=== PATIENT | male | born 1940 | race Caucasian/White ===

== ENCOUNTER 2021-07-13 12:36 | Inpatient (IN) ==
[2021-07-13 13:13] LABS: Influenza A virus by PCR Negative (Negative); Influenza B virus by PCR Negative (Negative)
--- NOTE | 2021-07-13 13:16 | XRay Report ---
XR chest 1V portable HISTORY: 81 years-old Male SOB acute shortness of breath with reported pneumonia COMPARISON: None TECHNIQUE: Portable AP view of the chest FINDINGS: Cardiac silhouette is enlarged. Layering pleural effusions with left greater than right bibasilar con solidation. Consolidative opacities are also noted within the left midlung. Interstitial coarsening w ith pulmonary vascular congestion. No pneumothorax. Degenerative changes of the shoulders and spine. IMPRESSION: 1. Cardiomegaly with pulmonary vascular congestion. 2. Layering pleural effusions with left greater than right bibasilar consolidation. ACT 112: Negative or not required by law. The above report was generated using voice recognition software. It may contain grammatical, syntax o r spelling errors. Electronically signed by: Alden Brock M.D. 07/13/2021 1:14 PM
--- NOTE | 2021-07-13 13:21 | Emergency Department Note ---
History of Present Illness General Chief Complaint: Respiratory Problems Stated Complaint: NEG FOR COVID - POSITIVE FOR PNEUMONIA Time Seen by Provider: 07/13/21 12:54 History of Present Illness Provider Complaint: shortness of breath Onset (ago): week(s) (3) Consistency/Duration: + progressively worsening Relieved By: + nothing Exacerbated By: + lying flat, + exertion and + coughing Associated symptoms: + cough, + sputum production and + chest congestion; no lower extremity pain, no paresthesias, no hemoptysis, no nausea/vomiting, no syncope, no abdominal pain, no sense of impending doom or no lightheadedness Treatment prior to arrival: oxygen HPI Narrative: Patient not vaccinated as COVID-19. Patient states he was tested for COVID-19 last week and [facility] and was negative. Related Data Home oxygen amount: none Home Medications Medication Instructions Recorded Confirmed Type carboxymethylcellulose sodium 1 % 1 drp OPB BID 07/13/21 07/13/21 History eye drops (Artificial Tears (carboxymethylcellulose)) dorzolamide 22.3 mg-timolol 6.8 1 drp OPB BID 07/13/21 07/13/21 History mg/mL eye drops insulin aspart U-100 100 unit/mL See Rx Instructions .ROUTE .COMPLEX 07/13/21 07/13/21 History subcutaneous solution (Novolog U-100 Insulin aspart) insulin detemir U-100 100 unit/mL 35 unit SUBCUT HS 07/13/21 07/13/21 History subcutaneous solution (Levemir U-100 Insulin) metformin 1,000 mg tablet 1,000 mg PO BID 07/13/21 07/13/21 History Allergies Allergy/AdvReac Type Severity Reaction Status Date / Time Riruczj-VFK-WnQ Reductase Allergy Unknown LEG Verified 07/13/21 14:42 Inhibitor WEAKNESS [Wbnqisf-Aho-Pmz Reductase Inhibitor] Past Med/Surg History Medical History (Updated 07/13/21 @ 14:35 by Alexis Cortes) Diabetes Hyperlipidemia No pertinent family history Surgical History (Updated 07/13/21 @ 13:18 by Alexis Cortes) No pertinent past surgical history Social History Smoking Status: Never smoker Preferred Language: Slovenian Feels Safe at Home: Yes Review of Systems A total of 10 systems reviewed and were otherwise negative Physical Exam Vital Signs: Vital Signs - 24 hr 07/13/21 12:39 07/13/21 12:47 Temperature 36.7 C Temperature Source Temporal Artery Sc an Pulse Rate 79 Pulse Rhythm Regular Pulse Strength Normal Respiratory Rate 20 Respiratory Effort / Characteristics Non-Labored Respiratory Depth Normal Respiratory Patter n Regular Blood Pressure 134/96 Blood Pressure Teresa n 108 Blood Pressure Pos ition Sitting Pulse Oximetry 89 L 89 L Oxygen Delivery Me thod Room Air Nasal Cannula Oxygen Flow Rate 0 Sepsis Recent Feve r Within 48 Hours No Sepsis New/Unexpla ined Change in Men chantale Status N/A Sepsis Action Take n by Nursing No Action Required Oxygen Flow Rate - Titration 2 Pulse Oximetry Pos t Tiitration 97 Physical Exam: Physical Exam GENERAL: He is oriented to person, place, and time. He appears well-developed and well-nourished. He does not appear distressed. HENT: Exam performed. - Head: Normocephalic and atraumatic. - Right Ear: External ear normal. No mastoid tenderness. - Left Ear: External ear normal. No mastoid tenderness. - Mouth/Throat: The oropharynx is clear and moist. No trismus in the jaw. No dental abscesses or uvula swelling. No oropharyngeal exudate or tonsillar abscesses. EYES: Conjunctivae and EOM are normal. Pupils are equal, round, and reactive to light. Right eye exhibits no discharge. Left eye exhibits no discharge. No scleral icterus. NECK: Normal range of motion. Neck supple. No JVD present. No spinous process tenderness present. No carotid bruit present. No rigidity. No tracheal deviation and normal range of motion present. No Brudzinski's sign and no Kernig's sign noted. CV: Normal rate, regular rhythm, normal heart sounds and intact distal pulses. Palpable radial pulses bue. PULM/CHEST: Rales and rhonchi bilaterally. ABD: The abdomen is soft. Bowel sounds are normal. He has no distension. No mass is present. There is no tenderness. There is no rebound, no guarding, no Parra's sign and no tenderness at McBurney's point. Rovsig negative. MUSC/SKEL: 2+ pitting edema of the bilateral lower extremities. NEURO: He is alert and oriented to person, place, and time. He has normal strength. No cranial nerve deficit or sensory deficit. Coordination and gait normal. GCS eye subscore is 4. GCS verbal subscore is 5. GCS motor subscore is 6. Cerebellar tests wnl. SKIN: Skin is warm and dry. He is not diaphoretic. PSYCH: He has a normal mood and affect. Behavior is normal. Judgment and thought content normal. Course Course 1254: The patient was evaluated in room A1. A complete history and physical exam was performed Cardiac monitoring: An order was placed for continuous cardiac monitoring. The monitor shows a rate of 80 with sinus rhythm Patient was found to be hypoxic on room air. Supplemental oxygen via nasal cannula was applied which improved the patient's oxygen saturation. 1433: Vital signs stable on supplemental oxygen via nasal cannula. Imaging shows cardiomegaly with bilateral pleural effusions and cephalization. Labs show an elevated proBNP and troponin. Patient not reporting any chest pain, thought that the patient's elevated troponin is due to CHF exacerbation. Patient has a normal white blood cell count. Less concern for pneumonia. Covid swab negative. Patient be admitted to the [facility]. Medical Decision Making Laboratory Data Result diagrams: 07/13/21 13:30 07/13/21 13:30 Lab Results 07/13/21 07/13/21 07/13/21 Range/Units 12:44 12:44 13:30 WBC 9.08 (4.8-10.8) K/uL RBC 4.93 (4.7-6.1) M/uL Hgb 15.3 (14.0-18.0) g/dL Hct 46.0 (42-52) % MCV 93.3 (80-100) fL MCH 31.0 (25-34) pg MCHC 33.3 (32-36) g/dL RDW Std Deviation 46.7 H (36.4-46.3) fL RDW Coeff of Emmanuel 13.8 (11.5-14.5) % Plt Count 195 (130-400) K/uL MPV 11.2 H (7.4-10.4) fL Immature Gran % (Auto) 0.2 % Neut % (Auto) 71.0 % Lymph % (Auto) 19.1 % Stokes % (Auto) 7.6 % Eos % (Auto) 1.7 % Baso % (Auto) 0.4 % Neut # (Auto) 6.45 (1.4-6.5) K/uL Lymph # (Auto) 1.73 (1.2-3.4) K/uL Stokes # (Auto) 0.69 H (0.11-0.59) K/uL Eos # (Auto) 0.15 (0-0.5) K/uL Baso # (Auto) 0.04 (0-0.2) K/uL Immature Gran # (Auto) 0.02 (0.00-0.02) K/uL PT (9.0-12.0) Seconds INR (0.9-1.1) APTT (21.0-31.0) Seconds PTT Ratio VBG pH (7.36-7.41) VBG pCO2 (38-50) mmHg VBG pO2 mmHg VBG HCO3 mmol/L VBG O2 Saturation % VBG Base Excess mEq/L Barometric Pressure mm/Hg Sodium (136-145) mmol/L Potassium (3.5-5.1) mmol/L Chloride (98-107) mmol/L Carbon Dioxide (21-32) mmol/L Anion Gap (3-11) BUN (7-18) mg/dl Creatinine (0.6-1.4) mg/dl Est Cr Clr Drug Dosing Est GFR ( Amer) ml/min Est GFR (Non-Af Amer) ml/min BUN/Creatinine Ratio (10-20) Glucose (70-99) mg/dl Lactate (0.4-2.0) mmol/L Calcium (8.5-10.1) mg/dl Magnesium (1.8-2.4) mg/dl Total Bilirubin (0.2-1) mg/dl AST (15-37) U/L ALT (12-78) U/L Alkaline Phosphatase (45-117) U/L Troponin I (0-0.045) ng/ml NT-Pro-B Natriuret Pep (0-1800) pg/ml Total Protein (6.4-8.2) gm/dl Albumin (3.4-5.0) gm/dl Globulin (2.5-4.0) gm/dl Albumin/Globulin Ratio (0.9-2) Lipase (73-393) U/L SARS-CoV-2 (PCR) NEGATIVE (Negative) Influ A Molecular Assay Negative (Negative) Influ B Molecular Assay Negative (Negative) 07/13/21 07/13/21 07/13/21 Range/Units 13:30 13:30 13:33 WBC (4.8-10.8) K/uL RBC (4.7-6.1) M/uL Hgb (14.0-18.0) g/dL Hct (42-52) % MCV (80-100) fL MCH (25-34) pg MCHC (32-36) g/dL RDW Std Deviation (36.4-46.3) fL RDW Coeff of Emmanuel (11.5-14.5) % Plt Count (130-400) K/uL MPV (7.4-10.4) fL Immature Gran % (Auto) % Neut % (Auto) % Lymph % (Auto) % Stokes % (Auto) % Eos % (Auto) % Baso % (Auto) % Neut # (Auto) (1.4-6.5) K/uL Lymph # (Auto) (1.2-3.4) K/uL Stokes # (Auto) (0.11-0.59) K/uL Eos # (Auto) (0-0.5) K/uL Baso # (Auto) (0-0.2) K/uL Immature Gran # (Auto) (0.00-0.02) K/uL PT 10.3 (9.0-12.0) Seconds INR 1.0 (0.9-1.1) APTT 25.3 (21.0-31.0) Seconds PTT Ratio 1.0 VBG pH (7.36-7.41) VBG pCO2 (38-50) mmHg VBG pO2 mmHg VBG HCO3 mmol/L VBG O2 Saturation % VBG Base Excess mEq/L Barometric Pressure mm/Hg Sodium 143 (136-145) mmol/L Potassium 4.0 (3.5-5.1) mmol/L Chloride 108 H (98-107) mmol/L Carbon Dioxide 27 (21-32) mmol/L Anion Gap 8.0 (3-11) BUN 17 (7-18) mg/dl Creatinine 1.29 (0.6-1.4) mg/dl Est Cr Clr Drug Dosing Not Reportable Est GFR ( Amer) 59.0 ml/min Est GFR (Non-Af Amer) 50.9 ml/min BUN/Creatinine Ratio 12.8 (10-20) Glucose 172 H (70-99) mg/dl Lactate 1.7 (0.4-2.0) mmol/L Calcium 9.7 (8.5-10.1) mg/dl Magnesium 2.2 (1.8-2.4) mg/dl Total Bilirubin 0.8 (0.2-1) mg/dl AST 14 L (15-37) U/L ALT 17 (12-78) U/L Alkaline Phosphatase 90 (45-117) U/L Troponin I 0.047 H* (0-0.045) ng/ml NT-Pro-B Natriuret Pep 6077 H (0-1800) pg/ml Total Protein 7.9 (6.4-8.2) gm/dl Albumin 3.1 L (3.4-5.0) gm/dl Globulin 4.8 H (2.5-4.0) gm/dl Albumin/Globulin Ratio 0.6 L (0.9-2) Lipase 72 L (73-393) U/L SARS-CoV-2 (PCR) (Negative) Influ A Molecular Assay (Negative) Influ B Molecular Assay (Negative) 07/13/21 Range/Units 13:44 WBC (4.8-10.8) K/uL RBC (4.7-6.1) M/uL Hgb (14.0-18.0) g/dL Hct (42-52) % MCV (80-100) fL MCH (25-34) pg MCHC (32-36) g/dL RDW Std Deviation (36.4-46.3) fL RDW Coeff of Emmanuel (11.5-14.5) % Plt Count (130-400) K/uL MPV (7.4-10.4) fL Immature Gran % (Auto) % Neut % (Auto) % Lymph % (Auto) % Stokes % (Auto) % Eos % (Auto) % Baso % (Auto) % Neut # (Auto) (1.4-6.5) K/uL Lymph # (Auto) (1.2-3.4) K/uL Stokes # (Auto) (0.11-0.59) K/uL Eos # (Auto) (0-0.5) K/uL Baso # (Auto) (0-0.2) K/uL Immature Gran # (Auto) (0.00-0.02) K/uL PT (9.0-12.0) Seconds INR (0.9-1.1) APTT (21.0-31.0) Seconds PTT Ratio VBG pH 7.37 (7.36-7.41) VBG pCO2 53 H (38-50) mmHg VBG pO2 19 mmHg VBG HCO3 30 mmol/L VBG O2 Saturation < 60.0 % VBG Base Excess 3.6 mEq/L Barometric Pressure 739.1 mm/Hg Sodium (136-145) mmol/L Potassium (3.5-5.1) mmol/L Chloride (98-107) mmol/L Carbon Dioxide (21-32) mmol/L Anion Gap (3-11) BUN (7-18) mg/dl Creatinine (0.6-1.4) mg/dl Est Cr Clr Drug Dosing Est GFR ( Amer) ml/min Est GFR (Non-Af Amer) ml/min BUN/Creatinine Ratio (10-20) Glucose (70-99) mg/dl Lactate (0.4-2.0) mmol/L Calcium (8.5-10.1) mg/dl Magnesium (1.8-2.4) mg/dl Total Bilirubin (0.2-1) mg/dl AST (15-37) U/L ALT (12-78) U/L Alkaline Phosphatase (45-117) U/L Troponin I (0-0.045) ng/ml NT-Pro-B Natriuret Pep (0-1800) pg/ml Total Protein (6.4-8.2) gm/dl Albumin (3.4-5.0) gm/dl Globulin (2.5-4.0) gm/dl Albumin/Globulin Ratio (0.9-2) Lipase (73-393) U/L SARS-CoV-2 (PCR) (Negative) Influ A Molecular Assay (Negative) Influ B Molecular Assay (Negative) Imaging Data Radiologist's Impression: Chest X-Ray 07/13/21 12:42 XR chest 1V portable HISTORY: 81 years-old Male SOB acute shortness of breath with reported pneumonia COMPARISON: None TECHNIQUE: Portable AP view of the chest FINDINGS: Cardiac silhouette is enlarged. Layering pleural effusions with left greater than right bibasilar consolidation. Consolidative opacities are also noted within the left midlung. Interstitial coarsening with pulmonary vascular congestion. No pneumothorax. Degenerative changes of the shoulders and spine. IMPRESSION: 1. Cardiomegaly with pulmonary vascular congestion. 2. Layering pleural effusions with left greater than right bibasilar consolidation. ACT 112: Negative or not required by law. The above report was generated using voice recognition software. It may contain grammatical, syntax or spelling errors. Electronically signed by: Alden Brock M.D. 07/13/2021 1:14 PM ECG Data Interpretation: Sinus rhythm with rate of 76. OR 204 QRS [address] elevation or ST depression. First-degree AV block present. T wave inversion in leads V5 V6. [facility] Narrative 1254: The patient was evaluated in room A1. A complete history and physical exam was performed Cardiac monitoring: An order was placed for continuous cardiac monitoring. The monitor shows a rate of 80 with sinus rhythm Patient was found to be hypoxic on room air. Supplemental oxygen via nasal cannula was applied which improved the patient's oxygen saturation. 1433: Vital signs stable on supplemental oxygen via nasal cannula. Imaging shows cardiomegaly with bilateral pleural effusions and cephalization. Labs show an elevated proBNP and troponin. Patient not reporting any chest pain, thought that the patient's elevated troponin is due to CHF exacerbation. Patient has a normal white blood cell count. Less concern for pneumonia. Covid swab negative. Patient be admitted to the [facility] Dr. Saucedo. Impression & Plan Hypoxia, Acute exacerbation of CHF (congestive heart failure) Critical Care Time Critical Care Time: Yes Total Critical Care Time: 43 I have personally spent greater than 43 minutes of critical care time in the direct management of this patient. This includes bedside care, interpretation of diagnostic studies, and testing, discussion with consultants, patient, and family members, and other required patient management activities. This 43 mi nutes is in excess of all separately billable procedures. Discharge Plan Visit Data Chief Complaint: Respiratory Problems Stated Complaint: NEG FOR COVID - POSITIVE FOR PNEUMONIA ED Provider: Alexis Cortes Discharge Problem: Hypoxia, Acute exacerbation of CHF (congestive heart failure) Patient Disposition: Admitted As Inpatient Forms Stand Alone Forms: My [facility] Prescriptions Prescriptions: No Action insulin aspart U-100 [Novolog U-100 Insulin aspart] 100 unit/mL solution See Rx Instructions .ROUTE .COMPLEX RF: 0 metformin 1,000 mg tablet 1,000 mg PO BID RF: 0 dorzolamide-timolol 22.3-6.8 mg/mL drops 1 drp OPB BID RF: 0 Levemir U-100 Insulin 100 unit/mL solution 35 unit SUBCUT HS RF: 0 Artificial Tears (cmc) 1 % Drops 1 drp OPB BID RF: 0 Referrals Referrals: PCP,NO [Physician] - Discharge Problem: Acute exacerbation of CHF (congestive heart failure) Qualifiers: Heart failure type: unspecified Qualified Code(s): I50.9 - Heart failure, unspecified
[2021-07-13 13:42] LABS: Basophils # (auto) 0.04 K/uL (0-0.2); Basophils % (auto) 0.4 %; Eosinophils # (auto) 0.15 K/uL (0-0.5); Eosinophils % (auto) 1.7 %; Hemoglobin 15.3 g/dL (14.0-18.0); Immature Granulocytes # (auto) 0.02 K/uL (0.00-0.02); Immature Granulocytes % (auto) 0.2 %; Lymphocytes # (auto) 1.73 K/uL (1.2-3.4); Lymphocytes % (auto) 19.1 %; Mean Corpuscular Hgb Conc 33.3 g/dL (32-36); Mean Corpuscular Volume 93.3 fL (80-100); Mean Platelet Volume 11.2 fL (7.4-10.4); Monocytes # (auto) 0.69 K/uL (0.11-0.59); Monocytes % (auto) 7.6 %; Neutrophils # (auto) 6.45 K/uL (1.4-6.5); Platelet Count 195 K/uL (130-400); RDW Coefficient of Variation 13.8 % (11.5-14.5); RDW Standard Deviation 46.7 fL (36.4-46.3); Red Blood Count 4.93 M/uL (4.7-6.1); White Blood Count 9.08 K/uL (4.8-10.8)
[2021-07-13 13:54] LABS: Partial Thromboplastin Time 25.3 Seconds (21.0-31.0); Prothrombin Time 10.3 Seconds (9.0-12.0)
[2021-07-13 13:55] LABS: Base Excess VBG 3.6 mEq/L; HCO3 VBG 30 mmol/L; Oxygen Saturation VBG < 60.0 %; PCO2 VBG 53 mmHg (38-50); PO2 VBG 19 mmHg; pH VBG 7.37 (7.36-7.41)
[2021-07-13 14:07] LABS: Alanine Aminotransferase 17 U/L (12-78); Albumin Level 3.1 gm/dl (3.4-5.0); Aspartate Aminotransferase 14 U/L (15-37); BUN Creatinine Ratio 12.8 (10-20); Blood Urea Nitrogen 17 mg/dl (7-18); Calcium 9.7 mg/dl (8.5-10.1); Carbon Dioxide 27 mmol/L (21-32); Chloride 108 mmol/L (98-107); Est GFR (Non-African American) 50.9 ml/min; Glucose 172 mg/dl (70-99); Lipase 72 U/L (73-393); Magnesium 2.2 mg/dl (1.8-2.4); Sodium 143 mmol/L (136-145)
[2021-07-13 14:19] LABS: Albumin Globulin Ratio 0.6 (0.9-2); Alkaline Phosphatase 90 U/L (45-117); Bilirubin,Total 0.8 mg/dl (0.2-1); Globulin 4.8 gm/dl (2.5-4.0); NT Pro B Type Natriuretic Pept 6077 pg/ml (0-1800); Total Protein 7.9 gm/dl (6.4-8.2); Troponin I 0.047 ng/ml (0-0.045)
[2021-07-13] MEDS ORDERED: FUROSEMIDE 40 MG/4 ML VIAL IV ONE (14:21)
--- NOTE | 2021-07-13 14:56 | History & Physical Report ---
Date of Service July 13, 2021 Assessment & Plan (1) Hypoxia: (2) Fluid overload: (3) Pneumonia: Plan: Patient is 81-year-old male with PMH insulin-dependent DM II presented to ER with c/o SOB with exertion x 3 weeks. Mild nonproductive cough. Increased BLE edema. No fever/chills. Denies known cardiac history. In ER patient afebrile, hypoxic at 89% on room air up to 95% on 2L oxygen via NC, other vitals stable. No leukocytosis, lactate WNL, troponin: 0.047, BNP: 6077, negative COVID-19 PCR. CXR: Pulmonary vascular congestion, pleural effusions, bibasilar consolidation In ER was given Lasix 40 mg IV Fluid overload. Unknown CHF history Community-acquired pneumonia -Obtain procalcitonin -Blood cultures pending -Rocephin, azithromycin -Monitor I's and O's, daily weight, low-sodium diet -Lasix 20 mg IV daily -Echo -Supplemental oxygen -CBC, BMP in a.m. (4) Elevated troponin: Plan: Possible demand ischemia Troponin: 0.047. EKG sinus rhythm, Q waves septal leads, T wave inversion inferior and lateral leads. No prior EKG to compare Denies chest pain R/O ACS -Repeat EKG in am -Trend troponin -Echo -lipid panel in am -Consider cardiology consult if increasing troponin, EKG changes or chest pain (5) Insulin dependent diabetes mellitus: Plan: DM II -Unknown baseline A1c -Patient prescribed 80 units Levemir at bedtime however has been taking around 20 to 30 units in the morning. Is prescribed NovoLog with meals however he reports has not been using -Diabetic diet -Monitor BSG's -Basal bolus insulin per protocol. May need to adjust insulin -A1c in a.m. DVT Prophylaxis -Heparin SQ Full Code as per discussion with pt Follows with Dr Samir Hernandez in [place] for routine care Pt was seen and care coordinated with Dr Avila. See addendum History of Present Illness Chief Complaint: SOB Primary Care Provider: Samir Hernandez Patient is 81-year-old male with PMH insulin-dependent DM II presented to ER with c/o SOB. Patient reports 3 weeks ago started with some mild SOB. SOB increased and called PCP and was given prescription for zithromax on 07/03/21. He reports he finished this without any improvement. Past several days with incre ased SOB with exertion. States has slight nonproductive cough. Denies fever/chills or ill contacts. States noticed increased BLE edema past several days and has decreased appetite. Feels abdomen looks larger. Has had decreased appetite past week or so. No other prior treatment. Has not received COVID-19 vaccine. He is prescribed Levemir 80 units at bedtime, however patient reports has been using 20-30 units of Levemir in the morning. He is prescribed NovoLog 8 units at breakfast, 12 units at lunch and supper however patient reports has not been using that. Denies fever/chills, diaphoresis, N/V/D/C, LANDA, dizziness, syncope, vision changes, neck pain, CP, orthopnea, palpitations, sore throat, choking, otalgia, rhinorrhea, abdominal pain, extremity weakness, extremity edema, rashes, urinary symptoms. In ER patient afebrile, hypoxic at 89% on room air up to 95% on 2L via NC, other vitals stable. No leukocytosis, lactate WNL, troponin: 0.047, BNP: 6077, negative COVID-19 PCR. CXR: Pulmonary vascular congestion, pleural effusions, bibasilar consolidation In ER was given Lasix 40 mg IV Allergies Allergy/AdvReac Type Severity Reaction Status Date / Time Xbrpwog-NWB-VfF Reductase Allergy Unknown LEG Verified 07/13/21 14:42 Inhibitor WEAKNESS [Tncnqhr-Mnh-Pfw Reductase Inhibitor] Home Medications Medication Instructions Recorded Confirmed Type carboxymethylcellulose sodium 1 % 1 drp OPB BID 07/13/21 07/13/21 History eye drops (Artificial Tears (carboxymethylcellulose)) dorzolamide 22.3 mg-timolol 6.8 1 drp OPB BID 07/13/21 07/13/21 History mg/mL eye drops insulin aspart U-100 100 unit/mL See Rx Instructions .ROUTE .COMPLEX 07/13/21 07/13/21 History subcutaneous solution (Novolog U-100 Insulin aspart) insulin detemir U-100 100 unit/mL 80 unit SUBCUT HS 07/13/21 07/13/21 History subcutaneous solution (Levemir U-100 Insulin) metformin 1,000 mg tablet 1,000 mg PO BID 07/13/21 07/13/21 History Past Med/Surg History Medical History (Updated 07/13/21 @ 16:00 by Danielle Norton PA-C) Hyperlipidemia Insulin dependent diabetes mellitus Surgical History (Updated 07/13/21 @ 15:51 by Danilele Norton PA-C) History of carpal tunnel surgery History of cataract surgery Family History (Updated 07/13/21 @ 15:51 by Danielle Norton PA-C) Other Diabetes Social History (Updated 07/13/21 @ 15:51 by Danielle Norton PA-C) Smoking Status: Never smoker Hx Alcohol Use: No Hx Substance Use: No Preferred Language: German Feels Safe at Home: Yes Review of Systems Review of Systems: All systems reviewed & are unremarkable except as noted in HPI & below Physical Exam Physical Exam: General: no distress, obese Head: normocephalic, atraumatic Eyes: conjunctiva non-injected, anicteric ENT: hard of hearing, normal inspection external ears, nose, mucous membranes moist Neck: supple, trachea midline Lungs: +rales bases, right greater than left, no respiratory distress on 2L nasal cannula with sat of 96%, able to speak in full sentences CV: RRR, no murmur, 2+ pretibial edema Abd: distended, normal BS, soft, non-tender Ext: no cyanosis, no erythema Neuro: A&O x 3, no focal deficits noted, normal affect Skin: warm, dry Results & Data Results & Data ([facility]) Vital Signs (Past 12 Hours) Vital Signs Temp Pulse Resp BP Pulse Ox 07/13/21 12:47 89 L 07/13/21 12:39 36.7 C 79 20 134/96 89 L Laboratory Results Short CBC 07/13/21 Range/Units 13:30 WBC 9.08 (4.8-10.8) K/uL Hgb 15.3 (14.0-18.0) g/dL Hct 46.0 (42-52) % Plt Count 195 (130-400) K/uL BMP 07/13/21 13:30 Sodium 143 Potassium 4.0 Chloride 108 H Carbon Dioxide 27 BUN 17 Creatinine 1.29 Glucose 172 H Calcium 9.7 Cardiac Enzymes 07/13/21 Range/Units 13:30 Troponin I 0.047 H* (0-0.045) ng/ml Liver Function 07/13/21 Range/Units 13:30 Total Bilirubin 0.8 (0.2-1) mg/dl AST 14 L (15-37) U/L ALT 17 (12-78) U/L Alkaline Phosphatase 90 (45-117) U/L Albumin 3.1 L (3.4-5.0) gm/dl Diagnostic Findings Chest X-Ray 07/13/21 12:42 XR chest 1V portable HISTORY: 81 years-old Male SOB acute shortness of breath with reported pneumonia COMPARISON: None TECHNIQUE: Portable AP view of the chest FINDINGS: Cardiac silhouette is enlarged. Layering pleural effusions with left greater than right bibasilar consolidation. Consolidative opacities are also noted within the left midlung. Interstitial coarsening with pulmonary vascular congestion. No pneumothorax. Degenerative changes of the shoulders and spine. IMPRESSION: 1. Cardiomegaly with pulmonary vascular congestion. 2. Layering pleural effusions with left greater than right bibasilar consolidation. ACT 112: Negative or not required by law. The above report was generated using voice recognition software. It may contain grammatical, syntax or spelling errors. Electronically signed by: Alden Brock M.D. 07/13/2021 1:14 PM ECG Rate (beats per minute): 76 Rhythm: sinus rhythm Findings: + Q waves (Septal) and + T-wave inversion (Inferior, lateral ) Supervising Physician Co-Signing Physician Notes Pt is a 81 y/o M with hx of IDDM admitted for hypoxia and SOB. -At bedside pt denied any hx of MN, HF, CAD or DVT/PE. Denied any hx of smoking, Asthma/COPD. Exam: -NAD, NC in place -Lungs: good air entry b/l with b/l lower lobe rales -Cards: Normal S1/S2, possible systolic murmur -Abd: Mildly distended, NT, soft -MSK: b/l moderate pitting edema of LE -Psych: AAOx3. A/P: Hypoxia: -CAP + ADHF - CAP: Ceftriaxone and Azithro due to b/l lung finding ---- procal, COVID neg -ADHF: Echo, will start the pt on Lasix 20mg IV daily - strict I/O and daily weights - cardiology consult Troponemia: -denied any symptoms -trend trop -echo - if trop trends up then start the pt on heparin gtt Agree with A/P by Danielle Norton PA-C
[2021-07-13] MEDS ORDERED: AZITHROMYCIN 500 MG in DEXTROSE 5% 250 ML IV STA (15:32)
[2021-07-13] MEDS ORDERED: cefTRIAXone SODIUM 1,000 MG/50 ML BAG IV STA (15:32)
[2021-07-13] MEDS ORDERED: GLUCOSE 10 TABS/TUBE PO PRN (18:29)
[2021-07-13] MEDS ORDERED: DEXTROSE 50% 50 ML SYRINGE IV PRN (18:29)
[2021-07-13] MEDS ORDERED: ACETAMINOPHEN 325 MG TAB PO PRN (18:29)
[2021-07-13] MEDS ORDERED: CARBOHYDRATES FOR HYPOGLYCEMIA PO PRN (18:29)
[2021-07-13] MEDS ORDERED: GLUCAGON FOR INJ 1 MG VIAL SQ PRN (18:29)
[2021-07-13] MEDS ORDERED: GLUCOSE 40% GEL 15 GM TUBE PO PRN (18:29)
--- NOTE | 2021-07-13 18:48 | Electrocardiogram Report ---
Test Reason : Blood Pressure : / mmHG Vent. Rate : 076 BPM Atrial Rate : 076 BPM P-R Int : 204 ms QRS Dur : 084 ms QT Int : 398 ms P-R-T Axes : 041 -03 184 degrees QTc Int : 447 ms Normal sinus rhythm Left atrial enlargement Septal infarct , age undetermined Left ventricular hypertrophy with repolarization abnormality Abnormal ECG When compared with ECG of 12-JAN-1998 13:52, Septal infarct is now Present Left ventricular hypertrophy with repolarization abnormality now present Confirmed by Juan Daniel Mchugh ([id number]) on 07/13/2021 6:48:20 PM Referred By: Confirmed By:Juan Daniel Mchugh
[2021-07-13] MEDS ORDERED: PATIENT'S HEIGHT AND/OR WEIGHT NEEDED SCH (19:00)
[2021-07-13] MEDS ORDERED: cefTRIAXone SODIUM 1,000 MG in DEXTROSE 5% 50 ML IV ONE (19:45)
[2021-07-13] MEDS: INSULIN ASPART 100 UNITS/ML 3 ML PEN SC SCH ×2 (20:53→21:46)
[2021-07-13] MEDS: DORZOLAMIDE/TIMOLOL 22.3/6.8MG/ML 10 ML BTL OPB SCH (21:45)
[2021-07-13] MEDS: HEPARIN SOD 5,000 UNIT/0.5 ML VIAL SQ SCH (21:47)
[2021-07-13] MEDS: INSULIN GLARGINE SOLOSTAR 100 UNITS/ML 3 ML PEN SC SCH (21:47)
[2021-07-13] MEDS: ARTIFICIAL TEARS OP SCH (21:47)
[2021-07-14 07:42] LABS: Hematocrit (blood only) 42.3 % (42-52); Hemoglobin 14.1 g/dL (14.0-18.0); Mean Corpuscular Hemoglobin 31.1 pg (25-34); Mean Corpuscular Hgb Conc 33.3 g/dL (32-36); Mean Corpuscular Volume 93.4 fL (80-100); Platelet Count 182 K/uL (130-400); RDW Coefficient of Variation 13.9 % (11.5-14.5); RDW Standard Deviation 47.4 fL (36.4-46.3); Red Blood Count 4.53 M/uL (4.7-6.1); White Blood Count 7.85 K/uL (4.8-10.8)
[2021-07-14 08:17] LABS: BUN Creatinine Ratio 15.2 (10-20); Creatinine Clr Calc Pharmacy 64.8 ml/min; Est GFR (African American) 76.6 ml/min; Est GFR (Non-African American) 66.1 ml/min; Potassium 3.6 mmol/L (3.5-5.1)
[2021-07-14] MEDS: INSULIN ASPART 100 UNITS/ML 3 ML PEN SC SCH ×4 (08:45→20:33)
[2021-07-14] MEDS: AZITHROMYCIN 500 MG in DEXTROSE 5% 250 ML IV SCH (08:45)
[2021-07-14] MEDS: INSULIN GLARGINE SOLOSTAR 100 UNITS/ML 3 ML PEN SC SCH ×2 (08:47→20:33)
[2021-07-14] MEDS: DORZOLAMIDE/TIMOLOL 22.3/6.8MG/ML 10 ML BTL OPB SCH ×2 (08:47→20:28)
[2021-07-14] MEDS: ARTIFICIAL TEARS OP SCH ×2 (08:47→20:28)
[2021-07-14] MEDS: HEPARIN SOD 5,000 UNIT/0.5 ML VIAL SQ SCH ×2 (08:48→20:36)
[2021-07-14 11:09] LABS: Estimated Average Glucose 160 mg/dl; Hemoglobin A1C 7.2 % (4.5-5.6)
--- NOTE | 2021-07-14 19:30 | Hospitalist Progress Note ---
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 No fever/chills. Denies known cardiac history. Is being managed for the following: #. Acute hypoxic respiratory failure #. Fluid overload: #. Pneumonia: L>R bibasilar consolidation in admitting CXR #. Acute systolic heart failure #. Pleural effusion - layering Pl. Eff in Admitting CXR, c/t monitor, lasix. In ER patient afebrile, hypoxic at 89% on room air up to 95% on 2L oxygen via NC, other vitals stable. No leukocytosis, lactate WNL, troponin: 0.047, BNP: 6077, negative COVID-19 PCR. CXR: Pulmonary vascular congestion, pleural effusions, bibasilar consolidation In ER was given Lasix 40 mg IV 07/14 echo: Severely reduced LV systolic function with severe global hypokinesis, EF 20 to 25%, grade 2 diastolic dysfunction, severe aortic stenosis. Cardiology consulted, await recommendation For community-acquired pneumonia, continue with antibiotic [Rocephin and Zithromax 07/13], WBC trending down, patient afebrile. Patient will need follow-up chest x-ray in 4 to 6 weeks to document resolution of pneumonia. Await blood cultures. For acute systolic heart failure: Monitor I's and O's, await cardiology recommendation, Lasix. Continue with supplemental oxygen, titrate as appropriate, monitor daily electrolytes and labs. #. Elevated troponin: Possible demand ischemia Troponin: 0.047. Admitting EKG sinus rhythm, Q waves septal leads, T wave inversion inferior and lateral leads. No prior EKG to compare Denies chest pain R/O ACS -troponin down trended to normal Lipid panel WNL #. Insulin dependent diabetes mellitus II: -Unknown baseline A1c -Patient prescribed 80 units Levemir at bedtime however has been taking around 20 to 30 units in the morning. Is prescribed NovoLog with meals however he reports has not been using -Diabetic diet -Monitor BSG's -Basal bolus insulin per protocol. May need to adjust insulin -A1c to follow DVT Prophylaxis -Heparin SQ Full Code as per discussion with pt Follows with Dr Samir Hernandez in [place] for routine care. Disposition: Likely discharge in 1 to 2 days, PT/OT, CM to assist with DC planning. Admission and Anticipated Discharge Date Admission Date: July 13, 2021 Subjective Patient was lying in bed, on 1 L nasal cannula oxygen, NAD, no acute events overnight. Patient reports eating okay. Patient reports feeling short of b reath relieved with oxygen. Patient denies fever/headache/chest pain/palpitation/other review of symptoms. Physical Exam Physical Exam: GENERAL: Alert and oriented x3. NAD, on 1L. HEENT: No pallor, no icterus. Pupils equal, round and reactive to light. Oral mucosa moist. NECK: No JVD, no neck masses. HEART: S1 and S2 heard. Regular rate and rhythm. No murmur, no gallop. RESPIRATORY SYSTEM: Normal AP diameter. No accessory muscle use. No wheezing, b/l crackles with decreased bibasal sounds. ABDOMEN: Soft, bowel sounds present, nontender, no distention. CENTRAL NERVOUS SYSTEM: No facial droop. Speech is clear. Obeys simple commands. Moves extremities. EXTREMITIES: 1+ edema, no erythema seen. Results & Data Results & Data ([facility]) Vital Signs (Past 12 Hours) Vital Signs Temp Pulse Pulse Pulse Pulse Pulse Pulse 07/14/21 18:32 36.5 C 97 H 07/14/21 15:48 36.4 C L 107 H 07/14/21 15:00 84 07/14/21 14:00 92 H 93 H 90 102 H 07/14/21 11:14 36.5 C 73 07/14/21 07:22 36.6 C 75 Pulse Resp Resp Resp Resp Resp Resp 07/14/21 18:32 16 07/14/21 15:48 16 07/14/21 15:00 07/14/21 14:00 83 22 22 22 20 18 07/14/21 11:14 16 07/14/21 07:22 16 BP Pulse Ox Pulse Ox Pulse Ox Pulse Ox Pulse Ox Pulse Ox 07/14/21 18:32 148/88 H 94 07/14/21 15:48 161/87 H 94 07/14/21 15:00 07/14/21 14:00 88 L 94 84 L 89 L 90 07/14/21 11:14 126/80 92 07/14/21 07:22 145/86 H 94
[2021-07-14] MEDS: cefTRIAXone SODIUM 2,000 MG in DEXTROSE 5% 50 ML IV SCH (20:28)
[2021-07-15] MEDS: DORZOLAMIDE/TIMOLOL 22.3/6.8MG/ML 10 ML BTL OPB SCH ×2 (08:13→20:42)
[2021-07-15] MEDS: INSULIN GLARGINE SOLOSTAR 100 UNITS/ML 3 ML PEN SC SCH ×2 (08:14→20:46)
[2021-07-15] MEDS: ARTIFICIAL TEARS OP SCH ×2 (08:15→20:42)
[2021-07-15] MEDS: INSULIN ASPART 100 UNITS/ML 3 ML PEN SC SCH ×4 (08:17→20:46)
[2021-07-15] MEDS: AZITHROMYCIN 500 MG in DEXTROSE 5% 250 ML IV SCH (08:25)
[2021-07-15] MEDS ORDERED: FUROSEMIDE 40 MG/4 ML VIAL IV SCH (09:00)
[2021-07-15 09:33] LABS: BUN Creatinine Ratio 15.6 (10-20); Calcium 8.8 mg/dl (8.5-10.1); Creatinine Clr Calc Pharmacy 72.5 ml/min; Est GFR (African American) 87.7 ml/min; Est GFR (Non-African American) 75.7 ml/min; Magnesium 2.1 mg/dl (1.8-2.4); Potassium 3.8 mmol/L (3.5-5.1)
[2021-07-15 09:34] LABS: Phosphorus 3.1 mg/dl (2.5-4.9)
[2021-07-15] MEDS: HEPARIN SOD 5,000 UNIT/0.5 ML VIAL SQ SCH ×2 (12:26→20:44)
--- NOTE | 2021-07-15 12:43 | Cardiology Consultation ---
Date of Consultation July 15, 2021 Assessment & Plan (1) Acute respiratory failure with hypoxia: (2) Acute systolic heart failure: (3) Elevated troponin: (4) Pneumonia: (5) Aortic stenosis: Low gradient severe aortic stenosis Mr. Arriaga presents in acute decompensated systolic heart failure. My assumption at this point this is due to severe aortic stenosis that is gone undiagnosed. The stenosis is critical by examination given the fact that S2 is no longer audible Severely reduced LV systolic function with an EF of 20 to 25%. At this point, I believe the most prudent course of action will be to start guideline directed medical therapy. To that end I will start him on metoprolol succinate and spironolactone. He is already been started on low-dose lisinopril and I will increase his Lasix to 40 mg IV twice daily. Strict I's and O's along with daily weights on the same scale. Will require CHF teaching prior to discharge. We will continue to follow the patient closely during his hospital stay and further recommendations to follow. History of Present Illness Reason for Consultation: CHF Requesting Physician: Nicholas Attending Physician: Giovanny Peterson MD History of Present Illness Mr. Arriaga is a very pleasant 81-year-old gentleman who is never been seen within the [employer] system previously. He presented to [facility] emergency department on 07/14/2021 with complaints of shortness of breath. He states his he first noticed difficulty breathing approximately 1 month ago.He states that his breathing has progressed to the point where he is now getting short of breath at rest. He was seen by his P CP on 07/03/2021 and given a prescription for a Z-Uriel. He states he not see any benefit with this medication. He also notes increasing lower extremity edema and a decreasing appetite. But denies chest pain or palpitations. He denies any cardiac history. He states he is never been told he had a murmur before and sees his PCP regularly. Allergies Allergy/AdvReac Type Severity Reaction Status Date / Time Wvqstre-XPU-RbG Reductase Allergy Unknown LEG Verified 07/13/21 14:42 Inhibitor WEAKNESS [Myujxns-Aiv-Jsq Reductase Inhibitor] Home Medications Medication Instructions Recorded Confirmed Type carboxymethylcellulose sodium 1 % 1 drp OPB BID 07/13/21 07/13/21 History eye drops (Artificial Tears (carboxymethylcellulose)) dorzolamide 22.3 mg-timolol 6.8 1 drp OPB BID 07/13/21 07/13/21 History mg/mL eye drops insulin aspart U-100 100 unit/mL See Rx Instructions .ROUTE .COMPLEX 07/13/21 07/13/21 History subcutaneous solution (Novolog U-100 Insulin aspart) insulin detemir U-100 100 unit/mL 80 unit SUBCUT HS 07/13/21 07/13/21 History subcutaneous solution (Levemir U-100 Insulin) metformin 1,000 mg tablet 1,000 mg PO BID 07/13/21 07/13/21 History Patient History Medical History Hyperlipidemia Insulin dependent diabetes mellitus Surgical History History of carpal tunnel surgery History of cataract surgery Family History Other Diabetes Social History Smoking Status: Never smoker Hx Alcohol Use: No Hx Substance Use: No Preferred Language: Yi Communication Ability: Effective 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 No acute distress. HEENT: Normocephalic, atraumatic. Pupils equal, round and reactive to light and accommodation. Extraocular muscles are intact. Anicteric sclera. Moist mucous membranes. Neck: No JVD. No bruit. Cardiovascular: Regular. Positive S-4. Normal S-1 and S-2 is not present No S-3. 3/6 mid to late systolic ejection murmur, greatest at the right sternal border, second intercostal space with radiation to the bilateral carotids. No rubs. Pulmonary: Clear to auscultation bilaterally. No rales, rhonchi, or wheezing. Abdomen: Bowel sounds x 4, soft. No rebound, guarding or tenderness. No organomegaly. Extremities: No clubbing, cyanosis or edema. +2 pedal pulses bilaterally. Skin: Warm and dry. Results & Data ([facility]) Vital Signs (Past 12 Hours) Vital Signs Temp Pulse Pulse Resp BP Pulse Ox Pulse Ox 07/15/21 09:46 89 L 07/15/21 07:36 74 07/15/21 07:07 36.4 C L 70 18 163/88 H 94 07/15/21 02:38 36.5 C 77 18 158/92 H 94
[2021-07-15] MEDS: METOPROLOL SUCC 25MG EXT REL TAB PO SCH ×2 (15:17→20:50)
[2021-07-15] MEDS: SPIRONOLACTONE 12.5 MG TAB PO SCH (15:18)
[2021-07-15] MEDS: lisinopril 5 MG TAB PO SCH (15:18)
--- NOTE | 2021-07-15 16:22 | Hospitalist Progress Note ---
Date of Service July 15, 2021 Assessment & Plan (1) Acute systolic heart failure: (2) Acute respiratory failure with hypoxia: Plan: 81-year-old male with PMH of insulin-dependent DM II presented to ER 07/13 with c/o SOB with exertion x 3 weeks [employer] a/w mild nonproductive cough and increased BLE edema. No fever/chills. Denies known cardiac history. Is being managed for the following: #. Acute hypoxic respiratory failure #. Fluid overload: #. Pneumonia: L>R bibasilar consolidation in admitting CXR #. Acute systolic heart failure #. Pleural effusion - layering Pl. Eff in Admitting CXR, c/t monitor, lasix. In ER patient afebrile, hypoxic at 89% on room air up to 95% on 2L oxygen via NC, other vitals stable. No leukocytosis, lactate WNL, troponin: 0.047, BNP: 6077, negative COVID-19 PCR. CXR: Pulmonary vascular congestion, pleural effusions, bibasilar consolidation In ER was given Lasix 40 mg IV 07/14 echo: Severely reduced LV systolic function with severe global hypokinesis, EF 20 to 25%, grade 2 diastolic dysfunction, severe aortic stenosis. Cardiology consulted, await recommendation For community-acquired pneumonia, continue with antibiotic [Rocephin and Zithromax 07/13], WBC trending down, patient afebrile. Patient will need follow-up chest x-ray in 4 to 6 weeks to document resolution of pneumonia. Await blood cultures. For acute systolic heart failure: Monitor I's and O's, await cardiology recommendation, Lasix. Cardiology on board: Metoprolol succinate, spironolactone, increase Lasix dose 40 mg twice daily IV, agree with lisinopril low-dose. Patient will need to follow-up with cardiology upon discharge, CHF teaching tyler or to discharge. Continue with supplemental oxygen, titrate as appropriate, monitor daily electrolytes and labs. #. Elevated troponin: Possible demand ischemia Troponin: 0.047. Admitting EKG sinus rhythm, Q waves septal leads, T wave inversion inferior and lateral leads. No prior EKG to compare Denies chest pain R/O ACS -troponin down trended to normal Lipid panel WNL #. Insulin dependent diabetes mellitus II: -Unknown baseline A1c -Patient prescribed 80 units Levemir at bedtime however has been taking around 20 to 30 units in the morning. Is prescribed NovoLog with meals however he reports has not been using -Diabetic diet -Monitor BSG's -Basal bolus insulin per protocol. May need to adjust insulin -A1c to follow DVT Prophylaxis -Heparin SQ Full Code as per discussion with pt Follows with Dr Samir Hernandez in [place] for routine care. Disposition: Likely discharge in 1 to 2 days, PT/OT, CM to assist with DC planning. Admission and Anticipated Discharge Date Admission Date: July 13, 2021 Subjective Patient was lying in bed, on 3 L nasal cannula oxygen, NAD, no acute events overnight. Patient reports eating okay and was eating at the bedside exam. Patient denies fever/headache/chest pain/palpitation/other review of symptoms. Physical Exam 2 Physical Exam: GENERAL: Alert and oriented x3. NAD, on 3L. HEENT: No pallor, no icterus. Pupils equal, round and reactive to light. Oral mucosa moist. NECK: No JVD, no neck masses. HEART: S1 and S2 heard. Regular rate and rhythm. Murmur +, no gallop. RESPIRATORY SYSTEM: Normal AP diameter. No accessory muscle use. No wheezing, b/l crackles with decreased bibasal sounds. ABDOMEN: Soft, bowel sounds present, nontender, no distention. CENTRAL NERVOUS SYSTEM: No facial droop. Speech is clear. Obeys simple commands. Moves extremities. EXTREMITIES: 2+ edema, no erythema seen. Results & Data Results & Data ([facility]) Vital Signs (Past 12 Hours) Vital Signs Temp Pulse Pulse Resp BP Pulse Ox Pulse Ox 07/15/21 15:46 36.8 C 75 16 125/76 95 07/15/21 09:46 89 L 07/15/21 07:36 74 07/15/21 07:07 36.4 C L 70 18 163/88 H 94
[2021-07-15] MEDS: FUROSEMIDE 40 MG/4 ML VIAL IV SCH (17:28)
[2021-07-15] MEDS: cefTRIAXone SODIUM 2,000 MG in DEXTROSE 5% 50 ML IV SCH (20:43)
[2021-07-16] MEDS: lisinopril 5 MG TAB PO SCH (07:30)
[2021-07-16] MEDS: SPIRONOLACTONE 12.5 MG TAB PO SCH (07:30)
[2021-07-16] MEDS: METOPROLOL SUCC 25MG EXT REL TAB PO SCH ×2 (07:31→22:35)
[2021-07-16] MEDS: DORZOLAMIDE/TIMOLOL 22.3/6.8MG/ML 10 ML BTL OPB SCH ×2 (07:32→21:45)
[2021-07-16] MEDS: FUROSEMIDE 40 MG/4 ML VIAL IV SCH ×2 (07:32→15:35)
[2021-07-16] MEDS: ARTIFICIAL TEARS OP SCH ×2 (07:33→21:44)
[2021-07-16] MEDS: HEPARIN SOD 5,000 UNIT/0.5 ML VIAL SQ SCH ×2 (07:34→21:46)
[2021-07-16] MEDS: AZITHROMYCIN 500 MG in DEXTROSE 5% 250 ML IV SCH (07:39)
[2021-07-16] MEDS: INSULIN GLARGINE SOLOSTAR 100 UNITS/ML 3 ML PEN SC SCH ×2 (08:57→21:49)
[2021-07-16] MEDS: INSULIN ASPART 100 UNITS/ML 3 ML PEN SC SCH ×4 (09:00→21:49)
[2021-07-16 10:01] LABS: BUN Creatinine Ratio 14.6 (10-20); Calcium 8.6 mg/dl (8.5-10.1); Creatinine Clr Calc Pharmacy 57.6 ml/min; Est GFR (African American) 66.4 ml/min; Est GFR (Non-African American) 57.3 ml/min; Magnesium 2.1 mg/dl (1.8-2.4); Potassium 3.5 mmol/L (3.5-5.1)
--- NOTE | 2021-07-16 12:09 | Cardiology Progress Note ---
Date of Service July 16, 2021 Assessment & Plan (1) Acute respiratory failure with hypoxia: (2) Acute systolic heart failure: (3) Elevated troponin: (4) Pneumonia: (5) Aortic stenosis: Plan: Low gradient severe aortic stenosis Plan: Mr. Arriaga presents in acute decompensated systolic heart failure. My assumption at this point this is due to severe aortic stenosis that has gone undiagnosed. The stenosis is critical by examination given the fact that S2 is no longer audible Severely reduced LV systolic function with an EF of 20 to 25%. At this point, I believe the most prudent course of action will be to start guideline directed medical therapy. To that end I will start him on metoprolol succinate and spironolactone. He is already been started on low-dose lisinopril and I will increase his Lasix to 40 mg IV twice daily. Strict I's and O's along with daily weights on the same scale. Will require CHF teaching prior to discharge. We will continue to follow the patient closely during his hospital stay and further recommendations to follow. We will continue to diurese overnight and reassess volume status in the a.m. His gnafjwvr-cf-xyr, Pretty, has been updated on his status and diagnosis. Admission and Anticipated Discharge Date Admission Date: July 13, 2021 Subjective Patient seen and examined, chart reviewed. States he is feeling well and shortness of breath is significantly improving. Denies chest pain, palpitations, lightheadedness, dizziness or syncope. Telemetry reviewed: Normal sinus rhythm without arrhythmia Review of Systems Review of Systems: All systems reviewed & are unremarkable except as noted in HPI & below Physical Exam Physical Exam: General: Awake, alert and oriented x 3. No acute distress. HEENT: Normocephalic, atraumatic. Pupils equal, round and reactive to light and accommodation. Extraocular muscles are intact. Anicteric sclera. Moist mu cous membranes. Neck: No JVD. No bruit. Cardiovascular: Regular. Positive S-4. Normal S-1 and S-2 is not present No S-3. 3/6 mid to late systolic ejection murmur, greatest at the right sternal border, second intercostal space with radiation to the bilateral carotids. No rubs. Pulmonary: Clear to auscultation bilaterally. No rales, rhonchi, or wheezing. Abdomen: Bowel sounds x 4, soft. No rebound, guarding or tenderness. No organomegaly. Extremities: No clubbing, cyanosis or edema. +2 pedal pulses bilaterally. Skin: Warm and dry. Results & Data ([facility]) Vital Signs (Past 12 Hours) Vital Signs Temp Pulse Pulse Resp BP Pulse Ox 07/16/21 11:24 36.4 C L 72 16 98/65 L 96 07/16/21 07:21 36.3 C L 80 16 124/81 98 07/16/21 07:09 80 07/16/21 04:41 36.4 C L 80 20 118/79 97
[2021-07-16] MEDS ORDERED: POTASSIUM CHLORIDE CRTAB 20 MEQ TABCR PO STA (18:15)
--- NOTE | 2021-07-16 18:21 | Hospitalist Progress Note ---
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 No fever/chills. Denies known cardiac history. Is being managed for the following: #. Acute hypoxic respiratory failure #. Fluid overload: #. Pneumonia: L>R bibasilar consolidation in admitting CXR #. Acute systolic heart failure #. Pleural effusion - layering Pl. Eff in Admitting CXR, c/t monitor, lasix. In ER patient afebrile, hypoxic at 89% on room air up to 95% on 2L oxygen via NC, other vitals stable. No leukocytosis, lactate WNL, troponin: 0.047, BNP: 6077, negative COVID-19 PCR. CXR: Pulmonary vascular congestion, pleural effusions, bibasilar consolidation In ER was given Lasix 40 mg IV 07/14 echo: Severely reduced LV systolic function with severe global hypokinesis, EF 20 to 25%, grade 2 diastolic dysfunction, severe aortic stenosis. Cardiology on board For community-acquired pneumonia, continue with antibiotic [Rocephin and Zithromax 07/13], WBC trending down, patient afebrile. Patient will need foll ow-up chest x-ray in 4 to 6 weeks to document resolution of pneumonia. Await blood cultures. For acute systolic heart failure: Monitor I's and O's, await cardiology DC recommendation, Lasix. Cardiology on board: Metoprolol succinate, spironolactone, increase Lasix dose 40 mg twice daily IV, agree with lisinopril low-dose. Patient will need to follow-up with cardiology upon discharge, CHF teaching tyler or to discharge. Continue with supplemental oxygen, titrate as appropriate, monitor daily electrolytes and labs. #. Elevated troponin: Possible demand ischemia Troponin: 0.047. Admitting EKG sinus rhythm, Q waves septal leads, T wave inversion inferior and lateral leads. No prior EKG to compare Denies chest pain R/O ACS -troponin down trended to normal Lipid panel WNL #. Insulin dependent diabetes mellitus II: -Unknown baseline A1c -Patient prescribed 80 units Levemir at bedtime however has been taking around 20 to 30 units in the morning. Is prescribed NovoLog with meals however he reports has not been using -Diabetic diet -Monitor BSG's -Basal bolus insulin per protocol. May need to adjust insulin -A1c to follow DVT Prophylaxis -Heparin SQ Full Code as per discussion with pt Follows with Dr Samir Hernandez in [place] for routine care. Disposition: PT/OT, CM to assist with DC planning. DC to H w/ HH a/c OT> Likely DC linus pending AM assessment. Admission and Anticipated Discharge Date Admission Date: July 13, 2021 Subjective Patient seen and examined at bedside, was lying in bed, on 3L, nad. No new acute events overnight per patient. He reports improvement in his breathing. Denies chest pain/palpitations/lightheadedness/dizziness/other review of symptoms. Physical Exam Physical Exam: GENERAL: Alert and oriented x3. NAD, on 3L. HEENT: No pallor, no icterus. Pupils equal, round and reactive to light. Oral mucosa moist. NECK: No JVD, no neck masses. HEART: S1 and S2 heard. Regular rate and rhythm. Murmur +, no gallop. RESPIRATORY SYSTEM: Normal AP diameter. No accessory muscle use. No wheezing, b/l crackles with decreased bibasal sounds. ABDOMEN: Soft, bowel sounds present, nontender, no distention. CENTRAL NERVOUS SYSTEM: No facial droop. Speech is clear. Obeys simple commands. Moves extremities. EXTREMITIES: 1+ edema, no erythema seen. Results & Data Results & Data ([facility]) Vital Signs (Past 12 Hours) Vital Signs Temp Pulse Pulse Resp BP Pulse Ox 07/16/21 15:44 36.5 C 76 20 106/69 94 07/16/21 14:55 70 07/16/21 11:24 36.4 C L 72 16 98/65 L 96 07/16/21 07:21 36.3 C L 80 16 124/81 98 07/16/21 07:09 80
[2021-07-16] MEDS: POLYETHYLENE (MIRALAX) 17 GM PACK PO PRN (18:37)
[2021-07-16] MEDS: cefTRIAXone SODIUM 2,000 MG in DEXTROSE 5% 50 ML IV SCH (22:55)
[2021-07-17] MEDS: cefTRIAXone SODIUM 2,000 MG in DEXTROSE 5% 50 ML IV SCH (08:22)
[2021-07-17] MEDS: DORZOLAMIDE/TIMOLOL 22.3/6.8MG/ML 10 ML BTL OPB SCH ×2 (08:23→20:19)
[2021-07-17] MEDS: AZITHROMYCIN 250 MG TAB PO SCH (08:24)
[2021-07-17] MEDS: HEPARIN SOD 5,000 UNIT/0.5 ML VIAL SQ SCH ×2 (08:24→20:19)
[2021-07-17] MEDS: ARTIFICIAL TEARS OP SCH ×2 (08:24→20:18)
[2021-07-17] MEDS: METOPROLOL SUCC 25MG EXT REL TAB PO SCH ×3 (08:26→20:40)
[2021-07-17] MEDS: FUROSEMIDE 40 MG/4 ML VIAL IV SCH ×2 (08:27→17:58)
[2021-07-17] MEDS: SPIRONOLACTONE 12.5 MG TAB PO SCH (08:27)
[2021-07-17] MEDS: lisinopril 5 MG TAB PO SCH (08:27)
[2021-07-17] MEDS: INSULIN GLARGINE SOLOSTAR 100 UNITS/ML 3 ML PEN SC SCH ×2 (08:28→20:20)
[2021-07-17] MEDS: INSULIN ASPART 100 UNITS/ML 3 ML PEN SC SCH ×4 (08:28→20:21)
[2021-07-17 08:29] LABS: Calcium 8.9 mg/dl (8.5-10.1); Creatinine Clr Calc Pharmacy 56.5 ml/min; Est GFR (African American) 65.1 ml/min; Est GFR (Non-African American) 56.2 ml/min; Magnesium 2.2 mg/dl (1.8-2.4)
--- NOTE | 2021-07-17 11:07 | Cardiology Progress Note ---
Date of Service July 17, 2021 Assessment & Plan (1) Acute respiratory failure with hypoxia: (2) Acute systolic heart failure: (3) Elevated troponin: (4) Pneumonia: (5) Aortic stenosis: Plan: Low gradient severe aortic stenosis Plan: Mr. Arriaga presents in acute decompensated systolic heart failure. My assumption at this point this is due to severe aortic stenosis that has gone undiagnosed. The stenosis is critical by examination given the fact that S2 is no longer audible Severely reduced LV systolic function with an EF of 20 to 25%. At this point, I believe the most prudent course of action will be to start guideline directed medical therapy. Clinically states he is back to baseline. I's and O's not recorded. Tolerating current guideline directed medical therapy. Okay to DC to home on current doses of metoprolol, lisinopril and spironolactone. Aspirin 81 mg daily should also be started. Patient should receive Lasix 40 mg p.o. every morning daily upon discharge with an afternoon dose as needed. We will need follow-up blood work in 1 week given the above medication changes. We will arrange for close follow-up in our CHF clinic. Emilay to DC to home from a cardiac standpoint. His wwcodnss-io-gtc, Pretty, has been updated on his status and diagnosis. Admission and Anticipated Discharge Date Admission Date: July 13, 2021 Subjective Patient seen and examined, chart reviewed. States he feels well today and back to baseline. Denies chest pain, shortness of breath, palpitations, lightheadedness, dizziness or syncope. Telemetry reviewed: Sinus rhythm without arrhythmia. Review of Systems Review of Systems: All systems reviewed & are unremarkable except as noted in HPI & below Physical Exam Physical Exam: General: Awake, alert and oriented x 3. No acute distress. HEENT: Normocephalic, atraumatic. Pupils equal, round and reactive to light and accommodation. Extraocular muscles are intact. Anicteric sclera. Moist mucous membranes. Neck: No JVD. No bruit. Cardiovascular: Regular. Positive S-4. Normal S-1 and S-2 is not present No S-3. 3/6 mid to late systolic ejection murmur, greatest at the right sternal border, second intercostal space with radiation to the bilateral carotids. No rubs. Pulmonary: Clear to auscultation bilaterally. No rales, rhonchi, or wheezing. Abdomen: Bowel sounds x 4, soft. No rebound, guarding or tenderness. No organomegaly. Extremities: No clubbing, cyanosis or edema. +2 pedal pulses bilaterally. Skin: Warm and dry. Results & Data ([facility]) Vital Signs (Past 12 Hours) Vital Signs Temp Pulse Resp BP Pulse Ox 07/17/21 07:32 36.9 C 92 H 20 97/61 L 91 07/17/21 03:32 36.6 C 85 18 102/67 95
[2021-07-17] MEDS: POLYETHYLENE (MIRALAX) 17 GM PACK PO PRN (14:09)
[2021-07-17] MEDS ORDERED: MINERAL OIL ENEMA 133 ML BTL PR ONE (15:08)
[2021-07-17] MEDS: ONDANSETRON INJ 2 MG/ML 2 ML VIAL IV PRN (18:15)
--- NOTE | 2021-07-17 19:51 | Hospitalist Progress Note ---
Date of Service July 17, 2021 Assessment & Plan (1) Acute systolic heart failure: (2) Acute respiratory failure with hypoxia: Plan: 81-year-old male with PMH of insulin-dependent DM II presented to ER 07/13 with c/o SOB with exertion x 3 weeks [employer] a/w mild nonproductive cough and increased BLE edema. No fever/chills. Denies known cardiac history. Is being managed for the following: #. Acute hypoxic respiratory failure #. Fluid overload: #. Pneumonia: L>R bibasilar consolidation in admitting CXR #. Acute systolic heart failure #. Pleural effusion - layering Pl. Eff in Admitting CXR, c/t monitor, lasix. In ER patient afebrile, hypoxic at 89% on room air up to 95% on 2L oxygen via NC, other vitals stable. No leukocytosis, lactate WNL, troponin: 0.047, BNP: 6077, negative COVID-19 PCR. CXR: Pulmonary vascular congestion, pleural effusions, bibasilar consolidation In ER was given Lasix 40 mg IV 07/14 echo: Severely reduced LV systolic function with severe global hypokinesis, EF 20 to 25%, grade 2 diastolic dysfunction, severe aortic stenosis. Cardiology on board For community-acquired pneumonia, continue with antibiotic [Rocephin and Zithromax 07/13], WBC trending down, patient afebrile. Patient will need foll ow-up chest x-ray in 4 to 6 weeks to document resolution of pneumonia. Await blood cultures. For acute systolic heart failure: Monitor I's and O's, cardiology optimize his heart failure medication, is okay with discharge. Patient will need to follow-up with cardiology upon discharge. Continue with supplemental oxygen, titrate as appropriate, monitor daily electrolytes and labs. Will need 2 step test prior to discharge. #. Elevated troponin: Possible demand ischemia Troponin: 0.047. Admitting EKG sinus rhythm, Q waves septal leads, T wave inversion inferior and lateral leads. No prior EKG to compare Denies chest pain R/O ACS -troponin down trended to normal Lipid panel WNL #. Insulin dependent diabetes mellitus II: -Unknown baseline A1c -Patient prescribed 80 units Levemir at bedtime however has been taking around 20 to 30 units in the morning. Is prescribed NovoLog with meals however he reports has not been using -Diabetic diet -Monitor BSG's -Basal bolus insulin per protocol. May need to adjust insulin -A1c to follow DVT Prophylaxis -Heparin SQ Full Code as per discussion with pt Follows with Dr Samir Hernandez in [place] for routine care. Disposition: PT/OT, CM to assist with DC planning. DC to H w/ HH. Likely DC to [facility] pending a.m. evaluation. DC plan done, adjust the dose of antibiotic for his pneumonia when he is living. Admission and Anticipated Discharge Date Admission Date: July 13, 2021 Subjective Patient seen and examined at the bedside, telemetry reviewed, patient on 3 L nasal cannula oxygen, denies any acute events overnight. Patient reports some weakness, and reports eating okay. Patient has not had bowel movement since last today. Patient denies fever/headache/chills/chest pain/palpitation/other review of symptoms. Cardiology was okay with discharging the patient, since the patient was feeling more weak during the day and since she has not moved bowel since last 2 days, he did not feel like he could go home today. His discharge was canceled. Possible discharge tomorrow pending a.m. evaluation. Physical Exam Physical Exam: GENERAL: Alert and oriented x3. NAD, on 3L. HEENT: No pallor, no icterus. Pupils equal, round and reactive to light. Oral mucosa moist. NECK: No JVD, no neck masses. HEART: S1 and S2 heard. Regular rate and rhythm. Murmur +, no gallop. RESPIRATORY SYSTEM: Normal AP diameter. No accessory muscle use. No wheezing, b/l crackles with decreased bibasal sounds --> aeration bibasilar improving ABDOMEN: Soft, bowel sounds present, nontender, no distention. CENTRAL NERVOUS SYSTEM: No facial droop. Speech is clear. Obeys simple commands. Moves extremities. EXTREMITIES: 1-2+ edema, no erythema seen. Results & Data Results & Data ([facility]) Vital Signs (Past 12 Hours) Vital Signs Temp Pulse Pulse Resp BP Pulse Ox 07/17/21 19:18 36.9 C 90 18 105/70 90 07/17/21 15:32 37.3 C 89 20 118/78 94 07/17/21 15:07 87 07/17/21 11:12 36.7 C 83 20 107/67 94 07/17/21 08:00 90
[2021-07-18 07:01] LABS: BUN Creatinine Ratio 17.9 (10-20); Creatinine Clr Calc Pharmacy 47.4 ml/min; Est GFR (African American) 52.6 ml/min; Est GFR (Non-African American) 45.4 ml/min; Magnesium 2.2 mg/dl (1.8-2.4); Potassium 4.2 mmol/L (3.5-5.1)
[2021-07-18 07:02] LABS: Phosphorus 3.9 mg/dl (2.5-4.9)
--- NOTE | 2021-07-18 08:03 | Hospitalist Progress Note ---
Date of Service July 18, 2021 Assessment & Plan (1) Acute systolic heart failure: (2) Acute respiratory failure with hypoxia: Plan: 81 yo M with insulin-dependent DM II presented to ER 07/13 with c/o SOB with exertion x 3 weeks [employer] a/w mild nonproductive cough and increased BLE edema. No fever/chills. Denies known cardiac history. Is being managed for the following: Acute hypoxic respiratory failure Fluid overload: Pneumonia: L>R bibasilar consolidation in admitting CXR Acute systolic heart failure Pleural effusion - layering Pl. Eff in Admitting CXR, c/t monitor, lasix. In ER patient afebrile, hypoxic at 89% on room air up to 95% on 2L oxygen via NC, other vitals stable. No leukocytosis, lactate WNL, troponin: 0.047, BNP: 6077, negative COVID-19 PCR. CXR: Pulmonary vascular congestion, pleural effusions, bibasilar consolidation In ER was given Lasix 40 mg IV 07/14 echo: Severely reduced LV systolic function with severe global hypokinesis, EF 20 to 25%, grade 2 diastolic dysfunction, severe aortic stenosis. Cardiology consulted, appreciate their recommendations For community-acquired pneumonia, continue with antibiotic [Rocephin and Zithromax 07/13], WBC trending down, patient afebrile. Patient will need foll ow-up chest x-ray in 4 to 6 weeks to document resolution of pneumonia. Blood cultures - negative For acute systolic heart failure: Monitor I's and O's, cardiology optimize his heart failure medication, is okay with discharge. Patient will need to follow-up with cardiology upon discharge. Continue with supplemental oxygen, titrate as appropriate, monitor daily electrolytes and labs. 2 step test done - pt will need to be discharged on suppl. O2 Elevated troponin: Possible demand ischemia Troponin: 0.047. Admitting EKG sinus rhythm, Q waves septal leads, T wave inversion inferior and lateral leads. No prior EKG to compare Denies chest pain R/O ACS -troponin down trended to normal Lipid panel WNL cardiology following, as above Insulin dependent diabetes mellitus II: -Unknown baseline A1c -Patient prescribed 80 units Levemir at bedtime however has been taking around 20 to 30 units in the morning. Is prescribed NovoLog with meals however he reports has not been using -Diabetic diet -Monitor BSG's -Basal bolus insulin per protocol. May need to adjust insulin -Current A1c 7.2% - follow up as outpt DVT Prophylaxis -Heparin SQ Full Code as per discussion with pt Follows with Dr Samir Hernandez in [place] for routine care. Disposition: PT/OT, CM to assist with DC planning. DC to H w/ HH. Likely DC tomorrow. DC plan done, adjust the dose of antibiotic for his pneumonia on DC. Admission and Anticipated Discharge Date Admission Date: July 13, 2021 Subjective Pt seen in follow up of hypoxia, pna, acute syst. HF Patient reports feeling weak and still very constipated, which is unchanged from yesterday however that was the reason why he was not discharged yesterday His creatinine is also elevated today, and per nursing staff patient has decreased urine output Patient tells me does not have any chest pain or increased shortness of breath or abdominal pain However he does tell me that he feels more weak and not well Patient denies fever/headache/chills/chest pain/palpitation/other review of symptoms. Step 2 obtained, patient will need supplemental oxygen on discharge Review of Systems Review of Systems: All systems reviewed & are unremarkable except as noted in Subjective Physical Exam Physical Exam: GENERAL: Alert and oriented x3. NAD, on 2L. HEENT: NC/AT. EOMI, PERRL. No pallor, no icterus.Oral mucosa moist. NECK: No JVD, no neck masses. HEART: S1 and S2 heard. Regular rate and rhythm.+syst. murmur RESPIRATORY: Normal AP diameter. No accessory muscle use. No wheezing,+ rhonchi, b/l crackles ABDOMEN: Soft, bowel sounds present, nontender, no distention. NEURO: Alert and oriented x3, answering questions appropriately, no facial droop. Speech is clear. Moves extremities. EXTREMITIES: 1+ edema, no erythema seen. Results & Data Results & Data ([facility]) Vital Signs (Past 12 Hours) Vital Signs Temp Pulse Pulse Resp BP Pulse Ox 07/18/21 07:03 36.8 C 91 H 20 113/77 90 07/18/21 02:58 36.4 C L 92 H 18 94/56 L 96 07/17/21 22:53 36.5 C 98 H 18 95/62 L 95 07/17/21 22:19 88 Laboratory Results 11/07/18/21 07/17/21 Range/Units 07:23 06:23 20:07 Sodium 141 (136-145) mmol/L Potassium 4.2 (3.5-5.1) mmol/L Chloride 104 (98-107) mmol/L Carbon Dioxide 28 (21-32) mmol/L Anion Gap 9.0 (3-11) BUN 25 H (7-18) mg/dl Creatinine 1.42 H (0.6-1.4) mg/dl Est Cr Clr Drug Dosing 47.4 ml/min Est GFR ( Amer) 52.6 ml/min Est GFR (Non-Af Amer) 45.4 ml/min BUN/Creatinine Ratio 17.9 (10-20) Glucose 171 H (70-99) mg/dl POC Glucose 175 H 181 H (70-99) mg/dl Calcium 9.0 (8.5-10.1) mg/dl Phosphorus 3.9 (2.5-4.9) mg/dl Magnesium 2.2 (1.8-2.4) mg/dl 07/17/21 07/17/21 07/17/21 Range/Units 16:32 11:22 07:15 Sodium 140 (136-145) mmol/L Potassium 4.0 (3.5-5.1) mmol/L Chloride 103 (98-107) mmol/L Carbon Dioxide 29 (21-32) mmol/L Anion Gap 7.0 (3-11) BUN 18 (7-18) mg/dl Creatinine 1.19 (0.6-1.4) mg/dl Est Cr Clr Drug Dosing 56.5 ml/min Est GFR ( Amer) 65.1 ml/min Est GFR (Non-Af Amer) 56.2 ml/min BUN/Creatinine Ratio 15.0 (10-20) Glucose 145 H (70-99) mg/dl POC Glucose 159 H 191 H (70-99) mg/dl Calcium 8.9 (8.5-10.1) mg/dl Phosphorus (2.5-4.9) mg/dl Magnesium 2.2 (1.8-2.4) mg/dl Medications Administered Current Inpatient Medications Acetaminophen (Acetaminophen 325 Mg Tab) 650 mg PO Q4H PRN PRN Reason: Pain or Fever Stop: 08/12/21 18:28 Artificial Tears (Artificial Tears) 1 drops OP BID [facility] Stop: 08/12/21 20:59 Last Admin: 07/17/21 20:18 Dose: 1 drops Documented by: Azithromycin (Azithromycin 250 Mg Tab) 250 mg PO QAM [facility] Stop: 07/18/21 09:01 Last Admin: 07/17/21 08:24 Dose: 250 mg Documented by: Dextrose (Dextrose 50% 50 Ml Syringe) 25 - 50 ml IV UD PRN; Protocol PRN Reason: Hypoglycemia Protocol Stop: 08/12/21 18:28 Dorzolamide/Timolol (Dorzolamide/Timolol 22.3/6.8mg/Ml 10 Ml Btl) 1 drops OPB BID [facility] Stop: 08/12/21 20:59 Last Admin: 07/17/21 20:19 Dose: 1 drops Documented by: Furosemide (Furosemide 40 Mg/4 Ml Vial) 40 mg IV BID17 [facility] Stop: 08/14/21 16:59 Last Admin: 07/17/21 17:58 Dose: 40 mg Documented by: Glucagon (Glucagon For Inj 1 Mg Vial) 1 mg SQ UD PRN; Protocol PRN Reason: Hypoglycemia Protocol Stop: 08/12/21 18:28 Glucose (Glucose 10 Tabs/Tube) 4 - 8 tabs PO UD PRN; Protocol PRN Reason: Hypoglycemia Protocol Stop: 08/12/21 18:28 Glucose (Glucose 40% Gel 15 Gm Tube) 15 - 30 gm PO UD PRN; Protocol PRN Reason: Hypoglycemia Protocol Stop: 08/12/21 18:28 Heparin Sodium (Porcine) (Heparin Sod 5,000 Unit/0.5 Ml Vial) 5,000 units SQ Q12 [facility] Stop: 08/12/21 20:59 Last Admin: 07/17/21 20:19 Dose: 5,000 units Documented by: Ceftriaxone Sodium 2,000 mg/ (Dextrose) 70 mls @ 100 mls/hr IV DAILY [facility]IM; Protocol Stop: 07/19/21 09:41 Last Infusion: 07/17/21 09:14 Dose: Infused Documented by: Insulin Aspart (Insulin Aspart 100 Units/Ml 3 Ml Pen) 0 units SC ACHS [facility] Stop: 08/12/21 18:28 Last Admin: 07/17/21 20:21 Dose: 1 units Documented by: Insulin Glargine (Insulin Glargine Solostar 100 Units/Ml 3 Ml Pen) 15 units SC BID [facility] Stop: 08/12/21 20:59 Last Admin: 07/17/21 20:20 Dose: 15 units Documented by: Lisinopril (Lisinopril 5 Mg Tab) 5 mg PO QAM [facility] Stop: 08/14/21 10:59 Last Admin: 07/17/21 08:27 Dose: 5 mg Documented by: Metoprolol Succinate (Metoprolol Succ 25mg Ext Rel Tab) 12.5 mg PO BID [facility] Stop: 08/14/21 11:59 Last Admin: 07/17/21 20:40 Dose: 12.5 mg Documented by: Miscellaneous (Carbohydrates For Hypoglycemia ) 15 - 30 gm PO UD PRN PRN Reason: Hypoglycemia Protocol Stop: 08/12/21 18:28 Ondansetron HCl (Ondansetron Inj 2 Mg/Ml 2 Ml Vial) 4 mg IV Q12H PRN PRN Reason: Nausea And Vomiting Stop: 08/16/21 17:59 Last Admin: 07/17/21 18:15 Dose: 4 mg Documented by: Polyethylene Glycol (Polyethylene (Miralax) 17 Gm Pack) 17 gm PO DAILY PRN PRN Reason: Constipation Stop: 08/12/21 18:28 Last Admin: 07/17/21 14:09 Dose: 17 gm Documented by: Spironolactone (Spironolactone 12.5 Mg Tab) 12.5 mg PO DAILY [facility] Stop: 08/14/21 11:59 Last Admin: 07/17/21 08:27 Dose: 12.5 mg Documented by:
[2021-07-18] MEDS: DORZOLAMIDE/TIMOLOL 22.3/6.8MG/ML 10 ML BTL OPB SCH ×2 (08:44→21:35)
[2021-07-18] MEDS: FUROSEMIDE 40 MG/4 ML VIAL IV SCH (08:44)
[2021-07-18] MEDS: cefTRIAXone SODIUM 2,000 MG in DEXTROSE 5% 50 ML IV SCH (08:44)
[2021-07-18] MEDS: SPIRONOLACTONE 12.5 MG TAB PO SCH (08:45)
[2021-07-18] MEDS: AZITHROMYCIN 250 MG TAB PO SCH (08:45)
[2021-07-18] MEDS: ARTIFICIAL TEARS OP SCH ×2 (08:45→21:35)
[2021-07-18] MEDS: METOPROLOL SUCC 25MG EXT REL TAB PO SCH ×2 (08:45→21:33)
[2021-07-18] MEDS: lisinopril 5 MG TAB PO SCH (08:45)
[2021-07-18] MEDS: INSULIN GLARGINE SOLOSTAR 100 UNITS/ML 3 ML PEN SC SCH ×2 (08:46→21:35)
[2021-07-18] MEDS: INSULIN ASPART 100 UNITS/ML 3 ML PEN SC SCH ×4 (08:46→21:36)
[2021-07-18] MEDS: HEPARIN SOD 5,000 UNIT/0.5 ML VIAL SQ SCH ×2 (08:46→21:33)
--- NOTE | 2021-07-18 11:15 | Cardiology Progress Note ---
Date of Service July 18, 2021 Assessment & Plan (1) Acute respiratory failure with hypoxia: (2) Acute systolic heart failure: (3) Elevated troponin: (4) Pneumonia: (5) Aortic stenosis: Plan: Low gradient severe aortic stenosis Plan: Mr. Arriaga presents in acute decompensated systolic heart failure. My assumption at this point this is due to severe aortic stenosis that has gone undiagnosed. The stenosis is critical by examination given the fact that S2 is no longer audible Severely reduced LV systolic function with an EF of 20 to 25%. At this point, I believe the most prudent course of action will be to start guideline directed medical therapy. Unable to titrate off of O2 Tolerating current guideline directed medical therapy. Okay to DC to home on current doses of metoprolol, lisinopril and spironolactone. Aspirin 81 mg daily should also be started. Patient should receive Lasix 40 mg p.o. every morning daily upon discharge with an afternoon dose as needed. We will need follow-up blood work in 1 week given the above medication changes. We will arrange for close follow-up in our CHF clinic. Patient now prerenal with decreased urine output. We will stop IV diuresis Start torsemide 20 mg p.o. daily in the a.m. His [id number], Pretty, has been updated on his status and diagnosis. Admission and Anticipated Discharge Date Admission Date: July 13, 2021 Subjective Patient seen and examined, chart reviewed. Uncomfortable today with constipa tion and nausea. Denies cardiac complaints of chest pain or shortness of breath. Review of Systems Review of Systems: All systems reviewed & are unremarkable except as noted in HPI & below Physical Exam Physical Exam: General: Awake, alert and oriented x 3. No acute distress. HEENT: Normocephalic, atraumatic. Pupils equal, round and reactive to light and accommodation. Extraocular muscles are intact. Anicteric sclera. Moist mucous membranes. Neck: No JVD. No bruit. Cardiovascular: Regular. Positive S-4. Normal S-1 and S-2 is not present No S-3. 3/6 mid to late systolic ejection murmur, greatest at the right sternal border, second intercostal space with radiation to the bilateral carotids. No rubs. Pulmonary: Clear to auscultation bilaterally. No rales, rhonchi, or wheezing. Abdomen: Bowel sounds x 4, soft. No rebound, guarding or tenderness. No organomegaly. Extremities: No clubbing, cyanosis or edema. +2 pedal pulses bilaterally. Skin: Warm and dry. Results & Data ([facility]) Vital Signs (Past 12 Hours) Vital Signs Temp Pulse Pulse Pulse Pulse Pulse Pulse 07/18/21 11:08 36.8 C 91 H 07/18/21 10:19 91 H 68 96 H 91 H 07/18/21 07:30 93 H 07/18/21 07:03 36.8 C 91 H 07/18/21 02:58 36.4 C L 92 H Resp Resp Resp Resp Resp BP Pulse Ox 07/18/21 11:08 20 94/59 L 93 07/18/21 10:19 18 20 20 18 07/18/21 07:30 07/18/21 07:03 20 113/77 90 07/18/21 02:58 18 94/56 L 96 Pulse Ox Pulse Ox Pulse Ox Pulse Ox 07/18/21 11:08 07/18/21 10:19 91 94 92 86 L 07/18/21 07:30 07/18/21 07:03 07/18/21 02:58
--- NOTE | 2021-07-18 12:17 | XRay Report ---
KUB CLINICAL HISTORY: Abdominal pain, r/o ileus COMPARISON STUDY: None. FINDINGS: There is a paucity of bowel gas. This is a nonspecific pattern. There is no definite eviden ce for a bowel obstruction. 2 mm right abdominal calcification could reflect a right renal calculus. Although sensitivity is diminished on this supine exam, there is no evidence for free air. IMPRESSION: 1. Paucity of bowel gas. This is a nonspecific finding however no convincing evidence for a bowel obs truction or ileus. 2. Possible right-sided nephrolithiasis. ACT 112: Negative or not required by law. Electronically signed by: Rio Loredo M.D. 07/18/2021 12:15 PM
[2021-07-18] MEDS ORDERED: bisacodyL 10 MG SUPP PR STA (12:42)
[2021-07-18] MEDS ORDERED: POLYETHYLENE (MIRALAX) 17 GM PACK ONE (12:57)
[2021-07-18] MEDS ORDERED: bisacodyL 10 MG SUPP PR ONE (12:58)
[2021-07-18] MEDS ORDERED: DOCUSATE SODIUM 100 MG CAP PO ONE (12:58)
[2021-07-18] MEDS: DOCUSATE SODIUM 100 MG CAP PO SCH ×2 (13:03→21:35)
[2021-07-18] MEDS: POLYETHYLENE (MIRALAX) 17 GM PACK PO SCH (13:03)
[2021-07-18] MEDS: guaiFENesin 600 MG TABCR PO SCH ×2 (16:30→21:34)
[2021-07-18] MEDS: ONDANSETRON INJ 2 MG/ML 2 ML VIAL IV PRN (16:48)
[2021-07-19] MEDS ORDERED: TORSEMIDE 10 MG TAB PO SCH (09:00)
[2021-07-19] MEDS: ARTIFICIAL TEARS OP SCH ×2 (09:02→21:45)
[2021-07-19] MEDS: DOCUSATE SODIUM 100 MG CAP PO SCH ×2 (09:02→20:29)
[2021-07-19] MEDS: INSULIN ASPART 100 UNITS/ML 3 ML PEN SC SCH ×4 (09:03→20:32)
[2021-07-19] MEDS: guaiFENesin 600 MG TABCR PO SCH ×2 (09:05→20:29)
[2021-07-19] MEDS: SPIRONOLACTONE 12.5 MG TAB PO SCH (09:05)
[2021-07-19] MEDS: METOPROLOL SUCC 25MG EXT REL TAB PO SCH (09:05)
[2021-07-19] MEDS: DORZOLAMIDE/TIMOLOL 22.3/6.8MG/ML 10 ML BTL OPB SCH ×2 (09:05→20:29)
[2021-07-19] MEDS: POLYETHYLENE (MIRALAX) 17 GM PACK PO SCH (09:05)
[2021-07-19] MEDS: lisinopril 5 MG TAB PO SCH (09:05)
[2021-07-19] MEDS: INSULIN GLARGINE SOLOSTAR 100 UNITS/ML 3 ML PEN SC SCH ×2 (09:06→20:30)
[2021-07-19] MEDS: HEPARIN SOD 5,000 UNIT/0.5 ML VIAL SQ SCH ×2 (09:06→20:30)
[2021-07-19] MEDS: cefTRIAXone SODIUM 2,000 MG in DEXTROSE 5% 50 ML IV SCH (09:10)
--- NOTE | 2021-07-19 10:57 | Cardiology Progress Note ---
Date of Service July 19, 2021 Assessment & Plan (1) Acute respiratory failure with hypoxia: (2) Acute systolic heart failure: (3) Elevated troponin: (4) Pneumonia: (5) Aortic stenosis: Plan: Low gradient severe aortic stenosis Plan: The patient is clinically stable. As per Dr. Koehler previous notes the patient should be put on guideline directed medication which he is currently on. At t his point hospital discharge is per the hospitalist. Admission and Anticipated Discharge Date Admission Date: July 13, 2021 Subjective No new complaints today. Review of Systems Review of Systems: Review of Systems: See HPI for pertinent positives. All other 10 point review of systems are negative. Physical Exam Physical Exam: General: no acute distress and stated age Head: normocephalic, no masses, lesions, tenderness or abnormalities Eyes: conjunctiva are pink and non-injected, sclera clear Neck: supple, no adenopathy, no bruits, normal jugular venous pulse, no hepatojugular reflux Chest: normal shape and normal respiratory effort Lungs: clear to auscultation and percussion Cardiac Exam: - regular rate & rhythm, systolic murmur- normal S1, normal S2 Pulses: 2(+) throughout Abdomen: abdomen soft, non-tender, no abnormal masses and no hepatosplenomegaly Musculoskeletal: no gait disturbance, no joint inflammation, no deforming arthritis Extremities: no edema and no cyanosis Neuro: grossly normal exam Results & Data ([facility]) Vital Signs (Past 12 Hours) Vital Signs Temp Pulse Pulse Resp BP BP Pulse Ox 07/19/21 07:00 36.7 C 90 20 111/73 90 07/19/21 03:50 36.9 C 94 H 18 95/54 L 95 07/19/21 02:01 92 H 07/18/21 23:17 36.4 C L 90 16 93/59 L 92 Laboratory Results Laboratory Results - last 24 hr 07/18/21 07/18/21 07/18/21 11:22 16:30 20:11 POC Glucose 209 H 231 H 271 H 07/19/21 07:36 POC Glucose 259 H Medications Administered Current Inpatient Medications Acetaminophen (Acetaminophen 325 Mg Tab) 650 mg PO Q4H PRN PRN Reason: Pain or Fever Stop: 08/12/21 18:28 Artificial Tears (Artificial Tears) 1 drops OP BID [facility] Stop: 08/12/21 20:59 Last Admin: 07/19/21 09:02 Dose: 1 drops Documented by: Dextrose (Dextrose 50% 50 Ml Syringe) 25 - 50 ml IV UD PRN; Protocol PRN Reason: Hypoglycemia Protocol Stop: 08/12/21 18:28 Docusate Sodium (Docusate Sodium 100 Mg Cap) 100 mg PO BID [facility] Stop: 08/17/21 12:44 Last Admin: 07/19/21 09:02 Dose: 100 mg Documented by: Dorzolamide/Timolol (Dorzolamide/Timolol 22.3/6.8mg/Ml 10 Ml Btl) 1 drops OPB BID [facility] Stop: 08/12/21 20:59 Last Admin: 07/19/21 09:05 Dose: 1 drops Documented by: Glucagon (Glucagon For Inj 1 Mg Vial) 1 mg SQ UD PRN; Protocol PRN Reason: Hypoglycemia Protocol Stop: 08/12/21 18:28 Glucose (Glucose 10 Tabs/Tube) 4 - 8 tabs PO UD PRN; Protocol PRN Reason: Hypoglycemia Protocol Stop: 08/12/21 18:28 Glucose (Glucose 40% Gel 15 Gm Tube) 15 - 30 gm PO UD PRN; Protocol PRN Reason: Hypoglycemia Protocol Stop: 08/12/21 18:28 Guaifenesin (Guaifenesin 600 Mg Tabcr) 600 mg PO Q12 [facility] Stop: 08/17/21 13:39 Last Admin: 07/19/21 09:05 Dose: 600 mg Documented by: Heparin Sodium (Porcine) (Heparin Sod 5,000 Unit/0.5 Ml Vial) 5,000 units SQ Q12 [facility] Stop: 08/12/21 20:59 Last Admin: 07/19/21 09:06 Dose: 5,000 units Documented by: Insulin Aspart (Insulin Aspart 100 Units/Ml 3 Ml Pen) 0 units SC ACHS [facility] Stop: 08/12/21 18:28 Last Admin: 07/19/21 09:03 Dose: 4 units Documented by: Insulin Glargine (Insulin Glargine Solostar 100 Units/Ml 3 Ml Pen) 15 units SC BID [facility] Stop: 08/12/21 20:59 Last Admin: 07/19/21 09:06 Dose: 15 units Documented by: Lisinopril (Lisinopril 5 Mg Tab) 5 mg PO QAM [facility] Stop: 08/14/21 10:59 Last Admin: 07/19/21 09:05 Dose: 5 mg Documented by: Metoprolol Succinate (Metoprolol Succ 25mg Ext Rel Tab) 12.5 mg PO BID [facility] Stop: 08/14/21 11:59 Last Admin: 07/19/21 09:05 Dose: 12.5 mg Documented by: Miscellaneous (Carbohydrates For Hypoglycemia ) 15 - 30 gm PO UD PRN PRN Reason: Hypoglycemia Protocol Stop: 08/12/21 18:28 Ondansetron HCl (Ondansetron Inj 2 Mg/Ml 2 Ml Vial) 4 mg IV Q12H PRN PRN Reason: Nausea And Vomiting Stop: 08/16/21 17:59 Last Admin: 07/18/21 16:48 Dose: 4 mg Documented by: Polyethylene Glycol (Polyethylene (Miralax) 17 Gm Pack) 17 gm PO DAILY [facility] Stop: 08/17/21 12:44 Last Admin: 07/19/21 09:05 Dose: 17 gm Documented by: Spironolactone (Spironolactone 12.5 Mg Tab) 12.5 mg PO DAILY [facility] Stop: 08/14/21 11:59 Last Admin: 07/19/21 09:05 Dose: 12.5 mg Documented by: Torsemide (Torsemide 10 Mg Tab) 20 mg PO QAM [facility] Stop: 08/18/21 08:59 Last Admin: 07/19/21 09:06 Dose: 20 mg Documented by:
--- NOTE | 2021-07-19 11:37 | Hospitalist Progress Note ---
Date of Service July 19, 2021 Assessment & Plan (1) Acute systolic heart failure: (2) Acute respiratory failure with hypoxia: Plan: 81 yo M with insulin-dependent DM II presented to ER 07/13 with c/o SOB with exertion x 3 weeks [employer] a/w mild nonproductive cough and increased BLE edema. No fever/chills. Denies known cardiac history. Is being managed for the following: Acute hypoxic respiratory failure Fluid overload: Pneumonia: L>R bibasilar consolidation in admitting CXR Acute systolic heart failure Pleural effusion - layering Pl. Eff in Admitting CXR, c/t monitor, lasix. In ER patient afebrile, hypoxic at 89% on room air up to 95% on 2L oxygen via NC, other vitals stable. No leukocytosis, lactate WNL, troponin: 0.047, BNP: 6077, negative COVID-19 PCR. CXR: Pulmonary vascular congestion, pleural effusions, bibasilar consolidation In ER was given Lasix 40 mg IV 07/14 echo: Severely reduced LV systolic function with severe global hypokinesis, EF 20 to 25%, grade 2 diastolic dysfunction, severe aortic stenosis. Cardiology consulted, appreciate their recommendations For community-acquired pneumonia, continued with antibiotic [Rocephin and Zithromax 07/13], WBC trending down, patient afebrile. Patient will need foll ow-up chest x-ray in 4 to 6 weeks to document resolution of pneumonia. Blood cultures - negative 07/19 - WBC slightly up now at 12K Repeat CXR - shows pulm. edema, pl. effusions. procal slightly higher than previously episode of nausea/vomiting - poss. ? aspiration Will start empiric augmentin For acute systolic heart failure: Monitor I's and O's, cardiology optimize his heart failure medication, is okay with discharge. Patient will need to follow-up with cardiology upon discharge. Continue with supplemental oxygen, titrate as appropriate, monitor daily electrolytes and labs. 2 step test done - pt will need to be discharged on suppl. O2 Elevated troponin: Possible demand ischemia Troponin: 0.047. Admitting EKG sinus rhythm, Q waves septal leads, T wave inversion inferior and lateral leads. No prior EKG to compare Denies chest pain R/O ACS -troponin down trended to normal Lipid panel WNL cardiology following, as above Insulin dependent diabetes mellitus II: -Unknown baseline A1c -Patient prescribed 80 units Levemir at bedtime however has been taking around 20 to 30 units in the morning. Is prescribed NovoLog with meals however he reports has not been using -Diabetic diet -Monitor BSG's -Basal bolus insulin per protocol. May need to adjust insulin -Current A1c 7.2% - follow up as outpt DVT Prophylaxis -Heparin SQ Full Code as per discussion with pt Follows with Dr Samir Hernandez in [place] for routine care. Disposition: PT/OT, CM to assist with DC planning. DC to H w/ HH once medically stable. Admission and Anticipated Discharge Date Admission Date: July 13, 2021 Subjective Pt seen in follow up of hypoxia, pna, acute syst. HF Yesterday pt reported feeling weak and constipated, per nursing staff he was nauseous and had emesis about 2 days ago. His creatinine is also elevated today Patient is sitting up in chair and reports feeling better than yesterday Pt's is at the bedside He denies any chest pain or increased shortness of breath or abdominal pain He had a BM Step 2 obtained, patient will need supplemental oxygen on discharge WBC slightly elevated - obtained repeat CXR - shows pulm. edema and pl. effusions Review of Systems Review of Systems: All systems reviewed & are unremarkable except as noted in Subjective Physical Exam Physical Exam: GENERAL: Alert and oriented x3. NAD, on 2L. HEENT: NC/AT. EOMI, PERRL. No pallor, no icterus.Oral mucosa moist. NECK: No JVD, no neck masses. HEART: S1 and S2 heard. Regular rate and rhythm.+syst. murmur RESPIRATORY: Normal AP diameter. No accessory muscle use. No wheezing,diminished breath sounds at bases ABDOMEN: Soft, bowel sounds present, nontender, no distention. NEURO: Alert and oriented x3, answering questions appropriately, no facial droop. Speech is clear. Moves extremities. EXTREMITIES: minimal LE edema, no significant erythema seen. Results & Data Results & Data ([facility]) Vital Signs (Past 12 Hours) Vital Signs Temp Pulse Pulse Resp BP BP Pulse Ox 07/19/21 07:00 36.7 C 90 20 111/73 90 07/19/21 03:50 36.9 C 94 H 18 95/54 L 95 07/19/21 02:01 92 H Laboratory Results 07/19/21 07/19/2121 Range/Units 22:33 22:32 21:25 WBC (4.8-10.8) K/uL RBC (4.7-6.1) M/uL Hgb (14.0-18.0) g/dL Hct (42-52) % MCV (80-100) fL MCH (25-34) pg MCHC (32-36) g/dL RDW Std Deviation (36.4-46.3) fL RDW Coeff of Emmanuel (11.5-14.5) % Plt Count (130-400) K/uL MPV (7.4-10.4) fL Sodium (136-145) mmol/L Potassium (3.5-5.1) mmol/L Chloride (98-107) mmol/L Carbon Dioxide (21-32) mmol/L Anion Gap (3-11) BUN (7-18) mg/dl Creatinine (0.6-1.4) mg/dl Est Cr Clr Drug Dosing ml/min Est GFR ( Amer) ml/min Est GFR (Non-Af Amer) ml/min BUN/Creatinine Ratio (10-20) Glucose (70-99) mg/dl POC Glucose 297 H 313 H* 309 H* (70-99) mg/dl Calcium (8.5-10.1) mg/dl Phosphorus (2.5-4.9) mg/dl Magnesium (1.8-2.4) mg/dl Procalcitonin (0-0.5) ng/ml 07/19/21 07/19/21 07/19/21 Range/Units 21:25 20:10 20:10 WBC (4.8-10.8) K/uL RBC (4.7-6.1) M/uL Hgb (14.0-18.0) g/dL Hct (42-52) % MCV (80-100) fL MCH (25-34) pg MCHC (32-36) g/dL RDW Std Deviation (36.4-46.3) fL RDW Coeff of Emmanuel (11.5-14.5) % Plt Count (130-400) K/uL MPV (7.4-10.4) fL Sodium (136-145) mmol/L Potassium (3.5-5.1) mmol/L Chloride (98-107) mmol/L Carbon Dioxide (21-32) mmol/L Anion Gap (3-11) BUN (7-18) mg/dl Creatinine (0.6-1.4) mg/dl Est Cr Clr Drug Dosing ml/min Est GFR ( Amer) ml/min Est GFR (Non-Af Amer) ml/min BUN/Creatinine Ratio (10-20) Glucose (70-99) mg/dl POC Glucose 341 H* 336 H* 327 H* (70-99) mg/dl Calcium (8.5-10.1) mg/dl Phosphorus (2.5-4.9) mg/dl Magnesium (1.8-2.4) mg/dl Procalcitonin (0-0.5) ng/ml 07/19/21 07/19/21 07/19/21 Range/Units 16:33 16:32 12:05 WBC (4.8-10.8) K/uL RBC (4.7-6.1) M/uL Hgb (14.0-18.0) g/dL Hct (42-52) % MCV (80-100) fL MCH (25-34) pg MCHC (32-36) g/dL RDW Std Deviation (36.4-46.3) fL RDW Coeff of Emmanuel (11.5-14.5) % Plt Count (130-400) K/uL MPV (7.4-10.4) fL Sodium (136-145) mmol/L Potassium (3.5-5.1) mmol/L Chloride (98-107) mmol/L Carbon Dioxide (21-32) mmol/L Anion Gap (3-11) BUN (7-18) mg/dl Creatinine (0.6-1.4) mg/dl Est Cr Clr Drug Dosing ml/min Est GFR ( Amer) ml/min Est GFR (Non-Af Amer) ml/min BUN/Creatinine Ratio (10-20) Glucose (70-99) mg/dl POC Glucose 345 H* 356 H* (70-99) mg/dl Calcium (8.5-10.1) mg/dl Phosphorus (2.5-4.9) mg/dl Magnesium (1.8-2.4) mg/dl Procalcitonin 0.36 (0-0.5) ng/ml 07/19/21 07/19/21 07/19/21 Range/Units 11:39 11:26 11:26 WBC 12.45 H (4.8-10.8) K/uL RBC 4.48 L (4.7-6.1) M/uL Hgb 13.9 L (14.0-18.0) g/dL Hct 42.6 (42-52) % MCV 95.1 (80-100) fL MCH 31.0 (25-34) pg MCHC 32.6 (32-36) g/dL RDW Std Deviation 47.9 H (36.4-46.3) fL RDW Coeff of Emmanuel 13.8 (11.5-14.5) % Plt Count 181 (130-400) K/uL MPV 11.5 H (7.4-10.4) fL Sodium 136 (136-145) mmol/L Potassium 4.7 (3.5-5.1) mmol/L Chloride 100 (98-107) mmol/L Carbon Dioxide 27 (21-32) mmol/L Anion Gap 9.0 (3-11) BUN 44 H D (7-18) mg/dl Creatinine 2.14 H D (0.6-1.4) mg/dl Est Cr Clr Drug Dosing 31.4 ml/min Est GFR ( Amer) 32.0 ml/min Est GFR (Non-Af Amer) 27.6 ml/min BUN/Creatinine Ratio 20.7 H (10-20) Glucose 299 H (70-99) mg/dl POC Glucose 278 H (70-99) mg/dl Calcium 9.1 (8.5-10.1) mg/dl Phosphorus 4.4 (2.5-4.9) mg/dl Magnesium 2.2 (1.8-2.4) mg/dl Procalcitonin (0-0.5) ng/ml 07/19/21 Range/Units 07:36 WBC (4.8-10.8) K/uL RBC (4.7-6.1) M/uL Hgb (14.0-18.0) g/dL Hct (42-52) % MCV (80-100) fL MCH (25-34) pg MCHC (32-36) g/dL RDW Std Deviation (36.4-46.3) fL RDW Coeff of Emmanuel (11.5-14.5) % Plt Count (130-400) K/uL MPV (7.4-10.4) fL Sodium (136-145) mmol/L Potassium (3.5-5.1) mmol/L Chloride (98-107) mmol/L Carbon Dioxide (21-32) mmol/L Anion Gap (3-11) BUN (7-18) mg/dl Creatinine (0.6-1.4) mg/dl Est Cr Clr Drug Dosing ml/min Est GFR ( Amer) ml/min Est GFR (Non-Af Amer) ml/min BUN/Creatinine Ratio (10-20) Glucose (70-99) mg/dl POC Glucose 259 H (70-99) mg/dl Calcium (8.5-10.1) mg/dl Phosphorus (2.5-4.9) mg/dl Magnesium (1.8-2.4) mg/dl Procalcitonin (0-0.5) ng/ml Medications Administered Current Inpatient Medications Acetaminophen (Acetaminophen 325 Mg Tab) 650 mg PO Q4H PRN PRN Reason: Pain or Fever Stop: 08/12/21 18:28 Artificial Tears (Artificial Tears) 1 drops OP BID [facility] Stop: 08/12/21 20:59 Last Admin: 07/19/21 09:02 Dose: 1 drops Documented by: Dextrose (Dextrose 50% 50 Ml Syringe) 25 - 50 ml IV UD PRN; Protocol PRN Reason: Hypoglycemia Protocol Stop: 08/12/21 18:28 Docusate Sodium (Docusate Sodium 100 Mg Cap) 100 mg PO BID [facility] Stop: 08/17/21 12:44 Last Admin: 07/19/21 09:02 Dose: 100 mg Documented by: Dorzolamide/Timolol (Dorzolamide/Timolol 22.3/6.8mg/Ml 10 Ml Btl) 1 drops OPB BID [facility] Stop: 08/12/21 20:59 Last Admin: 07/19/21 09:05 Dose: 1 drops Documented by: Glucagon (Glucagon For Inj 1 Mg Vial) 1 mg SQ UD PRN; Protocol PRN Reason: Hypoglycemia Protocol Stop: 08/12/21 18:28 Glucose (Glucose 10 Tabs/Tube) 4 - 8 tabs PO UD PRN; Protocol PRN Reason: Hypoglycemia Protocol Stop: 08/12/21 18:28 Glucose (Glucose 40% Gel 15 Gm Tube) 15 - 30 gm PO UD PRN; Protocol PRN Reason: Hypoglycemia Protocol Stop: 08/12/21 18:28 Guaifenesin (Guaifenesin 600 Mg Tabcr) 600 mg PO Q12 [facility] Stop: 08/17/21 13:39 Last Admin: 07/19/21 09:05 Dose: 600 mg Documented by: Heparin Sodium (Porcine) (Heparin Sod 5,000 Unit/0.5 Ml Vial) 5,000 units SQ Q12 [facility] Stop: 08/12/21 20:59 Last Admin: 07/19/21 09:06 Dose: 5,000 units Documented by: Insulin Aspart (Insulin Aspart 100 Units/Ml 3 Ml Pen) 0 units SC ACHS [facility] Stop: 08/12/21 18:28 Last Admin: 07/19/21 09:03 Dose: 4 units Documented by: Insulin Glargine (Insulin Glargine Solostar 100 Units/Ml 3 Ml Pen) 15 units SC BID [facility] Stop: 08/12/21 20:59 Last Admin: 07/19/21 09:06 Dose: 15 units Documented by: Lisinopril (Lisinopril 5 Mg Tab) 5 mg PO QAM [facility] Stop: 08/14/21 10:59 Last Admin: 07/19/21 09:05 Dose: 5 mg Documented by: Metoprolol Succinate (Metoprolol Succ 25mg Ext Rel Tab) 12.5 mg PO BID [facility] Stop: 08/14/21 11:59 Last Admin: 07/19/21 09:05 Dose: 12.5 mg Documented by: Miscellaneous (Carbohydrates For Hypoglycemia ) 15 - 30 gm PO UD PRN PRN Reason: Hypoglycemia Protocol Stop: 08/12/21 18:28 Ondansetron HCl (Ondansetron Inj 2 Mg/Ml 2 Ml Vial) 4 mg IV Q12H PRN PRN Reason: Nausea And Vomiting Stop: 08/16/21 17:59 Last Admin: 07/18/21 16:48 Dose: 4 mg Documented by: Polyethylene Glycol (Polyethylene (Miralax) 17 Gm Pack) 17 gm PO DAILY [facility] Stop: 08/17/21 12:44 Last Admin: 07/19/21 09:05 Dose: 17 gm Documented by: Spironolactone (Spironolactone 12.5 Mg Tab) 12.5 mg PO DAILY [facility] Stop: 08/14/21 11:59 Last Admin: 07/19/21 09:05 Dose: 12.5 mg Documented by: Torsemide (Torsemide 10 Mg Tab) [facility] [place]: 08/18/21 08:59 Last Admin: 07/19/21 09:06 Dose: 20 mg Documented by:
[2021-07-19 11:40] LABS: Hematocrit (blood only) 42.6 % (42-52); Hemoglobin 13.9 g/dL (14.0-18.0); Mean Corpuscular Hgb Conc 32.6 g/dL (32-36); Mean Corpuscular Volume 95.1 fL (80-100); Mean Platelet Volume 11.5 fL (7.4-10.4); Platelet Count 181 K/uL (130-400); RDW Coefficient of Variation 13.8 % (11.5-14.5); RDW Standard Deviation 47.9 fL (36.4-46.3); Red Blood Count 4.48 M/uL (4.7-6.1); White Blood Count 12.45 K/uL (4.8-10.8)
[2021-07-19 11:59] LABS: BUN Creatinine Ratio 20.7 (10-20); Calcium 9.1 mg/dl (8.5-10.1); Creatinine Clr Calc Pharmacy 31.4 ml/min; Est GFR (Non-African American) 27.6 ml/min; Magnesium 2.2 mg/dl (1.8-2.4); Potassium 4.7 mmol/L (3.5-5.1)
--- NOTE | 2021-07-19 12:03 | XRay Report ---
XR chest 1V portable CLINICAL HISTORY: follow up/ poss. aspiration COMPARISON STUDY: Chest radiograph July 13, 2021. FINDINGS: There is no pneumothorax. Moderate bilateral pleural effusions have slightly increased. Ass ociated bibasilar opacities have increased. There is persistent pulmonary edema. Cardiomegaly is note d. IMPRESSION: 1. Increase in moderate bilateral pleural effusions and associated bibasilar opacities which may refl ect consolidation or atelectasis. Radiographic follow-up is recommended. 2. Suspected pulmonary edema. ACT 112: Negative or not required by law. Electronically signed by: Rio Loredo M.D. 07/19/2021 12:02 PM
[2021-07-19 12:07] LABS: Phosphorus 4.4 mg/dl (2.5-4.9)
[2021-07-19] MEDS: AMOXICILLIN/CLAVULANATE 875 MG TAB PO SCH (17:22)
[2021-07-19] MEDS ORDERED: INSULIN HUMAN REGULAR PER UNIT 5 UNITS in SYRINGE 4.95 ML IV STA (20:38)
[2021-07-19] MEDS ORDERED: INSULIN HUMAN REGULAR PER UNIT 4 UNITS in SYRINGE 3.96 ML IV STA (22:50)
[2021-07-20] MEDS ORDERED: PHARMACY GLYCEMIC MGMT CONSULT PRN (07:22)
[2021-07-20 07:56] LABS: Hematocrit (blood only) 42.8 % (42-52); Hemoglobin 14.2 g/dL (14.0-18.0); Mean Corpuscular Hemoglobin 31.3 pg (25-34); Mean Corpuscular Hgb Conc 33.2 g/dL (32-36); Mean Corpuscular Volume 94.5 fL (80-100); Mean Platelet Volume 11.9 fL (7.4-10.4); Platelet Count 204 K/uL (130-400); RDW Coefficient of Variation 13.8 % (11.5-14.5); RDW Standard Deviation 47.5 fL (36.4-46.3); Red Blood Count 4.53 M/uL (4.7-6.1); White Blood Count 12.81 K/uL (4.8-10.8)
[2021-07-20] MEDS: guaiFENesin 600 MG TABCR PO SCH ×2 (08:22→22:11)
[2021-07-20] MEDS: lisinopril 5 MG TAB PO SCH (08:22)
[2021-07-20] MEDS: AMOXICILLIN/CLAVULANATE 875 MG TAB PO SCH ×2 (08:22→17:20)
[2021-07-20] MEDS: HEPARIN SOD 5,000 UNIT/0.5 ML VIAL SQ SCH ×2 (08:22→22:17)
[2021-07-20] MEDS: SPIRONOLACTONE 12.5 MG TAB PO SCH (08:22)
[2021-07-20] MEDS: INSULIN ASPART 100 UNITS/ML 3 ML PEN SC SCH ×4 (08:23→22:15)
[2021-07-20] MEDS: INSULIN GLARGINE SOLOSTAR 100 UNITS/ML 3 ML PEN SC SCH ×2 (08:25→08:29)
[2021-07-20] MEDS: ARTIFICIAL TEARS OP SCH ×2 (08:25→22:07)
[2021-07-20] MEDS: DORZOLAMIDE/TIMOLOL 22.3/6.8MG/ML 10 ML BTL OPB SCH ×2 (08:26→22:12)
[2021-07-20] MEDS: DOCUSATE SODIUM 100 MG CAP PO SCH ×2 (08:28→22:10)
[2021-07-20] MEDS: POLYETHYLENE (MIRALAX) 17 GM PACK PO SCH (08:28)
[2021-07-20 08:29] LABS: Calcium 9.3 mg/dl (8.5-10.1); Creatinine Clr Calc Pharmacy 30.1 ml/min; Est GFR (African American) 30.3 ml/min; Est GFR (Non-African American) 26.1 ml/min; Magnesium 2.4 mg/dl (1.8-2.4); Potassium 4.4 mmol/L (3.5-5.1)
--- NOTE | 2021-07-20 08:53 | Hospitalist Progress Note ---
Date of Service July 20, 2021 Assessment & Plan (1) Acute systolic heart failure: (2) Acute respiratory failure with hypoxia: Plan: 81 yo M with insulin-dependent DM II presented to ER 07/13 with c/o SOB with exertion x 3 weeks [employer] a/w mild nonproductive cough and increased BLE edema. No fever/chills. Denies known cardiac history. Is being managed for the following: Acute hypoxic respiratory failure Fluid overload: Pneumonia: L>R bibasilar consolidation in admitting CXR Acute systolic heart failure Pleural effusion - layering Pl. Eff in Admitting CXR, c/t monitor, lasix. In ER patient afebrile, hypoxic at 89% on room air up to 95% on 2L oxygen via NC, other vitals stable. No leukocytosis, lactate WNL, troponin: 0.047, BNP: 6077, negative COVID-19 PCR. CXR: Pulmonary vascular congestion, pleural effusions, bibasilar consolidation In ER was given Lasix 40 mg IV 07/14 echo: Severely reduced LV systolic function with severe global hypokinesis, EF 20 to 25%, grade 2 diastolic dysfunction, severe aortic stenosis. Cardiology consulted, appreciate their recommendations For community-acquired pneumonia, continued with antibiotic [Rocephin and Zithromax 07/13], WBC trending down, patient afebrile. Patient will need foll ow-up chest x-ray in 4 to 6 weeks to document resolution of pneumonia. Blood cultures - negative 07/19 - WBC slightly up now at 12K Repeat CXR - shows pulm. edema, pl. effusions. procal slightly higher than previously episode of nausea/vomiting - poss. ? aspiration Will start empiric augmentin For acute systolic heart failure: Monitor I's and O's, cardiology optimize his heart failure medication, is okay with discharge. Patient will need to follow-up with cardiology upon discharge. Continue with supplemental oxygen, titrate as appropriate, monitor daily electrolytes and labs. 2 step test done - pt will need to be discharged on suppl. O2 07/19 -discussed further with cardiology, given elevated creatinine, low blood pressure and repeat chest x-ray showing persistent pulmonary effusion, held torsemide and metoprolol 07/20 -Echo reviewed by cardiology again, patient has severe LV dysfunction. EF 20% is generous. Medical management should be continued.Restarted his metoprolol today as his heart rate up as well as his blood pressure.Hold torsemide again today. Elevated troponin: Possible demand ischemia Troponin: 0.047. Admitting EKG sinus rhythm, Q waves septal leads, T wave inversion inferior and lateral leads. No prior EKG to compare Denies chest pain R/O ACS -troponin down trended to normal Lipid panel WNL cardiology following, as above Insulin dependent diabetes mellitus II: -Unknown baseline A1c -Patient prescribed 80 units Levemir at bedtime however has been taking around 20 to 30 units in the morning. Is prescribed NovoLog with meals however he reports has not been using -Diabetic diet -Monitor BSG's -Basal bolus insulin per protocol. May need to adjust insulin -Current A1c 7.2% - follow up as outpt DVT Prophylaxis -Heparin SQ Full Code as per discussion with pt Follows with Dr Samir Hernandez in [place] for routine care. Disposition: PT/OT, CM to assist with DC planning. DC to H w/ HH once medically stable. Admission and Anticipated Discharge Date Admission Date: July 13, 2021 Subjective Pt seen in follow up of hypoxia, pna, acute syst. HF His creatinine has been elevated Patient is sitting up in chair and reports feeling better Pt's is at the bedside He denies any chest pain or increased shortness of breath or abdominal pain Step 2 obtained, patient will need supplemental oxygen on discharge WBC slightly elevated - obtained repeat CXR - shows pulm. edema and pl. effusions Cardiology following closely Review of Systems Review of Systems: All systems reviewed & are unremarkable except as noted in Subjective Physical Exam Physical Exam: GENERAL: Alert and oriented x3. NAD, on 2L. HEENT: NC/AT. EOMI, PERRL. No pallor, no icterus.Oral mucosa moist. NECK: No JVD, no neck masses. HEART: S1 and S2 heard. Regular rate and rhythm.+syst. murmur RESPIRATORY: Normal AP diameter. No accessory muscle use. No wheezing,diminished breath sounds at bases ABDOMEN: Soft, bowel sounds present, nontender, no distention. NEURO: Alert and oriented x3, answering questions appropriately, no facial droop. Speech is clear. Moves extremities. EXTREMITIES: minimal LE edema, no significant erythema seen. Results & Data Results & Data ([facility]) Vital Signs (Past 12 Hours) Vital Signs Temp Pulse Pulse Resp BP Pulse Ox 07/20/21 07:28 94 H 07/20/21 07:00 35.6 C L 93 H 20 119/75 94 07/20/21 04:59 88 07/20/21 03:53 36.5 C 84 18 104/63 97 07/19/21 23:15 36.3 C L 89 20 94/66 L 96 Laboratory Results 07/20/21 07/20/21 07/20/21 Range/Units 08:00 07:27 07:27 WBC 12.81 H (4.8-10.8) K/uL RBC 4.53 L (4.7-6.1) M/uL Hgb 14.2 (14.0-18.0) g/dL Hct 42.8 (42-52) % MCV 94.5 (80-100) fL MCH 31.3 (25-34) pg MCHC 33.2 (32-36) g/dL RDW Std Deviation 47.5 H (36.4-46.3) fL RDW Coeff of Emmanuel 13.8 (11.5-14.5) % Plt Count 204 (130-400) K/uL MPV 11.9 H (7.4-10.4) fL Sodium 135 L (136-145) mmol/L Potassium 4.4 (3.5-5.1) mmol/L Chloride 99 (98-107) mmol/L Carbon Dioxide 23 (21-32) mmol/L Anion Gap 13.0 H (3-11) BUN 54 H (7-18) mg/dl Creatinine 2.24 H (0.6-1.4) mg/dl Est Cr Clr Drug Dosing 30.1 ml/min Est GFR ( Amer) 30.3 ml/min Est GFR (Non-Af Amer) 26.1 ml/min BUN/Creatinine Ratio 24.0 H (10-20) Glucose 278 H (70-99) mg/dl POC Glucose 284 H (70-99) mg/dl Calcium 9.3 (8.5-10.1) mg/dl Phosphorus 4.0 (2.5-4.9) mg/dl Magnesium 2.4 (1.8-2.4) mg/dl Procalcitonin (0-0.5) ng/ml 07/20/21 07/19/21 07/19/21 Range/Units 01:31 22:33 22:32 WBC (4.8-10.8) K/uL RBC (4.7-6.1) M/uL Hgb (14.0-18.0) g/dL Hct (42-52) % MCV (80-100) fL MCH (25-34) pg MCHC (32-36) g/dL RDW Std Deviation (36.4-46.3) fL RDW Coeff of Emmanuel (11.5-14.5) % Plt Count (130-400) K/uL MPV (7.4-10.4) fL Sodium (136-145) mmol/L Potassium (3.5-5.1) mmol/L Chloride (98-107) mmol/L Carbon Dioxide (21-32) mmol/L Anion Gap (3-11) BUN (7-18) mg/dl Creatinine (0.6-1.4) mg/dl Est Cr Clr Drug Dosing ml/min Est GFR ( Amer) ml/min Est GFR (Non-Af Amer) ml/min BUN/Creatinine Ratio (10-20) Glucose (70-99) mg/dl POC Glucose 233 H 297 H 313 H* (70-99) mg/dl Calcium (8.5-10.1) mg/dl Phosphorus (2.5-4.9) mg/dl Magnesium (1.8-2.4) mg/dl Procalcitonin (0-0.5) ng/ml 07/19/21 07/19/21 07/19/21 Range/Units 21:25 21:25 20:10 WBC (4.8-10.8) K/uL RBC (4.7-6.1) M/uL Hgb (14.0-18.0) g/dL Hct (42-52) % MCV (80-100) fL MCH (25-34) pg MCHC (32-36) g/dL RDW Std Deviation (36.4-46.3) fL RDW Coeff of Emmanuel (11.5-14.5) % Plt Count (130-400) K/uL MPV (7.4-10.4) fL Sodium (136-145) mmol/L Potassium (3.5-5.1) mmol/L Chloride (98-107) mmol/L Carbon Dioxide (21-32) mmol/L Anion Gap (3-11) BUN (7-18) mg/dl Creatinine (0.6-1.4) mg/dl Est Cr Clr Drug Dosing ml/min Est GFR ( Amer) ml/min Est GFR (Non-Af Amer) ml/min BUN/Creatinine Ratio (10-20) Glucose (70-99) mg/dl POC Glucose 309 H* 341 H* 336 H* (70-99) mg/dl Calcium (8.5-10.1) mg/dl Phosphorus (2.5-4.9) mg/dl Magnesium (1.8-2.4) mg/dl Procalcitonin (0-0.5) ng/ml 07/19/21 07/19/21 07/19/21 Range/Units 20:10 16:33 16:32 WBC (4.8-10.8) K/uL RBC (4.7-6.1) M/uL Hgb (14.0-18.0) g/dL Hct (42-52) % MCV (80-100) fL MCH (25-34) pg MCHC (32-36) g/dL RDW Std Deviation (36.4-46.3) fL RDW Coeff of Emmanuel (11.5-14.5) % Plt Count (130-400) K/uL MPV (7.4-10.4) fL Sodium (136-145) mmol/L Potassium (3.5-5.1) mmol/L Chloride (98-107) mmol/L Carbon Dioxide (21-32) mmol/L Anion Gap (3-11) BUN (7-18) mg/dl Creatinine (0.6-1.4) mg/dl Est Cr Clr Drug Dosing ml/min Est GFR ( Amer) ml/min Est GFR (Non-Af Amer) ml/min BUN/Creatinine Ratio (10-20) Glucose (70-99) mg/dl POC Glucose 327 H* 345 H* 356 H* (70-99) mg/dl Calcium (8.5-10.1) mg/dl Phosphorus (2.5-4.9) mg/dl Magnesium (1.8-2.4) mg/dl Procalcitonin (0-0.5) ng/ml 07/19/21 07/19/21 07/19/21 Range/Units 12:05 11:39 11:26 WBC (4.8-10.8) K/uL RBC (4.7-6.1) M/uL Hgb (14.0-18.0) g/dL Hct (42-52) % MCV (80-100) fL MCH (25-34) pg MCHC (32-36) g/dL RDW Std Deviation (36.4-46.3) fL RDW Coeff of Emmanuel (11.5-14.5) % Plt Count (130-400) K/uL MPV (7.4-10.4) fL Sodium 136 (136-145) mmol/L Potassium 4.7 (3.5-5.1) mmol/L Chloride 100 (98-107) mmol/L Carbon Dioxide 27 (21-32) mmol/L Anion Gap 9.0 (3-11) BUN 44 H D (7-18) mg/dl Creatinine 2.14 H D (0.6-1.4) mg/dl Est Cr Clr Drug Dosing 31.4 ml/min Est GFR ( Amer) 32.0 ml/min Est GFR (Non-Af Amer) 27.6 ml/min BUN/Creatinine Ratio 20.7 H (10-20) Glucose 299 H (70-99) mg/dl POC Glucose 278 H (70-99) mg/dl Calcium 9.1 (8.5-10.1) mg/dl Phosphorus 4.4 (2.5-4.9) mg/dl Magnesium 2.2 (1.8-2.4) mg/dl Procalcitonin 0.36 (0-0.5) ng/ml 07/19/21 Range/Units 11:26 WBC 12.45 H (4.8-10.8) K/uL RBC 4.48 L (4.7-6.1) M/uL Hgb 13.9 L (14.0-18.0) g/dL Hct 42.6 (42-52) % MCV 95.1 (80-100) fL MCH 31.0 (25-34) pg MCHC 32.6 (32-36) g/dL RDW Std Deviation 47.9 H (36.4-46.3) fL RDW Coeff of Emmanuel 13.8 (11.5-14.5) % Plt Count 181 (130-400) K/uL MPV 11.5 H (7.4-10.4) fL Sodium (136-145) mmol/L Potassium (3.5-5.1) mmol/L Chloride (98-107) mmol/L Carbon Dioxide (21-32) mmol/L Anion Gap (3-11) BUN (7-18) mg/dl Creatinine (0.6-1.4) mg/dl Est Cr Clr Drug Dosing ml/min Est GFR ( Amer) ml/min Est GFR (Non-Af Amer) ml/min BUN/Creatinine Ratio (10-20) Glucose (70-99) mg/dl POC Glucose (70-99) mg/dl Calcium (8.5-10.1) mg/dl Phosphorus (2.5-4.9) mg/dl Magnesium (1.8-2.4) mg/dl Procalcitonin (0-0.5) ng/ml Medications Administered Current Inpatient Medications Acetaminophen (Acetaminophen 325 Mg Tab) 650 mg PO Q4H PRN PRN Reason: Pain or Fever Stop: 08/12/21 18:28 Amoxicillin/Clavulanate Potassium (Amoxicillin/Clavulanate 875 Mg Tab) 1 tab PO BIDM [facility] Stop: 07/26/21 16:59 Last Admin: 07/20/21 08:22 Dose: 1 tab Documented by: Artificial Tears (Artificial Tears) 1 drops OP BID [facility] Stop: 08/12/21 20:59 Last Admin: 07/20/21 08:25 Dose: 1 drops Documented by: Dextrose (Dextrose 50% 50 Ml Syringe) 25 - 50 ml IV UD PRN; Protocol PRN Reason: Hypoglycemia Protocol Stop: 08/12/21 18:28 Docusate Sodium (Docusate Sodium 100 Mg Cap) 100 mg PO BID [facility] Stop: 08/17/21 12:44 Last Admin: 07/20/21 08:28 Dose: 100 mg Documented by: Dorzolamide/Timolol (Dorzolamide/Timolol 22.3/6.8mg/Ml 10 Ml Btl) 1 drops OPB BID [facility] Stop: 08/12/21 20:59 Last Admin: 07/20/21 08:26 Dose: 1 drops Documented by: Glucagon (Glucagon For Inj 1 Mg Vial) 1 mg SQ UD PRN; Protocol PRN Reason: Hypoglycemia Protocol Stop: 08/12/21 18:28 Glucose (Glucose 10 Tabs/Tube) 4 - 8 tabs PO UD PRN; Protocol PRN Reason: Hypoglycemia Protocol Stop: 08/12/21 18:28 Glucose (Glucose 40% Gel 15 Gm Tube) 15 - 30 gm PO UD PRN; Protocol PRN Reason: Hypoglycemia Protocol Stop: 08/12/21 18:28 Guaifenesin (Guaifenesin 600 Mg Tabcr) 600 mg PO Q12 [facility] Stop: 08/17/21 13:39 Last Admin: 07/20/21 08:22 Dose: 600 mg Documented by: Heparin Sodium (Porcine) (Heparin Sod 5,000 Unit/0.5 Ml Vial) 5,000 units SQ Q12 [facility] Stop: 08/12/21 20:59 Last Admin: 07/20/21 08:22 Dose: 5,000 units Documented by: Insulin Aspart (Insulin Aspart 100 Units/Ml 3 Ml Pen) 0 units SC ACHS [facility] Stop: 08/12/21 18:28 Last Admin: 07/20/21 08:23 Dose: 5 units Documented by: Insulin Glargine (Insulin Glargine Solostar 100 Units/Ml 3 Ml Pen) 50 units SC DAILY [facility] Stop: 08/12/21 20:59 Last Admin: 07/20/21 08:29 Dose: 50 units Documented by: Lisinopril (Lisinopril 5 Mg Tab) 5 mg PO QAM [facility] Stop: 08/14/21 10:59 Last Admin: 07/20/21 08:22 Dose: 5 mg Documented by: Metoprolol Succinate (Metoprolol Succ 25mg Ext Rel Tab) 12.5 mg PO BID [facility] Stop: 08/14/21 11:59 Last Admin: 07/19/21 09:05 Dose: 12.5 mg Documented by: Miscellaneous (Carbohydrates For Hypoglycemia ) 15 - 30 gm PO UD PRN PRN Reason: Hypoglycemia Protocol Stop: 08/12/21 18:28 Miscellaneous Information (Pharmacy Glycemic Mgmt Consult) 1 ea N/A UD PRN PRN Reason: Consult Stop: 08/19/21 07:21 Ondansetron HCl (Ondansetron Inj 2 Mg/Ml 2 Ml Vial) 4 mg IV Q12H PRN PRN Reason: Nausea And Vomiting Stop: 08/16/21 17:59 Last Admin: 07/18/21 16:48 Dose: 4 mg Documented by: Polyethylene Glycol (Polyethylene (Miralax) 17 Gm Pack) 17 gm PO DAILY [facility] Stop: 08/17/21 12:44 Last Admin: 07/20/21 08:28 Dose: 17 gm Documented by: Spironolactone (Spironolactone 12.5 Mg Tab) 12.5 mg PO DAILY [facility] Stop: 08/14/21 11:59 Last Admin: 07/20/21 08:22 Dose: 12.5 mg Documented by: Torsemide (Torsemide 10 Mg Tab) 20 mg PO QAM [facility] Stop: 08/18/21 08:59 Last Admin: 07/19/21 09:06 Dose: 20 mg Documented by:
--- NOTE | 2021-07-20 10:57 | Pharmacy Report ---
Pharmacy Glycemic Short Note 2 - Date of Service July 20, 2021 - Glycemic Short BSG Results (Last 24 hours): 07/19/21 07/19/21 07/19/21 11:26 11:39 16:32 Glucose 299 H POC Glucose 278 H 356 H* 07/19/21 07/19/21 07/19/21 16:33 20:10 20:10 Glucose POC Glucose 345 H* 327 H* 336 H* 07/19/21 07/19/21 07/19/21 21:25 21:25 22:32 Glucose POC Glucose 341 H* 309 H* 313 H* 07/19/21 07/20/21 07/20/21 22:33 01:31 07:27 Glucose 278 H POC Glucose 297 H 233 H 07/20/21 08:00 Glucose POC Glucose 284 H OUTPATIENT ANTIDIABETIC REGIMEN: * Levemir 80 units SC HS * Novolog 8 units SC with breakfast, 12 units SC with lunch and dinner * Patient reports taking Novolog as sliding scale only recently * HbA1c: 7.2% (07/14/21) ASSESSMENT: * is a 81 year old male admitted on 07/13 with respiratory failure/decompensated CHF * Pharmacy consulted for glycemic management this morning due to worsening glycemic control * This is likely due to inadequate basal insulin while inpatient (30 units inpatient vs. 80 units outpatient) * Will give full weight-based stress of 3 dose of Lantus and Novolog with overnight checks this evening PLAN FOR INPATIENT GLYCEMIC CONTROL: * Basal insulin - increase * Lantus 50 units SQ daily * Bolus insulin - tighten * NovoLog per scale ACHS or Q6hrs while NPO * Goal Range: Low 110 mg/dL - High 140 mg/dL * Correction Factor: 15 mg/dL/unit * Nutritional / Prandial insulin per carb ratio of 1 unit per 6 grams CHO consumed PLAN FOR DISCHARGE: * HbA1c of 7.2% suggests good outpatient glycemic control * Reasonable to continue outpatient regimen at discharge
--- NOTE | 2021-07-20 11:39 | Cardiology Progress Note ---
Date of Service July 20, 2021 Assessment & Plan (1) Acute respiratory failure with hypoxia: (2) Acute systolic heart failure: (3) Elevated troponin: (4) Pneumonia: (5) Aortic stenosis: Plan: Low gradient severe aortic stenosis Plan: I reviewed his previous echo myself today. Its not the best study. He has severe LV dysfunction. I believe a left ventricular ejection fraction of 20% is generous. The aortic valve is not well visualized. It is calcified and I agree with the interpretation that this patient most likely has low flow aortic stenosis. Medical management should be continued. I restarted his metoprolol today as his heart rate is up as well as his blood pressure. I would hold his torsemide again today. Admission and Anticipated Discharge Date Admission Date: July 13, 2021 Subjective The patient is resting comfortably. Review of Systems Review of Systems: Review of Systems: See HPI for pertinent positives. All other 10 point review of systems are negative. Physical Exam Physical Exam: General: no acute distress and stated age Head: normocephalic, no masses, lesions, tenderness or abnormalities Eyes: conjunctiva are pink and non-injected, sclera clear Neck: supple, no adenopathy, no bruits, normal jugular venous pulse, no hepatojugular reflux Chest: normal shape and normal respiratory effort Lungs: clear to auscultation and percussion Cardiac Exam: - regular rate & rhythm, systolic murmur- normal S1, normal S2 Pulses: 2(+) throughout Abdomen: abdomen soft, non-tender, no abnormal masses and no hepatosplenomegaly Musculoskeletal: no gait disturbance, no joint inflammation, no deforming arthritis Extremities: no edema and no cyanosis Neuro: grossly normal exam Results & Data ([facility]) Vital Signs (Past 12 Hours) Vital Signs Temp Pulse Pulse Resp BP Pulse Ox 07/20/21 10:00 36.0 C L 100 H 20 97/70 L 91 07/20/21 07:28 94 H 07/20/21 07:00 35.6 C L 93 H 20 119/75 94 07/20/21 04:59 88 07/20/21 03:53 36.5 C 84 18 104/63 97 Laboratory Results Laboratory Results - last 24 hr 07/19/21 07/19/21 07/19/21 11:26 11: 11:39 WBC 12.45 H RBC 4.48 L Hgb 13.9 L Hct 42.6 MCV 95.1 MCH 31.0 MCHC 32.6 RDW Std Deviation 47.9 H RDW Coeff of Emmanuel 13.8 Plt Count 181 MPV 11.5 H Sodium 136 Potassium 4.7 Chloride 100 Carbon Dioxide 27 Anion Gap 9.0 BUN 44 H D Creatinine 2.14 H D Est Cr Clr Drug Dosing 31.4 Est GFR ( Amer) 32.0 Est GFR (Non-Af Amer) 27.6 BUN/Creatinine Ratio 20.7 H Glucose 299 H POC Glucose 278 H Calcium 9.1 Phosphorus 4.4 Magnesium 2.2 Procalcitonin 07/19/21 07/19/21 07/19/21 12:05 16:32 16:33 WBC RBC Hgb Hct MCV MCH MCHC RDW Std Deviation RDW Coeff of Emmanuel Plt Count MPV Sodium Potassium Chloride Carbon Dioxide Anion Gap BUN Creatinine Est Cr Clr Drug Dosing Est GFR ( Amer) Est GFR (Non-Af Amer) BUN/Creatinine Ratio Glucose POC Glucose 356 H* 345 H* Calcium Phosphorus Magnesium Procalcitonin 0.36 07/19/21 07/19/21 07/19/21 20:10 20:10 21:25 WBC RBC Hgb Hct MCV MCH MCHC RDW Std Deviation RDW Coeff of Emmanuel Plt Count MPV Sodium Potassium Chloride Carbon Dioxide Anion Gap BUN Creatinine Est Cr Clr Drug Dosing Est GFR ( Amer) Est GFR (Non-Af Amer) BUN/Creatinine Ratio Glucose POC Glucose 327 H* 336 H* 341 H* Calcium Phosphorus Magnesium Procalcitonin 07/19/21 07/19/21 07/19/21 21:25 22:32 22:33 WBC RBC Hgb Hct MCV MCH MCHC RDW Std Deviation RDW Coeff of Emmanuel Plt Count MPV Sodium Potassium Chloride Carbon Dioxide Anion Gap BUN Creatinine Est Cr Clr Drug Dosing Est GFR ( Amer) Est GFR (Non-Af Amer) BUN/Creatinine Ratio Glucose POC Glucose 309 H* 313 H* 297 H Calcium Phosphorus Magnesium Procalcitonin 07/20/21 07/20/21 07/20/21 01:31 07:27 07:27 WBC 12.81 H RBC 4.53 L Hgb 14.2 Hct 42.8 MCV 94.5 MCH 31.3 MCHC 33.2 RDW Std Deviation 47.5 H RDW Coeff of Emmanuel 13.8 Plt Count 204 MPV 11.9 H Sodium 135 L Potassium 4.4 Chloride 99 Carbon Dioxide 23 Anion Gap 13.0 H BUN 54 H Creatinine 2.24 H Est Cr Clr Drug Dosing 30.1 Est GFR ( Amer) 30.3 Est GFR (Non-Af Amer) 26.1 BUN/Creatinine Ratio 24.0 H Glucose 278 H POC Glucose 233 H Calcium 9.3 Phosphorus 4.0 Magnesium 2.4 Procalcitonin 07/20/21 08:00 WBC RBC Hgb Hct MCV MCH MCHC RDW Std Deviation RDW Coeff of Emmanuel Plt Count MPV Sodium Potassium Chloride Carbon Dioxide Anion Gap BUN Creatinine Est Cr Clr Drug Dosing Est GFR ( Amer) Est GFR (Non-Af Amer) BUN/Creatinine Ratio Glucose POC Glucose 284 H Calcium Phosphorus Magnesium Procalcitonin Medications Administered Current Inpatient Medications Acetaminophen (Acetaminophen 325 Mg Tab) 650 mg PO Q4H PRN PRN Reason: Pain or Fever Stop: 08/12/21 18:28 Amoxicillin/Clavulanate Potassium (Amoxicillin/Clavulanate 875 Mg Tab) 1 tab PO BIDM [facility] Stop: 07/26/21 16:59 Last Admin: 07/20/21 08:22 Dose: 1 tab Documented by: Artificial Tears (Artificial Tears) 1 drops OP BID [facility] Stop: 08/12/21 20:59 Last Admin: 07/20/21 08:25 Dose: 1 drops Documented by: Dextrose (Dextrose 50% 50 Ml Syringe) 25 - 50 ml IV UD PRN; Protocol PRN Reason: Hypoglycemia Protocol Stop: 08/12/21 18:28 Docusate Sodium (Docusate Sodium 100 Mg Cap) 100 mg PO BID [facility] Stop: 08/17/21 12:44 Last Admin: 07/20/21 08:28 Dose: 100 mg Documented by: Dorzolamide/Timolol (Dorzolamide/Timolol 22.3/6.8mg/Ml 10 Ml Btl) 1 drops OPB BID [facility] Stop: 08/12/21 20:59 Last Admin: 07/20/21 08:26 Dose: 1 drops Documented by: Glucagon (Glucagon For Inj 1 Mg Vial) 1 mg SQ UD PRN; Protocol PRN Reason: Hypoglycemia Protocol Stop: 08/12/21 18:28 Glucose (Glucose 10 Tabs/Tube) 4 - 8 tabs PO UD PRN; Protocol PRN Reason: Hypoglycemia Protocol Stop: 08/12/21 18:28 Glucose (Glucose 40% Gel 15 Gm Tube) 15 - 30 gm PO UD PRN; Protocol PRN Reason: Hypoglycemia Protocol Stop: 08/12/21 18:28 Guaifenesin (Guaifenesin 600 Mg Tabcr) 600 mg PO Q12 [facility] Stop: 08/17/21 13:39 Last Admin: 07/20/21 08:22 Dose: 600 mg Documented by: Heparin Sodium (Porcine) (Heparin Sod 5,000 Unit/0.5 Ml Vial) 5,000 units SQ Q12 [facility] Stop: 08/12/21 20:59 Last Admin: 07/20/21 08:22 Dose: 5,000 units Documented by: Insulin Aspart (Insulin Aspart 100 Units/Ml 3 Ml Pen) 0 units SC ACHS [facility] Stop: 08/12/21 18:28 Last Admin: 07/20/21 08:23 Dose: 5 units Documented by: Insulin Glargine (Insulin Glargine Solostar 100 Units/Ml 3 Ml Pen) 50 units SC DAILY [facility] Stop: 08/12/21 20:59 Last Admin: 07/20/21 08:29 Dose: 50 units Documented by: Lisinopril (Lisinopril 5 Mg Tab) 5 mg PO QAM [facility] Stop: 08/14/21 10:59 Last Admin: 07/20/21 08:22 Dose: 5 mg Documented by: Metoprolol Succinate (Metoprolol Succ 25mg Ext Rel Tab) 12.5 mg PO BID [facility] Stop: 08/14/21 11:59 Last Admin: 07/19/21 09:05 Dose: 12.5 mg Documented by: Miscellaneous (Carbohydrates For Hypoglycemia ) 15 - 30 gm PO UD PRN PRN Reason: Hypoglycemia Protocol Stop: 08/12/21 18:28 Miscellaneous Information (Pharmacy Glycemic Mgmt Consult) 1 ea N/A UD PRN PRN Reason: Consult Stop: 08/19/21 07:21 Ondansetron HCl (Ondansetron Inj 2 Mg/Ml 2 Ml Vial) 4 mg IV Q12H PRN PRN Reason: Nausea And Vomiting Stop: 08/16/21 17:59 Last Admin: 07/18/21 16:48 Dose: 4 mg Documented by: Polyethylene Glycol (Polyethylene (Miralax) 17 Gm Pack) 17 gm PO DAILY [facility] Stop: 08/17/21 12:44 Last Admin: 07/20/21 08:28 Dose: 17 gm Documented by: Spironolactone (Spironolactone 12.5 Mg Tab) 12.5 mg PO DAILY [facility] Stop: 08/14/21 11:59 Last Admin: 07/20/21 08:22 Dose: 12.5 mg Documented by: Torsemide (Torsemide 10 Mg Tab) 20 mg PO QA [facility] Stop: 08/18/21 08:59 Last Admin: 07/19/21 09:06 Dose: 20 mg Documented by:
[2021-07-20] MEDS: METOPROLOL SUCC 25MG EXT REL TAB PO SCH (20:31)
[2021-07-20] MEDS ORDERED: SODIUM CHLORIDE 0.9% 500 ML IV SCH (20:45)
[2021-07-21] MEDS: INSULIN ASPART 100 UNITS/ML 3 ML PEN SC SCH ×6 (00:30→21:30)
[2021-07-21] MEDS: AMOXICILLIN/CLAVULANATE 875 MG TAB PO SCH ×2 (08:19→18:08)
[2021-07-21] MEDS: ARTIFICIAL TEARS OP SCH ×2 (08:19→21:21)
[2021-07-21] MEDS: DORZOLAMIDE/TIMOLOL 22.3/6.8MG/ML 10 ML BTL OPB SCH ×2 (08:20→21:19)
[2021-07-21] MEDS: METOPROLOL SUCC 25MG EXT REL TAB PO SCH ×2 (08:20→21:23)
[2021-07-21] MEDS: SPIRONOLACTONE 12.5 MG TAB PO SCH (08:21)
[2021-07-21] MEDS: guaiFENesin 600 MG TABCR PO SCH ×2 (08:21→21:24)
[2021-07-21] MEDS: HEPARIN SOD 5,000 UNIT/0.5 ML VIAL SQ SCH ×2 (08:22→21:22)
[2021-07-21] MEDS: lisinopril 5 MG TAB PO SCH (08:24)
[2021-07-21] MEDS: DOCUSATE SODIUM 100 MG CAP PO SCH ×2 (08:25→21:24)
[2021-07-21] MEDS: POLYETHYLENE (MIRALAX) 17 GM PACK PO SCH (08:25)
[2021-07-21] MEDS: INSULIN GLARGINE SOLOSTAR 100 UNITS/ML 3 ML PEN SC SCH (08:39)
[2021-07-21 08:54] LABS: Hematocrit (blood only) 41.3 % (42-52); Hemoglobin 13.6 g/dL (14.0-18.0); Mean Corpuscular Hgb Conc 32.9 g/dL (32-36); Mean Corpuscular Volume 94.1 fL (80-100); Mean Platelet Volume 11.9 fL (7.4-10.4); Platelet Count 174 K/uL (130-400); RDW Coefficient of Variation 13.7 % (11.5-14.5); RDW Standard Deviation 47.1 fL (36.4-46.3); Red Blood Count 4.39 M/uL (4.7-6.1); White Blood Count 10.38 K/uL (4.8-10.8)
[2021-07-21 09:10] LABS: BUN Creatinine Ratio 28.8 (10-20); Calcium 8.9 mg/dl (8.5-10.1); Creatinine Clr Calc Pharmacy 30.1 ml/min; Est GFR (African American) 30.1 ml/min; Magnesium 2.3 mg/dl (1.8-2.4); Potassium 4.6 mmol/L (3.5-5.1)
--- NOTE | 2021-07-21 10:15 | Pharmacy Report ---
Pharmacy Glycemic Short Note 2 - Date of Service July 21, 2021 - Glycemic Short BSG Results (Last 24 hours): 07/20/21 07/20/21 07/20/21 11:44 17:06 20:06 Glucose POC Glucose 285 H 223 H 227 H 07/21/21 07/21/21 07/21/21 00:21 04:07 07:45 Glucose POC Glucose 195 H 174 H 181 H 07/21/21 08:44 Glucose 210 H POC Glucose OUTPATIENT ANTIDIABETIC REGIMEN: * Levemir 80 units SC HS * Novolog 8 units SC with breakfast, 12 units SC with lunch and dinner * Patient reports taking Novolog as sliding scale only recently * HbA1c: 7.2% (07/14/21) ASSESSMENT: 07/21/21 * Patient's BSGs yesterday were [phone] mg/dL and overnight were 195-174 mg/dL. Fasting today is 191 mg/dL. * Patient received 80 units of insulin yesterday with 50 units of basal and 30 units of bolus. * Continue Levemir 50 units daily. Patient's fasting decreased by 100 points. * Continue Novolog. Weight-based stress of 3. Background * DR is a 81 year old male admitted on 07/13 with respiratory failure/decompensated CHF * Pharmacy consulted for glycemic management this morning due to worsening glycemic control * This is likely due to inadequate basal insulin while inpatient (30 units inpatient vs. 80 units outpatient) * Will give full weight-based stress of 3 dose of Lantus and Novolog with overnight checks this evening PLAN FOR INPATIENT GLYCEMIC CONTROL: * Basal insulin * Lantus 50 units SQ daily * Bolus insulin * NovoLog per scale ACHS or Q6hrs while NPO * Goal Range: Low 110 mg/dL - High 140 mg/dL * Correction Factor: 15 mg/dL/unit * Nutritional / Prandial insulin per carb ratio of 1 unit per 6 grams CHO consumed PLAN FOR DISCHARGE: * HbA1c of 7.2% suggests good outpatient glycemic control * Reasonable to continue outpatient regimen at discharge
--- NOTE | 2021-07-21 14:27 | Cardiology Progress Note ---
Date of Service July 21, 2021 Assessment & Plan (1) Acute respiratory failure with hypoxia: (2) Acute systolic heart failure: (3) Elevated troponin: (4) Pneumonia: (5) Aortic stenosis: Plan: Low gradient severe aortic stenosis Plan: The patient is alert and appears to be comfortable. I had a long discussion with his [id number] who works here at the hospital. She is keeping the family informed and they seem to be realistic. Unfortunately, he is a late presentation. He is not responding well to medical therapy. His blood pressures remain low. Unfortunately, fluid balance is questionable as urine output has not been recorded. I do not believe that he has a Kruger catheter in place. He has been restarted on his torsemide at 10 mg daily. Admission and Anticipated Discharge Date Admission Date: July 13, 2021 Subjective The patient is sitting comfortably in a chair. No new complaints. Review of Systems Review of Systems: Review of Systems: See HPI for pertinent positives. All other 10 point review of systems are negative. Physical Exam Physical Exam: General: no acute distress and stated age Head: normocephalic, no masses, lesions, tenderness or abnormalities Eyes: conjunctiva are pink and non-injected, sclera clear Neck: supple, no adenopathy, no bruits, normal jugular venous pulse, no hepatojugular reflux Chest: normal shape and normal respiratory effort Lungs: clear to auscultation and percussion Cardiac Exam: - regular rate & rhythm, systolic murmur- normal S1, normal S2 Pulses: 2(+) throughout Abdomen: abdomen soft, non-tender, no abnormal masses and no hepatosplenomegaly Musculoskeletal: no gait disturbance, no joint inflammation, no deforming arthritis Extremities: no edema and no cyanosis Neuro: grossly normal exam Results & Data ([facility]) Vital Signs (Past 12 Hours) Vital Signs Temp Pulse Pulse Pulse Resp BP Pulse Ox 07/21/21 12:04 34.6 C L 78 12 84/54 L 91 07/21/21 06:24 85 07/21/21 04:00 36.8 C 84 20 111/71 94 Laboratory Results Laboratory Results - last 24 hr 07/20/21 07/20/21 07/21/21 17:06 20:06 00:21 WBC RBC Hgb Hct MCV MCH MCHC RDW Std Deviation RDW Coeff of Emmanuel Plt Count MPV Sodium Potassium Chloride Carbon Dioxide Anion Gap BUN Creatinine Est Cr Clr Drug Dosing Est GFR ( Amer) Est GFR (Non-Af Amer) BUN/Creatinine Ratio Glucose POC Glucose 223 H 227 H 195 H Calcium Phosphorus Magnesium 07/21/21 07/21/21 07/21/21 04:07 07:45 08:44 WBC 10.38 RBC 4.39 L Hgb 13.6 L Hct 41.3 L MCV 94.1 MCH 31.0 MCHC 32.9 RDW Std Deviation 47.1 H RDW Coeff of Emmanuel 13.7 Plt Count 174 MPV 11.9 H Sodium Potassium Chloride Carbon Dioxide Anion Gap BUN Creatinine Est Cr Clr Drug Dosing Est GFR ( Amer) Est GFR (Non-Af Amer) BUN/Creatinine Ratio Glucose POC Glucose 174 H 181 H Calcium Phosphorus Magnesium 07/21/21 07/21/21 08:44 11:16 WBC RBC Hgb Hct MCV MCH MCHC RDW Std Deviation RDW Coeff of Emmanuel Plt Count MPV Sodium 135 L Potassium 4.6 Chloride 99 Carbon Dioxide 28 Anion Gap 8.0 BUN 65 H Creatinine 2.25 H Est Cr Clr Drug Dosing 30.1 Est GFR ( Amer) 30.1 Est GFR (Non-Af Amer) 26.0 BUN/Creatinine Ratio 28.8 H Glucose 210 H POC Glucose 190 H Calcium 8.9 Phosphorus 4.0 Magnesium 2.3 Medications Administered Current Inpatient Medications Acetaminophen (Acetaminophen 325 Mg Tab) 650 mg PO Q4H PRN PRN Reason: Pain or Fever Stop: 08/12/21 18:28 Amoxicillin/Clavulanate Potassium (Amoxicillin/Clavulanate 875 Mg Tab) 1 tab PO BIDM [facility] Stop: 07/26/21 16:59 Last Admin: 07/21/21 08:19 Dose: 1 tab Documented by: Artificial Tears (Artificial Tears) 1 drops OP BID [facility] Stop: 08/12/21 20:59 Last Admin: 07/21/21 08:19 Dose: 1 drops Documented by: Dextrose (Dextrose 50% 50 Ml Syringe) 25 - 50 ml IV UD PRN; Protocol PRN Reason: Hypoglycemia Protocol Stop: 08/12/21 18:28 Docusate Sodium (Docusate Sodium 100 Mg Cap) 100 mg PO BID [facility] Stop: 08/17/21 12:44 Last Admin: 07/21/21 08:25 Dose: 100 mg Documented by: Dorzolamide/Timolol (Dorzolamide/Timolol 22.3/6.8mg/Ml 10 Ml Btl) 1 drops OPB BID [facility] Stop: 08/12/21 20:59 Last Admin: 07/21/21 08:20 Dose: 1 drops Documented by: Glucagon (Glucagon For Inj 1 Mg Vial) 1 mg SQ UD PRN; Protocol PRN Reason: Hypoglycemia Protocol Stop: 08/12/21 18:28 Glucose (Glucose 10 Tabs/Tube) 4 - 8 tabs PO UD PRN; Protocol PRN Reason: Hypoglycemia Protocol Stop: 08/12/21 18:28 Glucose (Glucose 40% Gel 15 Gm Tube) 15 - 30 gm PO UD PRN; Protocol PRN Reason: Hypoglycemia Protocol Stop: 08/12/21 18:28 Guaifenesin (Guaifenesin 600 Mg Tabcr) 600 mg PO Q12 [facility] Stop: 08/17/21 13:39 Last Admin: 07/21/21 08:21 Dose: 600 mg Documented by: Heparin Sodium (Porcine) (Heparin Sod 5,000 Unit/0.5 Ml Vial) 5,000 units SQ Q12 [facility] Stop: 08/12/21 20:59 Last Admin: 07/21/21 08:22 Dose: 5,000 units Documented by: Insulin Aspart (Insulin Aspart 100 Units/Ml 3 Ml Pen) 0 units SC ACHS [facility] Stop: 08/12/21 18:28 Last Admin: 07/21/21 12:47 Dose: 9 units Documented by: Insulin Glargine (Insulin Glargine Solostar 100 Units/Ml 3 Ml Pen) 50 units SC DAILY [facility] Stop: 08/12/21 20:59 Last Admin: 07/21/21 08:39 Dose: 50 units Documented by: Lisinopril (Lisinopril 5 Mg Tab) 5 mg PO QAM [facility] Stop: 08/14/21 10:59 Last Admin: 07/21/21 08:24 Dose: 5 mg Documented by: Metoprolol Succinate (Metoprolol Succ 25mg Ext Rel Tab) 12.5 mg PO BID [facility] Stop: 08/14/21 11:59 Last Admin: 07/21/21 08:20 Dose: 12.5 mg Documented by: Miscellaneous (Carbohydrates For Hypoglycemia ) 15 - 30 gm PO UD PRN PRN Reason: Hypoglycemia Protocol Stop: 08/12/21 18:28 Miscellaneous Information (Pharmacy Glycemic Mgmt Consult) 1 ea N/A UD PRN PRN Reason: Consult Stop: 08/19/21 07:21 Ondansetron HCl (Ondansetron Inj 2 Mg/Ml 2 Ml Vial) 4 mg IV Q12H PRN PRN Reason: Nausea And Vomiting Stop: 08/16/21 17:59 Last Admin: 07/18/21 16:48 Dose: 4 mg Documented by: Polyethylene Glycol (Polyethylene (Miralax) 17 Gm Pack) 17 gm PO DAILY [facility] Stop: 08/17/21 12:44 Last Admin: 07/21/21 08:25 Dose: 17 gm Documented by: Spironolactone (Spironolactone 12.5 Mg Tab) 12.5 mg PO DAILY [facility] Stop: 08/14/21 11:59 Last Admin: 07/21/21 08:21 Dose: 12.5 mg Documented by: Torsemide (Torsemide 10 Mg Tab) 10 mg PO QAM [facility] Stop: 08/21/21 08:59
[2021-07-21] MEDS: ONDANSETRON INJ 2 MG/ML 2 ML VIAL IV PRN (16:52)
--- NOTE | 2021-07-21 17:45 | Hospitalist Progress Note ---
Date of Service July 21, 2021 Assessment & Plan (1) Acute systolic heart failure: (2) Acute respiratory failure with hypoxia: Plan: 81 yo M with insulin-dependent DM II presented to ER 07/13 with c/o SOB with exertion x 3 weeks ONION TIER a/w mild nonproductive cough and increased BLE edema. No fever/chills. Denies known cardiac history. Is being managed for the following: Acute hypoxic respiratory failure Fluid overload: Pneumonia: L>R bibasilar consolidation in admitting CXR Acute systolic heart failure Pleural effusion - layering Pl. Eff in Admitting CXR, c/t monitor, lasix. In ER patient afebrile, hypoxic at 89% on room air up to 95% on 2L oxygen via NC, other vitals stable. No leukocytosis, lactate WNL, troponin: 0.047, BNP: 6077, negative COVID-19 PCR. CXR: Pulmonary vascular congestion, pleural effusions, bibasilar consolidation In ER was given Lasix 40 mg IV 07/14 echo: Severely reduced LV systolic function with severe global hypokinesis, EF 20 to 25%, grade 2 diastolic dysfunction, severe aortic stenosis. Cardiology consulted, appreciate their recommendations For community-acquired pneumonia, continued with antibiotic [Rocephin and Zithromax 07/13], WBC trending down, patient afebrile. Patient will need foll ow-up chest x-ray in 4 to 6 weeks to document resolution of pneumonia. Blood cultures - negative 07/19 - WBC slightly up now at 12K Repeat CXR - shows pulm. edema, pl. effusions. procal slightly higher than previously episode of nausea/vomiting - poss. ? aspiration Started empiric augmentin For acute systolic heart failure: Monitor I's and O's, cardiology optimize his heart failure medication, is okay with discharge. Patient will need to follow-up with cardiology upon discharge. Continue with supplemental oxygen, titrate as appropriate, monitor daily electrolytes and labs. 2 step test done - pt will need to be discharged on suppl. O2 07/19 -discussed further with cardiology, given elevated creatinine, low blood pressure and repeat chest x-ray showing persistent pulmonary effusion, held torsemide and metoprolol 07/20 -Echo reviewed by cardiology again, patient has severe LV dysfunction. EF 20% is generous. Medical management should be continued.Restarted his metoprolol today as his heart rate up as well as his blood pressure.Hold torsemide again today. 07/21 - Patient is not responding well to medical therapy, his blood pressure remains low. Fluid balance is questionable. Torsemide restarted at 10 mg daily. Elevated troponin: Possible demand ischemia Troponin: 0.047. Admitting EKG sinus rhythm, Q waves septal leads, T wave inversion inferior and lateral leads. No prior EKG to compare Denies chest pain R/O ACS -troponin down trended to normal Lipid panel WNL cardiology following, as above Insulin dependent diabetes mellitus II: -Unknown baseline A1c -Patient prescribed 80 units Levemir at bedtime however has been taking around 20 to 30 units in the morning. Is prescribed NovoLog with meals however he reports has not been using -Diabetic diet -Monitor BSG's -Basal bolus insulin per protocol. May need to adjust insulin -Current A1c 7.2% - follow up as outpt DVT Prophylaxis -Heparin SQ Full Code as per discussion with pt Follows with Dr Samir Hernandez in [place] for routine care. Disposition: PT/OT, CM to assist with DC planning. DC to H w/ HH once medically stable. Update: Palliative medicine consult for goals of care Admission and Anticipated Discharge Date Admission Date: July 13, 2021 Subjective Pt seen in follow up of hypoxia, pna, acute syst. HF Patient is sitting up in chair and reports being comfortable this AM He denies any chest pain or increased shortness of breath or abdominal pain His creatinine has been elevated Repeat CXR - w/ persistent pl. effusions Step 2 obtained, patient will need supplemental oxygen on discharge BP on lower side Cardiology following closely - pt is not responding well to medical therapy - family updated Update: Pt more lethargic late PM - per RN VS pt's HR in 30's. Will obtain stat EKG. Pt's is at the bedside Review of Systems Review of Systems: All systems reviewed & are unremarkable except as noted in Subjective Physical Exam Physical Exam: GENERAL: Alert and oriented x3. NAD, on 2L. HEENT: NC/AT. EOMI, PERRL. No pallor, no icterus.Oral mucosa moist. NECK: No JVD, no neck masses. HEART: S1 and S2 heard. Regular rate and rhythm.+syst. murmur RESPIRATORY: Normal AP diameter. No accessory muscle use. No wheezing,diminished breath sounds at bases ABDOMEN: Soft, bowel sounds present, nontender, no distention. NEURO: Alert and oriented x3, answering questions appropriately, no facial droop. Speech is clear. Moves extremities. EXTREMITIES: minimal LE edema, no significant erythema seen. Results & Data Results & Data ([facility]) Vital Signs (Past 12 Hours) Vital Signs Temp Pulse Pulse Pulse Resp BP Pulse Ox 07/21/21 17:07 30 L 102/53 L 93 07/21/21 16:03 92 H 07/21/21 12:04 34.6 C L 78 12 84/54 L 91 07/21/21 06:24 85 Laboratory Results 07/21/21 07/21/21 07/21/21 Range/Units 16:37 11:16 08:44 WBC (4.8-10.8) K/uL RBC (4.7-6.1) M/uL Hgb (14.0-18.0) g/dL Hct (42-52) % MCV (80-100) fL MCH (25-34) pg MCHC (32-36) g/dL RDW Std Deviation (36.4-46.3) fL RDW Coeff of Emmanuel (11.5-14.5) % Plt Count (130-400) K/uL MPV (7.4-10.4) fL Sodium 135 L (136-145) mmol/L Potassium 4.6 (3.5-5.1) mmol/L Chloride 99 (98-107) mmol/L Carbon Dioxide 28 (21-32) mmol/L Anion Gap 8.0 (3-11) BUN 65 H (7-18) mg/dl Creatinine 2.25 H (0.6-1.4) mg/dl Est Cr Clr Drug Dosing 30.1 ml/min Est GFR ( Amer) 30.1 ml/min Est GFR (Non-Af Amer) 26.0 ml/min BUN/Creatinine Ratio 28.8 H (10-20) Glucose 210 H (70-99) mg/dl POC Glucose 174 H 190 H (70-99) mg/dl Calcium 8.9 (8.5-10.1) mg/dl Phosphorus 4.0 (2.5-4.9) mg/dl Magnesium 2.3 (1.8-2.4) mg/dl 11/07/21/21 07/21/21 Range/Units 08:44 07:45 04:07 WBC 10.38 (4.8-10.8) K/uL RBC 4.39 L (4.7-6.1) M/uL Hgb 13.6 L (14.0-18.0) g/dL Hct 41.3 L (42-52) % MCV 94.1 (80-100) fL MCH 31.0 (25-34) pg MCHC 32.9 (32-36) g/dL RDW Std Deviation 47.1 H (36.4-46.3) fL RDW Coeff of Emmanuel 13.7 (11.5-14.5) % Plt Count 174 (130-400) K/uL MPV 11.9 H (7.4-10.4) fL Sodium (136-145) mmol/L Potassium (3.5-5.1) mmol/L Chloride (98-107) mmol/L Carbon Dioxide (21-32) mmol/L Anion Gap (3-11) BUN (7-18) mg/dl Creatinine (0.6-1.4) mg/dl Est Cr Clr Drug Dosing ml/min Est GFR ( Amer) ml/min Est GFR (Non-Af Amer) ml/min BUN/Creatinine Ratio (10-20) Glucose (70-99) mg/dl POC Glucose 181 H 174 H (70-99) mg/dl Calcium (8.5-10.1) mg/dl Phosphorus (2.5-4.9) mg/dl Magnesium (1.8-2.4) mg/dl 07/21/21 07/20/21 Range/Units 00:21 20:06 WBC (4.8-10.8) K/uL RBC (4.7-6.1) M/uL Hgb (14.0-18.0) g/dL Hct (42-52) % MCV (80-100) fL MCH (25-34) pg MCHC (32-36) g/dL RDW Std Deviation (36.4-46.3) fL RDW Coeff of Emmanuel (11.5-14.5) % Plt Count (130-400) K/uL MPV (7.4-10.4) fL Sodium (136-145) mmol/L Potassium (3.5-5.1) mmol/L Chloride (98-107) mmol/L Carbon Dioxide (21-32) mmol/L Anion Gap (3-11) BUN (7-18) mg/dl Creatinine (0.6-1.4) mg/dl Est Cr Clr Drug Dosing ml/min Est GFR ( Amer) ml/min Est GFR (Non-Af Amer) ml/min BUN/Creatinine Ratio (10-20) Glucose (70-99) mg/dl POC Glucose 195 H 227 H (70-99) mg/dl Calcium (8.5-10.1) mg/dl Phosphorus (2.5-4.9) mg/dl Magnesium (1.8-2.4) mg/dl Medications Administered Current Inpatient Medications Acetaminophen (Acetaminophen 325 Mg Tab) 650 mg PO Q4H PRN PRN Reason: Pain or Fever Stop: 08/12/21 18:28 Amoxicillin/Clavulanate Potassium (Amoxicillin/Clavulanate 875 Mg Tab) 1 tab PO BIDM [facility] Stop: 07/26/21 16:59 Last Admin: 07/21/21 08:19 Dose: 1 tab Documented by: Artificial Tears (Artificial Tears) 1 drops OP BID [facility] Stop: 08/12/21 20:59 Last Admin: 07/21/21 08:19 Dose: 1 drops Documented by: Dextrose (Dextrose 50% 50 Ml Syringe) 25 - 50 ml IV UD PRN; Protocol PRN Reason: Hypoglycemia Protocol Stop: 08/12/21 18:28 Docusate Sodium (Docusate Sodium 100 Mg Cap) 100 mg PO BID [facility] Stop: 08/17/21 12:44 Last Admin: 07/21/21 08:25 Dose: 100 mg Documented by: Dorzolamide/Timolol (Dorzolamide/Timolol 22.3/6.8mg/Ml 10 Ml Btl) 1 drops OPB BID [facility] Stop: 08/12/21 20:59 Last Admin: 07/21/21 08:20 Dose: 1 drops Documented by: Glucagon (Glucagon For Inj 1 Mg Vial) 1 mg SQ UD PRN; Protocol PRN Reason: Hypoglycemia Protocol Stop: 08/12/21 18:28 Glucose (Glucose 10 Tabs/Tube) 4 - 8 tabs PO UD PRN; Protocol PRN Reason: Hypoglycemia Protocol Stop: 08/12/21 18:28 Glucose (Glucose 40% Gel 15 Gm Tube) 15 - 30 gm PO UD PRN; Protocol PRN Reason: Hypoglycemia Protocol Stop: 08/12/21 18:28 Guaifenesin (Guaifenesin 600 Mg Tabcr) 600 mg PO Q12 [facility] Stop: 08/17/21 13:39 Last Admin: 07/21/21 08:21 Dose: 600 mg Documented by: Heparin Sodium (Porcine) (Heparin Sod 5,000 Unit/0.5 Ml Vial) 5,000 units SQ Q12 [facility] Stop: 08/12/21 20:59 Last Admin: 07/21/21 08:22 Dose: 5,000 units Documented by: Insulin Aspart (Insulin Aspart 100 Units/Ml 3 Ml Pen) 0 units SC ACHS [facility] Stop: 08/12/21 18:28 Last Admin: 07/21/21 12:47 Dose: 9 units Documented by: Insulin Glargine (Insulin Glargine Solostar 100 Units/Ml 3 Ml Pen) 50 units SC DAILY [facility] Stop: 08/12/21 20:59 Last Admin: 07/21/21 08:39 Dose: 50 units Documented by: Lisinopril (Lisinopril 5 Mg Tab) 5 mg PO QAM [facility] Stop: 08/14/21 10:59 Last Admin: 07/21/21 08:24 Dose: 5 mg Documented by: Metoprolol Succinate (Metoprolol Succ 25mg Ext Rel Tab) 12.5 mg PO BID [facility] Stop: 08/14/21 11:59 Last Admin: 07/21/21 08:20 Dose: 12.5 mg Documented by: Miscellaneous (Carbohydrates For Hypoglycemia ) 15 - 30 gm PO UD PRN PRN Reason: Hypoglycemia Protocol Stop: 08/12/21 18:28 Miscellaneous Information (Pharmacy Glycemic Mgmt Consult) 1 ea N/A UD PRN PRN Reason: Consult Stop: 08/19/21 07:21 Polyethylene Glycol (Polyethylene (Miralax) 17 Gm Pack) 17 gm PO DAILY [facility] Stop: 08/17/21 12:44 Last Admin: 07/21/21 08:25 Dose: 17 gm Documented by: Spironolactone (Spironolactone 12.5 Mg Tab) 12.5 mg PO DAILY [facility] Stop: 08/14/21 11:59 Last Admin: 07/21/21 08:21 Dose: 12.5 mg Documented by: Torsemide (Torsemide 10 Mg Tab) 10 mg PO QAM [facility] Stop: 08/21/21 08:59
[2021-07-21 18:18] LABS: Hematocrit (blood only) 41.6 % (42-52); Hemoglobin 13.8 g/dL (14.0-18.0); Mean Corpuscular Hemoglobin 31.3 pg (25-34); Mean Corpuscular Volume 94.3 fL (80-100); Mean Platelet Volume 11.8 fL (7.4-10.4); Platelet Count 203 K/uL (130-400); RDW Coefficient of Variation 13.6 % (11.5-14.5); RDW Standard Deviation 47.5 fL (36.4-46.3); Red Blood Count 4.41 M/uL (4.7-6.1)
[2021-07-21 18:34] LABS: BUN Creatinine Ratio 26.9 (10-20); Calcium 8.9 mg/dl (8.5-10.1); Creatinine Clr Calc Pharmacy 26.2 ml/min; Est GFR (African American) 25.5 ml/min; Magnesium 2.3 mg/dl (1.8-2.4); Potassium 4.5 mmol/L (3.5-5.1)
[2021-07-21] MEDS ORDERED: MIDAZOLAM HCL 1 MG/ML 2ML VIAL ONE (18:40)
[2021-07-21] MEDS ORDERED: fentaNYL citrate 100 MCG/2 ML VIAL ONE (18:41)
[2021-07-21] MEDS ORDERED: niCARdipine HCL INJ 2.5 MG/ML 10 ML AMP ONE (18:41)
[2021-07-21] MEDS ORDERED: HEPARIN (PORCINE) 1000 UNIT/ML 10 ML (CATH LAB USE ONLY) ONE ×2 (18:41→19:29)
--- NOTE | 2021-07-21 18:41 | XRay Report ---
SINGLE VIEW CHEST CLINICAL HISTORY: Lethargy. Bradycardia. Pleural effusions. FINDINGS: An AP, portable, semierect chest radiograph is compared to study dated 07/19/2021. The exam ination is degraded by portable technique and apical lordotic positioning. The heart is enlarged noti ng atherosclerotic calcification of the thoracic aorta. There is pulmonary vascular congestion. There are layering pleural effusions with bibasilar consolidation. No pneumothorax is seen. The skeletal s tructures are osteopenic. The bony thorax is grossly intact. Degenerative change is noted in the shou lders and thoracic spine. IMPRESSION: 1. Cardiomegaly with evidence of congestive failure. This has modestly improved as compared to 2020. 2. Layering pleural effusions with bibasilar consolidation. This is similar to previous. ACT 112: Negative or not required by law. Electronically signed by: Geraldo Meeks M.D. 07/21/2021 6:40 PM
[2021-07-21 18:42] LABS: Phosphorus 4.1 mg/dl (2.5-4.9); Troponin I 19.8 ng/ml (0-0.045)
[2021-07-21] MEDS ORDERED: NITROGLYCERIN/D5W 100MCG/ML 20ML SYR ONE (18:42)
[2021-07-21] MEDS ORDERED: NOREPINEPHRINE BITARTRATE 1 MG/ML 4 ML VIAL IV ONE (19:12)
[2021-07-21 19:43] LABS: Mean Corpuscular Hgb Conc 33.2 g/dL (32-36)
[2021-07-21] MEDS ORDERED: CLOPIDOGREL BISULFATE 300 MG TAB ONE (20:00)
[2021-07-21 20:11] LABS: iSTAT Arterial Blood Gas HCO3 23 meg/L (19-24); iSTAT Arterial Blood Gas pCO2 38 mmHg (35-46); iSTAT Arterial Blood Gas pO2 96 mmHg (80-95); iSTAT Carbon Dioxide 24 mmol/L (24-31)
[2021-07-21 20:11] LABS: iSTAT Arterial Blood Gas HCO3 25 meg/L (19-24); iSTAT Arterial Blood Gas pCO2 46 mmHg (35-46); iSTAT Arterial Blood Gas pH 7.35 (7.35-7.45); iSTAT Arterial Blood Gas pO2 78 mmHg (80-95); iSTAT Carbon Dioxide 27 mmol/L (24-31)
--- NOTE | 2021-07-21 20:19 | Post Anesthesia Assessment ---
Date of Service July 21, 2021 Post Sedation Assessment Vital Signs Temp Pulse Pulse Pulse Resp BP Pulse Ox 07/21/21 17:07 30 L 102/53 L 93 07/21/21 16:03 92 H 07/21/21 12:04 94.3 F L 78 12 84/54 L 91 07/21/21 06:24 85 07/21/21 04:00 98.2 F 84 20 111/71 94 07/20/21 23:56 98.2 F 77 18 80/52 L 92 07/20/21 23:53 108 H Recovery Score Activity: Moves 4 extremities Respiration: Deep Breath/Cough Circulation: +/-20% PreAnes Value Consciousness: Fully Awake Oxygen Saturation: O2 needed for >90% Discharge Sedation Level of Care: Higher Level of Care Post Sedation Plan On clinical assessment, the patient appears to have tolerated the sedation without complications. Patient is recovering as anticipated. Patient will continue to be monitored by nursing and may be discharged when sedation discharge criteria are met per below protocol. Upon Completions of procedure up to 15 minutes continue every 5 minute vital signs and the P.A.R. score; then discharge to a Phase I or Fast Track to Phase II per the following guidelines: * Discharge Patient to appropriate Phase II area if PAR is 8 or greater or return to pre- procedure baseline. The post - procedure orders will be as directed. * If PAR score is less than 8 or not return to pre-procedure baseline then patient will follow Phase I monitoring till PAR is reached for Phase II. The Phase I may be done in procedure room or may call to secure a Phase I area. * If naloxone or flumazenil are used for reversal, hold in Phase I for continued monitoring from when last reversal dose was given for a minimum of 60 minutes or longer pending the nurse and/or physician discretion of patient condition before discharge to Phase II. Please call the Sedation Physician to re-evaluate and complete post-note for discharge to Phase II area. Do NOT discharge from procedure sedation or Phase 1 until post- sedation evaluation note is complete by procedure /sedation MD Sedation Discharge Instructions to be given to the patient at discharge to home.
--- NOTE | 2021-07-21 20:34 | Cardiac Catheterization ---
[facility] Data: Counseling Aide Cardiac Status Clinical evaluation leading to the procedure CAD Presenation: STEMI Anginal Classification: CCS IV Heart Failure: NYHA Class: CCS IV Cardiogenic Shock within 24 Hours: No Cardiac Arrest within 24 Hours: No Imaging Studies Past 6 Months: Yes Stress Studies Past 6 Months: No Diagnostic Physicians Name: Sterling Hassan MD Status: Emergency Closure Device Percutaneous Entry Location: Radial Closure Device: Radial Band Recommendations: PCI without planned CABG PCI Indication: Immediate PCI for STEMI Lesion Segment Name: mid LAD Culprit Artery: Yes Stenosis Prior to Rx (%): 100 Chronic Total Occlusion: No IVUS: No FFR: No Previously Treated Lesion: No Lesion Complexity: High/C Lesion Length (mm): 50 Thrombus Present: Yes Bifurcation Lesion: Yes Guidewire Across Lesion: Stenosis Post-Procedure (%): 0 Post-Procedure MADHAVI Flow: 3 Devices(s) Deployed: Yes Yes Intraprocedure Events Significant Disection: No Perforation: No Cardiac Cath Procedure Full Procedure Date July 21, 2021 Pre-Procedure Diagnosis Pre-Procedure Diagnosis: STEMI AUC Score AUC Score: 9 Post-Procedure Diagnosis Post-Procedure Diagnosis: Severe CAD, Successful PCI and Elevated Intracardiac Pressures Procedure(s) Performed Procedure(s) Performed: Coronary Angiography, Left Heart Cath, Right Heart Cath, Drug Eluting Stent and Ultrasound Guided Vascular Access Business Development Officer Sterling Hassan MD Director Data Architecture(s) [place] Estimated Blood Loss Estimated Blood Loss: 15 Medication(s) Medication(s): Clopidogrel, Fentanyl, Heparin, Lidocaine 1%, Nicardipine and Nitroglycerin Summary of Findings Indication: Anterior STEMI Access: 6Fr right radial artery. 6Fr right antecubital vein under ultrasound guidance Catheters: EBU 3.5 guide, diagnostic JR4, 6Fr [place] Findings: LM -moderate caliber, 20% ostial LAD -medium caliber, diffuse proximal disease, 100% acute mid occlusion just after takeoff of D2. Circumflex -medium caliber, 95% mid stenosis. RCA -dominant, medium caliber, 80% focal mid stenosis. Mid to distal PDA with diffuse 70% disease RA 17 RV 66/17 PA 65/28 (40) PAWP 27 LV 30 PaSat 44% AoSat 95% Ricky CO/CI 2.9/1.3 -- PCI -- Antithrombotic therapy: Heparin, clopidogrel Procedure: Left main cannulated with EBU 3.5 guide BMW wire passed across lesion into distal vessel Mid LAD lesion predilated with 2.0 compliant balloon Dilated lesion stented with 2 overlapping drug-eluting stents (2.5 x 26, 2.5 x 30 mm [place]) Stent post-dilated with 2.75 noncompliant balloon IC vasodilators administered for spasm Post procedure MADHAVI 3 flow, stent well expanded with minimal residual stenosis and no apparent cardiac complications. Arterial Closure: TR band Summary: 1. Acute 100% mid LAD occlusion 2. Severe nonculprit multivessel CAD -95% mid circumflex 80% mid RCA. 70% diffuse mid-distal PDA 3. Low output heart failure. PA sat 44%, cardiac output 2.9 L/min 4. Elevated left and right-sided filling pressures 5. Severe pulmonary hypertension 6. Aortic valve pullback gradient <10 mmHg 7. Successful PCI of mid LAD with 2 long overlapping drug-eluting stents (2.5 x 26, 2.5 x 30 mm Gabriel; postdilated with 2.75 NC). Recommendations: To ICU for continued monitoring Loaded with 600 mg in Counseling Aide Continue dual-antiplatelet therapy for at least 1 year Start inotropes with dobutamine 5 mcg/kg/min Additional IV diuretics Titrate inotropes to urine output. If urine output remains low in a.m. reevaluate cardiac output with mixed venous O2 Tentatively plan for staged PCI of circumflex, RCA pending renal function and clinical course. Hemodynamics Rest Ao:: 100/50/62 Final Ao: 108/55/69 LV: 112/29 Recommendations Recommendations: PCI without planned CABG Specimens Specimens: None Radiation Exposure (mGy) 2317 Contrast (mls) 35 Fluids (cc crystalloids) Fluids (cc crystalloids): 97 Drains Drains: none Anesthesia moderate 1290-8222 Procedural Complication(s) None Disposition ICU I attest to the content of the Intraoperative Record and any orders documented therein. Any exceptions are noted below. [place] [facility] Card Cath Procedure Codes Cardiac Catheterization Procedure 1: Cardiovascular Cath Procedures: 27843 Coronaries & LHC (+/-LV) & RHC Therapeutic Services & Ancillary Proc Procedure 1: Cardiovascular Tx and Anc Procedures: 63768 Ultrasonic Guidance Vascular Access Moderate Sedation Procedure 1: Sedation/Anesthesia: 98980 Mod Sedation by the same physician;Init15 Min Child Age 5 & Up Procedure 2: Sedation/Anesthesia: 52364 Mod Sedation by the same physician; Ea [id number] Minutes Stenting Procedure 1: Cardiovascular Stent Procedures: 31093 Perc transluminal revascularization of acute sub/total occl, aMI PG Care Time/CCT Total # of Minutes Spent Total Time Spent with Patient: Total time spent is greater than 50% in coordination of care (as documented) at patient's floor/unit and/or counseling patient:
[2021-07-21] MEDS ORDERED: STAT IV Infusion **Titration per Protocol STA (20:52)
--- NOTE | 2021-07-21 21:07 | Critical Care Consultation ---
Date of Consultation July 21, 2021 Assessment & Plan (1) Admitted to intensive care unit: Reason Critically Ill: 81-year-old male with acute anterior ST JOSE status post PTCI with LINDA x2 to the LAD. Also noted to have lesions of the mid circumflex and RCA. Unfortunately, patient with elevated RIGHT and LEFT filling pressures in the setting of ongoing CHF for which the patient has been treated during admission. Patient requiring close hemodynamic monitoring with the addition of inotropes and loop diuretics. NEURO - * CAM ICU: NEGATIVE CARDIAC/VASCULAR - * Acute anterior STEMI s/p PTCI w/ LINDA x2 to the LAD: * Patient also noted to have triple-vessel disease. Plan for staged PCI of circumflex and RCA pending patient's response to clinical course and monitor renal function. * Unfortunately, throughout his stay, the patient has had worsening renal function with poor urine output despite aggressive diuresis. * At this point, patient started on dobutamine with increased Lasix dosing. * Will monitor urine output throughout the night. Plan to readdress increases in inotropic support versus additional doses of diuretics pending patient's clinical response to the addition of dobutamine. * Clinical picture certainly concerning and the patient with an EF of 20 to 25% with newly diagnosed triple-vessel disease and poor response to diuresis. * The next several hours will likely be crucial in determining moving forward with the patient's clinical course given the unresponsiveness to current clinical therapies. * Appropriate palliative care consultation placed by hospitalist staff. * Will defer to cardiology for continued management. * Monitor on telemetry. RESPIRATORY - * Hypoxic respiratory failure: * Secondary to CHF. * Currently saturating well on oxygen mask. * Will add positive pressure support if necessary. GI/NUTRITION - * N.p.o. overnight RENAL/LYTES - * Acute renal failure: * Patient with worsening renal function throughout hospitalization with decreased urine output. * Will place Kruger catheter for strict FRANDY evaluation. * Higher doses of loop diuretics with hopefully improve forward flow with inotropic therapy. * Will alter inotropes versus diuretics pending ongoing urine output. - * Kruger in place - Strict I&Os. ENDO - * DMII * BSGs per unit protocol. ISS --> gtt per unit policy. HEME - * Stable H&H ID - * Patient remains on Augmentin for possible underlying pneumonia process. LINES/IV ACCESS - * PIVs x2 * Kruger DVT PROPHYLAXIS - * Hold on chemoprophylaxis s/p coronary intervention. * SCDs I have personally spent 45 minutes of critical care time in the direct management of this patient. This is a life/limb threatening event. This includes time spent evaluating patient, direct bedside care, chart review, placing orders, interpretation of diagnostic studies, discussion with consultants, patient, and family members, as well as other required patient management activities. This time is exclusive of all separately billable procedures, and teaching time and separate from and in addition to any other critical care service time. Thank you for allowing us to participate in the care of this patient. Please refer to my attending physician's documentation for any further recommendations. (2) STEMI (ST elevation myocardial infarction): (3) S/P PTCA (percutaneous transluminal coronary angioplasty): (4) S/P drug eluting coronary stent placement: (5) Acute respiratory failure with hypoxia: (6) Fluid overload: (7) Aortic stenosis: (8) Acute systolic heart failure: (9) Acute kidney failure: History of Present Illness Attending Physician: Min Barbosa MD History of Present Illness Patient is an 81-year-old male with a significant past medical history of hypertension, hyperlipidemia, coronary artery disease, CHF, and diabetes. Patient was admitted to this institution on 07/13 with concerns for pneumonia and volume overload. Patient had unknown history of CHF up to this admission. Initially treated with IV antibiotics and Lasix. Patient has required supplemental oxygen throughout stay. It appears as though patient has had little response to Lasix and was placed on torsemide the last few days. His echocardiogram was concerning for EF of 20 to 25% as well as severe aortic stenosis. Unfortunately, despite this, the patient has not been responding well to medical therapy per cardiology's notes. This evening, the patient was noted to have in unresponsive-like episode. EKG was obtained and demonstrated ST elevations anteriorly. He was taken to the catheterization suite where he was found to have three-vessel disease with acute 100% mid LAD occlusion which was intervened with drug-eluting stents x2. Patient also noted to have a 95% mid circumflex and 80% mid RCA lesion. He was also noted to have elevated left and right-sided filling pressures with severe pulmonary hypertension. Patient to be started on inotropes in the form of dobutamine. He received 80 mg Lasix as well. Goal is for active diuresis and increasing cardiac output. Upon evaluation in the ICU, the patient is awake and alert. He is drowsy after procedure, but offers no complaints at this time. Specifically, the patient denies any complaints of chest pain, palpitations, shortness of breath, nausea, vomiting, or abdominal discomfort. Allergies Allergy/AdvReac Type Severity Reaction Status Date / Time Msdtocz-BZS-YjI Reductase Allergy Unknown LEG Verified 07/13/21 14:42 Inhibitor WEAKNESS [Aultzdd-Zau-Lzd Reductase Inhibitor] Home Medications Medication Instructions Recorded Confirmed Type carboxymethylcellulose sodium 1 % 1 drp OPB BID 07/13/21 07/13/21 History eye drops (Artificial Tears (carboxymethylcellulose)) dorzolamide 22.3 mg-timolol 6.8 1 drp OPB BID 07/13/21 07/13/21 History mg/mL eye drops insulin aspart U-100 100 unit/mL See Rx Instructions .ROUTE .COMPLEX 07/13/21 07/13/21 History subcutaneous solution (Novolog U-100 Insulin aspart) insulin detemir U-100 100 unit/mL 80 unit SUBCUT HS 07/13/21 07/13/21 History subcutaneous solution (Levemir U-100 Insulin) metformin 1,000 mg tablet 1,000 mg PO BID 07/13/21 07/13/21 History Lactobacillus acidophilus 10 10 mg PO DAILY #3 cap 07/17/21 Rx billion cell capsule (Probiotic) amoxicillin 875 mg-potassium 1 tab PO BID #6 tab 07/17/21 Rx clavulanate 125 mg tablet (Augmentin) aspirin 81 mg capsule 81 mg PO DAILY #30 cap 07/17/21 Rx azithromycin 250 mg tablet 250 mg PO QAM 1 Days #1 tab 07/17/21 Rx furosemide 40 mg tablet (Lasix) 40 mg PO DAILY #60 tab 07/17/21 Rx lisinopril 5 mg tablet (Zestril) 5 mg PO QAM #30 tab 07/17/21 Rx metoprolol succinate 25 mg 12.5 mg PO BID #30 tab 07/17/21 Rx tablet,extended release 24 hr spironolactone 25 mg tablet 12.5 mg PO DAILY #15 tab 07/17/21 Rx Patient History Medical History Hyperlipidemia Insulin dependent diabetes mellitus Surgical History History of carpal tunnel surgery History of cataract surgery Family History Other Diabetes Social History Smoking Status: Never smoker Hx Alcohol Use: No Hx Substance Use: No Preferred Language: Korean Communication Ability: Effective Passenger Screener Required: No Beliefs That Will Affect Care: None Current Living Situation: Spouse Feels Safe at Home: Yes Assistive Devices: Oxygen - Continuous and Walker Review of Systems Review of Systems: A complete 10 point review of systems was reviewed with the patient with pertinent positives and negatives as per history of present illness. All else were negative. Physical Exam Physical Exam: VITAL SIGNS - Vital signs and nursing notes were reviewed. GENERAL - 81-year-old male appearing his stated age who is in no acute distress. Communicates well with provider and answers questions appropriately. HEAD - NC/AT. EYES - PERRL with EOMI bilaterally. Sclera anicteric. EARS - No deformities of external structures noted on gross examination bilaterally. NOSE - Midline and without cyanosis. No epistaxis or purulent drainage noted. MOUTH/OROPHARYNX - Without perioral cyanosis. Buccal mucosa pink and dry. NECK - Neck with FROM. Supple to palpation. LUNGS - Chest wall symmetric without accessory muscle use, intercostals retractions, or central cyanosis. Normal vesicular breath sounds with bibasilar rales noted. CARDIAC - RRR with S1/S2. No murmur, rubs, or gallops appreciated. No reproducible tenderness to palpation appreciated over the anterior chest wall. ABDOMEN - Abdominal contour obese without pulsations or visible masses. BS normoactive all four quadrants. No tenderness, palpable masses, hepatosplenomegaly, or ascites noted. EXTREMITIES - No clubbing or peripheral cyanosis. Mild pretibial edema present. +3/5 radial and dorsalis pedis pulses palpated throughout. +4/5 strength noted in UE/LE bilaterally. NEUROLOGIC - Cranial nerves II through XII grossly intact. PSYCH - Drowsy. Awake and alert and answers medical questions appropriately. Results & Data Results & Data ([facility]) Vital Signs (Past 12 Hours) Vital Signs Temp Pulse Pulse Pulse Resp BP Pulse Ox 1127/21 17:07 30 L 102/53 L 93 07/21/21 16:03 92 H 07/21/21 12:04 34.6 C L 78 12 84/54 L 91 Coding Level of Care Code Critical Care 1st 30-74 mins Diagnoses Admitted to intensive care unit Z78.9 STEMI (ST elevation myocardial infarction) I21.3 S/P PTCA (percutaneous transluminal coronary angioplasty) Z98.61 S/P drug eluting coronary stent placement Z95.5 Acute respiratory failure with hypoxia J96.01 Fluid overload E87.70 Aortic stenosis I35.0 Acute systolic heart failure I50.21 Acute kidney failure N17.9 Time Spent (min) 45
[2021-07-21] MEDS: DOBUTamine / D5W 500 MG/250 ML BAG IV SCH (21:10)
[2021-07-21] MEDS: FUROSEMIDE 40 MG/4 ML VIAL IV SCH (21:11)
[2021-07-22] MEDS ORDERED: FUROSEMIDE 40 MG/4 ML VIAL IV ONE (03:04)
[2021-07-22 03:13] LABS: Hematocrit (blood only) 35.8 % (42-52); Hemoglobin 11.7 g/dL (14.0-18.0); Mean Corpuscular Hemoglobin 30.7 pg (25-34); Mean Corpuscular Hgb Conc 32.7 g/dL (32-36); Platelet Count 127 K/uL (130-400); RDW Coefficient of Variation 13.7 % (11.5-14.5); RDW Standard Deviation 47.1 fL (36.4-46.3); Red Blood Count 3.81 M/uL (4.7-6.1); White Blood Count 12.72 K/uL (4.8-10.8)
[2021-07-22 03:30] LABS: Calcium 8.1 mg/dl (8.5-10.1); Creatinine Clr Calc Pharmacy 30.2 ml/min; Est GFR (African American) 30.3 ml/min; Est GFR (Non-African American) 26.1 ml/min; Magnesium 2.2 mg/dl (1.8-2.4)
[2021-07-22 03:46] LABS: Phosphorus 4.3 mg/dl (2.5-4.9)
--- NOTE | 2021-07-22 04:59 | Hospitalist Progress Note ---
Date of Service July 22, 2021 Assessment & Plan (1) Acute systolic heart failure: (2) Acute respiratory failure with hypoxia: Plan: 81 yo M with insulin-dependent DM II presented to ER 07/13 with c/o SOB with exertion x 3 weeks [employer] a/w mild nonproductive cough and increased BLE edema. No fever/chills. Denies known cardiac history. Is being managed for the following: Acute hypoxic respiratory failure Fluid overload: Pneumonia: L>R bibasilar consolidation in admitting CXR Acute systolic heart failure Pleural effusion - layering Pl. Eff in Admitting CXR, c/t monitor, lasix. In ER patient afebrile, hypoxic at 89% on room air up to 95% on 2L oxygen via NC, other vitals stable. No leukocytosis, lactate WNL, troponin: 0.047, BNP: 6077, negative COVID-19 PCR. CXR: Pulmonary vascular congestion, pleural effusions, bibasilar consolidation In ER was given Lasix 40 mg IV 07/14 echo: Severely reduced LV systolic function with severe global hypokinesis, EF 20 to 25%, grade 2 diastolic dysfunction, severe aortic stenosis. Cardiology consulted, appreciate their recommendations For community-acquired pneumonia, continued with antibiotic [Rocephin and Zithromax 07/13], WBC trending down, patient afebrile. Patient will need foll ow-up chest x-ray in 4 to 6 weeks to document resolution of pneumonia. Blood cultures - negative 07/19 - WBC slightly up now at 12K Repeat CXR - shows pulm. edema, pl. effusions. procal slightly higher than previously episode of nausea/vomiting - poss. ? aspiration Started empiric augmentin For acute systolic heart failure: Monitor I's and O's, cardiology to optimize his heart failure medication Patient will need to follow-up with cardiology upon discharge. Continue with supplemental oxygen, titrate as appropriate, monitor daily electrolytes and labs. 2 step test done - pt will need to be discharged on suppl. O2 07/19 -discussed further with cardiology, given elevated creatinine, low blood pressure and repeat chest x-ray showing persistent pulmonary effusion, held torsemide and metoprolol 07/20 -Echo reviewed by cardiology again, patient has severe LV dysfunction. EF 20% is generous. Medical management should be continued.Restarted his metoprolol today as his heart rate up as well as his blood pressure.Hold torsemide again today. 07/21 - Patient is not responding well to medical therapy, his blood pressure remains low. Fluid balance is questionable. Torsemide restarted at 10 mg daily. Acute anterior wall STEMI 07/21 PM - pt more lethargic, episode of bradycardia stat EKG w/ ST elev. in anterior leads, troponin 19.8 (in the setting of ADRI) Pt s/p left and right cardiac cath Summary: 1. Acute 100% mid LAD occlusion 2. Severe nonculprit multivessel CAD -95% mid circumflex 80% mid RCA. 70% diffuse mid-distal PDA 3. Low output heart failure. PA sat 44%, cardiac output 2.9 L/min 4. Elevated left and right-sided filling pressures 5. Severe pulmonary hypertension 6. Aortic valve pullback gradient <10 mmHg 7. Successful PCI of mid LAD with 2 long overlapping drug-eluting stents (2.5 x 26, 2.5 x 30 mm [place]; postdilated with 2.75 NC). Recommendations: To ICU for continued monitoring Loaded with 600 mg in [employer] Continue dual-antiplatelet therapy for at least 1 year Start inotropes with dobutamine 5 mcg/kg/min Additional IV diuretics Titrate inotropes to urine output. If urine output remains low in a.m. reev aluate cardiac output with mixed venous O2 Tentatively plan for staged PCI of circumflex, RCA pending renal function and clinical course. Elevated troponin (on admission): Possible demand ischemia Troponin: 0.047 (on admission). Admitting EKG sinus rhythm, Q waves septal leads, T wave inversion inferior and lateral leads. No prior EKG to compare Denies chest pain R/O ACS -troponin down trended to normal Lipid panel WNL cardiology following, as above Insulin dependent diabetes mellitus II: -Unknown baseline A1c -Patient prescribed 80 units Levemir at bedtime however has been taking around 20 to 30 units in the morning. Is prescribed NovoLog with meals however he reports has not been using -Diabetic diet -Monitor BSG's -Basal bolus insulin per protocol. May need to adjust insulin -Current A1c 7.2% - follow up as outpt DVT Prophylaxis- previously on subq Heparin SQ, now s/p cath Full Code as per discussion with pt Follows with Dr Samir Hernandez in [place] for routine care. Disposition: questionable at this time. Previous plan - PT/OT, DC to home w/ HH once medically stable. Palliative medicine consult for goals of care Admission and Anticipated Discharge Date Admission Date: July 13, 2021 Subjective Pt seen in follow up of hypoxia, pna, acute syst. HF, acute STEMI Yesterday evening patient became more lethargic, episode of bradycardia, stat EKG consistent with acute anterior CT Now status post PCI to LAD Patient is in ICU, lying in bed, appears comfortable however very somnolent, only able to answer few simple questions He is on 10 L of oxygen Overnight started on dobutamine and IV Lasix Currently denies any complaints, denies any chest pain increased shortness of breath abdominal pain, however not able to have a longer conversation Prior to the episode of last evening, patient has not been responding well to medical therapy, has been seen by cardiology Now nephrology consulted for ADRI Review of Systems Review of Systems: All systems reviewed & are unremarkable except as noted in Subjective Physical Exam Physical Exam: GENERAL: elderly M in NAD, somnolent, able to answer few simple questions appropriately, on 10L. HEENT: NC/AT. EOMI, PERRL. No pallor, no icterus.Oral mucosa moist. NECK: No JVD, no neck masses. HEART: S1 and S2 heard. Regular rate and rhythm.+syst. murmur RESPIRATORY: Normal AP diameter. No accessory muscle use. No wheezing,diminished breath sounds at bases ABDOMEN: Soft, bowel sounds present, nontender, no distention. NEURO: somnolent, answering few questions appropriately, no facial droop. Sp eech is clear. Moves extremities. EXTREMITIES: minimal LE edema, no significant erythema seen. Results & Data Results & Data ([facility]) Vital Signs (Past 12 Hours) Vital Signs Pulse Pulse Pulse Resp BP BP BP 07/22/21 04:15 109 H 22 07/22/21 01:26 113 H 18 93/55 L 07/22/21 00:00 88 23 07/21/21 23:45 91 H 21 07/21/21 23:30 91 H 20 89/55 L 07/21/21 23:15 92 H 21 85/53 L 07/21/21 23:00 90 34 H 07/21/21 22:45 94 H 25 H 07/21/21 22:30 111 H 111 H 18 81/55 L 07/21/21 22:15 111 H 21 07/21/21 22:00 114 H 18 07/21/21 21:45 113 H 25 H 89/55 L 07/21/21 21:30 102 H 26 H 94/57 L 07/21/21 21:15 92 H 25 H 86/53 L 07/21/21 21:00 88 24 91/54 L 07/21/21 20:45 84 29 H 86/57 L 07/21/21 20:30 90 25 H 86/57 L 07/21/21 17:07 30 L 102/53 L Pulse Ox 07/22/21 04:15 94 07/22/21 01:26 92 07/22/21 00:00 91 07/21/21 23:45 92 07/21/21 23:30 92 07/21/21 23:15 93 07/21/21 23:00 90 07/21/21 22:45 93 07/21/21 22:30 92 07/21/21 22:15 92 07/21/21 22:00 91 07/21/21 21:45 92 07/21/21 21:30 91 07/21/21 21:15 93 07/21/21 21:00 94 07/21/21 20:45 92 07/21/21 20:30 91 07/21/21 17:07 93 Laboratory Results 07/22/21 07/22/21 07/21/21 Range/Units 03:03 03:03 21:29 WBC 12.72 H (4.8-10.8) K/uL RBC 3.81 L (4.7-6.1) M/uL Hgb 11.7 L (14.0-18.0) g/dL Hct 35.8 L (42-52) % MCV 94.0 (80-100) fL MCH 30.7 (25-34) pg MCHC 32.7 (32-36) g/dL RDW Std Deviation 47.1 H (36.4-46.3) fL RDW Coeff of Emmanuel 13.7 (11.5-14.5) % Plt Count 127 L (130-400) K/uL MPV 11.0 H (7.4-10.4) fL POC pH (7.35-7.45) POC pCO2 (35-46) mmHg POC pO2 (80-95) mmHg POC HCO3 (19-24) krysta/L POC Total CO2 (24-31) mmol/L POC Base Excess (-9-1.8) krysta/L POC ABG O2 Sat (90-95) % Sodium 137 (136-145) mmol/L Potassium 4.0 (3.5-5.1) mmol/L Chloride 103 (98-107) mmol/L Carbon Dioxide 29 (21-32) mmol/L Anion Gap 5.0 (3-11) BUN 69 H (7-18) mg/dl Creatinine 2.24 H D (0.6-1.4) mg/dl Est Cr Clr Drug Dosing 30.2 ml/min Est GFR ( Amer) 30.3 ml/min Est GFR (Non-Af Amer) 26.1 ml/min BUN/Creatinine Ratio 31.0 H (10-20) Glucose 112 H (70-99) mg/dl POC Glucose 133 H (70-99) mg/dl Calcium 8.1 L (8.5-10.1) mg/dl Phosphorus 4.3 (2.5-4.9) mg/dl Magnesium 2.2 (1.8-2.4) mg/dl Troponin I 23.000 H* (0-0.045) ng/ml 07/21/21 07/21/21 07/21/21 Range/Units 19:55 19:27 18:04 WBC (4.8-10.8) K/uL RBC (4.7-6.1) M/uL Hgb (14.0-18.0) g/dL Hct (42-52) % MCV (80-100) fL MCH (25-34) pg MCHC (32-36) g/dL RDW Std Deviation (36.4-46.3) fL RDW Coeff of Emmanuel (11.5-14.5) % Plt Count (130-400) K/uL MPV (7.4-10.4) fL POC pH 7.35 7.40 (7.35-7.45) POC pCO2 46 38 (35-46) mmHg POC pO2 78 L 96 H (80-95) mmHg POC HCO3 25 H 23 (19-24) krysta/L POC Total CO2 27 24 (24-31) mmol/L POC Base Excess 0.0 -2.0 (-9-1.8) krysta/L POC ABG O2 Sat 95.0 97.0 H (90-95) % Sodium 134 L (136-145) mmol/L Potassium 4.5 (3.5-5.1) mmol/L Chloride 99 (98-107) mmol/L Carbon Dioxide 27 (21-32) mmol/L Anion Gap 8.0 (3-11) BUN 69 H (7-18) mg/dl Creatinine 2.58 H D (0.6-1.4) mg/dl Est Cr Clr Drug Dosing 26.2 ml/min Est GFR ( Amer) 25.5 ml/min Est GFR (Non-Af Amer) 22.0 ml/min BUN/Creatinine Ratio 26.9 H (10-20) Glucose 139 H (70-99) mg/dl POC Glucose (70-99) mg/dl Calcium 8.9 (8.5-10.1) mg/dl Phosphorus 4.1 (2.5-4.9) mg/dl Magnesium 2.3 (1.8-2.4) mg/dl Troponin I 19.800 H* (0-0.045) ng/ml 07/21/21 07/21/21 07/21/21 Range/Units 18:04 16:37 11:16 WBC 14.30 H (4.8-10.8) K/uL RBC 4.41 L (4.7-6.1) M/uL Hgb 13.8 L (14.0-18.0) g/dL Hct 41.6 L (42-52) % MCV 94.3 (80-100) fL MCH 31.3 (25-34) pg MCHC 33.2 (32-36) g/dL RDW Std Deviation 47.5 H (36.4-46.3) fL RDW Coeff of Emmanuel 13.6 (11.5-14.5) % Plt Count 203 (130-400) K/uL MPV 11.8 H (7.4-10.4) fL POC pH (7.35-7.45) POC pCO2 (35-46) mmHg POC pO2 (80-95) mmHg POC HCO3 (19-24) krysta/L POC Total CO2 (24-31) mmol/L POC Base Excess (-9-1.8) krysta/L POC ABG O2 Sat (90-95) % Sodium (136-145) mmol/L Potassium (3.5-5.1) mmol/L Chloride (98-107) mmol/L Carbon Dioxide (21-32) mmol/L Anion Gap (3-11) BUN (7-18) mg/dl Creatinine (0.6-1.4) mg/dl Est Cr Clr Drug Dosing ml/min Est GFR ( Amer) ml/min Est GFR (Non-Af Amer) ml/min BUN/Creatinine Ratio (10-20) Glucose (70-99) mg/dl POC Glucose 174 H 190 H (70-99) mg/dl Calcium (8.5-10.1) mg/dl Phosphorus (2.5-4.9) mg/dl Magnesium (1.8-2.4) mg/dl Troponin I (0-0.045) ng/ml 07/21/21 07/21/21 07/21/21 Range/Units 08:44 08:44 07:45 WBC 10.38 (4.8-10.8) K/uL RBC 4.39 L (4.7-6.1) M/uL Hgb 13.6 L (14.0-18.0) g/dL Hct 41.3 L (42-52) % MCV 94.1 (80-100) fL MCH 31.0 (25-34) pg MCHC 32.9 (32-36) g/dL RDW Std Deviation 47.1 H (36.4-46.3) fL RDW Coeff of Emmanuel 13.7 (11.5-14.5) % Plt Count 174 (130-400) K/uL MPV 11.9 H (7.4-10.4) fL POC pH (7.35-7.45) POC pCO2 (35-46) mmHg POC pO2 (80-95) mmHg POC HCO3 (19-24) krysta/L POC Total CO2 (24-31) mmol/L POC Base Excess (-9-1.8) krysta/L POC ABG O2 Sat (90-95) % Sodium 135 L (136-145) mmol/L Potassium 4.6 (3.5-5.1) mmol/L Chloride 99 (98-107) mmol/L Carbon Dioxide 28 (21-32) mmol/L Anion Gap 8.0 (3-11) BUN 65 H (7-18) mg/dl Creatinine 2.25 H (0.6-1.4) mg/dl Est Cr Clr Drug Dosing 30.1 ml/min Est GFR ( Amer) 30.1 ml/min Est GFR (Non-Af Amer) 26.0 ml/min BUN/Creatinine Ratio 28.8 H (10-20) Glucose 210 H (70-99) mg/dl POC Glucose 181 H (70-99) mg/dl Calcium 8.9 (8.5-10.1) mg/dl Phosphorus 4.0 (2.5-4.9) mg/dl Magnesium 2.3 (1.8-2.4) mg/dl Troponin I (0-0.045) ng/ml Medications Administered Current Inpatient Medications Acetaminophen (Acetaminophen 325 Mg Tab) 650 mg PO Q4H PRN PRN Reason: Pain or Fever Stop: 08/12/21 18:28 Amoxicillin/Clavulanate Potassium (Amoxicillin/Clavulanate 875 Mg Tab) 1 tab PO BIDM [facility] Stop: 07/26/21 16:59 Last Admin: 07/21/21 18:08 Dose: Not Given Documented by: Artificial Tears (Artificial Tears) 1 drops OP BID [facility] Stop: 08/12/21 20:59 Last Admin: 07/21/21 21:21 Dose: 1 drops Documented by: Clopidogrel Bisulfate (Clopidogrel Bisulfate 75 Mg Tab) 75 mg PO QAM [facility] Stop: 08/21/21 08:59 Dextrose (Dextrose 50% 50 Ml Syringe) 25 - 50 ml IV UD PRN; Protocol PRN Reason: Hypoglycemia Protocol Stop: 08/12/21 18:28 Docusate Sodium (Docusate Sodium 100 Mg Cap) 100 mg PO BID [facility] Stop: 08/17/21 12:44 Last Admin: 07/21/21 21:24 Dose: 100 mg Documented by: Dorzolamide/Timolol (Dorzolamide/Timolol 22.3/6.8mg/Ml 10 Ml Btl) 1 drops OPB BID [facility] Stop: 08/12/21 20:59 Last Admin: 07/21/21 21:19 Dose: 1 drops Documented by: Furosemide (Furosemide 40 Mg/4 Ml Vial) 80 mg IV BID [facility] Stop: 08/20/21 20:59 Last Admin: 07/21/21 21:11 Dose: 80 mg Documented by: Glucagon (Glucagon For Inj 1 Mg Vial) 1 mg SQ UD PRN; Protocol PRN Reason: Hypoglycemia Protocol Stop: 08/12/21 18:28 Glucose (Glucose 10 Tabs/Tube) 4 - 8 tabs PO UD PRN; Protocol PRN Reason: Hypoglycemia Protocol Stop: 08/12/21 18:28 Glucose (Glucose 40% Gel 15 Gm Tube) 15 - 30 gm PO UD PRN; Protocol PRN Reason: Hypoglycemia Protocol Stop: 08/12/21 18:28 Guaifenesin (Guaifenesin 600 Mg Tabcr) 600 mg PO Q12 [facility] Stop: 08/17/21 13:39 Last Admin: 07/21/21 21:24 Dose: 600 mg Documented by: Heparin Sodium (Porcine) (Heparin Sod 5,000 Unit/0.5 Ml Vial) 5,000 units SQ Q12 [facility] Stop: 08/12/21 20:59 Last Admin: 07/21/21 21:22 Dose: 5,000 units Documented by: Dobutamine HCl/Dextrose (Dobutamine / D5w) 500 mg in 250 mls @ 14.61 mls/hr IV .Q17H7M [facility]; Protocol Stop: 08/20/21 20:59 Last Admin: 07/21/21 21:10 Dose: 5 mcg/kg/min, 14.6 mls/hr Documented by: Insulin Aspart (Insulin Aspart 100 Units/Ml 3 Ml Pen) 0 units SC ACHS [facility] Stop: 08/12/21 18:28 Last Admin: 07/21/21 21:30 Dose: Not Given Documented by: Insulin Glargine (Insulin Glargine Solostar 100 Units/Ml 3 Ml Pen) 50 units SC DAILY [facility] Stop: 08/12/21 20:59 Last Admin: 07/21/21 08:39 Dose: 50 units Documented by: Metoprolol Succinate (Metoprolol Succ 25mg Ext Rel Tab) 12.5 mg PO BID [facility] Stop: 08/14/21 11:59 Last Admin: 07/21/21 21:23 Dose: Not Given Documented by: Miscellaneous (Carbohydrates For Hypoglycemia ) 15 - 30 gm PO UD PRN PRN Reason: Hypoglycemia Protocol Stop: 08/12/21 18:28 Miscellaneous Information (Pharmacy Glycemic Mgmt Consult) 1 ea N/A UD PRN PRN Reason: Consult Stop: 08/19/21 07:21 Polyethylene Glycol (Polyethylene (Miralax) 17 Gm Pack) 17 gm PO DAILY [facility] Stop: 08/17/21 12:44 Last Admin: 07/21/21 08:25 Dose: 17 gm Documented by: Spironolactone (Spironolactone 12.5 Mg Tab) 12.5 mg PO DAILY [facility] Stop: 08/14/21 11:59 Last Admin: 07/21/21 08:21 Dose: 12.5 mg Documented by:
--- NOTE | 2021-07-22 08:01 | Critical Care Progress Note ---
Date of Service July 22, 2021 Assessment & Plan (1) STEMI (ST elevation myocardial infarction): (2) S/P drug eluting coronary stent placement: (3) Acute kidney failure: (4) Aortic stenosis: (5) Acute respiratory failure with hypoxia: (6) Fluid overload: (7) Insulin dependent diabetes mellitus: (8) Acute exacerbation of CHF (congestive heart failure): Plan: Reason Critically Ill: 81-year-old male with acute anterior ST JOSE status post PTCI with LINDA x2 to the LAD. Also noted to have lesions of the mid circumflex and RCA. Unfortunately, patient with elevated RIGHT and LEFT filling pressures in the setting of ongoing CHF for which the patient has been treated during admission. Patient requiring close hemodynamic monitoring with the addition of inotropes and loop diuretics. 24-hour events: The patient was taken to the [facility] yesterday with drug- eluting stent placed. He was brought to the ICU post procedure for monitoring. He was initiated on dobutamine which resulted in significant tachycardia. He has received high-dose Lasix. Unfortunately his urine output remains marginal. His serum creatinine is stable. He required CPAP overnight due to shortness of breath and hypoxemic respiratory failure. He has been weaned to fullface mask this morning. Recommendations: NEURO - encephalopathic this morning likely secondary to combinations of medication effects as well as underlying medical encephalopathy. Nonfocal exam and no indication for imaging. Continue to follow clinically. Unfortunately the patient does not appear to be able to participate in goals of therapy discussions. CARDIAC/VASCULAR - Acute anterior STEMI s/p PTCI w/ LINDA x2 to the LAD. Patient with triple-vessel disease and decreased ejection fraction but it is not felt to be a surgical candidate. Plan for staged percutaneous coronary intervention. Unclear if kidney function will support additional contrast load. LVEDP and wedge pressure are both elevated and the patient needs fluid offloaded. We will consult nephrology to see if they have any additional ideas. EF of 20 to 25% with however the gradient was less than 10 on cath. Given his tachycardia, unclear if we would get any additional benefit by increasing his dobutamine at this time. Doubt he is a candidate for advanced therapies such as LVAD/Impella/IABP but defer to cardiology. RESPIRATORY -hypoxemic respiratory failure secondary to pulmonary edema. Continue CPAP and BiPAP as well as oxygen as tolerated. GI/NUTRITION -n.p.o. for now RENAL/LYTES - Acute renal failure: Suspect combinations of intrinsic renal disease, potential contrast nephropathy, and poor forward flow. Will consult nephrology. Blood gas showed mild respiratory acidosis, electrolytes otherwise acceptable with mild hypocalcemia. - Kruger in place - Strict I&Os. ENDO - glycemic control per protocol HEME - mild anemia. No indication for transfusion currently. Continue to follow. Platelet counts have dropped significantly. These will be trended over time. No evidence of bleeding ID -afebrile. White count elevated although the patient has multiple etiologies for leukocytosis. Blood cultures on admission were negative. Check procalcitonin and would discontinue antibiotics if negative. Palliative care consult entered last night. Agree with defining goals of therapy. LINES/IV ACCESS - * PIVs x2 * Kruger DVT PROPHYLAXIS - * Hold on chemoprophylaxis s/p coronary intervention. * SCDs I have personally spent 50 minutes of critical care time in the direct management of this patient. This is a life/limb threatening event. This includes time spent evaluating patient, direct bedside care, chart review, placing orders, interpretation of diagnostic studies, discussion with consultants, patient, and family members, as well as other required patient management activities. This time is exclusive of all separately billable procedures, and teaching time and separate from and in addition to any other critical care service time. Admission and Anticipated Discharge Date Admission Date: July 13, 2021 Subjective Patient seen and examined. Discussed with critical care MIGUEL and bedside ICU nurse. The patient is somnolent this morning. He denies any chest pain or shortness of breath. He was on BiPAP overnight and is now on high flow facemask. He is not able to stay awake long enough to answer questions. When I asked him about dialysis he does state that he does not wish to pursue renal replacement therapy but cannot stay awake long enough to answer questions about CPR defibrillation or intubation mechanical ventilation Review of Systems Review of Systems: Unobtainable due to reduced consciousness Physical Exam Constitutional: + ill appearing, + frail appearing and + lethargic Neck: trachea midline, no thyromegaly Respiratory: + labored breathing and + tachypneic Auscultation: + crackles Cardiovascular: Rate/Rhythm: + tachycardic Heart Sounds: normal S1, normal S2 and + murmur Extremities: + edema Gastrointestinal (Abdomen): normal bowel sounds, soft, nontender, no hepatosplenomegaly Musculoskeletal: Extremities: extremities normal to inspection Skin: Multiple ecchymoses and excoriations Neurologic: Patient somnolent. He cannot stay awake long enough to answer questions Lymphatic: no cervical lymphadenopathy Results & Data Results & Data ([facility]) Vital Signs (Past 12 Hours) Vital Signs Pulse Pulse Resp BP BP BP Pulse Ox 07/22/21 06:15 110 H 15 96 07/22/21 06:10 110 H 18 108/67 96 07/22/21 06:00 113 H 21 108/67 96 07/22/21 05:45 111 H 19 97 07/22/21 05:30 109 H 22 98 07/22/21 05:15 110 H 17 97 07/22/21 05:00 111 H 23 92/65 L 99 07/22/21 04:45 112 H 21 97 07/22/21 04:30 108 H 29 H 94 07/22/21 04:15 110 H 22 91 07/22/21 04:00 111 H 25 H 90/58 L 95 07/22/21 03:45 112 H 29 H 95 07/22/21 03:30 93 H 25 H 94 07/22/21 03:15 88 29 H 84 L 07/22/21 03:00 93 H 19 105/57 L 94 07/22/21 02:45 91 H 40 H 92 07/22/21 02:30 91 H 20 91 07/22/21 02:15 91 H 21 94 07/22/21 02:00 94 H 14 100/54 L 94 07/22/21 01:45 92 H 21 94 07/22/21 01:30 92 H 15 95 07/22/21 01:26 113 H 18 93/55 L 92 07/22/21 01:15 93 H 18 95 07/22/21 01:00 92 H 20 85/53 L 94 07/22/21 00:45 89 22 91 07/22/21 00:30 89 22 90 07/22/21 00:15 92 H 19 91/50 L 93 07/22/21 00:00 88 88 24 88/54 L 90 07/21/21 23:45 91 H 21 92 07/21/21 23:30 91 H 20 89/55 L 92 07/21/21 23:15 92 H 21 85/53 L 93 07/21/21 23:00 90 91 H 30 H 86/57 L 92 07/21/21 22:45 94 H 25 H 93 07/21/21 22:30 111 H 111 H 22 81/55 L 91 07/21/21 22:15 111 H 21 92 07/21/21 22:00 114 H 113 H 24 93/55 L 93/55 L 92 07/21/21 21:45 113 H 25 H 89/55 L 92 07/21/21 21:30 102 H 26 H 94/57 L 91 07/21/21 21:15 92 H 25 H 86/53 L 93 07/21/21 21:00 88 24 91/54 L 94 07/21/21 20:45 84 29 H 86/57 L 92 07/21/21 20:30 90 25 H 86/57 L 91 Critical Care Results & Data Vital Signs (Past 12 Hours) Vital Signs Pulse Pulse Resp BP BP BP Pulse Ox 07/22/21 06:15 110 H 15 96 07/22/21 06:10 110 H 18 108/67 96 07/22/21 06:00 113 H 21 108/67 96 07/22/21 05:45 111 H 19 97 07/22/21 05:30 109 H 22 98 07/22/21 05:15 110 H 17 97 07/22/21 05:00 111 H 23 92/65 L 99 07/22/21 04:45 112 H 21 97 07/22/21 04:30 108 H 29 H 94 07/22/21 04:15 110 H 22 91 07/22/21 04:00 111 H 25 H 90/58 L 95 07/22/21 03:45 112 H 29 H 95 07/22/21 03:30 93 H 25 H 94 07/22/21 03:15 88 29 H 84 L 07/22/21 03:00 93 H 19 105/57 L 94 07/22/21 02:45 91 H 40 H 92 07/22/21 02:30 91 H 20 91 07/22/21 02:15 91 H 21 94 07/22/21 02:00 94 H 14 100/54 L 94 07/22/21 01:45 92 H 21 94 07/22/21 01:30 92 H 15 95 07/22/21 01:26 113 H 18 93/55 L 92 07/22/21 01:15 93 H 18 95 07/22/21 01:00 92 H 20 85/53 L 94 07/22/21 00:45 89 22 91 07/22/21 00:30 89 22 90 07/22/21 00:15 92 H 19 91/50 L 93 07/22/21 00:00 88 88 24 88/54 L 90 07/21/21 23:45 91 H 21 92 07/21/21 23:30 91 H 20 89/55 L 92 07/21/21 23:15 92 H 21 85/53 L 93 07/21/21 23:00 90 91 H 30 H 86/57 L 92 07/21/21 22:45 94 H 25 H 93 07/21/21 22:30 111 H 111 H 22 81/55 L 91 07/21/21 22:15 111 H 21 92 07/21/21 22:00 114 H 113 H 24 93/55 L 93/55 L 92 07/21/21 21:45 113 H 25 H 89/55 L 92 07/21/21 21:30 102 H 26 H 94/57 L 91 07/21/21 21:15 92 H 25 H 86/53 L 93 07/21/21 21:00 88 24 91/54 L 94 07/21/21 20:45 84 29 H 86/57 L 92 07/21/21 20:30 90 25 H 86/57 L 91 Lab & Micro Results (Past 24 Hours) RBC 3.81 M/uL (4.7-6.1) L 07/22/21 WBC 12.72 K/uL (4.8-10.8) H 07/22/21 Hgb 11.7 g/dL (14.0-18.0) L 07/22/21 Hct 35.8 % (42-52) L 07/22/21 MCV 94.0 fL (80-100) 07/22/21 MCH 30.7 pg (25-34) 07/22/21 MCHC 32.7 g/dL (32-36) 07/22/21 RDW Standard Deviation 47.1 fL (36.4-46.3) H 07/22/21 RDW Coefficient of Variation 13.7 % (11.5-14.5) 07/22/21 Plt Count 127 K/uL (130-400) L 07/22/21 MPV 11.0 fL (7.4-10.4) H 07/22/21 Na 137 mmol/L (136-145) 07/22/21 K 4.0 mmol/L (3.5-5.1) 07/22/21 Cl 103 mmol/L (98-107) 07/22/21 CO2 29 mmol/L (21-32) 07/22/21 Anion Gap 5.0 (3-11) 07/22/21 BUN 69 mg/dl (7-18) H 07/22/21 Creatinine 2.24 mg/dl (0.6-1.4) H 07/22/21 Estimated GFR ( Amer) 30.3 ml/min 07/22/21 Estimated GFR (Non-Af Amer) 26.1 ml/min 07/22/21 BUN/Creatinine Ratio 31.0 (10-20) H 07/22/21 Glu 112 mg/dl (70-99) H 07/22/21 Ca 8.1 mg/dl (8.5-10.1) L 07/22/21 Phosphorus Level 4.3 mg/dl (2.5-4.9) 07/22/21 Mg 2.2 mg/dl (1.8-2.4) 07/22/21 03:03 07/22/21 Calcium Level 8.1 mg/dl (8.5-10.1) L 07/22/21 03:03 07/22/21 Diagnostic Findings (Past 24 Hours) Chest X-Ray 07/21/21 18:28 SINGLE VIEW CHEST CLINICAL HISTORY: Lethargy. Bradycardia. Pleural effusions. FINDINGS: An AP, portable, semierect chest radiograph is compared to study dated 07/19/2021. The examination is degraded by portable technique and apical lordotic positioning. The heart is enlarged noting atherosclerotic calcification of the thoracic aorta. There is pulmonary vascular congestion. There are layering pleural effusions with bibasilar consolidation. No pneumothorax is seen. The skeletal structures are osteopenic. The bony thorax is grossly intact. Degenerative change is noted in the shoulders and thoracic spine. IMPRESSION: 1. Cardiomegaly with evidence of congestive failure. This has modestly improved as compared to 07/19/2021. 2. Layering pleural effusions with bibasilar consolidation. This is similar to previous. ACT 112: Negative or not required by law. Electronically signed by: Geraldo Meeks M.D. 07/21/2021 6:40 PM I & O Totals 24 Hours 07/21/21 07/22/21 07/23/21 06:59 06:59 06:59 Intake Total 250 / 250 560 / 560 Output Total 390 / 390 Balance 250 / 250 170 / 170 Cumulative 07/13/21 12:36 thru 07/22/21 06:00 Intake Total 5141 Output Total 892 Balance 4249 RT Ventilator Mngmt (Last Documented) Ventilator Ordered Settings Respiratory Rate [Recovery] 20 07/18/21 10:19 Respiratory Rate [Corrective 2 22 07/14/21 14:00 ] Respiratory Rate [Corrective 1 18 07/18/21 10:19 ] Respiratory Rate [Exercise] 20 07/18/21 10:19 Respiratory Rate [Resting] 18 07/18/21 10:19 Respiratory Rate 15 07/22/21 06:15 Ventilator - PT Measurements Respiratory Rate [Recovery] 20 Respiratory Rate [Corrective 2 22 ] Respiratory Rate [Corrective 1 18 ] Respiratory Rate [Exercise] 20 Respiratory Rate [Resting] 18 Respiratory Rate 15 Coding Level of Care Code Critical Care 1st 30-74 mins Diagnoses STEMI (ST elevation myocardial infarction) I21.3 S/P drug eluting coronary stent placement Z95.5 Acute kidney failure N17.9 Aortic stenosis I35.0 Acute respiratory failure with hypoxia J96.01 Fluid overload E87.70 Insulin dependent diabetes mellitus Acute exacerbation of CHF (congestive heart failure) I50.9 Heart failure type: unspecified (1) Acute exacerbation of CHF (congestive heart failure) Heart failure type: unspecified Qualified Code(s): I50.9 - Heart failure, unspecified
[2021-07-22] MEDS ORDERED: CALCIUM GLUCONATE 10% 2,000 MG in SODIUM CHLORIDE 0.9% 50 ML IV ONE (08:16)
[2021-07-22] MEDS: INSULIN ASPART 100 UNITS/ML 3 ML PEN SC SCH ×4 (08:23→21:21)
[2021-07-22] MEDS: AMOXICILLIN/CLAVULANATE 875 MG TAB PO SCH ×2 (08:59→18:23)
[2021-07-22] MEDS: ASPIRIN 81 MG ECTAB PO SCH (08:59)
[2021-07-22] MEDS: ARTIFICIAL TEARS OP SCH ×2 (08:59→21:19)
[2021-07-22] MEDS: DORZOLAMIDE/TIMOLOL 22.3/6.8MG/ML 10 ML BTL OPB SCH ×2 (09:00→21:19)
[2021-07-22] MEDS: CLOPIDOGREL BISULFATE 75 MG TAB PO SCH (09:00)
[2021-07-22] MEDS ORDERED: TORSEMIDE 10 MG TAB PO SCH (09:00)
[2021-07-22] MEDS ORDERED: INSULIN GLARGINE SOLOSTAR 100 UNITS/ML 3 ML PEN SC SCH ×2 (09:00)
[2021-07-22] MEDS: FUROSEMIDE 40 MG/4 ML VIAL IV SCH ×2 (09:01→21:25)
[2021-07-22] MEDS: HEPARIN SOD 5,000 UNIT/0.5 ML VIAL SQ SCH ×2 (09:01→21:20)
[2021-07-22] MEDS: SPIRONOLACTONE 12.5 MG TAB PO SCH (09:02)
[2021-07-22] MEDS: guaiFENesin 600 MG TABCR PO SCH ×2 (09:03→21:20)
[2021-07-22] MEDS: POLYETHYLENE (MIRALAX) 17 GM PACK PO SCH (09:03)
[2021-07-22] MEDS: DOCUSATE SODIUM 100 MG CAP PO SCH ×2 (09:16→21:19)
[2021-07-22] MEDS: DOBUTamine / D5W 500 MG/250 ML BAG IV SCH (09:16)
--- NOTE | 2021-07-22 10:11 | Pharmacy Report ---
Pharmacy Glycemic Short Note 2 - Date of Service July 22, 2021 - Glycemic Short BSG Results (Last 24 hours): 07/21/21 07/21/21 07/21/21 11:16 16:37 18:04 Glucose 139 H POC Glucose 190 H 174 H 07/21/21 07/22/21 07/22/21 21:29 03:03 08:12 Glucose 112 H POC Glucose 133 H 122 H OUTPATIENT ANTIDIABETIC REGIMEN: * Levemir 80 units SC HS * Novolog 8 units SC with breakfast, 12 units SC with lunch and dinner * Patient reports taking Novolog as sliding scale only recently * HbA1c: 7.2% (07/14/21) ASSESSMENT: 07/22/21 * Patient's BSGs yesterday were [phone] mg/dL. Fasting today is 122 mg/dL. * Patient received 69 units of insulin yesterday with 50 units of basal and 19 units of bolus. * Reduce basal by 60% to 20 units. Patient somnolent and has kidney dysfunction. Do not want rebound hyperglycemia with recent stent placement. * Loosen Novolog to weight-based stress of 1. 07/21/21 * Patient's BSGs yesterday were [phone] mg/dL and overnight were 195-174 mg/dL. Fasting today is 191 mg/dL. * Patient received 80 units of insulin yesterday with 50 units of basal and 30 units of bolus. * Continue Levemir 50 units daily. Patient's fasting decreased by 100 points. * Continue Novolog. Weight-based stress of 3. Background * DR is a 81 year old male admitted on 07/13 with respiratory failure/decompensated CHF * Pharmacy consulted for glycemic management this morning due to worsening glycemic control * This is likely due to inadequate basal insulin while inpatient (30 units inpatient vs. 80 units outpatient) * Will give full weight-based stress of 3 dose of Lantus and Novolog with overnight checks this evening PLAN FOR INPATIENT GLYCEMIC CONTROL: * Basal insulin * Lantus 20 units SQ x 1 then reassess * Bolus insulin * NovoLog per scale ACHS or Q6hrs while NPO * Goal Range: Low 110 mg/dL - High 140 mg/dL * Correction Factor: 30 mg/dL/unit * Nutritional / Prandial insulin per carb ratio of 1 unit per 10 grams CHO consumed PLAN FOR DISCHARGE: * HbA1c of 7.2% suggests good outpatient glycemic control * Reasonable to continue outpatient regimen at discharge
--- NOTE | 2021-07-22 10:39 | Electrocardiogram Report ---
Test Reason : Blood Pressure : / mmHG Vent. Rate : 088 BPM Atrial Rate : 088 BPM P-R Int : 184 ms QRS Dur : 128 ms QT Int : 358 ms P-R-T Axes : 055 158 -22 degrees QTc Int : 433 ms Sinus rhythm with frequent Premature ventricular complexes Right bundle branch block ST elevation consistent with anterior injury Abnormal ECG When compared with ECG of 13-JUL-2021 13:45, Premature ventricular complexes are now Present Right bundle branch block is now Present Confirmed by Sterling Jade ([id number]) on 07/22/2021 10:38:40 AM Referred By: REFERRED SELF Confirmed By:Chinmay Jade
--- NOTE | 2021-07-22 10:44 | Electrocardiogram Report ---
Test Reason : Blood Pressure : / mmHG Vent. Rate : 090 BPM Atrial Rate : 090 BPM P-R Int : 182 ms QRS Dur : 128 ms QT Int : 368 ms P-R-T Axes : 059 154 -10 degrees QTc Int : 450 ms Sinus rhythm with frequent Premature ventricular complexes Indeterminate axis Right bundle branch block ST elevations consistent with anterior injury Abnormal ECG When compared with ECG of 13-JUL-2021 13:45, Premature ventricular complexes are now Present Right bundle branch block is now Present Confirmed by Sterling Jade ([id number]) on 07/22/2021 10:44:16 AM Referred By: REFERRED SELF Confirmed By:Chinmay Jade
--- NOTE | 2021-07-22 11:04 | Cardiology Progress Note ---
Date of Service July 22, 2021 Assessment & Plan (1) Acute systolic heart failure: (2) Aortic stenosis: Plan: Low gradient severe aortic stenosis (3) Acute kidney failure: (4) S/P drug eluting coronary stent placement: (5) STEMI (ST elevation myocardial infarction): Plan: The patient has three-vessel coronary artery disease by cardiac catheterization late yesterday during a STEMI. He did have a drug-eluting stent placed in the LAD. He is resting comfortably. He is still critically ill. He is on inotropic support with dobutamine. Urine output remains marginal and the patient is hypotensive. Since he is on dobutamine, I will hold his beta- konrad. Nephrology has been consulted and we will await their report. Palliative care consult is pending with the family. Updated the family. Admission and Anticipated Discharge Date Admission Date: July 13, 2021 Subjective The patient is resting comfortably in bed. Review of Systems Review of Systems: Review of Systems: See HPI for pertinent positives. All other 10 point review of systems are negative. Physical Exam Physical Exam: General: no acute distress and stated age Head: normocephalic, no masses, lesions, tenderness or abnormalities Eyes: conjunctiva are pink and non-injected, sclera clear Neck: supple, no adenopathy, no bruits, normal jugular venous pulse, no hepatojugular reflux Chest: normal shape and normal respiratory effort Lungs: clear to auscultation and percussion Cardiac Exam: - regular rate & rhythm, systolic murmur- normal S1, normal S2 Pulses: 2(+) throughout Abdomen: abdomen soft, non-tender, no abnormal masses and no hepatosplenomegaly Musculoskeletal: no gait disturbance, no joint inflammation, no deforming arthritis Extremities: no edema and no cyanosis Neuro: grossly normal exam Results & Data ([facility]) Vital Signs (Past 12 Hours) Vital Signs Pulse Pulse Resp BP BP BP Pulse Ox 07/22/21 10:00 111 H 21 98/60 L 97 07/22/21 09:00 113 H 21 94/59 L 95 07/22/21 08:00 111 H 16 95/62 L 91 07/22/21 07:00 111 H 21 104/66 94 07/22/21 06:15 110 H 15 96 07/22/21 06:10 110 H 18 108/67 96 07/22/21 06:00 113 H 21 108/67 96 07/22/21 05:45 111 H 19 97 07/22/21 05:30 109 H 22 98 07/22/21 05:15 110 H 17 97 07/22/21 05:00 111 H 23 92/65 L 99 07/22/21 04:45 112 H 21 97 07/22/21 04:30 108 H 29 H 94 07/22/21 04:15 110 H 22 91 07/22/21 04:00 111 H 25 H 90/58 L 95 07/22/21 03:45 112 H 29 H 95 07/22/21 03:30 93 H 25 H 94 07/22/21 03:15 88 29 H 84 L 07/22/21 03:00 93 H 19 105/57 L 94 07/22/21 02:45 91 H 40 H 92 07/22/21 02:30 91 H 20 91 07/22/21 02:15 91 H 21 94 07/22/21 02:00 94 H 14 100/54 L 94 07/22/21 01:45 92 H 21 94 07/22/21 01:30 92 H 15 95 07/22/21 01:26 113 H 18 93/55 L 92 07/22/21 01:15 93 H 18 95 07/22/21 01:00 92 H 20 85/53 L 94 07/22/21 00:45 89 22 91 07/22/21 00:30 89 22 90 07/22/21 00:15 92 H 19 91/50 L 93 07/22/21 00:00 88 88 24 88/54 L 90 07/21/21 23:45 91 H 21 92 07/21/21 23:30 91 H 20 89/55 L 92 07/21/21 23:15 92 H 21 85/53 L 93 07/21/21 23:00 90 91 H 30 H 86/57 L 92 Laboratory Results Laboratory Results - last 24 hr 07/21/21 07/21/21 07/21/21 11:16 16:37 18:04 WBC 14.30 H RBC 4.41 L Hgb 13.8 L Hct 41.6 L MCV 94.3 MCH 31.3 MCHC 33.2 RDW Std Deviation 47.5 H RDW Coeff of Emmanuel 13.6 Plt Count 203 MPV 11.8 H POC pH POC pCO2 POC pO2 POC HCO3 POC Total CO2 POC Base Excess POC ABG O2 Sat Sodium Potassium Chloride Carbon Dioxide Anion Gap BUN Creatinine Est Cr Clr Drug Dosing Est GFR ( Amer) Est GFR (Non-Af Amer) BUN/Creatinine Ratio Glucose POC Glucose 190 H 174 H Calcium Phosphorus Magnesium Troponin I Procalcitonin 07/21/21 07/21/21 07/21/21 18:04 19:27 19:55 WBC RBC Hgb Hct MCV MCH MCHC RDW Std Deviation RDW Coeff of Emmanuel Plt Count MPV POC pH 7.40 7.35 POC pCO2 38 46 POC pO2 96 H 78 L POC HCO3 23 25 H POC Total CO2 24 27 POC Base Excess -2.0 0.0 POC ABG O2 Sat 97.0 H 95.0 Sodium 134 L Potassium 4.5 Chloride 99 Carbon Dioxide 27 Anion Gap 8.0 BUN 69 H Creatinine 2.58 H D Est Cr Clr Drug Dosing 26.2 Est GFR ( Amer) 25.5 Est GFR (Non-Af Amer) 22.0 BUN/Creatinine Ratio 26.9 H Glucose 139 H POC Glucose Calcium 8.9 Phosphorus 4.1 Magnesium 2.3 Troponin I 19.800 H* Procalcitonin 07/21/21 07/22/21 07/22/21 21:29 03:03 03:03 WBC 12.72 H RBC 3.81 L Hgb 11.7 L Hct 35.8 L MCV 94.0 MCH 30.7 MCHC 32.7 RDW Std Deviation 47.1 H RDW Coeff of Emmanuel 13.7 Plt Count 127 L MPV 11.0 H POC pH POC pCO2 POC pO2 POC HCO3 POC Total CO2 POC Base Excess POC ABG O2 Sat Sodium 137 Potassium 4.0 Chloride 103 Carbon Dioxide 29 Anion Gap 5.0 BUN 69 H Creatinine 2.24 H D Est Cr Clr Drug Dosing 30.2 Est GFR ( Amer) 30.3 Est GFR (Non-Af Amer) 26.1 BUN/Creatinine Ratio 31.0 H Glucose 112 H POC Glucose 133 H Calcium 8.1 L Phosphorus 4.3 Magnesium 2.2 Troponin I 23.000 H* Procalcitonin 07/22/21 07/22/21 07/22/21 08:12 08:41 08:41 WBC RBC Hgb Hct MCV MCH MCHC RDW Std Deviation RDW Coeff of Emmanuel Plt Count MPV POC pH POC pCO2 POC pO2 POC HCO3 POC Total CO2 POC Base Excess POC ABG O2 Sat Sodium Potassium Chloride Carbon Dioxide Anion Gap BUN Creatinine Est Cr Clr Drug Dosing Est GFR ( Amer) Est GFR (Non-Af Amer) BUN/Creatinine Ratio Glucose POC Glucose 122 H Calcium Phosphorus Magnesium Troponin I 16.200 H* Procalcitonin 0.64 H Diagnostic Findings Rhythm on telemetry is sinus tachycardia. Medications Administered Current Inpatient Medications Acetaminophen (Acetaminophen 325 Mg Tab) 650 mg PO Q4H PRN PRN Reason: Pain or Fever Stop: 08/12/21 18:28 Amoxicillin/Clavulanate Potassium (Amoxicillin/Clavulanate 875 Mg Tab) 1 tab PO BIDM HAIM Stop: 07/26/21 16:59 Last Admin: 07/22/21 08:59 Dose: 1 tab Documented by: Artificial Tears (Artificial Tears) 1 drops OP BID HAIM Stop: 08/12/21 20:59 Last Admin: 07/22/21 08:59 Dose: 1 drops Documented by: Aspirin (Aspirin 81 Mg Ectab) 81 mg PO DAILY HAIM Stop: 08/21/21 08:59 Last Admin: 07/22/21 08:59 Dose: 81 mg Documented by: Clopidogrel Bisulfate (Clopidogrel Bisulfate 75 Mg Tab) 75 mg PO QAM HAIM Stop: 08/21/21 08:59 Last Admin: 07/22/21 09:00 Dose: 75 mg Documented by: Dextrose (Dextrose 50% 50 Ml Syringe) 25 - 50 ml IV UD PRN; Protocol PRN Reason: Hypoglycemia Protocol Stop: 08/12/21 18:28 Docusate Sodium (Docusate Sodium 100 Mg Cap) 100 mg PO BID HAIM Stop: 08/17/21 12:44 Last Admin: 07/22/21 09:16 Dose: 100 mg Documented by: Dorzolamide/Timolol (Dorzolamide/Timolol 22.3/6.8mg/Ml 10 Ml Btl) 1 drops OPB BID HAIM Stop: 08/12/21 20:59 Last Admin: 07/22/21 09:00 Dose: 1 drops Documented by: Furosemide (Furosemide 40 Mg/4 Ml Vial) 80 mg IV BID HAIM Stop: 08/20/21 20:59 Last Admin: 07/22/21 09:01 Dose: 80 mg Documented by: Glucagon (Glucagon For Inj 1 Mg Vial) 1 mg SQ UD PRN; Protocol PRN Reason: Hypoglycemia Protocol Stop: 08/12/21 18:28 Glucose (Glucose 10 Tabs/Tube) 4 - 8 tabs PO UD PRN; Protocol PRN Reason: Hypoglycemia Protocol Stop: 08/12/21 18:28 Glucose (Glucose 40% Gel 15 Gm Tube) 15 - 30 gm PO UD PRN; Protocol PRN Reason: Hypoglycemia Protocol Stop: 08/12/21 18:28 Guaifenesin (Guaifenesin 600 Mg Tabcr) 600 mg PO Q12 HAIM Stop: 08/17/21 13:39 Last Admin: 07/22/21 09:03 Dose: Not Given Documented by: Heparin Sodium (Porcine) (Heparin Sod 5,000 Unit/0.5 Ml Vial) 5,000 units SQ Q12 HAIM Stop: 08/12/21 20:59 Last Admin: 07/22/21 09:01 Dose: 5,000 units Documented by: Dobutamine HCl/Dextrose (Dobutamine / D5w) 500 mg in 250 mls @ 14.61 mls/hr IV .Q17H7M [facility]; Protocol Stop: 08/20/21 20:59 Last Admin: 07/22/21 09:16 Dose: 5 mcg/kg/min, 14.6 mls/hr Documented by: Insulin Aspart (Insulin Aspart 100 Units/Ml 3 Ml Pen) 0 units SC ACHS HAIM Stop: 08/12/21 18:28 Last Admin: 07/22/21 08:23 Dose: Not Given Documented by: Metoprolol Succinate (Metoprolol Succ 25mg Ext Rel Tab) 12.5 mg PO BID [facility] Stop: 08/14/21 11:59 Last Admin: 07/21/21 21:23 Dose: Not Given Documented by: Miscellaneous (Carbohydrates For Hypoglycemia ) 15 - 30 gm PO UD PRN PRN Reason: Hypoglycemia Protocol Stop: 08/12/21 18:28 Miscellaneous Information (Pharmacy Glycemic Mgmt Consult) 1 ea N/A UD PRN PRN Reason: Consult Stop: 08/19/21 07:21 Polyethylene Glycol (Polyethylene (Miralax) 17 Gm Pack) 17 gm PO DAILY HAIM Stop: 08/17/21 12:44 Last Admin: 07/22/21 09:03 Dose: Not Given Documented by: Spironolactone (Spironolactone 12.5 Mg Tab) 12.5 mg PO DAILY HAIM Stop: 08/14/21 11:59 Last Admin: 07/22/21 09:02 Dose: 12.5 mg Documented by:
--- NOTE | 2021-07-22 11:15 | XRay Report ---
XR chest 1V portable CLINICAL HISTORY: Follow-up pleural effusions and vascular congestion. COMPARISON STUDY: 07/21/2021 TECHNIQUE: 1 view of the chest FINDINGS: Single frontal view of the chest demonstrates the heart to again be enlarged with continued interval improvement of vascular congestion. The lungs are clear of alveolar opacities. However, there are aga in moderate sized bilateral pleural effusions and bibasilar atelectasis. There is no acute osseous pa thology. IMPRESSION: Compared to previous examination, there continues to be interval improvement of vascular congestion. However, moderate sized bilateral pleural effusions and bibasilar atelectasis remain pres ent. ACT 112: Negative or not required by law. Electronically signed by: Antonio Tellez M.D. 07/22/2021 11:14 AM
--- NOTE | 2021-07-22 11:48 | Nephrology Consultation ---
Date of Consultation July 22, 2021 Assessment & Plan (1) Acute kidney failure: (2) STEMI (ST elevation myocardial infarction): (3) Acute systolic heart failure: (4) Aortic stenosis: 81-year-old male admitted with SOB, ? pneumonia and volume overload initially treated with antibiotic and IV diuretics without improvement in volume status or respiratory status. 2D echo showed EF 20-[address] T changes in EKG and eventually had cardiac catheterization done on 07/21/2021 and noted to have triple-vessel disease status post LAD stent. Baseline creatinine 1.0- 1.2, kidney function slowly worsen over last few days with creatinine up to 2.6 in the setting of acute coronary event, low EF and diuretic resistant volume overload, Pulmonary hypertension as well as severe aortic stenosis. Renal function slightly improved after cardiac cath yesterday, on Dobutamine. CXR with improved pulmonary vascular congestion but b/l pleural effusion --agree with continuing with Dobutamine --monitor urine output closely, okay to use diuretics as needed however, with severe as patient is preload dependent, may need to be careful with aggressive diuresis, has currently does not seem to be significantly volume overloaded. He received lasix 40 iv this am and had only 150 ml uo. If UO remains low, would give Bumex 4 mg IV x 1 dose --continue to monitor renal function and electrolyte --if hemodynamically stable, would wait for renal function to recover before considering further PTCA Will follow Thank you for allowing me to participate in your patient's care. It was a pleasure to see Mr. Arriaga History of Present Illness Reason for Consultation: Acute kidney injury Attending Physician: Min Barbosa MD History of Present Illness Mr Arriaga is a 81-year-old male with PMH significant for hypertension, hyperlipidemia, coronary artery disease, CHF, and diabetes admitted to the hospital initially with pneumonia and volume overload and had acute coronary event and AK eye. Nephrology consult requested for management of AK I and volume overload. EMR records are reviewed in detail during patient's visit. Paulie was initially admitted to hospital on 07/13 with concerns for pneumonia and volume overload. Initially he was treated with IV antibiotic and Lasix. Admission chest x-ray showed pulmonary vascular congestion as well as bilateral pleural effusion. Was also given supplemental oxygen and with no prior history of oxygen use at home. He was given IV Lasix however as response was not adequate he was changed to torsemide. On the evening of 07/21/2021 he was noted to have an syncope/unresponsive episode. EKG showed ST elevation. 2D echo showed EF 20-25 percent with severe aortic stenosis. Was taken to cardiac cardiac cath rn yesterday evening and found to have triple vessel disease with acute 100% mid LAD occlusion s/p drug-eluting stents x2. Also had 95% mid circumflex and 80% mid RCA lesion and plan to do staged PTCA. He was also noted to have elevated left and right-sided filling pressures with severe pulmonary hypertension. No known history of significant CKD, baseline creatinine seems to be around 1.1- 1.2. never smoker, no known family history of CKD or end-stage renal disease. No known prior history of CHF. At home he was on Lasix 40 milligram daily and lisinopril 5 milligrams daily. History of diabetes with no known history of proteinuria and well preserved renal function, has been on insulin and metformin. On admission renal function was at baseline. as he was getting diuretics, renal function slowly started to worsen, creatinine was 1.4 on 07/18/2021 which progressively worsened to 2.6 on 07/21. no urinalysis or renal imaging available. Has been having decent urine output. . His creatinine down to 2.2 this morning received Lasix 80 milligram IV x1 dose this morning and made around 150 cc of urine after the Lasix dose. Currently he is on dobutamine with heart rate above 100, blood pressure remains low around 98/60. Overall he was awake, alert and seems comfortable. Denies any further episode of chest pain or shortness of breath. No nausea, vomiting or abdominal pain. Allergies Allergy/AdvReac Type Severity Reaction Status Date / Time Ftasrua-XWP-GkW Reductase Allergy Unknown LEG Verified 07/13/21 14:42 Inhibitor WEAKNESS [Hducoqx-Flv-Bqu Reductase Inhibitor] Home Medications Medication Instructions Recorded Confirmed Type carboxymethylcellulose sodium 1 % 1 drp OPB BID 07/13/21 07/13/21 History eye drops (Artificial Tears (carboxymethylcellulose)) dorzolamide 22.3 mg-timolol 6.8 1 drp OPB BID 07/13/21 07/13/21 History mg/mL eye drops insulin aspart U-100 100 unit/mL See Rx Instructions .ROUTE .COMPLEX 07/13/21 07/13/21 History subcutaneous solution (Novolog U-100 Insulin aspart) insulin detemir U-100 100 unit/mL 80 unit SUBCUT HS 07/13/21 07/13/21 History subcutaneous solution (Levemir U-100 Insulin) metformin 1,000 mg tablet 1,000 mg PO BID 07/13/21 07/13/21 History Lactobacillus acidophilus 10 10 mg PO DAILY #3 cap 07/17/21 Rx billion cell capsule (Probiotic) amoxicillin 875 mg-potassium 1 tab PO BID #6 tab 07/17/21 Rx clavulanate 125 mg tablet (Augmentin) aspirin 81 mg capsule 81 mg PO DAILY #30 cap 07/17/21 Rx azithromycin 250 mg tablet 250 mg PO QAM 1 Days #1 tab 07/17/21 Rx furosemide 40 mg tablet (Lasix) 40 mg PO DAILY #60 tab 07/17/21 Rx lisinopril 5 mg tablet (Zestril) 5 mg PO QAM #30 tab 07/17/21 Rx metoprolol succinate 25 mg 12.5 mg PO BID #30 tab 07/17/21 Rx tablet,extended release 24 hr spironolactone 25 mg tablet 12.5 mg PO DAILY #15 tab 07/17/21 Rx Patient History Medical History Hyperlipidemia Insulin dependent diabetes mellitus Surgical History History of carpal tunnel surgery History of cataract surgery Family History Other Diabetes Social History Smoking Status: Never smoker Hx Alcohol Use: No Hx Substance Use: No Preferred Language: [place]an Communication Ability: Effective Apparatus Cleaner Required: No Beliefs That Will Affect Care: None Current Living Situation: Spouse Feels Safe at Home: Yes Assistive Devices: Oxygen - Continuous and Walker Review of Systems Review of Systems: detail ROS was done and pertinent positives and negatives are mentioned in HPI Physical Exam Constitutional: WD/WN, vitals as above + ill appearing; no acute distress Eyes: + anicteric sclerae ENMT: Ears: no hearing impairment and no external ear abnormality Neck: normal visual inspection Thyroid: no thyromegaly Respiratory: normal respiratory effort; no respiratory distress and no cough Auscultation: + diminished lung sounds Cardiovascular: Rate/Rhythm: regular rate, regular rhythm and + tachycardic Heart Sounds: normal S1 and normal S2 Extremities: no edema Gastrointestinal (Abdomen): Inspection/Auscultation: abdomen normal to inspection and normal bowel sounds Percussion/Palpation: abdomen soft; abdomen nontender Musculoskeletal: Extremities: extremities normal to inspection Skin: normal turgor; no rashes Neurologic: no focal motor deficits and not confused Psychiatric: Orientation: alert and oriented x 3 Affect: euthymic affect Results & Data ([facility]) Vital Signs (Past 12 Hours) Vital Signs Pulse Pulse Resp BP BP BP Pulse Ox 07/22/21 10:00 111 H 21 98/60 L 97 07/22/21 09:00 113 H 21 94/59 L 95 07/22/21 08:00 111 H 16 95/62 L 91 07/22/21 07:00 111 H 21 104/66 94 07/22/21 06:15 110 H 15 96 07/22/21 06:10 110 H 18 108/67 96 07/22/21 06:00 113 H 21 108/67 96 07/22/21 05:45 111 H 19 97 07/22/21 05:30 109 H 22 98 07/22/21 05:15 110 H 17 97 07/22/21 05:00 111 H 23 92/65 L 99 07/22/21 04:45 112 H 21 97 07/22/21 04:30 108 H 29 H 94 07/22/21 04:15 110 H 22 91 07/22/21 04:00 111 H 25 H 90/58 L 95 07/22/21 03:45 112 H 29 H 95 07/22/21 03:30 93 H 25 H 94 07/22/21 03:15 88 29 H 84 L 07/22/21 03:00 93 H 19 105/57 L 94 07/22/21 02:45 91 H 40 H 92 07/22/21 02:30 91 H 20 91 07/22/21 02:15 91 H 21 94 07/22/21 02:00 94 H 14 100/54 L 94 07/22/21 01:45 92 H 21 94 07/22/21 01:30 92 H 15 95 07/22/21 01:26 113 H 18 93/55 L 92 07/22/21 01:15 93 H 18 95 07/22/21 01:00 92 H 20 85/53 L 94 07/22/21 00:45 89 22 91 07/22/21 00:30 89 22 90 07/22/21 00:15 92 H 19 91/50 L 93 07/22/21 00:00 88 88 24 88/54 L 90 07/21/21 23:45 91 H 21 92 PG Care Time/CCT Total # of Minutes Spent Total Time Spent with Patient: Total time spent is greater than 50% in coordination of care (as documented) at patient's floor/unit and/or counseling patient: Coding Level of Care Code 87771 Initial Inpt Care Lvl 3 Diagnoses Acute kidney failure N17.9 STEMI (ST elevation myocardial infarction) I21.3 Acute systolic heart failure I50.21 Aortic stenosis I35.0
[2021-07-22] MEDS ORDERED: STAT IV Infusion **Titration per Protocol STA (12:09)
[2021-07-22] MEDS: NOREPINEPHRINE/D5W 8 MG/508 ML BAG IV SCH (12:33)
[2021-07-22 12:59] LABS: iSTAT Arterial Blood Gas HCO3 29 meg/L (19-24); iSTAT Arterial Blood Gas pCO2 56 mmHg (35-46); iSTAT Arterial Blood Gas pH 7.33 (7.35-7.45); iSTAT Arterial Blood Gas pO2 < 32 mmHg (80-95); iSTAT Carbon Dioxide 31 mmol/L (24-31)
[2021-07-23] MEDS: DOBUTamine / D5W 500 MG/250 ML BAG IV SCH ×2 (02:35→21:26)
[2021-07-23 06:06] LABS: Basophils # (auto) 0.02 K/uL (0-0.2); Basophils % (auto) 0.1 %; Eosinophils # (auto) 0.13 K/uL (0-0.5); Eosinophils % (auto) 0.9 %; Hematocrit (blood only) 38.7 % (42-52); Hemoglobin 12.7 g/dL (14.0-18.0); Immature Granulocytes # (auto) 0.03 K/uL (0.00-0.02); Immature Granulocytes % (auto) 0.2 %; Lymphocytes # (auto) 1.12 K/uL (1.2-3.4); Mean Corpuscular Hemoglobin 31.1 pg (25-34); Mean Corpuscular Hgb Conc 32.8 g/dL (32-36); Mean Corpuscular Volume 94.9 fL (80-100); Mean Platelet Volume 12.2 fL (7.4-10.4); Monocytes # (auto) 0.66 K/uL (0.11-0.59); Monocytes % (auto) 4.7 %; Neutrophils # (auto) 12.06 K/uL (1.4-6.5); Neutrophils % (auto) 86.1 %; Platelet Count 154 K/uL (130-400); RDW Coefficient of Variation 13.6 % (11.5-14.5); RDW Standard Deviation 47.2 fL (36.4-46.3); Red Blood Count 4.08 M/uL (4.7-6.1); White Blood Count 14.02 K/uL (4.8-10.8)
[2021-07-23 06:38] LABS: BUN Creatinine Ratio 32.3 (10-20); Calcium 8.8 mg/dl (8.5-10.1); Creatinine Clr Calc Pharmacy 29.8 ml/min; Est GFR (African American) 29.3 ml/min; Est GFR (Non-African American) 25.3 ml/min; Magnesium 2.3 mg/dl (1.8-2.4); Potassium 4.5 mmol/L (3.5-5.1)
[2021-07-23 06:39] LABS: Phosphorus 4.4 mg/dl (2.5-4.9)
--- NOTE | 2021-07-23 07:35 | Critical Care Progress Note ---
Date of Service July 23, 2021 Assessment & Plan Admission and Anticipated Discharge Date Admission Date: July 13, 2021 Results & Data Results & Data ([facility]) Vital Signs (Past 12 Hours) Vital Signs Temp Pulse Resp BP Pulse Ox 07/23/21 06:00 101 H 26 H 102/69 94 07/23/21 05:00 114 H 18 106/68 94 07/23/21 04:00 36.8 C 115 H 17 103/67 94 07/23/21 03:17 98 H 20 93 07/23/21 03:00 100 H 23 100/62 93 07/23/21 02:00 98 H 22 98/59 L 95 07/23/21 01:00 97 H 18 105/64 95 07/23/21 00:00 96 H 25 H 99/61 L 97 07/22/21 23:46 94 H 07/22/21 23:20 85 18 94 07/22/21 23:00 36.7 C 93 H 21 92/57 L 97 07/22/21 22:00 101 H 22 102/63 96 07/22/21 21:00 101 H 21 106/64 97 07/22/21 20:00 98 H 17 96/58 L 94
--- NOTE | 2021-07-23 07:39 | XRay Report ---
XR chest 1V portable CLINICAL HISTORY: f/u COMPARISON STUDY: Chest radiograph July 22, 2021. FINDINGS: There is no pneumothorax. Moderate bilateral pleural effusions with associated bibasilar op acities persist. There is suspected pulmonary edema. Cardiomegaly is unchanged. There is no pneumotho rax. IMPRESSION: 1. Persistent pulmonary edema. 2. Moderate bilateral pleural effusions with associated bibasilar opacities which could reflect atele ctasis or consolidation. ACT 112: Negative or not required by law. Electronically signed by: Rio Loredo M.D. 07/23/2021 7:38 AM
[2021-07-23] MEDS: AMOXICILLIN/CLAVULANATE 875 MG TAB PO SCH (08:25)
[2021-07-23] MEDS: ARTIFICIAL TEARS OP SCH ×2 (08:25→21:21)
[2021-07-23] MEDS: DORZOLAMIDE/TIMOLOL 22.3/6.8MG/ML 10 ML BTL OPB SCH ×2 (08:26→21:20)
[2021-07-23] MEDS: CLOPIDOGREL BISULFATE 75 MG TAB PO SCH (08:26)
[2021-07-23] MEDS: ASPIRIN 81 MG ECTAB PO SCH (08:26)
[2021-07-23] MEDS: guaiFENesin 600 MG TABCR PO SCH ×2 (08:28→21:25)
[2021-07-23] MEDS: HEPARIN SOD 5,000 UNIT/0.5 ML VIAL SQ SCH ×2 (08:28→21:25)
[2021-07-23] MEDS ORDERED: CEFEPIME 1,000 MG in SYRINGE 0 ML IV STA (08:28)
[2021-07-23] MEDS: FUROSEMIDE 40 MG/4 ML VIAL IV SCH ×2 (08:28→21:24)
[2021-07-23] MEDS: SPIRONOLACTONE 12.5 MG TAB PO SCH (08:29)
[2021-07-23] MEDS: INSULIN ASPART 100 UNITS/ML 3 ML PEN SC SCH ×4 (08:31→21:27)
--- NOTE | 2021-07-23 08:34 | Critical Care Progress Note ---
Date of Service July 23, 2021 Assessment & Plan (1) STEMI (ST elevation myocardial infarction): (2) S/P drug eluting coronary stent placement: (3) Acute kidney failure: (4) Aortic stenosis: (5) Acute respiratory failure with hypoxia: (6) Fluid overload: (7) Insulin dependent diabetes mellitus: (8) Acute exacerbation of CHF (congestive heart failure): Plan: Reason Critically Ill: 81-year-old male with acute anterior ST JOSE status post PTCI with LINDA x2 to the LAD. Also noted to have lesions of the mid circumflex and RCA. Unfortunately, patient with elevated RIGHT and LEFT filling pressures in the setting of ongoing CHF for which the patient has been treated during admission. Patient requiring close hemodynamic monitoring with the addition of inotropes and loop diuretics. Recommendations: NEURO - encephalopathic this morning likely secondary to combinations of medication effects as well as underlying medical encephalopathy. Nonfocal exam and no indication for imaging. Continue to follow clinically. Unfortunately the patient does not appear to be able to participate in goals of therapy discussions. CARDIAC/VASCULAR - Acute anterior STEMI s/p PTCI w/ LINDA x2 to the LAD on 07/21/21. Patient with triple-vessel disease and decreased ejection fraction but it is not felt to be a surgical candidate. Plan for staged percutaneous coronary intervention. Unclear if kidney function will support additional contrast load. LVEDP and wedge pressure are both elevated and the patient needs fluid offloaded. EF of 20 to 25% with however the gradient was less than 10 on cath. Currently on levophed and dobutamine. Doubt he is a candidate for advanced therapies such as LVAD/Impella/IABP but defer to cardiology. Currently on levo as well. Currently on aspirin and plavix. Holding metoprolol in setting of decompensated CHF. Hold spironolactone as well in setting of ADRI. Consider esmolol given ongoing tachycardia. RESPIRATORY -hypoxemic respiratory failure secondary to pulmonary edema and possible pna. Continue CPAP/BiPAP and oxygen as tolerated. GI/NUTRITION -tolerating diet RENAL/LYTES - Acute renal failure: Suspect combinations of intrinsic renal disease, potential contrast nephropathy, and poor forward flow. Nephro consult appreciated - Kruger in place - Strict I&Os. ENDO - glycemic control per protocol HEME - mild anemia. No indication for transfusion currently. Continue to follow. Platelets stable. ID - Procal mildly elevated, but maybe related to ADRI. U/A and blcx ordered. Empiric cefepime started. MRSA screen ordered. Discontinue augmentin Palliative care consult placed. Agree with defining goals of therapy. Prognosis guarded. LINES/IV ACCESS - * PIVs x2 * Kruger DVT PROPHYLAXIS - * Hold on chemoprophylaxis s/p coronary intervention. * SCDs I have personally spent 34 minutes of critical care time in the direct management of this patient. This is a life/limb threatening event. This includes time spent evaluating patient, direct bedside care, chart review, placing orders, interpretation of diagnostic studies, discussion with consultants, patient, and family members, as well as other required patient management activities. This time is exclusive of all separately billable procedures, and teaching time and separate from and in addition to any other critical care service time. Admission and Anticipated Discharge Date Admission Date: July 13, 2021 Results & Data Results & Data ([facility]) Vital Signs (Past 12 Hours) Vital Signs Temp Pulse Resp BP Pulse Ox 07/23/21 06:00 101 H 26 H 102/69 94 07/23/21 05:00 114 H 18 106/68 94 07/23/21 04:00 36.8 C 115 H 17 103/67 94 07/23/21 03:17 98 H 20 93 07/23/21 03:00 100 H 23 100/62 93 07/23/21 02:00 98 H 22 98/59 L 95 07/23/21 01:00 97 H 18 105/64 95 07/23/21 00:00 96 H 25 H 99/61 L 97 07/22/21 23:46 94 H 07/22/21 23:20 85 18 94 07/22/21 23:00 36.7 C 93 H 21 92/57 L 97 07/22/21 22:00 101 H 22 102/63 96 07/22/21 21:00 101 H 21 106/64 97 Coding Level of Care Code Critical Care 1st 30-74 mins Diagnoses STEMI (ST elevation myocardial infarction) I21.3 S/P drug eluting coronary stent placement Z95.5 Acute kidney failure N17.9 Aortic stenosis I35.0 Acute respiratory failure with hypoxia J96.01 Fluid overload E87.70 Insulin dependent diabetes mellitus Acute exacerbation of CHF (congestive heart failure) I50.9 Heart failure type: unspecified Time Spent (min) 34 (1) Acute exacerbation of CHF (congestive heart failure) Heart failure type: unspecified Qualified Code(s): I50.9 - Heart failure, unspecified
[2021-07-23] MEDS ORDERED: INSULIN GLARGINE SOLOSTAR 100 UNITS/ML 3 ML PEN SC ONE ×2 (09:00→14:30)
[2021-07-23] MEDS: DOCUSATE SODIUM 100 MG CAP PO SCH ×2 (09:03→21:30)
[2021-07-23] MEDS: POLYETHYLENE (MIRALAX) 17 GM PACK PO SCH (09:03)
[2021-07-23 09:23] LABS: Appearance Urine Cloudy (Clear); Bacteria Urine Automated Negative (Negative); Bilirubin Urine Negative (Negative); Blood Urine 3+ (Negative); Color Urine Dark Yellow; Glucose Urine UA Negative (Negative); Ketones Urine Trace (Negative); Leukocyte Esterase Urine 1+ (Negative); Nitrite Urine Negative (Negative); Protein Urine Trace (Negative); RBC Urine Automated >30 /hpf (0-4); Specific Gravity Urine 1.018 (1.000-1.030); Urobilinogen Urine Negative (Negative)
--- NOTE | 2021-07-23 09:53 | Cardiology Progress Note ---
Date of Service July 23, 2021 Assessment & Plan (1) Acute systolic heart failure: (2) Aortic stenosis: Plan: Low gradient severe aortic stenosis (3) Acute kidney failure: (4) S/P drug eluting coronary stent placement: (5) STEMI (ST elevation myocardial infarction): Plan: The patient had Levophed added to dobutamine due to low blood pressure. Currently his systolic blood pressures in the 90s. Urine output has been adequate and he is currently in negative numbers. Creatinine is slightly more elevated post cath. Palliative care consult is still pending. Admission and Anticipated Discharge Date Admission Date: July 13, 2021 Subjective The patient is resting comfortably. Status is unchanged except that Levophed was added to dobutamine because of blood pressure. Review of Systems Review of Systems: Review of Systems: See HPI for pertinent positives. All other 10 point review of systems are negative. Physical Exam Physical Exam: General: no acute distress and stated age Head: normocephalic, no masses, lesions, tenderness or abnormalities Eyes: conjunctiva are pink and non-injected, sclera clear Neck: supple, no adenopathy, no bruits, normal jugular venous pulse, no hepatojugular reflux Chest: normal shape and normal respiratory effort Lungs: clear to auscultation and percussion Cardiac Exam: - regular rate & rhythm, systolic murmur- normal S1, normal S2 Pulses: 2(+) throughout Abdomen: abdomen soft, non-tender, no abnormal masses and no hepatosplenomegaly Musculoskeletal: no gait disturbance, no joint inflammation, no deforming arthritis Extremities: no edema and no cyanosis Neuro: grossly normal exam Results & Data ([facility]) Vital Signs (Past 12 Hours) Vital Signs Temp Pulse Resp BP Pulse Ox 07/23/21 06:00 101 H 26 H 102/69 94 07/23/21 05:00 114 H 18 106/68 94 07/23/21 04:00 36.8 C 115 H 17 103/67 94 07/23/21 03:17 98 H 20 93 07/23/21 03:00 100 H 23 100/62 93 07/23/21 02:00 98 H 22 98/59 L 95 07/23/21 01:00 97 H 18 105/64 95 07/23/21 00:00 96 H 25 H 99/61 L 97 07/22/21 23:46 94 H 07/22/21 23:20 85 18 94 07/22/21 23:00 36.7 C 93 H 21 92/57 L 97 07/22/21 22:00 101 H 22 102/63 96 Laboratory Results Laboratory Results - last 24 hr 07/21/21 07/22/21 07/22/21 19:55 11:40 16:56 WBC RBC Hgb Hct MCV MCH MCHC RDW Std Deviation RDW Coeff of Emmanuel Plt Count MPV Immature Gran % (Auto) Neut % (Auto) Lymph % (Auto) [place] % (Auto) Eos % (Auto) Baso % (Auto) Neut # (Auto) Lymph # (Auto) [place] # (Auto) Eos # (Auto) Baso # (Auto) Immature Gran # (Auto) POC pH 7.33 L POC pCO2 56 H POC pO2 < 32 L POC HCO3 29 H POC Total CO2 31 POC Base Excess 3.0 H POC ABG O2 Sat 44.0 L Sodium Potassium Chloride Carbon Dioxide Anion Gap BUN Creatinine Est Cr Clr Drug Dosing Est GFR ( Amer) Est GFR (Non-Af Amer) BUN/Creatinine Ratio Glucose POC Glucose 137 H 143 H Lactate Calcium Phosphorus Magnesium Urine Color Urine Appearance Urine pH Ur Specific Fisher Urine Protein Urine Glucose (UA) Urine Ketones Urine Blood Urine Nitrite Urine Bilirubin Urine Urobilinogen Ur Leukocyte Esterase Urine WBC (Auto) Urine RBC (Auto) U Hyaline Cast (Auto) U Epithel Cells (Auto) Urine Bacteria (Auto) Granular Casts Nasal Screen MRSA (PCR) 07/22/21 07/23/21 07/23/21 21:12 05:20 05:20 WBC 14.02 H RBC 4.08 L Hgb 12.7 L Hct 38.7 L MCV 94.9 MCH 31.1 MCHC 32.8 RDW Std Deviation 47.2 H RDW Coeff of Emmanuel 13.6 Plt Count 154 MPV 12.2 H Immature Gran % (Auto) 0.2 Neut % (Auto) 86.1 Lymph % (Auto) 8.0 [place] % (Auto) 4.7 Eos % (Auto) 0.9 Baso % (Auto) 0.1 Neut # (Auto) 12.06 H Lymph # (Auto) 1.12 L [place] # (Auto) 0.66 H Eos # (Auto) 0.13 Baso # (Auto) 0.02 Immature Gran # (Auto) 0.03 H POC pH POC pCO2 POC pO2 POC HCO3 POC Total CO2 POC Base Excess POC ABG O2 Sat Sodium 134 L Potassium 4.5 Chloride 98 Carbon Dioxide 24 Anion Gap 12.0 H BUN 74 H Creatinine 2.30 H Est Cr Clr Drug Dosing 29.8 Est GFR ( Amer) 29.3 Est GFR (Non-Af Amer) 25.3 BUN/Creatinine Ratio 32.3 H Glucose 217 H POC Glucose 192 H Lactate Calcium 8.8 Phosphorus 4.4 Magnesium 2.3 Urine Color Urine Appearance Urine pH Ur Specific Fisher Urine Protein Urine Glucose (UA) Urine Ketones Urine Blood Urine Nitrite Urine Bilirubin Urine Urobilinogen Ur Leukocyte Esterase Urine WBC (Auto) Urine RBC (Auto) U Hyaline Cast (Auto) U Epithel Cells (Auto) Urine Bacteria (Auto) Granular Casts Nasal Screen MRSA (PCR) 07/23/21 07/23/21 07/23/21 08:12 08:50 08:50 WBC RBC Hgb Hct MCV MCH MCHC RDW Std Deviation RDW Coeff of Emmanuel Plt Count MPV Immature Gran % (Auto) Neut % (Auto) Lymph % (Auto) [place] % (Auto) Eos % (Auto) Baso % (Auto) Neut # (Auto) Lymph # (Auto) [place] # (Auto) Eos # (Auto) Baso # (Auto) Immature Gran # (Auto) POC pH POC pCO2 POC pO2 POC HCO3 POC Total CO2 POC Base Excess POC ABG O2 Sat Sodium Potassium Chloride Carbon Dioxide Anion Gap BUN Creatinine Est Cr Clr Drug Dosing Est GFR ( Amer) Est GFR (Non-Af Amer) BUN/Creatinine Ratio Glucose POC Glucose 233 H Lactate Calcium Phosphorus Magnesium Urine Color Dark Yellow Urine Appearance Cloudy A Urine pH 5.0 Ur Specific Fisher 1.018 Urine Protein Trace H Urine Glucose (UA) Negative Urine Ketones Trace H Urine Blood 3+ H Urine Nitrite Negative Urine Bilirubin Negative Urine Urobilinogen Negative Ur Leukocyte Esterase 1+ H Urine WBC (Auto) 10-30 H Urine RBC (Auto) >30 H U Hyaline Cast (Auto) 10-30 H U Epithel Cells (Auto) 5-10 H Urine Bacteria (Auto) Negative Granular Casts 10-20 H Nasal Screen MRSA (PCR) Pending 07/23/21 09:15 WBC RBC Hgb Hct MCV MCH MCHC RDW Std Deviation RDW Coeff of Emmanuel Plt Count MPV Immature Gran % (Auto) Neut % (Auto) Lymph % (Auto) [place] % (Auto) Eos % (Auto) Baso % (Auto) Neut # (Auto) Lymph # (Auto) [place] # (Auto) Eos # (Auto) Baso # (Auto) Immature Gran # (Auto) POC pH POC pCO2 POC pO2 POC HCO3 POC Total CO2 POC Base Excess POC ABG O2 Sat Sodium Potassium Chloride Carbon Dioxide Anion Gap BUN Creatinine Est Cr Clr Drug Dosing Est GFR ( Amer) Est GFR (Non-Af Amer) BUN/Creatinine Ratio Glucose POC Glucose Lactate Pending Calcium Phosphorus Magnesium Urine Color Urine Appearance Urine pH Ur Specific Fisher Urine Protein Urine Glucose (UA) Urine Ketones Urine Blood Urine Nitrite Urine Bilirubin Urine Urobilinogen Ur Leukocyte Esterase Urine WBC (Auto) Urine RBC (Auto) U Hyaline Cast (Auto) U Epithel Cells (Auto) Urine Bacteria (Auto) Granular Casts Nasal Screen MRSA (PCR) Medications Administered Current Inpatient Medications Acetaminophen (Acetaminophen 325 Mg Tab) 650 mg PO Q4H PRN PRN Reason: Pain or Fever Stop: 08/12/21 18:28 Artificial Tears (Artificial Tears) 1 drops OP BID HAIM Stop: 08/12/21 20:59 Last Admin: 07/23/21 08:25 Dose: 1 drops Documented by: Aspirin (Aspirin 81 Mg Ectab) 81 mg PO DAILY HAIM Stop: 08/21/21 08:59 Last Admin: 07/23/21 08:26 Dose: 81 mg Documented by: Clopidogrel Bisulfate (Clopidogrel Bisulfate 75 Mg Tab) 75 mg PO QAM HAIM Stop: 08/21/21 08:59 Last Admin: 07/23/21 08:26 Dose: 75 mg Documented by: Dextrose (Dextrose 50% 50 Ml Syringe) 25 - 50 ml IV UD PRN; Protocol PRN Reason: Hypoglycemia Protocol Stop: 08/12/21 18:28 Docusate Sodium (Docusate Sodium 100 Mg Cap) 100 mg PO BID [facility] Stop: 08/17/21 12:44 Last Admin: 07/23/21 09:03 Dose: 100 mg Documented by: Dorzolamide/Timolol (Dorzolamide/Timolol 22.3/6.8mg/Ml 10 Ml Btl) 1 drops OPB BID HAIM Stop: 08/12/21 20:59 Last Admin: 07/23/21 08:26 Dose: 1 drops Documented by: Furosemide (Furosemide 40 Mg/4 Ml Vial) 80 mg IV BID HAIM Stop: 08/20/21 20:59 Last Admin: 07/23/21 08:28 Dose: 80 mg Documented by: Glucagon (Glucagon For Inj 1 Mg Vial) 1 mg SQ UD PRN; Protocol PRN Reason: Hypoglycemia Protocol Stop: 08/12/21 18:28 Glucose (Glucose 10 Tabs/Tube) 4 - 8 tabs PO UD PRN; Protocol PRN Reason: Hypoglycemia Protocol Stop: 08/12/21 18:28 Glucose (Glucose 40% Gel 15 Gm Tube) 15 - 30 gm PO UD PRN; Protocol PRN Reason: Hypoglycemia Protocol Stop: 08/12/21 18:28 Guaifenesin (Guaifenesin 600 Mg Tabcr) 600 mg PO Q12 [facility] Stop: 08/17/21 13:39 Last Admin: 07/23/21 08:28 Dose: 600 mg Documented by: Heparin Sodium (Porcine) (Heparin Sod 5,000 Unit/0.5 Ml Vial) 5,000 units SQ Q12 [facility]IM Stop: 08/12/21 20:59 Last Admin: 07/23/21 08:28 Dose: 5,000 units Documented by: Dobutamine HCl/Dextrose (Dobutamine / D5w) 500 mg in 250 mls @ 14.61 mls/hr IV .Q17H7M [facility]; Protocol Stop: 08/20/21 20:59 Last Titration: 07/23/21 07:10 Dose: 5 mcg/kg/min, 14.6 mls/hr Documented by: Norepinephrine Bitartrate (Levophed/D5w) 8 mg in 508 mls @ 18.555 mls/hr IV .Q24H [facility]; Protocol Stop: 08/21/21 12:14 Last Titration: 07/23/21 07:10 Dose: 0.05 mcg/kg/min, 18.6 mls/hr Documented by: Insulin Aspart (Insulin Aspart 100 Units/Ml 3 Ml Pen) 0 units SC ACHS HAIM Stop: 08/12/21 18:28 Last Admin: 07/23/21 08:31 Dose: 8 units Documented by: Metoprolol Succinate (Metoprolol Succ 25mg Ext Rel Tab) 12.5 mg PO BID [facility] Stop: 08/14/21 11:59 Last Admin: 07/21/21 21:23 Dose: Not Given Documented by: Miscellaneous (Carbohydrates For Hypoglycemia ) 15 - 30 gm PO UD PRN PRN Reason: Hypoglycemia Protocol Stop: 08/12/21 18:28 Miscellaneous Information (Pharmacy Glycemic Mgmt Consult) 1 ea N/A UD PRN PRN Reason: Consult Stop: 08/19/21 07:21 Polyethylene Glycol (Polyethylene (Miralax) 17 Gm Pack) 17 gm PO DAILY [facility]IM Stop: 08/17/21 12:44 Last Admin: 07/23/21 09:03 Dose: 17 gm Documented by: Spironolactone (Spironolactone 12.5 Mg Tab) 12.5 mg PO DAILY HAIM Stop: 08/14/21 11:59 Last Admin: 07/23/21 08:29 Dose: 12.5 mg Documented by:
--- NOTE | 2021-07-23 10:28 | Nephrology Progress Note ---
Date of Service July 23, 2021 Assessment & Plan (1) Acute kidney failure: (2) STEMI (ST elevation myocardial infarction): (3) Acute systolic heart failure: (4) Aortic stenosis: Plan: 81-year-old male admitted with SOB, ? pneumonia and volume overload initially treated with antibiotic and IV diuretics without improvement in volume status or respiratory status. 2D echo showed EF 20-[address] T changes in EKG and eventually had cardiac catheterization done on 07/21/2021 and noted to have triple-vessel disease status post LAD stent. Baseline creatinine 1.0-1.2, kidney function slowly worsen over last few days with creatinine up to 2.6 in the setting of acute coronary event, low EF and diuretic resistant volume overload, Pulmonary hypertension as well as severe aortic stenosis. No significant improvement in renal function on Dobutamine since yesterday. Urine output improved with net negative on IV diuretics. CXR with improved pulmonary vascular congestion but b/l pleural effusion --Continue on IV Lasix, aim to keep in negative balance, continue on Dobutamine --monitor urine output closely, renal function and electrolyte Will follow Admission and Anticipated Discharge Date Admission Date: July 13, 2021 Subjective Mr. Arriaga was seen in his room this morning. The he denies any significant s hortness of breath or further episode of chest pain however overall feels poorly. Blood pressure staying relatively low. Urine output has been decent with net negative >250 ml on IV Lasix. Slight worsening of renal function, electrolyte acceptable. Review of Systems Review of Systems: Detailed review of system was otherwise unremarkable. Physical Exam Constitutional: WD/WN, vitals as above + ill appearing; no acute distress Eyes: + anicteric sclerae ENMT: Ears: no hearing impairment and no external ear abnormality Neck: normal visual inspection Respiratory: normal respiratory effort; no respiratory distress Auscultation: + diminished lung sounds Cardiovascular: Rate/Rhythm: regular rate and regular rhythm Heart Sounds: normal S1 and normal S2 Extremities: no edema Skin: normal turgor; no rashes Neurologic: no focal motor deficits and not confused Psychiatric: Orientation: alert and oriented x 3 Results & Data ([facility]) Vital Signs (Past 12 Hours) Vital Signs Temp Pulse Resp BP Pulse Ox 07/23/21 06:00 101 H 26 H 102/69 94 07/23/21 05:00 114 H 18 106/68 94 07/23/21 04:00 36.8 C 115 H 17 103/67 94 07/23/21 03:17 98 H 20 93 07/23/21 03:00 100 H 23 100/62 93 07/23/21 02:00 98 H 22 98/59 L 95 07/23/21 01:00 97 H 18 105/64 95 07/23/21 00:00 96 H 25 H 99/61 L 97 07/22/21 23:46 94 H 07/22/21 23:20 85 18 94 07/22/21 23:00 36.7 C 93 H 21 92/57 L 97 PG Care Time/CCT Total # of Minutes Spent Total Time Spent with Patient: Total time spent is greater than 50% in coordination of care (as documented) at patient's floor/unit and/or counseling patient: Coding Level of Care Code 06319 Subseq Hosp Care Lvl 3 Diagnoses Acute kidney failure N17.9 STEMI (ST elevation myocardial infarction) I21.3 Acute systolic heart failure I50.21 Aortic stenosis I35.0
[2021-07-23] MEDS: NOREPINEPHRINE/D5W 8 MG/508 ML BAG IV SCH ×2 (11:03→21:25)
--- NOTE | 2021-07-23 11:29 | Palliative Care Consultation ---
Date of Consultation July 23, 2021 Assessment & Plan (1) Palliative care encounter: Mr. Arriaga is an 81 year old male who presented to the [facility] with shortness of breath and a CHF exacerbation. He was aggressively diuresed in the ER and started on IV abx. Unfortunately, an ECHO showed that he has an EF of 20- 25%. A heart catheterization was performed on 07/21 with two LINDA placed in the LAD and mid-circ/RCA. Additional PMH includes: HLD, DM2, CHF, , and ADRI. The patient has been on Dobutamine and Levophed gtts consistently. Palliative Medicine was consulted to discuss overall goals of care with his guarded prognosis. I met with the patient in room 110. He was able to open his eyes for me, but was rather lethargic. He was hypotensive with a MAP of 47 when I visited him and his Levophed was being titrated up. I talked with the patients , Elidia, on the phone at [phone] and talked at length to gain insight on what understanding she had regarding his illness. I then called the patients daughter in law Pretty who is an RN in the cardiovascular lab director, with Elidia's support, and provided her with an update with his current prognosis. We agreed that a family meeting would be best in order to gain a better understanding on what Paulie's wishes would be in the scenario he is in. I met with family, including the patients , two sons, and his daughter in law in the hospital lobby. We reviewed his condition and I was able to confirm with cardiology that he is not a surgical candidate or LVAD consideration. After further discussion, family has agreed to escalate care with additional pressors if necessary, but would not want him to be intubated or undergo CPR. This was then discussed in the room with the patient who was more awake and able to participate in the conversation. He was in agreement with a code status change to DNR/DNI. We discussed that it may be unlikely he leave the hospital. All in agreement to see how the next few days go, should he decline, again, ok for escalation of care including Bipap and additional pressor support. Palliative will follow. (2) Hypoxia: (3) Aortic stenosis: (4) Fluid overload: History of Present Illness Reason for Consultation: goals of care Requesting Physician: Dr. Barbosa Attending Physician: Min Barbosa MD History of Present Illness Mr. Arriaga is an 81 year old male who presented to the [facility] with shortness of breath and a CHF exacerbation. He was aggressively diuresed in the ER and started on IV abx. Unfortunately, an ECHO showed that he has an EF of 20- 25%. A heart catheterization was performed on 07/21 with two LINDA placed in the LAD and mid-circ/RCA. Additional PMH includes: HLD, DM2, CHF, , and ADRI. The patient has been on Dobutamine and Levophed gtts consistently. Palliative Medicine was consulted to discuss overall goals of care with his guarded prognosis. Please see A/P for additional details. Thanks for involving palliative medicine with this individual. Allergies Allergy/AdvReac Type Severity Reaction Status Date / Time Ggotagy-TSL-JiB Reductase Allergy Unknown LEG Verified 07/13/21 14:42 Inhibitor WEAKNESS [Kdeuwxt-Tpp-Hbx Reductase Inhibitor] Home Medications Medication Instructions Recorded Confirmed Type carboxymethylcellulose sodium 1 % 1 drp OPB BID 07/13/21 07/13/21 History eye drops (Artificial Tears (carboxymethylcellulose)) dorzolamide 22.3 mg-timolol 6.8 1 drp OPB BID 07/13/21 07/13/21 History mg/mL eye drops insulin aspart U-100 100 unit/mL See Rx Instructions .ROUTE .COMPLEX 07/13/21 07/13/21 History subcutaneous solution (Novolog U-100 Insulin aspart) insulin detemir U-100 100 unit/mL 80 unit SUBCUT HS 07/13/21 07/13/21 History subcutaneous solution (Levemir U-100 Insulin) metformin 1,000 mg tablet 1,000 mg PO BID 07/13/21 07/13/21 History Lactobacillus acidophilus 10 10 mg PO DAILY #3 cap 07/17/21 Rx billion cell capsule (Probiotic) amoxicillin 875 mg-potassium 1 tab PO BID #6 tab 07/17/21 Rx clavulanate 125 mg tablet (Augmentin) aspirin 81 mg capsule 81 mg PO DAILY #30 cap 07/17/21 Rx azithromycin 250 mg tablet 250 mg PO QAM 1 Days #1 tab 07/17/21 Rx furosemide 40 mg tablet (Lasix) 40 mg PO DAILY #60 tab 07/17/21 Rx lisinopril 5 mg tablet (Zestril) 5 mg PO QAM #30 tab 07/17/21 Rx metoprolol succinate 25 mg 12.5 mg PO BID #30 tab 07/17/21 Rx tablet,extended release 24 hr spironolactone 25 mg tablet 12.5 mg PO DAILY #15 tab 07/17/21 Rx Patient History Medical History (Updated 07/23/21 @ 13:52 by AMY Duran) Hyperlipidemia Insulin dependent diabetes mellitus Palliative care encounter Surgical History History of carpal tunnel surgery History of cataract surgery Family History Other Diabetes Social History Smoking Status: Never smoker Hx Alcohol Use: No Hx Substance Use: No Preferred Language: Syrian Communication Ability: Effective Ccu Nurse Required: No Beliefs That Will Affect Care: None Current Living Situation: Spouse Feels Safe at Home: Yes Assistive Devices: Oxygen - Continuous Review of Systems Review of Systems: [place] System Assessment Scale: Pain: 1/3 by observation SOB: 2/3 by observation Anxiety1/3 by observation Palliative Performance Scale: 30% Physical Exam Constitutional: + frail appearing and cooperative ENMT: Mouth: + dry oral mucous membranes Respiratory: + labored breathing Cardiovascular: Rate/Rhythm: regular rate and regular rhythm Extremities: normal capillary refill and + edema Gastrointestinal (Abdomen): Inspection/Auscultation: abdomen normal to inspection Percussion/Palpation: abdomen soft Skin: + pallor Psychiatric: Orientation: alert Results & Data ([facility]) Vital Signs (Past 12 Hours) Vital Signs Temp Pulse Resp BP Pulse Ox 07/23/21 10:00 88 23 77/57 L 95 07/23/21 09:00 100 H 24 100 07/23/21 08:00 103 H 21 92 07/23/21 07:00 104 H 25 H 95 07/23/21 06:00 101 H 26 H 102/69 94 07/23/21 05:00 114 H 18 106/68 94 07/23/21 04:00 36.8 C 115 H 17 103/67 94 07/23/21 03:17 98 H 20 93 11/29/21 03:00 100 H 23 100/62 93 07/23/21 02:00 98 H 22 98/59 L 95 07/23/21 01:00 97 H 18 105/64 95 07/23/21 00:00 96 H 25 H 99/61 L 97 07/22/21 23:46 94 H PG Care Time/CCT Total # of Minutes Spent Total Time Spent with Patient: Total time spent is greater than 50% in coordination of care (as documented) at patient's floor/unit and/or counseling patient: 125 minutes with > 50% of that time spent assessing the patient, discussing goals of care with the family and collaborating with IDT. Coding Level of Care Code 19393 Initial Inpt Care Lvl 3 Diagnoses Palliative care encounter Z51.5 Hypoxia R09.02 Aortic stenosis I35.0 Fluid overload E87.70 Time Spent (min) 125
--- NOTE | 2021-07-23 12:44 | Hospitalist Progress Note ---
Date of Service July 23, 2021 Assessment & Plan (1) Acute systolic heart failure: (2) Acute respiratory failure with hypoxia: Plan: 81 yo M with insulin-dependent DM II presented to ER 07/13 with c/o SOB with exertion x 3 weeks [employer] a/w mild nonproductive cough and increased BLE edema. No fever/chills. Denies known cardiac history. Is being managed for the following: Acute hypoxic respiratory failure Fluid overload: Pneumonia: L>R bibasilar consolidation in admitting CXR Acute systolic heart failure Pleural effusion - layering Pl. Eff in Admitting CXR, c/t monitor, lasix. In ER patient afebrile, hypoxic at 89% on room air up to 95% on 2L oxygen via NC, other vitals stable. No leukocytosis, lactate WNL, troponin: 0.047, BNP: 6077, negative COVID-19 PCR. CXR: Pulmonary vascular congestion, pleural effusions, bibasilar consolidation In ER was given Lasix 40 mg IV 07/14 echo: Severely reduced LV systolic function with severe global hypokinesis, EF 20 to 25%, grade 2 diastolic dysfunction, severe aortic stenosis. Cardiology consulted, appreciate their recommendations For community-acquired pneumonia, continued with antibiotic [Rocephin and Zithromax 07/13], WBC trending down, patient afebrile. Patient will need foll ow-up chest x-ray in 4 to 6 weeks to document resolution of pneumonia. Blood cultures - negative 07/19 - WBC slightly up now at 12K Repeat CXR - shows pulm. edema, pl. effusions. procal slightly higher than previously episode of nausea/vomiting - poss. ? aspiration Started empiric augmentin For acute systolic heart failure: Monitor I's and O's, cardiology to optimize his heart failure medication Patient will need to follow-up with cardiology upon discharge. Continue with supplemental oxygen, titrate as appropriate, monitor daily electrolytes and labs. 2 step test done - pt will need to be discharged on suppl. O2 07/19 -discussed further with cardiology, given elevated creatinine, low blood pressure and repeat chest x-ray showing persistent pulmonary effusion, held torsemide and metoprolol 07/20 -Echo reviewed by cardiology again, patient has severe LV dysfunction. EF 20% is generous. Medical management should be continued.Restarted his metoprolol today as his heart rate up as well as his blood pressure.Hold torsemide again today. 07/21 - Patient is not responding well to medical therapy, his blood pressure remains low. Fluid balance is questionable. Torsemide restarted at 10 mg daily. Acute anterior wall STEMI 07/21 PM - pt more lethargic, episode of bradycardia stat EKG w/ ST elev. in anterior leads, troponin 19.8 (in the setting of ADRI) Pt s/p left and right cardiac cath Summary: 1. Acute 100% mid LAD occlusion 2. Severe nonculprit multivessel CAD -95% mid circumflex 80% mid RCA. 70% diffuse mid-distal PDA 3. Low output heart failure. PA sat 44%, cardiac output 2.9 L/min 4. Elevated left and right-sided filling pressures 5. Severe pulmonary hypertension 6. Aortic valve pullback gradient <10 mmHg 7. Successful PCI of mid LAD with 2 long overlapping drug-eluting stents (2.5 x 26, 2.5 x 30 mm [place]; postdilated with 2.75 NC). Recommendations: To ICU for continued monitoring Loaded with 600 mg in [employer] Continue dual-antiplatelet therapy for at least 1 year Start inotropes with dobutamine 5 mcg/kg/min Additional IV diuretics Titrate inotropes to urine output. If urine output remains low in a.m. ree valuate cardiac output with mixed venous O2 Tentatively plan for staged PCI of circumflex, RCA pending renal function and clinical course. Elevated troponin (on admission): Possible demand ischemia Troponin: 0.047 (on admission). Admitting EKG sinus rhythm, Q waves septal leads, T wave inversion inferior and lateral leads. No prior EKG to compare Denies chest pain R/O ACS -troponin down trended to normal Lipid panel WNL cardiology following, as above Insulin dependent diabetes mellitus II: -Unknown baseline A1c -Patient prescribed 80 units Levemir at bedtime however has been taking around 20 to 30 units in the morning. Is prescribed NovoLog with meals however he reports has not been using -Diabetic diet -Monitor BSG's -Basal bolus insulin per protocol. May need to adjust insulin -Current A1c 7.2% - follow up as outpt DVT Prophylaxis- previously on subq Heparin SQ, now s/p cath Full Code as per discussion with pt Follows with Dr Samir Hernandez in [place] for routine care. Disposition: questionable at this time. Previous plan - PT/OT, DC to home w/ HH once medically stable. Palliative medicine consult for goals of care Admission and Anticipated Discharge Date Admission Date: July 13, 2021 Subjective Pt seen in follow up of hypoxia, pna, acute syst. HF, acute STEMI Patient became more lethargic, episode of bradycardia, stat EKG consistent with acute anterior GA, Now status post PCI to LAD Patient is in ICU, lying in bed, appears comfortable however very somnolent, only able to answer few simple questions He is on 10 L of oxygen Overnight started on dobutamine and IV Lasix, now also on levophed Currently denies any complaints, denies any chest pain increased shortness of breath abdominal pain, however not able to have a longer conversation Prior to stemi, patient has not been responding well to medical therapy, has been seen by cardiology Now nephrology consulted for ADRI Review of Systems Review of Systems: All systems reviewed & are unremarkable except as noted in Subjective Physical Exam Physical Exam: GENERAL: elderly M in NAD, somnolent, able to answer few simple questions appropriately, on 10L. HEENT: NC/AT. EOMI, PERRL. No pallor, no icterus.Oral mucosa moist. NECK: No JVD, no neck masses. HEART: S1 and S2 heard. Regular rate and rhythm.+syst. murmur RESPIRATORY: Normal AP diameter. No accessory muscle use. No wheezing,diminished breath sounds at bases ABDOMEN: Soft, bowel sounds present, nontender, no distention. NEURO: somnolent, answering few questions appropriately, no facial droop. Speech is clear. Moves extremities. EXTREMITIES: minimal LE edema, no significant erythema seen. Results & Data Results & Data ([facility]) Vital Signs (Past 12 Hours) Vital Signs Temp Pulse Resp BP Pulse Ox 07/23/21 12:00 91 H 27 H 93/55 L 98 07/23/21 11:30 90 19 82/56 L 100 07/23/21 11:00 86 26 H 95 07/23/21 10:30 87 22 76/59 L 100 07/23/21 10:00 88 23 77/57 L 95 07/23/21 09:00 100 H 24 100 07/23/21 08:00 103 H 21 92 07/23/21 07:00 104 H 25 H 95 07/23/21 06:00 101 H 26 H 102/69 94 07/23/21 05:00 114 H 18 106/68 94 07/23/21 04:00 36.8 C 115 H 17 103/67 94 07/23/21 03:17 98 H 20 93 07/23/21 03:00 100 H 23 100/62 93 07/23/21 02:00 98 H 22 98/59 L 95 07/23/21 01:00 97 H 18 105/64 95 Laboratory Results 07/23/21 07/23/21 07/23/21 Range/Units 12:29 11:10 09:15 WBC (4.8-10.8) K/uL RBC (4.7-6.1) M/uL Hgb (14.0-18.0) g/dL Hct (42-52) % MCV (80-100) fL MCH (25-34) pg MCHC (32-36) g/dL RDW Std Deviation (36.4-46.3) fL RDW Coeff of Emmanuel (11.5-14.5) % Plt Count (130-400) K/uL MPV (7.4-10.4) fL Immature Gran % (Auto) % Neut % (Auto) % Lymph % (Auto) % Benson % (Auto) % Eos % (Auto) % Baso % (Auto) % Neut # (Auto) (1.4-6.5) K/uL Lymph # (Auto) (1.2-3.4) K/uL Benson # (Auto) (0.11-0.59) K/uL Eos # (Auto) (0-0.5) K/uL Baso # (Auto) (0-0.2) K/uL Immature Gran # (Auto) (0.00-0.02) K/uL POC pH (7.35-7.45) POC pCO2 (35-46) mmHg POC pO2 (80-95) mmHg POC HCO3 (19-24) krysta/L POC Total CO2 (24-31) mmol/L POC Base Excess (-9-1.8) krysta/L POC ABG O2 Sat (90-95) % Sodium (136-145) mmol/L Potassium (3.5-5.1) mmol/L Chloride (98-107) mmol/L Carbon Dioxide (21-32) mmol/L Anion Gap (3-11) BUN (7-18) mg/dl Creatinine (0.6-1.4) mg/dl Est Cr Clr Drug Dosing ml/min Est GFR ( Amer) ml/min Est GFR (Non-Af Amer) ml/min BUN/Creatinine Ratio (10-20) Glucose (70-99) mg/dl POC Glucose 234 H (70-99) mg/dl Lactate 2.8 H* 2.5 H* (0.4-2.0) mmol/L Calcium (8.5-10.1) mg/dl Phosphorus (2.5-4.9) mg/dl Magnesium (1.8-2.4) mg/dl Urine Color Urine Appearance (Clear) Urine pH (4.5-7.5) Ur Specific [place] (1.000-1.030) Urine Protein (Negative) Urine Glucose (UA) (Negative) Urine Ketones (Negative) Urine Blood (Negative) Urine Nitrite (Negative) Urine Bilirubin (Negative) Urine Urobilinogen (Negative) Ur Leukocyte Esterase (Negative) Urine WBC (Auto) (0-5) /hpf Urine RBC (Auto) (0-4) /hpf U Hyaline Cast (Auto) (0-5) /lpf U Epithel Cells (Auto) (0-5) /lpf Urine Bacteria (Auto) (Negative) Granular Casts (0) /lpf Nasal Screen MRSA (PCR) (Negative) 07/23/21 07/23/21 07/23/21 Range/Units 08:50 08:50 08:12 WBC (4.8-10.8) K/uL RBC (4.7-6.1) M/uL Hgb (14.0-18.0) g/dL Hct (42-52) % MCV (80-100) fL MCH (25-34) pg MCHC (32-36) g/dL RDW Std Deviation (36.4-46.3) fL RDW Coeff of Emmanuel (11.5-14.5) % Plt Count (130-400) K/uL MPV (7.4-10.4) fL Immature Gran % (Auto) % Neut % (Auto) % Lymph % (Auto) % Benson % (Auto) % Eos % (Auto) % Baso % (Auto) % Neut # (Auto) (1.4-6.5) K/uL Lymph # (Auto) (1.2-3.4) K/uL Benson # (Auto) (0.11-0.59) K/uL Eos # (Auto) (0-0.5) K/uL Baso # (Auto) (0-0.2) K/uL Immature Gran # (Auto) (0.00-0.02) K/uL POC pH (7.35-7.45) POC pCO2 (35-46) mmHg POC pO2 (80-95) mmHg POC HCO3 (19-24) krysta/L POC Total CO2 (24-31) mmol/L POC Base Excess (-9-1.8) krysta/L POC ABG O2 Sat (90-95) % Sodium (136-145) mmol/L Potassium (3.5-5.1) mmol/L Chloride (98-107) mmol/L Carbon Dioxide (21-32) mmol/L Anion Gap (3-11) BUN (7-18) mg/dl Creatinine (0.6-1.4) mg/dl Est Cr Clr Drug Dosing ml/min Est GFR ( Amer) ml/min Est GFR (Non-Af Amer) ml/min BUN/Creatinine Ratio (10-20) Glucose (70-99) mg/dl POC Glucose 233 H (70-99) mg/dl Lactate (0.4-2.0) mmol/L Calcium (8.5-10.1) mg/dl Phosphorus (2.5-4.9) mg/dl Magnesium (1.8-2.4) mg/dl Urine Color Dark Yellow Urine Appearance Cloudy A (Clear) Urine pH 5.0 (4.5-7.5) Ur Specific [place] 1.018 (1.000-1.030) Urine Protein Trace H (Negative) Urine Glucose (UA) Negative (Negative) Urine Ketones Trace H (Negative) Urine Blood 3+ H (Negative) Urine Nitrite Negative (Negative) Urine Bilirubin Negative (Negative) Urine Urobilinogen Negative (Negative) Ur Leukocyte Esterase 1+ H (Negative) Urine WBC (Auto) 10-30 H (0-5) /hpf Urine RBC (Auto) >30 H (0-4) /hpf U Hyaline Cast (Auto) 10-30 H (0-5) /lpf U Epithel Cells (Auto) 5-10 H (0-5) /lpf Urine Bacteria (Auto) Negative (Negative) Granular Casts 10-20 H (0) /lpf Nasal Screen MRSA (PCR) Negative (Negative) 07/23/21 07/23/21 07/22/21 Range/Units 05:20 05:20 21:12 WBC 14.02 H (4.8-10.8) K/uL RBC 4.08 L (4.7-6.1) M/uL Hgb 12.7 L (14.0-18.0) g/dL Hct 38.7 L (42-52) % MCV 94.9 (80-100) fL MCH 31.1 (25-34) pg MCHC 32.8 (32-36) g/dL RDW Std Deviation 47.2 H (36.4-46.3) fL RDW Coeff of Emmanuel 13.6 (11.5-14.5) % Plt Count 154 (130-400) K/uL MPV 12.2 H (7.4-10.4) fL Immature Gran % (Auto) 0.2 % Neut % (Auto) 86.1 % Lymph % (Auto) 8.0 % Benson % (Auto) 4.7 % Eos % (Auto) 0.9 % Baso % (Auto) 0.1 % Neut # (Auto) 12.06 H (1.4-6.5) K/uL Lymph # (Auto) 1.12 L (1.2-3.4) K/uL [place] # (Auto) 0.66 H (0.11-0.59) K/uL Eos # (Auto) 0.13 (0-0.5) K/uL Baso # (Auto) 0.02 (0-0.2) K/uL Immature Gran # (Auto) 0.03 H (0.00-0.02) K/uL POC pH (7.35-7.45) POC pCO2 (35-46) mmHg POC pO2 (80-95) mmHg POC HCO3 (19-24) krysta/L POC Total CO2 (24-31) mmol/L POC Base Excess (-9-1.8) krysta/L POC ABG O2 Sat (90-95) % Sodium 134 L (136-145) mmol/L Potassium 4.5 (3.5-5.1) mmol/L Chloride 98 (98-107) mmol/L Carbon Dioxide 24 (21-32) mmol/L Anion Gap 12.0 H (3-11) BUN 74 H (7-18) mg/dl Creatinine 2.30 H (0.6-1.4) mg/dl Est Cr Clr Drug Dosing 29.8 ml/min Est GFR ( Amer) 29.3 ml/min Est GFR (Non-Af Amer) 25.3 ml/min BUN/Creatinine Ratio 32.3 H (10-20) Glucose 217 H (70-99) mg/dl POC Glucose 192 H (70-99) mg/dl Lactate (0.4-2.0) mmol/L Calcium 8.8 (8.5-10.1) mg/dl Phosphorus 4.4 (2.5-4.9) mg/dl Magnesium 2.3 (1.8-2.4) mg/dl Urine Color Urine Appearance (Clear) Urine pH (4.5-7.5) Ur Specific [place] (1.000-1.030) Urine Protein (Negative) Urine Glucose (UA) (Negative) Urine Ketones (Negative) Urine Blood (Negative) Urine Nitrite (Negative) Urine Bilirubin (Negative) Urine Urobilinogen (Negative) Ur Leukocyte Esterase (Negative) Urine WBC (Auto) (0-5) /hpf Urine RBC (Auto) (0-4) /hpf U Hyaline Cast (Auto) (0-5) /lpf U Epithel Cells (Auto) (0-5) /lpf Urine Bacteria (Auto) (Negative) Granular Casts (0) /lpf Nasal Screen MRSA (PCR) (Negative) 07/22/21 07/21/21 Range/Units 16:56 19:55 WBC (4.8-10.8) K/uL RBC (4.7-6.1) M/uL Hgb (14.0-18.0) g/dL Hct (42-52) % MCV (80-100) fL MCH (25-34) pg MCHC (32-36) g/dL RDW Std Deviation (36.4-46.3) fL RDW Coeff of Emmanuel (11.5-14.5) % Plt Count (130-400) K/uL MPV (7.4-10.4) fL Immature Gran % (Auto) % Neut % (Auto) % Lymph % (Auto) % [place] % (Auto) % Eos % (Auto) % Baso % (Auto) % Neut # (Auto) (1.4-6.5) K/uL Lymph # (Auto) (1.2-3.4) K/uL [place] # (Auto) (0.11-0.59) K/uL Eos # (Auto) (0-0.5) K/uL Baso # (Auto) (0-0.2) K/uL Immature Gran # (Auto) (0.00-0.02) K/uL POC pH 7.33 L (7.35-7.45) POC pCO2 56 H (35-46) mmHg POC pO2 < 32 L (80-95) mmHg POC HCO3 29 H (19-24) krysta/L POC Total CO2 31 (24-31) mmol/L POC Base Excess 3.0 H (-9-1.8) krysta/L POC ABG O2 Sat 44.0 L (90-95) % Sodium (136-145) mmol/L Potassium (3.5-5.1) mmol/L Chloride (98-107) mmol/L Carbon Dioxide (21-32) mmol/L Anion Gap (3-11) BUN (7-18) mg/dl Creatinine (0.6-1.4) mg/dl Est Cr Clr Drug Dosing ml/min Est GFR ( Amer) ml/min Est GFR (Non-Af Amer) ml/min BUN/Creatinine Ratio (10-20) Glucose (70-99) mg/dl POC Glucose 143 H (70-99) mg/dl Lactate (0.4-2.0) mmol/L Calcium (8.5-10.1) mg/dl Phosphorus (2.5-4.9) mg/dl Magnesium (1.8-2.4) mg/dl Urine Color Urine Appearance (Clear) Urine pH (4.5-7.5) Ur Specific [place] (1.000-1.030) Urine Protein (Negative) Urine Glucose (UA) (Negative) Urine Ketones (Negative) Urine Blood (Negative) Urine Nitrite (Negative) Urine Bilirubin (Negative) Urine Urobilinogen (Negative) Ur Leukocyte Esterase (Negative) Urine WBC (Auto) (0-5) /hpf Urine RBC (Auto) (0-4) /hpf U Hyaline Cast (Auto) (0-5) /lpf U Epithel Cells (Auto) (0-5) /lpf Urine Bacteria (Auto) (Negative) Granular Casts (0) /lpf Nasal Screen MRSA (PCR) (Negative) Medications Administered Current Inpatient Medications Acetaminophen (Acetaminophen 325 Mg Tab) 650 mg PO Q4H PRN PRN Reason: Pain or Fever Stop: 08/12/21 18:28 Artificial Tears (Artificial Tears) 1 drops OP BID HAIM Stop: 08/12/21 20:59 Last Admin: 07/23/21 08:25 Dose: 1 drops Documented by: Aspirin (Aspirin 81 Mg Ectab) 81 mg PO DAILY HAIM Stop: 08/21/21 08:59 Last Admin: 07/23/21 08:26 Dose: 81 mg Documented by: Clopidogrel Bisulfate (Clopidogrel Bisulfate 75 Mg Tab) 75 mg PO QAM HAIM Stop: 08/21/21 08:59 Last Admin: 07/23/21 08:26 Dose: 75 mg Documented by: Dextrose (Dextrose 50% 50 Ml Syringe) 25 - 50 ml IV UD PRN; Protocol PRN Reason: Hypoglycemia Protocol Stop: 08/12/21 18:28 Docusate Sodium (Docusate Sodium 100 Mg Cap) 100 mg PO BID [facility] Stop: 08/17/21 12:44 Last Admin: 07/23/21 09:03 Dose: 100 mg Documented by: Dorzolamide/Timolol (Dorzolamide/Timolol 22.3/6.8mg/Ml 10 Ml Btl) 1 drops OPB BID HAIM Stop: 08/12/21 20:59 Last Admin: 07/23/21 08:26 Dose: 1 drops Documented by: Furosemide (Furosemide 40 Mg/4 Ml Vial) 80 mg IV BID HAIM Stop: 08/20/21 20:59 Last Admin: 07/23/21 08:28 Dose: 80 mg Documented by: Glucagon (Glucagon For Inj 1 Mg Vial) 1 mg SQ UD PRN; Protocol PRN Reason: Hypoglycemia Protocol Stop: 08/12/21 18:28 Glucose (Glucose 10 Tabs/Tube) 4 - 8 tabs PO UD PRN; Protocol PRN Reason: Hypoglycemia Protocol Stop: 08/12/21 18:28 Glucose (Glucose 40% Gel 15 Gm Tube) 15 - 30 gm PO UD PRN; Protocol PRN Reason: Hypoglycemia Protocol Stop: 08/12/21 18:28 Guaifenesin (Guaifenesin 600 Mg Tabcr) 600 mg PO Q12 [facility] Stop: 08/17/21 13:39 Last Admin: 07/23/21 08:28 Dose: 600 mg Documented by: Heparin Sodium (Porcine) (Heparin Sod 5,000 Unit/0.5 Ml Vial) 5,000 units SQ Q12 [facility]IM Stop: 08/12/21 20:59 Last Admin: 07/23/21 08:28 Dose: 5,000 units Documented by: Dobutamine HCl/Dextrose (Dobutamine / D5w) 500 mg in 250 mls @ 14.61 mls/hr IV .Q17H7M [facility]; Protocol Stop: 08/20/21 20:59 Last Titration: 07/23/21 07:10 Dose: 5 mcg/kg/min, 14.6 mls/hr Documented by: Norepinephrine Bitartrate (Levophed/D5w) 8 mg in 508 mls @ 59.375 mls/hr IV .Q8H34M [facility]; Protocol Stop: 08/21/21 12:14 Last Titration: 07/23/21 12:09 Dose: 0.16 mcg/kg/min, 59.4 mls/hr Documented by: Cefepime HCl 1,000 mg/ Syringe 11.3 mls @ 5.5 mls/min IV Q12H [facility] Stop: 07/25/21 20:59 Insulin Aspart (Insulin Aspart 100 Units/Ml 3 Ml Pen) 0 units SC ACHS HAIM Stop: 08/12/21 18:28 Last Admin: 07/23/21 12:31 Dose: 7 units Documented by: Metoprolol Succinate (Metoprolol Succ 25mg Ext Rel Tab) 12.5 mg PO BID [facility] Stop: 08/14/21 11:59 Last Admin: 07/21/21 21:23 Dose: Not Given Documented by: Miscellaneous (Carbohydrates For Hypoglycemia ) 15 - 30 gm PO UD PRN PRN Reason: Hypoglycemia Protocol Stop: 08/12/21 18:28 Miscellaneous Information (Pharmacy Glycemic Mgmt Consult) 1 ea N/A UD PRN PRN Reason: Consult Stop: 08/19/21 07:21 Polyethylene Glycol (Polyethylene (Miralax) 17 Gm Pack) 17 gm PO DAILY HAIM Stop: 08/17/21 12:44 Last Admin: 07/23/21 09:03 Dose: 17 gm Documented by: Spironolactone (Spironolactone 12.5 Mg Tab) 12.5 mg PO DAILY HAIM Stop: 08/14/21 11:59 Last Admin: 07/23/21 08:29 Dose: 12.5 mg Documented by:
--- NOTE | 2021-07-23 14:28 | Pharmacy Report ---
Pharmacy Glycemic Short Note 2 - Date of Service July 23, 2021 - Glycemic Short BSG Results (Last 24 hours): 07/22/21 07/22/21 07/23/21 16:56 21:12 05:20 Glucose 217 H POC Glucose 143 H 192 H 07/23/21 07/23/21 08:12 12:29 Glucose POC Glucose 233 H 234 H OUTPATIENT ANTIDIABETIC REGIMEN: * Levemir 80 units SC HS * Novolog 8 units SC with breakfast, 12 units SC with lunch and dinner * Patient reports taking Novolog as sliding scale only recently * HbA1c: 7.2% (07/14/21) ASSESSMENT: 07/23 * Glycemic control worsening this AM, likely due to decreased basal dose given yesterday as well as worsening perfusion (lactate climbing, pt remains dependent of both dobutamine + norepinephrine). I do question how much SQ is being absorbed * Will up titrate basal insulin dose today, with cautious increase due to poor PO intake * Novolog CF will be kept at "severe" stress level and correction will be provided ACHS and 00 + 04 tonight to allow for additional coverage. Carb ratio set a "moderate" stress level and okay to continue for now given other changes to insulin regimen * May need to consider IV insulin infusion as SQ absorption questionable. Will follow BSGs, but persistent elevation > 220 would warrant consideration of drip 07/22 * Patient's BSGs yesterday were [phone] mg/dL. Fasting today is 122 mg/dL. * Patient received 69 units of insulin yesterday with 50 units of basal and 19 units of bolus. * Reduce basal by 60% to 20 units. Patient somnolent and has kidney dysfunction. Do not want rebound hyperglycemia with recent stent placement. * Loosen Novolog to weight-based stress of 1. PLAN FOR INPATIENT GLYCEMIC CONTROL: * Basal insulin * Lantus 35 units SQ x 1 this AM, will add another 15 units now * Bolus insulin * NovoLog per scale ACHS and at 00,04 * Goal Range: Low 110 mg/dL - High 140 mg/dL * Correction Factor: 15 mg/dL/unit * Nutritional / Prandial insulin per carb ratio of 1 unit per 8 grams CHO consumed PLAN FOR DISCHARGE: * HbA1c of 7.2% suggests good outpatient glycemic control * Reasonable to continue outpatient regimen at discharge
[2021-07-23] MEDS: CEFEPIME 1,000 MG in SYRINGE 0 ML IV SCH (21:22)
[2021-07-23] MEDS ORDERED: STAT IV Infusion **Titration per Protocol STA (21:36)
[2021-07-23] MEDS ORDERED: SEVERE STRESS LEVEL ONE (21:36)
[2021-07-23] MEDS ORDERED: INSULIN PROTOCOL GOAL RANGE ONE (21:36)
[2021-07-23] MEDS ORDERED: NovoLIN-R BOLUS FROM BAG IV ONE (21:45)
[2021-07-23] MEDS: INSULIN REGULAR 250 UNITS in SODIUM CHLORIDE 0.9% 247.5 ML IV SCH (23:10)
[2021-07-24] MEDS ORDERED: INSULIN ASPART 100 UNITS/ML 3 ML PEN SC SCH
[2021-07-24 04:33] LABS: Basophils # (auto) 0.02 K/uL (0-0.2); Basophils % (auto) 0.1 %; Eosinophils # (auto) 0.18 K/uL (0-0.5); Eosinophils % (auto) 1.1 %; Hemoglobin 12.3 g/dL (14.0-18.0); Immature Granulocytes # (auto) 0.03 K/uL (0.00-0.02); Immature Granulocytes % (auto) 0.2 %; Lymphocytes # (auto) 1.49 K/uL (1.2-3.4); Lymphocytes % (auto) 9.1 %; Mean Corpuscular Hemoglobin 30.9 pg (25-34); Mean Corpuscular Hgb Conc 33.2 g/dL (32-36); Monocytes # (auto) 1.16 K/uL (0.11-0.59); Monocytes % (auto) 7.1 %; Neutrophils # (auto) 13.46 K/uL (1.4-6.5); Neutrophils % (auto) 82.4 %; Platelet Count 194 K/uL (130-400); RDW Coefficient of Variation 13.6 % (11.5-14.5); RDW Standard Deviation 46.5 fL (36.4-46.3); Red Blood Count 3.98 M/uL (4.7-6.1); White Blood Count 16.34 K/uL (4.8-10.8)
[2021-07-24 04:49] LABS: BUN Creatinine Ratio 36.2 (10-20); Calcium 8.8 mg/dl (8.5-10.1); Creatinine Clr Calc Pharmacy 28.9 ml/min; Est GFR (African American) 28.3 ml/min; Est GFR (Non-African American) 24.4 ml/min; Magnesium 2.5 mg/dl (1.8-2.4); Potassium 4.3 mmol/L (3.5-5.1)
[2021-07-24 04:52] LABS: Phosphorus 3.5 mg/dl (2.5-4.9)
[2021-07-24] MEDS: INSULIN ASPART 100 UNITS/ML 3 ML PEN SC SCH ×4 (07:47→20:59)
[2021-07-24] MEDS: ARTIFICIAL TEARS OP SCH ×2 (07:51→20:08)
[2021-07-24] MEDS: CLOPIDOGREL BISULFATE 75 MG TAB PO SCH (07:52)
[2021-07-24] MEDS: ASPIRIN 81 MG ECTAB PO SCH (07:52)
[2021-07-24] MEDS: NOREPINEPHRINE/D5W 8 MG/508 ML BAG IV SCH ×2 (07:52→14:35)
[2021-07-24] MEDS: FUROSEMIDE 40 MG/4 ML VIAL IV SCH ×2 (07:53→20:09)
[2021-07-24] MEDS: guaiFENesin 600 MG TABCR PO SCH ×2 (07:53→20:09)
[2021-07-24] MEDS: DORZOLAMIDE/TIMOLOL 22.3/6.8MG/ML 10 ML BTL OPB SCH ×2 (07:53→20:09)
[2021-07-24] MEDS: HEPARIN SOD 5,000 UNIT/0.5 ML VIAL SQ SCH ×2 (07:53→20:10)
[2021-07-24] MEDS: DOCUSATE SODIUM 100 MG CAP PO SCH ×2 (07:55→20:08)
[2021-07-24] MEDS: CEFEPIME 1,000 MG in SYRINGE 0 ML IV SCH ×2 (07:55→20:08)
[2021-07-24] MEDS: POLYETHYLENE (MIRALAX) 17 GM PACK PO SCH (07:55)
[2021-07-24] MEDS: METOPROLOL SUCC 25MG EXT REL TAB PO SCH (08:29)
[2021-07-24] MEDS ORDERED: INSULIN GLARGINE SOLOSTAR 100 UNITS/ML 3 ML PEN SC SCH (09:00)
--- NOTE | 2021-07-24 09:04 | XRay Report ---
XR chest 1V portable CLINICAL HISTORY: Follow-up pulmonary edema and bilateral pleural effusions. COMPARISON STUDY: 07/23/2021 TECHNIQUE: 1 view of the chest FINDINGS: Single frontal view of the chest demonstrates the heart to again be enlarged. There has been interval improvement of pulmonary edema with only mild central vascular congestion remaining present. However , there are still moderate sized bilateral pleural effusions and bibasilar atelectasis. No confluent alveolar opacities are identified. There is no acute osseous pathology. IMPRESSION: Evidence for interval improvement of pulmonary edema with mild central vascular congestio n remaining present. There are still moderate sized bilateral pleural effusions and bibasilar atelect asis present. ACT 112: Negative or not required by law. Electronically signed by: Antonio Tellez M.D. 07/24/2021 9:02 AM
--- NOTE | 2021-07-24 09:13 | Cardiology Progress Note ---
Date of Service July 24, 2021 Assessment & Plan (1) Acute systolic heart failure: (2) Acute kidney failure: (3) S/P drug eluting coronary stent placement: (4) STEMI (ST elevation myocardial infarction): Plan: The patient continues on dobutamine and Levophed. Blood pressure is marginally improved today. Creatinine is stable at 2.37. Patient has marginal improvement and urine output. All consultants including palliative care help appreciated. Admission and Anticipated Discharge Date Admission Date: July 13, 2021 Subjective The patient is status quo. Palliative care consult is appreciated. Review of Systems Review of Systems: Review of Systems: See HPI for pertinent positives. All other 10 point review of systems are negative. Physical Exam Physical Exam: General: no acute distress and stated age Head: normocephalic, no masses, lesions, tenderness or abnormalities Eyes: conjunctiva are pink and non-injected, sclera clear Neck: supple, no adenopathy, no bruits, normal jugular venous pulse, no hepatojugular reflux Chest: normal shape and normal respiratory effort Lungs: clear to auscultation and percussion Cardiac Exam: - regular rate & rhythm, systolic murmur- normal S1, normal S2 Pulses: 2(+) throughout Abdomen: abdomen soft, non-tender, no abnormal masses and no hepatosplenomegaly Musculoskeletal: no gait disturbance, no joint inflammation, no deforming arthritis Extremities: no edema and no cyanosis Neuro: grossly normal exam Results & Data ([facility]) Vital Signs (Past 12 Hours) Vital Signs Temp Pulse Resp BP Pulse Ox 07/24/21 05:06 107 H 28 H 07/24/21 04:00 103 H 22 121/68 94 07/24/21 03:00 104 H 27 H 98/68 L 94 07/24/21 02:59 104 H 27 H 94 07/24/21 02:00 104 H 26 H 118/77 94 07/24/21 01:00 113 H 21 108/69 90 07/24/21 00:00 113 H 29 H 95/53 L 88 L 07/23/21 23:45 114 H 07/23/21 23:33 104 H 25 H 95 07/23/21 23:29 36.7 C 07/23/21 23:00 104 H 24 113/62 96 07/23/21 22:00 104 H 29 H 101/49 L 95 Laboratory Results Laboratory Results - last 24 hr 07/21/21 07/23/21 07/23/21 19:25 08:50 08:50 WBC RBC Hgb Hct MCV MCH MCHC RDW Std Deviation RDW Coeff of Emmanuel Plt Count MPV Immature Gran % (Auto) Neut % (Auto) Lymph % (Auto) [place] % (Auto) Eos % (Auto) Baso % (Auto) Neut # (Auto) Lymph # (Auto) [place] # (Auto) Eos # (Auto) Baso # (Auto) Immature Gran # (Auto) Activ Coag Time Kaolin 241 H Sodium Potassium Chloride Carbon Dioxide Anion Gap BUN Creatinine Est Cr Clr Drug Dosing Est GFR ( Amer) Est GFR (Non-Af Amer) BUN/Creatinine Ratio Glucose POC Glucose Lactate Calcium Phosphorus Magnesium Urine Color Dark Yellow Urine Appearance Cloudy A Urine pH 5.0 Ur Specific [employer] 1.018 Urine Protein Trace H Urine Glucose (UA) Negative Urine Ketones Trace H Urine Blood 3+ H Urine Nitrite Negative Urine Bilirubin Negative Urine Urobilinogen Negative Ur Leukocyte Esterase 1+ H Urine WBC (Auto) 10-30 H Urine RBC (Auto) >30 H U Hyaline Cast (Auto) 10-30 H U Epithel Cells (Auto) 5-10 H Urine Bacteria (Auto) Negative Granular Casts 10-20 H Nasal Screen MRSA (PCR) Negative 07/23/21 07/23/21 07/23/21 09:15 11:10 12:29 WBC RBC Hgb Hct MCV MCH MCHC RDW Std Deviation RDW Coeff of Emmanuel Plt Count MPV Immature Gran % (Auto) Neut % (Auto) Lymph % (Auto) [place] % (Auto) Eos % (Auto) Baso % (Auto) Neut # (Auto) Lymph # (Auto) [place] # (Auto) Eos # (Auto) Baso # (Auto) Immature Gran # (Auto) Activ Coag Time Kaolin Sodium Potassium Chloride Carbon Dioxide Anion Gap BUN Creatinine Est Cr Clr Drug Dosing Est GFR ( Amer) Est GFR (Non-Af Amer) BUN/Creatinine Ratio Glucose POC Glucose 234 H Lactate 2.5 H* 2.8 H* Calcium Phosphorus Magnesium Urine Color Urine Appearance Urine pH Ur Specific [employer] Urine Protein Urine Glucose (UA) Urine Ketones Urine Blood Urine Nitrite Urine Bilirubin Urine Urobilinogen Ur Leukocyte Esterase Urine WBC (Auto) Urine RBC (Auto) U Hyaline Cast (Auto) U Epithel Cells (Auto) Urine Bacteria (Auto) Granular Casts Nasal Screen MRSA (PCR) 07/23/21 07/23/21 07/24/21 16:36 21:14 00:07 WBC RBC Hgb Hct MCV MCH MCHC RDW Std Deviation RDW Coeff of Emmanuel Plt Count MPV Immature Gran % (Auto) Neut % (Auto) Lymph % (Auto) [place] % (Auto) Eos % (Auto) Baso % (Auto) Neut # (Auto) Lymph # (Auto) [place] # (Auto) Eos # (Auto) Baso # (Auto) Immature Gran # (Auto) Activ Coag Time [place]olin Sodium Potassium Chloride Carbon Dioxide Anion Gap BUN Creatinine Est Cr Clr Drug Dosing Est GFR ( Amer) Est GFR (Non-Af Amer) BUN/Creatinine Ratio Glucose POC Glucose 281 H 273 H 224 H Lactate Calcium Phosphorus Magnesium Urine Color Urine Appearance Urine pH Ur Specific [employer] Urine Protein Urine Glucose (UA) Urine Ketones Urine Blood Urine Nitrite Urine Bilirubin Urine Urobilinogen Ur Leukocyte Esterase Urine WBC (Auto) Urine RBC (Auto) U Hyaline Cast (Auto) U Epithel Cells (Auto) Urine Bacteria (Auto) Granular Casts Nasal Screen MRSA (PCR) 07/24/21 07/24/21 07/24/21 00:56 01:58 02:59 WBC RBC Hgb Hct MCV MCH MCHC RDW Std Deviation RDW Coeff of Emmanuel Plt Count MPV Immature Gran % (Auto) Neut % (Auto) Lymph % (Auto) [place] % (Auto) Eos % (Auto) Baso % (Auto) Neut # (Auto) Lymph # (Auto) [place] # (Auto) Eos # (Auto) Baso # (Auto) Immature Gran # (Auto) Activ Coag Time Kaolin Sodium Potassium Chloride Carbon Dioxide Anion Gap BUN Creatinine Est Cr Clr Drug Dosing Est GFR ( Amer) Est GFR (Non-Af Amer) BUN/Creatinine Ratio Glucose POC Glucose 191 H 202 H 177 H Lactate Calcium Phosphorus Magnesium Urine Color Urine Appearance Urine pH Ur Specific [employer] Urine Protein Urine Glucose (UA) Urine Ketones Urine Blood Urine Nitrite Urine Bilirubin Urine Urobilinogen Ur Leukocyte Esterase Urine WBC (Auto) Urine RBC (Auto) U Hyaline Cast (Auto) U Epithel Cells (Auto) Urine Bacteria (Auto) Granular Casts Nasal Screen MRSA (PCR) 07/24/21 07/24/21 07/24/21 04:09 04:24 04:24 WBC 16.34 H RBC 3.98 L Hgb 12.3 L Hct 37.0 L MCV 93.0 MCH 30.9 MCHC 33.2 RDW Std Deviation 46.5 H RDW Coeff of Emmanuel 13.6 Plt Count 194 MPV 11.0 H Immature Gran % (Auto) 0.2 Neut % (Auto) 82.4 Lymph % (Auto) 9.1 [place] % (Auto) 7.1 Eos % (Auto) 1.1 Baso % (Auto) 0.1 Neut # (Auto) 13.46 H Lymph # (Auto) 1.49 [place] # (Auto) 1.16 H Eos # (Auto) 0.18 Baso # (Auto) 0.02 Immature Gran # (Auto) 0.03 H Activ Coag Time Kaolin Sodium 133 L Potassium 4.3 Chloride 99 Carbon Dioxide 29 Anion Gap 5.0 BUN 86 H Creatinine 2.37 H Est Cr Clr Drug Dosing 28.9 Est GFR ( Amer) 28.3 Est GFR (Non-Af Amer) 24.4 BUN/Creatinine Ratio 36.2 H Glucose 147 H POC Glucose 137 H Lactate Calcium 8.8 Phosphorus 3.5 Magnesium 2.5 H Urine Color Urine Appearance Urine pH Ur Specific [employer] Urine Protein Urine Glucose (UA) Urine Ketones Urine Blood Urine Nitrite Urine Bilirubin Urine Urobilinogen Ur Leukocyte Esterase Urine WBC (Auto) Urine RBC (Auto) U Hyaline Cast (Auto) U Epithel Cells (Auto) Urine Bacteria (Auto) Granular Casts Nasal Screen MRSA (PCR) 07/24/21 07/24/21 07/24/21 04:24 05:17 06:11 WBC RBC Hgb Hct MCV MCH MCHC RDW Std Deviation RDW Coeff of Emmanuel Plt Count MPV Immature Gran % (Auto) Neut % (Auto) Lymph % (Auto) [place] % (Auto) Eos % (Auto) Baso % (Auto) Neut # (Auto) Lymph # (Auto) [place] # (Auto) Eos # (Auto) Baso # (Auto) Immature Gran # (Auto) Activ Coag Time Kaolin Sodium Potassium Chloride Carbon Dioxide Anion Gap BUN Creatinine Est Cr Clr Drug Dosing Est GFR ( Amer) Est GFR (Non-Af Amer) BUN/Creatinine Ratio Glucose POC Glucose 132 H 153 H Lactate 2.2 H* Calcium Phosphorus Magnesium Urine Color Urine Appearance Urine pH Ur Specific [employer] Urine Protein Urine Glucose (UA) Urine Ketones Urine Blood Urine Nitrite Urine Bilirubin Urine Urobilinogen Ur Leukocyte Esterase Urine WBC (Auto) Urine RBC (Auto) U Hyaline Cast (Auto) U Epithel Cells (Auto) Urine Bacteria (Auto) Granular Casts Nasal Screen MRSA (PCR) 07/24/21 07:42 WBC RBC Hgb Hct MCV MCH MCHC RDW Std Deviation RDW Coeff of Emmanuel Plt Count MPV Immature Gran % (Auto) Neut % (Auto) Lymph % (Auto) [place] % (Auto) Eos % (Auto) Baso % (Auto) Neut # (Auto) Lymph # (Auto) [place] # (Auto) Eos # (Auto) Baso # (Auto) Immature Gran # (Auto) Activ Coag Time Kaolin Sodium Potassium Chloride Carbon Dioxide Anion Gap BUN Creatinine Est Cr Clr Drug Dosing Est GFR ( Amer) Est GFR (Non-Af Amer) BUN/Creatinine Ratio Glucose POC Glucose 141 H Lactate Calcium Phosphorus Magnesium Urine Color Urine Appearance Urine pH Ur Specific [employer] Urine Protein Urine Glucose (UA) Urine Ketones Urine Blood Urine Nitrite Urine Bilirubin Urine Urobilinogen Ur Leukocyte Esterase Urine WBC (Auto) Urine RBC (Auto) U Hyaline Cast (Auto) U Epithel Cells (Auto) Urine Bacteria (Auto) Granular Casts Nasal Screen MRSA (PCR) Medications Administered Current Inpatient Medications Acetaminophen (Acetaminophen 325 Mg Tab) 650 mg PO Q4H PRN PRN Reason: Pain or Fever Stop: 08/12/21 18:28 Artificial Tears (Artificial Tears) 1 drops OP BID [facility] Stop: 08/12/21 20:59 Last Admin: 07/24/21 07:51 Dose: 1 drops Documented by: Aspirin (Aspirin 81 Mg Ectab) 81 mg PO DAILY [facility] Stop: 08/21/21 08:59 Last Admin: 07/24/21 07:52 Dose: 81 mg Documented by: Clopidogrel Bisulfate (Clopidogrel Bisulfate 75 Mg Tab) 75 mg PO QAM [facility] Stop: 08/21/21 08:59 Last Admin: 07/24/21 07:52 Dose: 75 mg Documented by: Dextrose (Dextrose 50% 50 Ml Syringe) 25 - 50 ml IV UD PRN; Protocol PRN Reason: Hypoglycemia Protocol Stop: 08/12/21 18:28 Docusate Sodium (Docusate Sodium 100 Mg Cap) 100 mg PO BID [facility] Stop: 08/17/21 12:44 Last Admin: 07/24/21 07:55 Dose: 100 mg Documented by: Dorzolamide/Timolol (Dorzolamide/Timolol 22.3/6.8mg/Ml 10 Ml Btl) 1 drops OPB BID [facility] Stop: 08/12/21 20:59 Last Admin: 07/24/21 07:53 Dose: 1 drops Documented by: Furosemide (Furosemide 40 Mg/4 Ml Vial) 80 mg IV BID [facility] Stop: 08/20/21 20:59 Last Admin: 07/24/21 07:53 Dose: 80 mg Documented by: Glucagon (Glucagon For Inj 1 Mg Vial) 1 mg SQ UD PRN; Protocol PRN Reason: Hypoglycemia Protocol Stop: 08/12/21 18:28 Glucose (Glucose 10 Tabs/Tube) 4 - 8 tabs PO UD PRN; Protocol PRN Reason: Hypoglycemia Protocol Stop: 08/12/21 18:28 Glucose (Glucose 40% Gel 15 Gm Tube) 15 - 30 gm PO UD PRN; Protocol PRN Reason: Hypoglycemia Protocol Stop: 08/12/21 18:28 Guaifenesin (Guaifenesin 600 Mg Tabcr) 600 mg PO Q12 [facility] Stop: 08/17/21 13:39 Last Admin: 07/24/21 07:53 Dose: 600 mg Documented by: Heparin Sodium (Porcine) (Heparin Sod 5,000 Unit/0.5 Ml Vial) 5,000 units SQ Q12 [facility] Stop: 08/12/21 20:59 Last Admin: 07/24/21 07:53 Dose: 5,000 units Documented by: Dobutamine HCl/Dextrose (Dobutamine / D5w) 500 mg in 250 mls @ 14.61 mls/hr IV .Q17H7M [facility]; Protocol Stop: 08/20/21 20:59 Last Titration: 07/24/21 06:50 Dose: 5 mcg/kg/min, 14.6 mls/hr Documented by: Norepinephrine Bitartrate (Levophed/D5w) 8 mg in 508 mls @ 29.688 mls/hr IV .Q17H7M [facility]; Protocol Stop: 08/21/21 12:14 Last Admin: 07/24/21 07:52 Dose: Not Given Documented by: Cefepime HCl 1,000 mg/ Syringe 11.3 mls @ 5.5 mls/min IV Q12H [facility] Stop: 07/25/21 20:59 Last Admin: 07/24/21 07:55 Dose: 5.5 mls/min Documented by: Insulin Human Regular 250 (units/ Sodium Chloride) 250 mls @ 3.7 mls/hr IV .Q24H [facility]; Protocol Stop: 08/22/21 21:44 Last Titration: 07/24/21 06:50 Dose: 3.7 units/hr, 3.7 mls/hr Documented by: Insulin Aspart (Insulin Aspart 100 Units/Ml 3 Ml Pen) 0 units SC ACHS [facility] Stop: 08/23/21 07:29 Last Admin: 07/24/21 07:47 Dose: Not Given Documented by: Insulin Glargine (Insulin Glargine Solostar 100 Units/Ml 3 Ml Pen) 50 units SC QAM [facility] Stop: 08/23/21 08:59 Last Admin: 07/24/21 07:59 Dose: 50 units Documented by: Metoprolol Succinate (Metoprolol Succ 25mg Ext Rel Tab) 12.5 mg PO BID [facility] Stop: 08/14/21 11:59 Last Admin: 07/24/21 08:29 Dose: Not Given Documented by: Miscellaneous (Carbohydrates For Hypoglycemia ) 15 - 30 gm PO UD PRN PRN Reason: Hypoglycemia Protocol Stop: 08/12/21 18:28 Miscellaneous Information (Pharmacy Glycemic Mgmt Consult) 1 ea N/A UD PRN PRN Reason: Consult Stop: 08/19/21 07:21 Polyethylene Glycol (Polyethylene (Miralax) 17 Gm Pack) 17 gm PO DAILY [facility] Stop: 08/17/21 12:44 Last Admin: 07/24/21 07:55 Dose: Not Given Documented by: Spironolactone (Spironolactone 12.5 Mg Tab) 12.5 mg PO DAILY [facility] Stop: 08/14/21 11:59 Last Admin: 07/23/21 08:29 Dose: 12.5 mg Documented by:
--- NOTE | 2021-07-24 10:14 | Nephrology Progress Note ---
Date of Service July 24, 2021 Assessment & Plan (1) Acute kidney failure: (2) STEMI (ST elevation myocardial infarction): (3) Acute systolic heart failure: (4) Aortic stenosis: Plan: 81-year-old male admitted with SOB, ? pneumonia and volume overload initially treated with antibiotic and IV diuretics without improvement in volume status or respiratory status. 2D echo showed EF 20-[address] T changes in EKG and eventually had cardiac catheterization done on 07/21/2021 and noted to have triple-vessel disease status post LAD stent. Baseline creatinine 1.0-1.2, kidney function slowly worsen over last few days with creatinine up to 2.6 in the setting of acute coronary event, low EF and diuretic resistant volume overload, Pulmonary hypertension as well as severe aortic stenosis. No significant improvement in renal function although BP slightly better, on Dobutamine since yesterday. Urine output low net positive on IV diuretics. CXR with improved pulmonary vascular congestion but b/l pleural effusion -- on IV Lasix 80 mg bid and Dobutamine --monitor urine output closely, renal function and electrolyte Will follow Admission and Anticipated Discharge Date Admission Date: July 13, 2021 Subjective Mr. Arriaga was seen in his room this morning. He is on Oxymask, BP better on Dobutamine and lower dose of pressor, overall feels poorly. Low UO with minimun response to IV Lasix. Continued worsening of renal function, electrolyte acceptable. Review of Systems Review of Systems: Detailed review of system was otherwise unremarkable. Physical Exam Constitutional: WD/WN, vitals as above + ill appearing; no acute distress Eyes: + anicteric sclerae ENMT: Ears: no hearing impairment and no external ear abnormality Neck: normal visual inspection Respiratory: no respiratory distress Auscultation: + diminished lung sounds Cardiovascular: Rate/Rhythm: regular rate and regular rhythm Heart Sounds: normal S1 and normal S2 Extremities: no edema Skin: normal turgor; no rashes Neurologic: no focal motor deficits and not confused Psychiatric: Orientation: alert and oriented x 3 Results & Data ([facility]) Vital Signs (Past 12 Hours) Vital Signs Temp Pulse Resp BP Pulse Ox 07/24/21 05:06 107 H 28 H 07/24/21 04:00 103 H 22 121/68 94 07/24/21 03:00 104 H 27 H 98/68 L 94 07/24/21 02:59 104 H 27 H 94 07/24/21 02:00 104 H 26 H 118/77 94 07/24/21 01:00 113 H 21 108/69 90 07/24/21 00:00 113 H 29 H 95/53 L 88 L 07/23/21 23:45 114 H 07/23/21 23:33 104 H 25 H 95 07/23/21 23:29 36.7 C 07/23/21 23:00 104 H 24 113/62 96 PG Care Time/CCT Total # of Minutes Spent Total Time Spent with Patient: Total time spent is greater than 50% in coordination of care (as documented) at patient's floor/unit and/or counseling patient: Coding Level of Care Code 86041 Subseq Hosp Care Lvl 3 Diagnoses Acute kidney failure N17.9 STEMI (ST elevation myocardial infarction) I21.3 Acute systolic heart failure I50.21 Aortic stenosis I35.0
--- NOTE | 2021-07-24 12:39 | Palliative Care Progress Note ---
Date of Service July 24, 2021 Assessment & Plan (1) Palliative care encounter: Plan: I met with the patient in room 110. He was able to open his eyes for me, but was rather lethargic, even moreso than yesterday; however, does have periods of alertness. His daughter in law was down to visit him today and was able to give him a few bites of lunch. He remains overall hypotensive, systolic 90's. His Levophed is currently decreased to 0.08 mcg/kg. I called the patients daughter in law, Pretty who is an RN in the lab[employer], and discussed his overall condition. We discussed fdc plans and the possibility of him returning home with hospice support. In order for him to successfully return home with hospice, he would need to be requiring 10L or less of oxymask and be off of all pressors. It is unlikely that the patient can be weaned from Dobutamine. Case management checking if any hospices would be willing to take the patient home with Dobutamine and eventually discontinue it, they prefer [facility] due to previous experiences. In the event that hospice declines the opportunity to have the patient return home with Dobuatmine, would discuss the possibility of an RN from [facility] riding along in the ambulance with the goal to discontinue the gtt when he arrived home; with hospice taking over care at that time. Case management aware and will reach out to hospice agencies to clarify options. Nurse contract project manager in ICU aware of posssible plan as well. We discussed that a transition to comfort measures here in the hospital may be an option as well. Family in agreement to see how the next few days go, should he decline, again, ok for escalation of care including Bipap and additional pressor support for now. Palliative will follow. (2) Hypoxia: (3) Aortic stenosis: (4) Fluid overload: Admission and Anticipated Discharge Date Admission Date: July 13, 2021 Subjective Mr. Arriaga was seen in his room this morning. He remains on Levo and Dobutamine. Tachycardic r/t Dobutamine use. Pt lethargic today, but arousable. Pt on 10L oxymask, slightly hypotensive mid 90's systolic. Tachypnic at times, at rest. Family updated via phone. See A/P for discussion and additional information. Review of Systems Review of Systems: [place] [facility] Assessment Scale: Pain: 1/3 by observation SOB: 2/3 by observation Anxiety1/3 by observation Palliative Performance Scale: 20% Physical Exam Constitutional: + frail appearing and cooperative ENMT: Mouth: + dry oral mucous membranes Respiratory: + labored breathing Cardiovascular: Rate/Rhythm: regular rate and regular rhythm Extremities: normal capillary refill and + edema Gastrointestinal (Abdomen): Inspection/Auscultation: abdomen normal to inspect ion Percussion/Palpation: abdomen soft Skin: + pallor Psychiatric: Orientation: alert Results & Data ([facility]) Vital Signs (Past 12 Hours) Vital Signs Temp Pulse Resp BP Pulse Ox 07/24/21 10:00 112 H 22 92/76 L 94 07/24/21 09:00 112 H 24 107/70 94 07/24/21 08:00 36.7 C 113 H 17 102/60 95 07/24/21 07:00 105 H 30 H 95/63 L 94 07/24/21 05:06 107 H 28 H 07/24/21 04:00 103 H 22 121/68 94 07/24/21 03:00 104 H 27 H 98/68 L 94 07/24/21 02:59 104 H 27 H 94 07/24/21 02:00 104 H 26 H 118/77 94 07/24/21 01:00 113 H 21 108/69 90 PG Care Time/CCT Total # of Minutes Spent Total Time Spent with Patient: Total time spent is greater than 50% in coordination of care (as documented) at patient's floor/unit and/or counseling patient: 35 minutes Coding Level of Care Code 06611 Subseq Hosp Care Lvl 3 Diagnoses Palliative care encounter Z51.5 Hypoxia R09.02 Aortic stenosis I35.0 Fluid overload E87.70 Time Spent (min) 35
--- NOTE | 2021-07-24 13:33 | Critical Care Progress Note ---
Date of Service July 24, 2021 Assessment & Plan (1) STEMI (ST elevation myocardial infarction): (2) S/P drug eluting coronary stent placement: (3) Acute kidney failure: (4) Aortic stenosis: (5) Acute respiratory failure with hypoxia: (6) Fluid overload: (7) Insulin dependent diabetes mellitus: (8) Acute exacerbation of CHF (congestive heart failure): Plan: Reason Critically Ill: 81-year-old male with acute anterior ST JOSE status post PTCI with LINDA x2 to the LAD. Also noted to have lesions of the mid circumflex and RCA. Unfortunately, patient with elevated RIGHT and LEFT filling pressures in the setting of ongoing CHF for which the patient has been treated during admission. Patient requiring close hemodynamic monitoring with the addition of inotropes and loop diuretics. Recommendations: NEURO -mild encephalopathy related to metabolic derangements and hypertension CARDIAC/VASCULAR - Acute anterior STEMI s/p PTCI w/ LINDA x2 to the LAD on 07/21/21. Patient with triple-vessel disease and decreased ejection fraction but it is not felt to be a surgical candidate. Plan for staged percutaneous coronary intervention. Unclear if kidney function will support additional contrast load. LVEDP and wedge pressure are both elevated and the patient needs fluid offloaded. EF of 20 to 25% with however the gradient was less than 10 on cath. Currently on levophed and dobutamine. Doubt he is a candidate for advanced therapies such as LVAD/Impella/IABP but defer to cardiology. Currently on aspirin and plavix. Holding metoprolol in setting of decompensated CHF. Hold spironolactone as well in setting of ADRI. Consider esmolol given ongoing tachycardia. Appreciate palliative care input. Possible transition to hospice with dobutamine infusion. RESPIRATORY -hypoxemic respiratory failure secondary to pulmonary edema and possible pna. Continue CPAP/BiPAP and oxygen as tolerated. GI/NUTRITION -tolerating diet RENAL/LYTES - Acute renal failure: Suspect combinations of intrinsic renal disease, potential contrast nephropathy, and poor forward flow. Nephro consult appreciated. Continue Lasix per cardiology and nephrology. - Kruger in place - Strict I&Os. ENDO - glycemic control per protocol HEME - mild anemia. No indication for transfusion currently. Continue to follow. Platelets stable. ID - Procal mildly elevated, but maybe related to ADRI. U/A and blcx ordered. Empiric cefepime started. MRSA screen ordered. Discontinue augmentin Palliative care consult placed. Agree with defining goals of therapy. Prognosis guarded. LINES/IV ACCESS - * PIVs x2 * Kruger DVT PROPHYLAXIS - * SCDs I have personally spent 31 minutes of critical care time in the direct management of this patient. This is a life/limb threatening event. This includes time spent evaluating patient, direct bedside care, chart review, placing orders, interpretation of diagnostic studies, discussion with consultants, patient, and family members, as well as other required patient management activities. This time is exclusive of all separately billable procedures, and teaching time and separate from and in addition to any other critical care service time. Admission and Anticipated Discharge Date Admission Date: July 13, 2021 Subjective Patient seen and examined this morning. On oxygen mask. Currently requiring low-dose of Levophed and dobutamine. Overall feels lethargic. No chest pain. Review of Systems Review of Systems: All systems reviewed & are unremarkable except as noted in HPI & below Physical Exam Constitutional: + ill appearing, + frail appearing and + lethargic Neck: trachea midline, no thyromegaly Respiratory: + labored breathing and + tachypneic Auscultation: + crackles Cardiovascular: Rate/Rhythm: + tachycardic Heart Sounds: normal S1, normal S2 and + murmur Extremities: + edema Gastrointestinal (Abdomen): normal bowel sounds, soft, nontender, no hepatosplenomegaly Musculoskeletal: Extremities: extremities normal to inspection Skin: Multiple ecchymoses and excoriations Neurologic: Patient somnolent. Lymphatic: no cervical lymphadenopathy Results & Data Results & Data ([facility]) Vital Signs (Past 12 Hours) Vital Signs Temp Pulse Resp BP Pulse Ox 07/24/21 12:00 112 H 38 H 93 07/24/21 11:00 114 H 23 99/62 L 94 07/24/21 10:00 112 H 22 92/76 L 94 07/24/21 09:00 112 H 24 107/70 94 07/24/21 08:00 36.7 C 113 H 17 102/60 95 07/24/21 07:00 105 H 30 H 95/63 L 94 07/24/21 05:06 107 H 28 H 07/24/21 04:00 103 H 22 121/68 94 07/24/21 03:00 104 H 27 H 98/68 L 94 07/24/21 02:59 104 H 27 H 94 07/24/21 02:00 104 H 26 H 118/77 94 vital signs, labs and imaging personally reviewed Coding Level of Care Code Critical Care 1st 30-74 mins Diagnoses STEMI (ST elevation myocardial infarction) I21.3 S/P drug eluting coronary stent placement Z95.5 Acute kidney failure N17.9 Aortic stenosis I35.0 Acute respiratory failure with hypoxia J96.01 Fluid overload E87.70 Insulin dependent diabetes mellitus Acute exacerbation of CHF (congestive heart failure) I50.9 Heart failure type: unspecified Time Spent (min) 31 (1) Acute exacerbation of CHF (congestive heart failure) Heart failure type: unspecified Qualified Code(s): I50.9 - Heart failure, unspecified
[2021-07-24] MEDS: DOBUTamine / D5W 500 MG/250 ML BAG IV SCH (14:35)
--- NOTE | 2021-07-24 14:56 | Pharmacy Report ---
Pharmacy Glycemic Short Note 2 - Date of Service July 24, 2021 - Glycemic Short BSG Results (Last 24 hours): 07/23/21 07/23/21 07/24/21 16:36 21:14 00:07 Glucose POC Glucose 281 H 273 H 224 H 07/24/21 07/24/21 07/24/21 00:56 01:58 02:59 Glucose POC Glucose 191 H 202 H 177 H 07/24/21 07/24/21 07/24/21 04:09 04:24 05:17 Glucose 147 H POC Glucose 137 H 132 H 07/24/21 07/24/21 07/24/21 06:11 07:42 09:22 Glucose POC Glucose 153 H 141 H 125 H 07/24/21 07/24/21 11:43 14:48 Glucose POC Glucose 117 H 139 H OUTPATIENT ANTIDIABETIC REGIMEN: * Levemir 80 units SC HS * Novolog 8 units SC with breakfast, 12 units SC with lunch and dinner * Patient reports taking Novolog as sliding scale only recently * HbA1c: 7.2% (07/14/21) ASSESSMENT: 07/24 * BSGs continued to climb yesterday despite escalating SQ insulin doses. IV insulin drip initiated and BSGs are much better controlled * IV insulin drip infusing at relatively steady rate of 3.7 units / hr * Diet is poor * Still receiving Norepi and Dobutamine infusions * Urine outpt < 0.5mL/kg/hr, SCr mild increase / unchanged vs yesterday, lactate slightly lower than yesterday. * Will give additional basal insulin at this time, however pt is not yet ready to transition to SQ basal bolus regimen given uncertain SQ absorption, poor PO intake and substantial IV insulin requirement. 07/23 * Glycemic control worsening this AM, likely due to decreased basal dose given yesterday as well as worsening perfusion (lactate climbing, pt remains dependent of both dobutamine + norepinephrine). I do question how much SQ is being absorbed * Will up titrate basal insulin dose today, with cautious increase due to poor PO intake * Novolog CF will be kept at "severe" stress level and correction will be provided ACHS and 00 + 04 tonight to allow for additional coverage. Carb ratio set a "moderate" stress level and okay to continue for now given other changes to insulin regimen * May need to consider IV insulin infusion as SQ absorption questionable. Will follow BSGs, but persistent elevation > 220 would warrant consideration of drip 07/22 * Patient's BSGs yesterday were [phone] mg/dL. Fasting today is 122 mg/dL. * Patient received 69 units of insulin yesterday with 50 units of basal and 19 units of bolus. * Reduce basal by 60% to 20 units. Patient somnolent and has kidney dysfunction. Do not want rebound hyperglycemia with recent stent placement. * Loosen Novolog to weight-based stress of 1. PLAN FOR INPATIENT GLYCEMIC CONTROL: * Continue IV insulin infusion, goal range 120-180, adjust per rate adjustment calculator * Basal insulin * Lantus 50 units SQ Q AM * Bolus insulin * NovoLog SQ w/ meals * Nutritional / Prandial insulin per carb ratio calculated from infusion rate adjustment calculator PLAN FOR DISCHARGE: * HbA1c of 7.2% suggests good outpatient glycemic control * Reasonable to continue outpatient regimen at discharge
[2021-07-25 06:12] LABS: Basophils # (auto) 0.01 K/uL (0-0.2); Basophils % (auto) 0.1 %; Eosinophils # (auto) 0.26 K/uL (0-0.5); Eosinophils % (auto) 2.2 %; Hematocrit (blood only) 35.9 % (42-52); Hemoglobin 11.7 g/dL (14.0-18.0); Immature Granulocytes # (auto) 0.02 K/uL (0.00-0.02); Immature Granulocytes % (auto) 0.2 %; Lymphocytes # (auto) 0.52 K/uL (1.2-3.4); Lymphocytes % (auto) 4.5 %; Mean Corpuscular Hemoglobin 30.2 pg (25-34); Mean Corpuscular Hgb Conc 32.6 g/dL (32-36); Mean Corpuscular Volume 92.8 fL (80-100); Mean Platelet Volume 11.3 fL (7.4-10.4); Monocytes # (auto) 1.59 K/uL (0.11-0.59); Monocytes % (auto) 13.6 %; Neutrophils # (auto) 9.26 K/uL (1.4-6.5); Neutrophils % (auto) 79.4 %; Platelet Count 197 K/uL (130-400); RDW Coefficient of Variation 13.7 % (11.5-14.5); RDW Standard Deviation 46.7 fL (36.4-46.3); Red Blood Count 3.87 M/uL (4.7-6.1); White Blood Count 11.66 K/uL (4.8-10.8)
[2021-07-25 06:23] LABS: Albumin Level 1.6 gm/dl (3.4-5.0); Bilirubin Direct 0.2 mg/dl (0-0.2); Calcium 8.6 mg/dl (8.5-10.1); Creatinine Clr Calc Pharmacy 32.6 ml/min; Est GFR (African American) 32.6 ml/min; Est GFR (Non-African American) 28.1 ml/min; Magnesium 2.5 mg/dl (1.8-2.4); Potassium 4.4 mmol/L (3.5-5.1)
[2021-07-25 06:26] LABS: Bilirubin,Total 0.6 mg/dl (0.2-1)
--- NOTE | 2021-07-25 07:30 | Hospitalist Progress Note ---
Date of Service July 24, 2021 Assessment & Plan (1) Acute systolic heart failure: (2) Acute respiratory failure with hypoxia: Plan: 07/24 Patient with prolonged hospital stay, not responding well to medical therapy, then had episode of anterior STEMI He is status post PCI to LAD He is in ICU, lying in bed, appears comfortable however very somnolent, only able to answer few simple questions He is on 10 L of oxygen Continued on dobutamine, levophed, lasix Palliative medicine consulted - pt is now DNR/DNI Prior to episode of STEMI pt was managed as below: 81 yo M with insulin-dependent DM II presented to ER 07/13 with c/o SOB with exertion x 3 weeks [employer] a/w mild nonproductive cough and increased BLE edema. No fever/chills. Denies known cardiac history. Is being managed for the following: Acute hypoxic respiratory failure Fluid overload: Pneumonia: L>R bibasilar consolidation in admitting CXR Acute systolic heart failure Pleural effusion - layering Pl. Eff in Admitting CXR, c/t monitor, lasix. In ER patient afebrile, hypoxic at 89% on room air up to 95% on 2L oxygen via NC, other vitals stable. No leukocytosis, lactate WNL, troponin: 0.047, BNP: 6077, negative COVID-19 PCR. CXR: Pulmonary vascular congestion, pleural effusions, bibasilar consolidation In ER was given Lasix 40 mg IV 07/14 echo: Severely reduced LV systolic function with severe global hypokinesis, EF 20 to 25%, grade 2 diastolic dysfunction, severe aortic stenosis. Cardiology consulted, appreciate their recommendations For community-acquired pneumonia, continued with antibiotic [Rocephin and Zithromax 07/13], WBC trending down, patient afebrile. Patient will need foll ow-up chest x-ray in 4 to 6 weeks to document resolution of pneumonia. Blood cultures - negative 07/19 - WBC slightly up now at 12K Repeat CXR - shows pulm. edema, pl. effusions. procal slightly higher than previously episode of nausea/vomiting - poss. ? aspiration Started empiric augmentin For acute systolic heart failure: Monitor I's and O's, cardiology to optimize his heart failure medication Patient will need to follow-up with cardiology upon discharge. Continue with supplemental oxygen, titrate as appropriate, monitor daily electrolytes and labs. 2 step test done - pt will need to be discharged on suppl. O2 07/19 -discussed further with cardiology, given elevated creatinine, low blood pressure and repeat chest x-ray showing persistent pulmonary effusion, held torsemide and metoprolol 07/20 -Echo reviewed by cardiology again, patient has severe LV dysfunction. EF 20% is generous. Medical management should be continued.Restarted his metoprolol today as his heart rate up as well as his blood pressure.Hold torsemide again today. 07/21 - Patient is not responding well to medical therapy, his blood pressure remains low. Fluid balance is questionable. Torsemide restarted at 10 mg daily. Acute anterior wall STEMI 07/21 PM - pt more lethargic, episode of bradycardia stat EKG w/ ST elev. in anterior leads, troponin 19.8 (in the setting of ADRI) Pt s/p left and right cardiac cath Summary: 1. Acute 100% mid LAD occlusion 2. Severe nonculprit multivessel CAD -95% mid circumflex 80% mid RCA. 70% diffuse mid-distal PDA 3. Low output heart failure. PA sat 44%, cardiac output 2.9 L/min 4. Elevated left and right-sided filling pressures 5. Severe pulmonary hypertension 6. Aortic valve pullback gradient <10 mmHg 7. Successful PCI of mid LAD with 2 long overlapping drug-eluting stents (2.5 x 26, 2.5 x 30 mm Gabriel; postdilated with 2.75 NC). Recommendations: To ICU for continued monitoring Loaded with 600 mg in Telephoto Installer Continue dual-antiplatelet therapy for at least 1 year Start inotropes with dobutamine 5 mcg/kg/min Additional IV diuretics Titrate inotropes to urine output. If urine output remains low in a.m. reevaluate cardiac output with mixed venous O2 Tentatively plan for staged PCI of circumflex, RCA pending renal function and clinical course. Elevated troponin (on admission): Possible demand ischemia Troponin: 0.047 (on admission). Admitting EKG sinus rhythm, Q waves septal leads, T wave inversion inferior and lateral leads. No prior EKG to compare Denies chest pain R/O ACS -troponin down trended to normal Lipid panel WNL cardiology following, as above Insulin dependent diabetes mellitus II: -Unknown baseline A1c -Patient prescribed 80 units Levemir at bedtime however has been taking around 20 to 30 units in the morning. Is prescribed NovoLog with meals however he reports has not been using -Diabetic diet -Monitor BSG's -Basal bolus insulin per protocol. May need to adjust insulin -Current A1c 7.2% - follow up as outpt DVT Prophylaxis- previously on subq Heparin SQ, now s/p cath Follows with Dr Samir Hernandez in [place] for routine care. Disposition: questionable at this time. Previous plan - PT/OT, DC to home w/ HH once medically stable. Palliative medicine consult for goals of care - pt is now DNR/DNI Admission and Anticipated Discharge Date Admission Date: July 13, 2021 Subjective Pt seen in follow up of hypoxia, pna, acute syst. HF, acute STEMI Patient with prolonged hospital stay, not responding well to medical therapy, then had episode of anterior STEMI He is status post PCI to LAD He is in ICU, lying in bed, appears comfortable however very somnolent, only able to answer few simple questions He is on 10 L of oxygen Continued on dobutamine, levophed, lasix Currently denies any complaints, denies any chest pain increased shortness of breath abdominal pain, however not able to have a longer conversation Now nephrology also following Review of Systems Review of Systems: All systems reviewed & are unremarkable except as noted in Subjective Physical Exam Physical Exam: GENERAL: elderly M in NAD, somnolent, able to answer few simple questions appropriately, on 10L. HEENT: NC/AT. EOMI, PERRL. No pallor, no icterus.Oral mucosa moist. NECK: No JVD, no neck masses. HEART: S1 and S2 heard. Regular rate and rhythm.+syst. murmur RESPIRATORY: Normal AP diameter. No accessory muscle use. No wheezing,diminished breath sounds at bases ABDOMEN: Soft, bowel sounds present, nontender, no distention. NEURO: somnolent, answering few questions appropriately, no facial droop. Speech is clear. Moves extremities. EXTREMITIES: minimal LE edema, no significant erythema seen. Results & Data Results & Data ([facility]) Vital Signs (Past 12 Hours) Vital Signs Temp Pulse Resp BP Pulse Ox 07/24/21 23:00 101 H 28 H 100/67 95 07/24/21 22:00 99 H 25 H 94/65 L 96 07/24/21 21:00 100 H 24 107/63 94 07/24/21 20:00 36.5 C 102 H 28 H 98/62 L 98
[2021-07-25] MEDS: DOBUTamine / D5W 500 MG/250 ML BAG IV SCH (08:03)
[2021-07-25] MEDS: INSULIN ASPART 100 UNITS/ML 3 ML PEN SC SCH ×4 (08:23→20:30)
--- NOTE | 2021-07-25 09:43 | XRay Report ---
XR chest 1V portable HISTORY: Shortness of breath. Follow-up pulmonary edema. COMPARISON: Chest 07/24/2021. FINDINGS: No pneumothorax. The heart remains mildly enlarged. There are small to moderate bilateral p leural effusions and bibasilar densities, unchanged. Mild central pulmonary vascular congestion witho ut overt edema. This is also unchanged. IMPRESSION: No change in the mild central pulmonary vascular congestion and small moderate bilateral pleural effu sions. ACT 112: Negative or not required by law. Electronically signed by: Colin Vega M.D. 07/25/2021 9:41 AM
[2021-07-25] MEDS: INSULIN REGULAR 250 UNITS in SODIUM CHLORIDE 0.9% 247.5 ML IV SCH (10:06)
[2021-07-25] MEDS: DOCUSATE SODIUM 100 MG CAP PO SCH ×2 (10:56→20:28)
[2021-07-25] MEDS: CEFEPIME 1,000 MG in SYRINGE 0 ML IV SCH (10:56)
[2021-07-25] MEDS: ASPIRIN 81 MG ECTAB PO SCH (10:56)
[2021-07-25] MEDS: DORZOLAMIDE/TIMOLOL 22.3/6.8MG/ML 10 ML BTL OPB SCH ×2 (10:56→20:22)
[2021-07-25] MEDS: FUROSEMIDE 40 MG/4 ML VIAL IV SCH ×2 (10:56→20:23)
[2021-07-25] MEDS: ARTIFICIAL TEARS OP SCH ×2 (10:56→20:22)
[2021-07-25] MEDS: CLOPIDOGREL BISULFATE 75 MG TAB PO SCH (10:56)
[2021-07-25] MEDS: HEPARIN SOD 5,000 UNIT/0.5 ML VIAL SQ SCH ×2 (10:57→20:23)
[2021-07-25] MEDS: guaiFENesin 600 MG TABCR PO SCH ×2 (10:57→20:23)
[2021-07-25] MEDS: POLYETHYLENE (MIRALAX) 17 GM PACK PO SCH (10:57)
[2021-07-25] MEDS: INSULIN GLARGINE SOLOSTAR 100 UNITS/ML 3 ML PEN SC SCH (10:57)
[2021-07-25] MEDS: NOREPINEPHRINE/D5W 8 MG/508 ML BAG IV SCH (11:13)
--- NOTE | 2021-07-25 11:54 | Cardiology Progress Note ---
Date of Service July 25, 2021 Assessment & Plan (1) Acute systolic heart failure: (2) Acute kidney failure: (3) S/P drug eluting coronary stent placement: (4) STEMI (ST elevation myocardial infarction): Plan: Palliative care note appreciated. I agree with their plan to try to return the patient home. Admission and Anticipated Discharge Date Admission Date: July 13, 2021 Subjective The patient is alert but nonresponsive. Review of Systems Review of Systems: Review of Systems: See HPI for pertinent positives. All other 10 point review of systems are negative. Physical Exam Physical Exam: General: no acute distress and stated age Head: normocephalic, no masses, lesions, tenderness or abnormalities Eyes: conjunctiva are pink and non-injected, sclera clear Neck: supple, no adenopathy, no bruits, normal jugular venous pulse, no hepatojugular reflux Chest: normal shape and normal respiratory effort Lungs: clear to auscultation and percussion Cardiac Exam: - regular rate & rhythm, systolic murmur- normal S1, normal S2 Pulses: 2(+) throughout Abdomen: abdomen soft, non-tender, no abnormal masses and no hepatosplenomegaly Musculoskeletal: no gait disturbance, no joint inflammation, no deforming arthritis Extremities: no edema and no cyanosis Neuro: grossly normal exam Results & Data ([facility]) Vital Signs (Past 12 Hours) Vital Signs Temp Pulse Resp BP Pulse Ox 07/25/21 11:00 104 H 27 H 105/60 93 07/25/21 10:00 102 H 29 H 96 07/25/21 09:00 103 H 31 H 103/58 L 96 07/25/21 08:00 37.2 C 100 H 28 H 93/48 L 97 07/25/21 07:00 102 H 29 H 96 07/25/21 06:00 96 H 27 H 105/55 L 93 07/25/21 05:00 102 H 22 99/55 L 96 07/25/21 04:00 102 H 26 H 98/60 L 95 07/25/21 03:00 100 H 27 H 102/53 L 93 07/25/21 02:00 102 H 25 H 92/56 L 93 07/25/21 01:00 95 H 22 110/63 24 L 07/25/21 00:00 36.7 C 100 H 24 94/61 L 92 Laboratory Results Laboratory Results - last 24 hr 07/24/21 07/24/21 07/24/21 11:43 14:48 16:31 WBC RBC Hgb Hct MCV MCH MCHC RDW Std Deviation RDW Coeff of Emmanuel Plt Count MPV Immature Gran % (Auto) Neut % (Auto) Lymph % (Auto) [place] % (Auto) Eos % (Auto) Baso % (Auto) Neut # (Auto) Lymph # (Auto) [place] # (Auto) Eos # (Auto) Baso # (Auto) Immature Gran # (Auto) Sodium Potassium Chloride Carbon Dioxide Anion Gap BUN Creatinine Est Cr Clr Drug Dosing Est GFR ( Amer) Est GFR (Non-Af Amer) BUN/Creatinine Ratio Glucose POC Glucose 117 H 139 H 111 H Lactate Calcium Phosphorus Magnesium Total Bilirubin Direct Bilirubin AST ALT Alkaline Phosphatase Total Protein Albumin SARS-CoV-2 (PCR) 07/24/21 07/24/21 07/24/21 17:47 18:45 19:51 WBC RBC Hgb Hct MCV MCH MCHC RDW Std Deviation RDW Coeff of Emmanuel Plt Count MPV Immature Gran % (Auto) Neut % (Auto) Lymph % (Auto) [place] % (Auto) Eos % (Auto) Baso % (Auto) Neut # (Auto) Lymph # (Auto) [place] # (Auto) Eos # (Auto) Baso # (Auto) Immature Gran # (Auto) Sodium Potassium Chloride Carbon Dioxide Anion Gap BUN Creatinine Est Cr Clr Drug Dosing Est GFR ( Amer) Est GFR (Non-Af Amer) BUN/Creatinine Ratio Glucose POC Glucose 185 H 204 H 183 H Lactate Calcium Phosphorus Magnesium Total Bilirubin Direct Bilirubin AST ALT Alkaline Phosphatase Total Protein Albumin SARS-CoV-2 (PCR) 07/24/21 07/24/21 07/24/21 20:15 20:54 22:00 WBC RBC Hgb Hct MCV MCH MCHC RDW Std Deviation RDW Coeff of Emmanuel Plt Count MPV Immature Gran % (Auto) Neut % (Auto) Lymph % (Auto) [place] % (Auto) Eos % (Auto) Baso % (Auto) Neut # (Auto) Lymph # (Auto) [place] # (Auto) Eos # (Auto) Baso # (Auto) Immature Gran # (Auto) Sodium Potassium Chloride Carbon Dioxide Anion Gap BUN Creatinine Est Cr Clr Drug Dosing Est GFR ( Amer) Est GFR (Non-Af Amer) BUN/Creatinine Ratio Glucose POC Glucose 154 H 133 H Lactate Calcium Phosphorus Magnesium Total Bilirubin Direct Bilirubin AST ALT Alkaline Phosphatase Total Protein Albumin SARS-CoV-2 (PCR) NEGATIVE 07/24/21 07/25/21 07/25/21 23:03 00:07 01:14 WBC RBC Hgb Hct MCV MCH MCHC RDW Std Deviation RDW Coeff of Emmanuel Plt Count MPV Immature Gran % (Auto) Neut % (Auto) Lymph % (Auto) [place] % (Auto) Eos % (Auto) Baso % (Auto) Neut # (Auto) Lymph # (Auto) [place] # (Auto) Eos # (Auto) Baso # (Auto) Immature Gran # (Auto) Sodium Potassium Chloride Carbon Dioxide Anion Gap BUN Creatinine Est Cr Clr Drug Dosing Est GFR ( Amer) Est GFR (Non-Af Amer) BUN/Creatinine Ratio Glucose POC Glucose 104 H 98 105 H Lactate Calcium Phosphorus Magnesium Total Bilirubin Direct Bilirubin AST ALT Alkaline Phosphatase Total Protein Albumin SARS-CoV-2 (PCR) 07/25/21 07/25/21 07/25/21 05:24 05:24 05:24 WBC 11.66 H RBC 3.87 L Hgb 11.7 L Hct 35.9 L MCV 92.8 MCH 30.2 MCHC 32.6 RDW Std Deviation 46.7 H RDW Coeff of Emmanuel 13.7 Plt Count 197 MPV 11.3 H Immature Gran % (Auto) 0.2 Neut % (Auto) 79.4 Lymph % (Auto) 4.5 [place] % (Auto) 13.6 Eos % (Auto) 2.2 Baso % (Auto) 0.1 Neut # (Auto) 9.26 H Lymph # (Auto) 0.52 L [place] # (Auto) 1.59 H Eos # (Auto) 0.26 Baso # (Auto) 0.01 Immature Gran # (Auto) 0.02 Sodium 132 L Potassium 4.4 Chloride 100 Carbon Dioxide 30 Anion Gap 2.0 L BUN 89 H Creatinine 2.11 H Est Cr Clr Drug Dosing 32.6 Est GFR ( Amer) 32.6 Est GFR (Non-Af Amer) 28.1 BUN/Creatinine Ratio 42.0 H Glucose 101 H POC Glucose Lactate 1.1 Calcium 8.6 Phosphorus 4.0 Magnesium 2.5 H Total Bilirubin 0.6 Direct Bilirubin 0.2 AST 32 ALT 24 Alkaline Phosphatase 108 Total Protein 6.0 L Albumin 1.6 L SARS-CoV-2 (PCR) 07/25/21 06:07 WBC RBC Hgb Hct MCV MCH MCHC RDW Std Deviation RDW Coeff of Emmanuel Plt Count MPV Immature Gran % (Auto) Neut % (Auto) Lymph % (Auto) [place] % (Auto) Eos % (Auto) Baso % (Auto) Neut # (Auto) Lymph # (Auto) [place] # (Auto) Eos # (Auto) Baso # (Auto) Immature Gran # (Auto) Sodium Potassium Chloride Carbon Dioxide Anion Gap BUN Creatinine Est Cr Clr Drug Dosing Est GFR ( Amer) Est GFR (Non-Af Amer) BUN/Creatinine Ratio Glucose POC Glucose 100 H Lactate Calcium Phosphorus Magnesium Total Bilirubin Direct Bilirubin AST ALT Alkaline Phosphatase Total Protein Albumin SARS-CoV-2 (PCR) Medications Administered Current Inpatient Medications Acetaminophen (Acetaminophen 325 Mg Tab) 650 mg PO Q4H PRN PRN Reason: Pain or Fever Stop: 08/12/21 18:28 Artificial Tears (Artificial Tears) 1 drops OP BID HAIM Stop: 08/12/21 20:59 Last Admin: 07/25/21 10:56 Dose: 1 drops Documented by: Aspirin (Aspirin 81 Mg Ectab) 81 mg PO DAILY HAIM Stop: 08/21/21 08:59 Last Admin: 07/25/21 10:56 Dose: 81 mg Documented by: Clopidogrel Bisulfate (Clopidogrel Bisulfate 75 Mg Tab) 75 mg PO QAM HAIM Stop: 08/21/21 08:59 Last Admin: 07/25/21 10:56 Dose: 75 mg Documented by: Dextrose (Dextrose 50% 50 Ml Syringe) 25 - 50 ml IV UD PRN; Protocol PRN Reason: Hypoglycemia Protocol Stop: 08/12/21 18:28 Docusate Sodium (Docusate Sodium 100 Mg Cap) 100 mg PO BID HAIM Stop: 08/17/21 12:44 Last Admin: 07/25/21 10:56 Dose: 100 mg Documented by: Dorzolamide/Timolol (Dorzolamide/Timolol 22.3/6.8mg/Ml 10 Ml Btl) 1 drops OPB BID HAIM Stop: 08/12/21 20:59 Last Admin: 07/25/21 10:56 Dose: 1 drops Documented by: Furosemide (Furosemide 40 Mg/4 Ml Vial) 80 mg IV BID HAIM Stop: 08/20/21 20:59 Last Admin: 07/25/21 10:56 Dose: 80 mg Documented by: Glucagon (Glucagon For Inj 1 Mg Vial) 1 mg SQ UD PRN; Protocol PRN Reason: Hypoglycemia Protocol Stop: 08/12/21 18:28 Glucose (Glucose 10 Tabs/Tube) 4 - 8 tabs PO UD PRN; Protocol PRN Reason: Hypoglycemia Protocol Stop: 08/12/21 18:28 Glucose (Glucose 40% Gel 15 Gm Tube) 15 - 30 gm PO UD PRN; Protocol PRN Reason: Hypoglycemia Protocol Stop: 08/12/21 18:28 Guaifenesin (Guaifenesin 600 Mg Tabcr) 600 mg PO Q12 [facility] Stop: 08/17/21 13:39 Last Admin: 07/25/21 10:57 Dose: 600 mg Documented by: Heparin Sodium (Porcine) (Heparin Sod 5,000 Unit/0.5 Ml Vial) 5,000 units SQ Q12 [facility] Stop: 08/12/21 20:59 Last Admin: 07/25/21 10:57 Dose: 5,000 units Documented by: Dobutamine HCl/Dextrose (Dobutamine / D5w) 500 mg in 250 mls @ 14.61 mls/hr IV .Q17H7M [facility]; Protocol Stop: 08/20/21 20:59 Last Admin: 07/25/21 08:03 Dose: 5 mcg/kg/min, 14.6 mls/hr Documented by: Norepinephrine Bitartrate (Levophed/D5w) 8 mg in 508 mls @ 11.133 mls/hr IV .Q24H [facility]; Protocol Stop: 08/21/21 12:14 Last Admin: 07/25/21 11:13 Dose: 0.03 mcg/kg/min, 11.1 mls/hr Documented by: Cefepime HCl 1,000 mg/ Syringe 11.3 mls @ 5.5 mls/min IV Q12H [facility] Stop: 07/25/21 20:59 Last Admin: 07/25/21 10:56 Dose: 5.5 mls/min Documented by: Insulin Aspart (Insulin Aspart 100 Units/Ml 3 Ml Pen) 0 units SC ACHS [facility] Stop: 08/24/21 07:29 Last Admin: 07/25/21 08:23 Dose: Not Given Documented by: Insulin Glargine (Insulin Glargine Solostar 100 Units/Ml 3 Ml Pen) 40 units SC QAM HAIM Stop: 08/24/21 08:59 Last Admin: 07/25/21 10:57 Dose: Not Given Documented by: Miscellaneous (Carbohydrates For Hypoglycemia ) 15 - 30 gm PO UD PRN PRN Reason: Hypoglycemia Protocol Stop: 08/12/21 18:28 Miscellaneous Information (Pharmacy Glycemic Mgmt Consult) 1 ea N/A UD PRN PRN Reason: Consult Stop: 08/19/21 07:21 Polyethylene Glycol (Polyethylene (Miralax) 17 Gm Pack) 17 gm PO DAILY HAIM Stop: 08/17/21 12:44 Last Admin: 07/25/21 10:57 Dose: Not Given Documented by: Spironolactone (Spironolactone 12.5 Mg Tab) 12.5 mg PO DAILY HAIM Stop: 08/14/21 11:59 Last Admin: 07/23/21 08:29 Dose: 12.5 mg Documented by:
--- NOTE | 2021-07-25 13:06 | Nephrology Progress Note ---
Date of Service July 25, 2021 Assessment & Plan (1) Acute kidney failure: (2) STEMI (ST elevation myocardial infarction): (3) Acute systolic heart failure: (4) Aortic stenosis: Plan: 81-year-old male admitted with SOB, ? pneumonia and volume overload initially treated with antibiotic and IV diuretics without improvement in volume status or respiratory status. 2D echo showed EF 20-[address] T changes in EKG and eventually had cardiac catheterization done on 07/21/2021 and noted to have triple-vessel disease status post LAD stent. Baseline creatinine 1.0-1.2, kidney function slowly worsen over last few days with creatinine up to 2.6 in the setting of acute coronary event, low EF and diuretic resistant volume overload, Pulmonary hypertension as well as severe aortic stenosis. No significant improvement in renal function, BP remained low on pressor and Dobutamine. -- family decided to arranged to take Mr. samson is on home with hospice care as prognosis remains guarded. Will sign off. Admission and Anticipated Discharge Date Admission Date: July 13, 2021 Subjective Mr. Arriaga when seen this morning, overall has been doing poorly. Minimally responsive, however responds to name and tries to open eyes. Denied any specific symptoms. Review of Systems Review of Systems: Detailed review of system was not possible due to poor responsiveness. Physical Exam Constitutional: WD/WN, vitals as above + ill appearing; no acute distress Respiratory: no respiratory distress and no cough Auscultation: + diminished lung sounds Cardiovascular: Rate/Rhythm: regular rate, regular rhythm and + tachycardic Heart Sounds: normal S1 and normal S2 Extremities: no edema Neurologic: minimally responsive Results & Data ([facility]) Vital Signs (Past 12 Hours) Vital Signs Temp Pulse Resp BP Pulse Ox 07/25/21 12:00 105 H 32 H 101/59 L 95 07/25/21 11:00 104 H 27 H 105/60 93 07/25/21 10:00 102 H 29 H 96 07/25/21 09:00 103 H 31 H 103/58 L 96 07/25/21 08:00 37.2 C 100 H 28 H 93/48 L 97 07/25/21 07:00 102 H 29 H 96 07/25/21 06:00 96 H 27 H 105/55 L 93 07/25/21 05:00 102 H 22 99/55 L 96 07/25/21 04:00 102 H 26 H 98/60 L 95 07/25/21 03:00 100 H 27 H 102/53 L 93 07/25/21 02:00 102 H 25 H 92/56 L 93 PG Care Time/CCT Total # of Minutes Spent Total Time Spent with Patient: Total time spent is greater than 50% in coordination of care (as documented) at patient's floor/unit and/or counseling patient: Coding Level of Care Code 55337 Subseq Hosp Care Lvl 2 Diagnoses Acute kidney failure N17.9 STEMI (ST elevation myocardial infarction) I21.3 Acute systolic heart failure I50.21 Aortic stenosis I35.0
--- NOTE | 2021-07-25 13:27 | Critical Care Progress Note ---
Date of Service July 25, 2021 Assessment & Plan (1) STEMI (ST elevation myocardial infarction): (2) S/P drug eluting coronary stent placement: (3) Acute kidney failure: (4) Aortic stenosis: (5) Acute respiratory failure with hypoxia: (6) Fluid overload: (7) Insulin dependent diabetes mellitus: (8) Acute exacerbation of CHF (congestive heart failure): Plan: Reason Critically Ill: 81-year-old male with acute anterior ST JOSE status post PTCI with LINDA x2 to the LAD. Also noted to have lesions of the mid circumflex and RCA. Unfortunately, patient with elevated RIGHT and LEFT filling pressures in the setting of ongoing CHF for which the patient has been treated during admission. Patient requiring close hemodynamic monitoring with the addition of inotropes and loop diuretics. Recommendations: NEURO -mild encephalopathy related to metabolic derangements and hypertension CARDIAC/VASCULAR - Acute anterior STEMI s/p PTCI w/ LINDA x2 to the LAD on 07/21/21. Patient with triple-vessel disease and decreased ejection fraction but it is not felt to be a surgical candidate. EF 20 to 25%. Remains on low- dose of Levophed and dobutamine to support cardiac output. Prognosis overall poor. Family considering hospice which I think is appropriate. RESPIRATORY -hypoxemic respiratory failure secondary to pulmonary edema and possible pna. Continue CPAP/BiPAP and oxygen as tolerated. GI/NUTRITION -tolerating diet RENAL/LYTES - Acute renal failure: Likely due to poor renal perfusion from heart failure. Creatinine improving. - Kruger in place - Strict I&Os. ENDO - glycemic control per protocol HEME - mild anemia. No indication for transfusion currently. Continue to follow. Platelets stable. ID -continue empiric cefepime as shock state improved on antibiotics. No clear signs of source for infection. Procalcitonin was mildly elevated on the 28 possibly related to ADRI. Poor prognosis. Agree with hospice as noted above. LINES/IV ACCESS - * PIVs x2 * Kruger DVT PROPHYLAXIS - * SCDs I have personally spent 30 minutes of critical care time in the direct management of this patient. This is a life/limb threatening event. This includes time spent evaluating patient, direct bedside care, chart review, placing orders, interpretation of diagnostic studies, discussion with consultants, patient, and family members, as well as other required patient management activities. This time is exclusive of all separately billable procedures, and teaching time and separate from and in addition to any other critical care service time. Admission and Anticipated Discharge Date Admission Date: July 13, 2021 Subjective Patient seen and examined. Continues to be lethargic. No significant events overnight. Weaning off Levophed. Remains on dobutamine. Review of Systems Review of Systems: All systems reviewed & are unremarkable except as noted in Subjective Physical Exam Constitutional: + ill appearing, + frail appearing and + lethargic Neck: trachea midline, no thyromegaly Respiratory: + labored breathing and + tachypneic Auscultation: + crackles Cardiovascular: Rate/Rhythm: + tachycardic Heart Sounds: normal S1, normal S2 and + murmur Extremities: + edema Gastrointestinal (Abdomen): normal bowel sounds, soft, nontender, no hepatosplenomegaly Musculoskeletal: Extremities: extremities normal to inspection Skin: Multiple ecchymoses and excoriations Neurologic: Patient somnolent. Lymphatic: no cervical lymphadenopathy Results & Data Results & Data ([facility]) Vital Signs (Past 12 Hours) Vital Signs Temp Pulse Resp BP Pulse Ox 07/25/21 12:00 105 H 32 H 101/59 L 95 07/25/21 11:00 104 H 27 H 105/60 93 07/25/21 10:00 102 H 29 H 96 07/25/21 09:00 103 H 31 H 103/58 L 96 07/25/21 08:00 37.2 C 100 H 28 H 93/48 L 97 07/25/21 07:00 102 H 29 H 96 07/25/21 06:00 96 H 27 H 105/55 L 93 07/25/21 05:00 102 H 22 99/55 L 96 07/25/21 04:00 102 H 26 H 98/60 L 95 07/25/21 03:00 100 H 27 H 102/53 L 93 07/25/21 02:00 102 H 25 H 92/56 L 93 Coding Level of Care Code Critical Care 1st 30-74 mins Diagnoses STEMI (ST elevation myocardial infarction) I21.3 S/P drug eluting coronary stent placement Z95.5 Acute kidney failure N17.9 Aortic stenosis I35.0 Acute respiratory failure with hypoxia J96.01 Fluid overload E87.70 Insulin dependent diabetes mellitus Acute exacerbation of CHF (congestive heart failure) I50.9 Heart failure type: unspecified Time Spent (min) 30 (1) Acute exacerbation of CHF (congestive heart failure) Heart failure type: unspecified Qualified Code(s): I50.9 - Heart failure, unspecified
--- NOTE | 2021-07-25 14:21 | Hospitalist Progress Note ---
Date of Service July 25, 2021 Assessment & Plan (1) Acute systolic heart failure: (2) Acute metabolic encephalopathy: (3) Acute respiratory failure with hypoxia: (4) Aortic stenosis: (5) ST elevation myocardial infarction (STEMI) of anterior wall: (6) S/P drug eluting coronary stent placement: (7) Acute kidney failure: (8) DMII (diabetes mellitus, type 2): (9) DVT prophylaxis: Plan: 81-year-old critically ill patient presented initially with acute heart failure with subsequent ST JOSE status post PCI with drug-eluting stent x2 to the LAD. Also with noted lesions of the mid circumflex and RCA. He continues to require inotrope support with dobutamine and loop diuretics. He continues to remain hypoxic and have a need for pressors. Although patient has noted triple-vessel disease he is not a surgical candidate at this time. Ejection fraction is poor with an EF of 20 to 25%. Prognosis is poor and family is considering hospice. Palliative is involved. Consideration is being given to transporting patient home on dobutamine for hospice if Levophed can be weaned off. He has seen an improvement in his oxygen needs with OxiMax support at 10 L/min earlier in the day transitioning to 4 L/min closer to the end of the day. He is somewhat tole rating a diet although mental status is mostly lethargic and he seems to fade in and out. He continues on empiric cefepime with no clear source of infection. There was consideration given for a possible community-acquired pneumonia on admission and he was started on Rocephin and azithromycin. He completed a short course of this and was transitioned to Augmentin and then given cefepime, which he is on today. He remains in a critical state in the ICU. is at bedside and has been updated on his care plan. Alice Lynch DO [facility] Hospitalist Admission and Anticipated Discharge Date Admission Date: July 13, 2021 Subjective 81 yo M presented with acute decompensated heart failure with EF 25% 2/2 severe . He was not responding to medical therapy overall and with a poor prognosis but remained a full code. On 07/21 he was noted to be more lethargic with a HR in 30s. A stat EKG revealed an anterior STEMI and CXR revealed worsened volume overload. He was taken to the [facility] and received PCI to LAD (two LINDA). He was transferred to the ICU where he remains for ongoing pressor therapy and hemodynamic support. He still appears to have some encephalopathy vs he is lethargic after eating his dinner per . Either way he is not able to wake up easily and answer questions. Review of Systems Review of Systems: lethargic and not able to answer questions. Physical Exam Physical Exam: CONSTITUTIONAL: WNWD, vitals as above, ill-appearing, elderly, NAD, lethargic. EYES: normal conjunctivae, no scleral icterus ENT: external ear and nose normal, MMM NECK: trachea midline RESPIRATORY: clear to auscultation bilaterally, no crackles, rales or wheezes, normal respiratory effort CARDIOVASCULAR: regular rate and rhythm, S1 and 2 heard without murmurs, gallops or rubs, no JVD, no peripheral edema CHEST: inspection of chest was normal GASTROINTESTINAL: soft, nontender, no guarding MUSCULOSKELETAL: generalized weakness, unable to physically test strength 2/2 lethargy and encephalopathy. SKIN: warm and dry NEUROLOGIC: CN 2-12 grossly intact, lethargic, hypophonic, weakness, limited exam 2/2 lethargy and encephalopathy. PSYCHIATRIC: alert but uncooperative with questioning 2/2 lethargy. Results & Data Results & Data ([facility]) Vital Signs (Past 12 Hours) Vital Signs Temp Pulse Resp BP Pulse Ox 07/25/21 12:00 105 H 32 H 101/59 L 95 07/25/21 11:00 104 H 27 H 105/60 93 07/25/21 10:00 102 H 29 H 96 07/25/21 09:00 103 H 31 H 103/58 L 96 07/25/21 08:00 37.2 C 100 H 28 H 93/48 L 97 07/25/21 07:00 102 H 29 H 96 07/25/21 06:00 96 H 27 H 105/55 L 93 07/25/21 05:00 102 H 22 99/55 L 96 07/25/21 04:00 102 H 26 H 98/60 L 95 07/25/21 03:00 100 H 27 H 102/53 L 93 Laboratory Results Short CBC 07/25/21 Range/Units 05:24 WBC 11.66 H (4.8-10.8) K/uL Hgb 11.7 L (14.0-18.0) g/dL Hct 35.9 L (42-52) % Plt Count 197 (130-400) K/uL BMP 07/25/21 05:24 Sodium 132 L Potassium 4.4 Chloride 100 Carbon Dioxide 30 BUN 89 H Creatinine 2.11 H Glucose 101 H Calcium 8.6 Liver Function 07/25/21 Range/Units 05:24 Total Bilirubin 0.6 (0.2-1) mg/dl Direct Bilirubin 0.2 (0-0.2) mg/dl AST 32 (15-37) U/L ALT 24 (12-78) U/L Alkaline Phosphatase 108 (45-117) U/L Albumin 1.6 L (3.4-5.0) gm/dl Diagnostic Findings Chest X-Ray 07/25/21 07:00 XR chest 1V portable HISTORY: Shortness of breath. Follow-up pulmonary edema. COMPARISON: Chest 07/24/2021. FINDINGS: No pneumothorax. The heart remains mildly enlarged. There are small to moderate bilateral pleural effusions and bibasilar densities, unchanged. Mild central pulmonary vascular congestion without overt edema. This is also unchanged. IMPRESSION: No change in the mild central pulmonary vascular congestion and small moderate bilateral pleural effusions. ACT 112: Negative or not required by law. Electronically signed by: Colin Vega M.D. 07/25/2021 9:41 AM Medications Administered Current Inpatient Medications Acetaminophen (Acetaminophen 325 Mg Tab) 650 mg PO Q4H PRN PRN Reason: Pain or Fever Stop: 08/12/21 18:28 Artificial Tears (Artificial Tears) 1 drops OP BID [facility] Stop: 08/12/21 20:59 Last Admin: 07/25/21 10:56 Dose: 1 drops Documented by: Aspirin (Aspirin 81 Mg Ectab) 81 mg PO DAILY [facility] Stop: 08/21/21 08:59 Last Admin: 07/25/21 10:56 Dose: 81 mg Documented by: Clopidogrel Bisulfate (Clopidogrel Bisulfate 75 Mg Tab) 75 mg PO QAM [facility] Stop: 08/21/21 08:59 Last Admin: 07/25/21 10:56 Dose: 75 mg Documented by: Dextrose (Dextrose 50% 50 Ml Syringe) 25 - 50 ml IV UD PRN; Protocol PRN Reason: Hypoglycemia Protocol Stop: 08/12/21 18:28 Docusate Sodium (Docusate Sodium 100 Mg Cap) 100 mg PO BID [facility] Stop: 08/17/21 12:44 Last Admin: 07/25/21 10:56 Dose: 100 mg Documented by: Dorzolamide/Timolol (Dorzolamide/Timolol 22.3/6.8mg/Ml 10 Ml Btl) 1 drops OPB BID [facility] Stop: 08/12/21 20:59 Last Admin: 07/25/21 10:56 Dose: 1 drops Documented by: Furosemide (Furosemide 40 Mg/4 Ml Vial) 80 mg IV BID [facility] Stop: 08/20/21 20:59 Last Admin: 07/25/21 10:56 Dose: 80 mg Documented by: Glucagon (Glucagon For Inj 1 Mg Vial) 1 mg SQ UD PRN; Protocol PRN Reason: Hypoglycemia Protocol Stop: 08/12/21 18:28 Glucose (Glucose 10 Tabs/Tube) 4 - 8 tabs PO UD PRN; Protocol PRN Reason: Hypoglycemia Protocol Stop: 08/12/21 18:28 Glucose (Glucose 40% Gel 15 Gm Tube) 15 - 30 gm PO UD PRN; Protocol PRN Reason: Hypoglycemia Protocol Stop: 08/12/21 18:28 Guaifenesin (Guaifenesin 600 Mg Tabcr) 600 mg PO Q12 [facility] Stop: 08/17/21 13:39 Last Admin: 07/25/21 10:57 Dose: 600 mg Documented by: Heparin Sodium (Porcine) (Heparin Sod 5,000 Unit/0.5 Ml Vial) 5,000 units SQ Q12 [facility] Stop: 08/12/21 20:59 Last Admin: 07/25/21 10:57 Dose: 5,000 units Documented by: Dobutamine HCl/Dextrose (Dobutamine / D5w) 500 mg in 250 mls @ 14.61 mls/hr IV .Q17H7M [facility]; Protocol Stop: 08/20/21 20:59 Last Admin: 07/25/21 08:03 Dose: 5 mcg/kg/min, 14.6 mls/hr Documented by: Norepinephrine Bitartrate (Levophed/D5w) 8 mg in 508 mls @ 7.422 mls/hr IV .Q24H [facility]; Protocol Stop: 08/21/21 12:14 Last Titration: 07/25/21 11:54 Dose: 0.02 mcg/kg/min, 7.4 mls/hr Documented by: Cefepime HCl 1,000 mg/ Syringe 11.3 mls @ 5.5 mls/min IV Q12H [facility] Stop: 07/25/21 20:59 Last Admin: 07/25/21 10:56 Dose: 5.5 mls/min Documented by: Insulin Aspart (Insulin Aspart 100 Units/Ml 3 Ml Pen) 0 units SC ACHS [facility] Stop: 08/24/21 07:29 Last Admin: 07/25/21 12:28 Dose: Not Given Documented by: Insulin Glargine (Insulin Glargine Solostar 100 Units/Ml 3 Ml Pen) 40 units SC QAM [facility] Stop: 08/24/21 08:59 Last Admin: 07/25/21 10:57 Dose: Not Given Documented by: Miscellaneous (Carbohydrates For Hypoglycemia ) 15 - 30 gm PO UD PRN PRN Reason: Hypoglycemia Protocol Stop: 08/12/21 18:28 Miscellaneous Information (Pharmacy Glycemic Mgmt Consult) 1 ea N/A UD PRN PRN Reason: Consult Stop: 08/19/21 07:21 Polyethylene Glycol (Polyethylene (Miralax) 17 Gm Pack) 17 gm PO DAILY [facility] Stop: 08/17/21 12:44 Last Admin: 07/25/21 10:57 Dose: Not Given Documented by: Spironolactone (Spironolactone 12.5 Mg Tab) 12.5 mg PO DAILY [facility] Stop: 08/14/21 11:59 Last Admin: 07/23/21 08:29 Dose: 12.5 mg Documented by:
--- NOTE | 2021-07-25 14:56 | Pharmacy Report ---
Pharmacy Glycemic Short Note 2 - Date of Service July 25, 2021 - Glycemic Short BSG Results (Last 24 hours): 07/24/21 07/24/21 07/24/21 14:48 16:31 17:47 Glucose POC Glucose 139 H 111 H 185 H 07/24/21 07/24/21 07/24/21 18:45 19:51 20:54 Glucose POC Glucose 204 H 183 H 154 H 07/24/21 07/24/21 07/25/21 22:00 23:03 00:07 Glucose POC Glucose 133 H 104 H 98 07/25/21 07/25/21 07/25/21 01:14 05:24 06:07 Glucose 101 H POC Glucose 105 H 100 H 07/25/21 11:52 Glucose POC Glucose 140 H OUTPATIENT ANTIDIABETIC REGIMEN: * Levemir 80 units SC HS * Novolog 8 units SC with breakfast, 12 units SC with lunch and dinner * Patient reports taking Novolog as sliding scale only recently * HbA1c: 7.2% (07/14/21) ASSESSMENT: 07/25: * BSGs well controlled yesterday and insulin infusion turned off overnight. BSGs have remained well controlled today on a reduced dose a lantus. * Patient is ordered a diet, but PO intake remains very poor. Patient remains on dobutamine and norepinephrine. 07/24 * BSGs continued to climb yesterday despite escalating SQ insulin doses. IV insulin drip initiated and BSGs are much better controlled * IV insulin drip infusing at relatively steady rate of 3.7 units / hr * Diet is poor * Still receiving Norepi and Dobutamine infusions * Urine outpt < 0.5mL/kg/hr, SCr mild increase / unchanged vs yesterday, lactate slightly lower than yesterday. * Will give additional basal insulin at this time, however pt is not yet ready to transition to SQ basal bolus regimen given uncertain SQ absorption, poor PO intake and substantial IV insulin requirement. 07/23 * Glycemic control worsening this AM, likely due to decreased basal dose given yesterday as well as worsening perfusion (lactate climbing, pt remains dependent of both dobutamine + norepinephrine). I do question how much SQ is being absorbed * Will up titrate basal insulin dose today, with cautious increase due to poor PO intake * Novolog CF will be kept at "severe" stress level and correction will be provided ACHS and 00 + 04 tonight to allow for additional coverage. Carb ratio set a "moderate" stress level and okay to continue for now given other changes to insulin regimen * May need to consider IV insulin infusion as SQ absorption questionable. Will follow BSGs, but persistent elevation > 220 would warrant consideration of drip 07/22 * Patient's BSGs yesterday were [phone] mg/dL. Fasting today is 122 mg/dL. * Patient received 69 units of insulin yesterday with 50 units of basal and 19 units of bolus. * Reduce basal by 60% to 20 units. Patient somnolent and has kidney dysfunction. Do not want rebound hyperglycemia with recent stent placement. * Loosen Novolog to weight-based stress of 1. PLAN FOR INPATIENT GLYCEMIC CONTROL: * Continue IV insulin infusion, goal range 120-180, adjust per rate adjustment calculator * Basal insulin * Lantus 40 units SQ Q AM * Correctional Insulin: Novolog Correction per scale ACHS Goal Range: Low 110 mg/dL - High 140 mg/dL Correction Factor: 15 mg/dL/unit * Prandial insulin: Per carb ratio of 1 unit per 8 grams CHO consumed PLAN FOR DISCHARGE: * HbA1c of 7.2% suggests good outpatient glycemic control * Reasonable to continue outpatient regimen at discharge
--- NOTE | 2021-07-25 17:07 | Critical Care Progress Note ---
Date of Service July 25, 2021 Assessment & Plan (1) STEMI (ST elevation myocardial infarction): (2) S/P drug eluting coronary stent placement: (3) Acute kidney failure: (4) Aortic stenosis: (5) Acute respiratory failure with hypoxia: (6) Fluid overload: (7) Insulin dependent diabetes mellitus: (8) Acute exacerbation of CHF (congestive heart failure): Plan: Reason Critically Ill: 81-year-old male with acute anterior ST JOSE status post PTCI with LINDA x2 to the LAD. Also noted to have lesions of the mid circumflex and RCA. Unfortunately, patient with elevated RIGHT and LEFT filling pressures in the setting of ongoing CHF for which the patient has been treated during admission. Patient requiring close hemodynamic monitoring with the addition of inotropes and loop diuretics. Patient continues with hypoxia and need for pressors. Recommendations: NEURO -mild encephalopathy related to metabolic derangements and hypertension. Seems somewhat improved today but still extremely tired and somewhat lethargic. CARDIAC/VASCULAR - Acute anterior STEMI s/p PTCI w/ LINDA x2 to the LAD on 07/21/21. Patient with triple-vessel disease and decreased ejection fraction but it is not felt to be a surgical candidate. EF 20 to 25%. Remains on low- dose of Levophed and dobutamine to support cardiac output. Prognosis overall poor. Family considering hospice. If Levophed can be weaned off, patient be transported home on dobutamine for hospice. Dobutamine would then be discontinued and palliative measures will be continued. RESPIRATORY -hypoxemic respiratory failure secondary to pulmonary edema and possible pna. Continue CPAP/BiPAP and oxygen as tolerated. Patient has been stable with Oxymask at 10 L/min. Continue to attempt to wean. GI/NUTRITION -tolerating diet RENAL/LYTES - Acute renal failure: Likely due to poor renal perfusion from heart failure. Creatinine slowly trending downward. - Kruger in place - Strict I&Os. Continue Kruger on discharge. ENDO - glycemic control per protocol HEME - mild anemia. No indication for transfusion currently. Continue to follow. Platelets stable. ID -continue empiric cefepime as shock state improved on antibiotics. No clear signs of source for infection. Procalcitonin was mildly elevated at 0.64 on the 07/22/2021, related to ADRI. Poor prognosis. Agree with hospice as noted above. LINES/IV ACCESS - * PIVs x2 inserted by ultrasound. We will plan on discharging patient home with these for continued hospice care. * Kruger catheter to gravity. Continue on discharge DVT PROPHYLAXIS - * SCDs Patient continues to require critical care services as he is still on norepinephrine and dobutamine. Continue to wean as tolerated pending discharge home on hospice. Covid testing 07/24/2021 negative. I have personally spent 35 minutes of critical care time in the direct management of this patient. This is a life/limb threatening event. This includes time spent evaluating patient, direct bedside care, chart review, placing orders, interpretation of diagnostic studies, discussion with consultants, patient, and family members, as well as other required patient management activities. This time is exclusive of all separately billable procedures, and teaching time and separate from and in addition to any other critical care service time. Admission and Anticipated Discharge Date Admission Date: July 13, 2021 Subjective Attending: Dr. Avila Patient seen and examined in the intensive care unit room 110. He follows commands. He appears to be alert and oriented. He denies any pain. He does have some shortness of breath with minimal exertion. He has no lower extremity pain. He states that edema is better. He has no abdominal pain. He is extremely tired. Continues on low doses of norepinephrine and dopamine. These continue to be weaned as tolerated. Oxygenation decreased from 10 L/min via Oxymask to 8 L/min via Oxymask. Review of Systems Review of Systems: All systems reviewed & are unremarkable except as noted in Subjective Physical Exam Physical Exam: GENERAL : No acute distress. Somewhat lethargic. Appears ill. EYES: No icterus, gaze conjugate. Tracks well. NOSE: No evidence of epistaxis. Oxymask in place. MOUTH: No lesions or candidiasis. Oxymask in place. Mucosa dry. NECK: Supple LUNGS: Decreased breath sounds. Continues to be tachypneic in the low 30s. HEART: Regular, rate in the low 100s. ABDOMEN: Soft, NT, ND, BS Present EXTREMITIES: Bilateral LE edema, pedal pulses intact NEURO: Awake and alert but somnolent. Results & Data Results & Data ([facility]) Vital Signs (Past 12 Hours) Vital Signs Temp Pulse Resp BP Pulse Ox 07/25/21 12:00 105 H 32 H 101/59 L 95 07/25/21 11:00 104 H 27 H 105/60 93 07/25/21 10:00 102 H 29 H 96 07/25/21 09:00 103 H 31 H 103/58 L 96 07/25/21 08:00 37.2 C 100 H 28 H 93/48 L 97 07/25/21 07:00 102 H 29 H 96 07/25/21 06:00 96 H 27 H 105/55 L 93 07/25/21 05:00 102 H 22 99/55 L 96 Laboratory Results 07/25/21 05:24 07/25/21 05:24 COVID-19 Results 07/13/21 07/24/21 12:44 20:15 SARS-CoV-2 (PCR) NEGATIVE NEGATIVE Diagnostic Findings Chest X-Ray 07/25/21 07:00 XR chest 1V portable HISTORY: Shortness of breath. Follow-up pulmonary edema. COMPARISON: Chest 07/24/2021. FINDINGS: No pneumothorax. The heart remains mildly enlarged. There are small to moderate bilateral pleural effusions and bibasilar densities, unchanged. Mild central pulmonary vascular congestion without overt edema. This is also unchanged. IMPRESSION: No change in the mild central pulmonary vascular congestion and small moderate bilateral pleural effusions. ACT 112: Negative or not required by law. Electronically signed by: Colin Vega M.D. 07/25/2021 9:41 AM Coding Level of Care Code Critical Care 1st 30-74 mins Diagnoses STEMI (ST elevation myocardial infarction) I21.3 S/P drug eluting coronary stent placement Z95.5 Acute kidney failure N17.9 Aortic stenosis I35.0 Acute respiratory failure with hypoxia J96.01 Fluid overload E87.70 Insulin dependent diabetes mellitus Acute exacerbation of CHF (congestive heart failure) I50.9 Heart failure type: unspecified Time Spent (min) 35 (1) Acute exacerbation of CHF (congestive heart failure) Heart failure type: unspecified Qualified Code(s): I50.9 - Heart failure, unspecified
[2021-07-26] MEDS: DOBUTamine / D5W 500 MG/250 ML BAG IV SCH ×2 (02:30→22:14)
[2021-07-26 06:41] LABS: Hematocrit (blood only) 34.6 % (42-52); Hemoglobin 11.3 g/dL (14.0-18.0); Mean Corpuscular Hemoglobin 30.6 pg (25-34); Mean Corpuscular Hgb Conc 32.7 g/dL (32-36); Mean Corpuscular Volume 93.8 fL (80-100); Mean Platelet Volume 11.8 fL (7.4-10.4); Platelet Count 197 K/uL (130-400); RDW Coefficient of Variation 13.8 % (11.5-14.5); RDW Standard Deviation 47.6 fL (36.4-46.3); Red Blood Count 3.69 M/uL (4.7-6.1); White Blood Count 9.56 K/uL (4.8-10.8)
[2021-07-26 06:58] LABS: BUN Creatinine Ratio 39.8 (10-20); Calcium 8.2 mg/dl (8.5-10.1); Est GFR (African American) 25.9 ml/min; Est GFR (Non-African American) 22.3 ml/min; Magnesium 2.5 mg/dl (1.8-2.4); Phosphorus 4.3 mg/dl (2.5-4.9); Potassium 4.9 mmol/L (3.5-5.1)
[2021-07-26] MEDS: NOREPINEPHRINE/D5W 8 MG/508 ML BAG IV SCH (07:14)
[2021-07-26 07:18] LABS: Basophils # (auto) 0.02 K/uL (0-0.2); Basophils % (auto) 0.2 %; Eosinophils # (auto) 0.18 K/uL (0-0.5); Eosinophils % (auto) 1.9 %; Immature Granulocytes # (auto) 0.03 K/uL (0.00-0.02); Immature Granulocytes % (auto) 0.3 %; Lymphocytes # (auto) 1.39 K/uL (1.2-3.4); Lymphocytes % (auto) 14.5 %; Monocytes # (auto) 0.28 K/uL (0.11-0.59); Monocytes % (auto) 2.9 %; Neutrophils # (auto) 7.66 K/uL (1.4-6.5); Neutrophils % (auto) 80.2 %
[2021-07-26] MEDS: CLOPIDOGREL BISULFATE 75 MG TAB PO SCH (09:00)
[2021-07-26] MEDS: HEPARIN SOD 5,000 UNIT/0.5 ML VIAL SQ SCH (09:00)
[2021-07-26] MEDS: ASPIRIN 81 MG ECTAB PO SCH (09:00)
[2021-07-26] MEDS: FUROSEMIDE 40 MG/4 ML VIAL IV SCH (09:00)
[2021-07-26] MEDS: guaiFENesin 600 MG TABCR PO SCH (09:01)
[2021-07-26] MEDS: INSULIN GLARGINE SOLOSTAR 100 UNITS/ML 3 ML PEN SC SCH (09:01)
[2021-07-26] MEDS: INSULIN ASPART 100 UNITS/ML 3 ML PEN SC SCH ×3 (09:02→16:37)
--- NOTE | 2021-07-26 09:35 | Critical Care Progress Note ---
Date of Service July 26, 2021 Assessment & Plan (1) STEMI (ST elevation myocardial infarction): (2) S/P drug eluting coronary stent placement: (3) Acute kidney failure: (4) Aortic stenosis: (5) Acute respiratory failure with hypoxia: (6) Fluid overload: (7) Insulin dependent diabetes mellitus: (8) Acute exacerbation of CHF (congestive heart failure): Plan: Reason Critically Ill: 81-year-old male with acute anterior ST JOSE status post PTCI with LINDA x2 to the LAD. Also noted to have lesions of the mid circumflex and RCA. Unfortunately, patient with elevated RIGHT and LEFT filling pressures in the setting of ongoing CHF for which the patient has been treated during admission. Patient requiring close hemodynamic monitoring with the addition of inotropes and loop diuretics. Patient continues with hypoxia and need for pressors. Recommendations: NEURO -Obtunded, but protecting airway CARDIAC/VASCULAR - Acute anterior STEMI s/p PTCI w/ LINDA x2 to the LAD on 07/21/21. Patient with triple-vessel disease and decreased ejection fraction but it is not felt to be a surgical candidate. EF 20 to 25%. Off levophed. Continue Prognosis overall poor. Family considering hospice. If Levophed can be weaned off, patient be transported home on dobutamine for hospice. Dobutamine would then be discontinued and palliative measures will be continued. RESPIRATORY -hypoxemic respiratory failure secondary to pulmonary edema and possible pna. Continue CPAP/BiPAP and oxygen as tolerated. Patient has been stable with Oxymask at 10 L/min. Continue to attempt to wean. GI/NUTRITION -tolerating diet RENAL/LYTES - Acute renal failure: Likely due to poor renal perfusion from heart failure. UOP dropping. - Kruger in place - Strict I&Os. Continue Kruger on discharge. ENDO - glycemic control per protocol HEME - mild anemia. No indication for transfusion currently. Continue to follow. Platelets stable. ID -continue empiric cefepime as shock state improved on antibiotics. No clear signs of source for infection. Procalcitonin was mildly elevated at 0.64 on the 07/22/2021, related to ADRI. Poor prognosis. Recommend transitioning to comfort measures and transfer to floor. LINES/IV ACCESS - * PIVs x2 inserted by ultrasound. * Kruger catheter to gravity. DVT PROPHYLAXIS - * SCDs I have personally spent 33 minutes of critical care time in the direct management of this patient. This is a life/limb threatening event. This includes time spent evaluating patient, direct bedside care, chart review, placing orders, interpretation of diagnostic studies, discussion with consultants, patient, and family members, as well as other required patient management activities. This time is exclusive of all separately billable procedures, and teaching time and separate from and in addition to any other critical care service time. Admission and Anticipated Discharge Date Admission Date: July 13, 2021 Subjective Patient essentially obtunded at this time. On low dose dobutamine. Appears air hungry. Review of Systems Review of Systems: Unobtainable due to cognitive status Physical Exam Physical Exam: GENERAL : Obtunded EYES: No icterus, gaze conjugate. NOSE: No evidence of epistaxis. Oxymask in place. MOUTH: No lesions or candidiasis. Oxymask in place. Mucosa dry. NECK: Supple LUNGS: Decreased breath sounds. Continues to be tachypneic in the low 30s. HEART: Regular, rate in the low 100s. ABDOMEN: Soft, NT, ND, BS Present EXTREMITIES: Bilateral LE edema, pedal pulses intact NEURO: Awake and alert but somnolent. Results & Data Results & Data ([facility]) Vital Signs (Past 12 Hours) Vital Signs Temp Pulse Resp BP Pulse Ox 07/26/21 08:00 37.1 C 07/26/21 06:00 96 H 20 90/54 L 94 07/26/21 05:00 97 H 25 H 87/50 L 94 07/26/21 04:02 88 24 95 07/26/21 04:00 36.8 C 99 H 27 H 97/58 L 96 07/26/21 03:00 97 H 24 95/54 L 91 07/26/21 02:00 95 H 26 H 97/62 L 92 07/26/21 01:00 96 H 27 H 92/51 L 91 07/26/21 00:00 95 H 19 89/51 L 92 07/25/21 23:47 95 H 27 H 91 07/25/21 23:00 94 H 29 H 85/50 L 95 07/25/21 22:00 93 H 22 84/48 L 97 Coding Level of Care Code Critical Care 1st 30-74 mins Diagnoses STEMI (ST elevation myocardial infarction) I21.3 S/P drug eluting coronary stent placement Z95.5 Acute kidney failure N17.9 Aortic stenosis I35.0 Acute respiratory failure with hypoxia J96.01 Fluid overload E87.70 Insulin dependent diabetes mellitus Acute exacerbation of CHF (congestive heart failure) I50.9 Heart failure type: unspecified Time Spent (min) 33 (1) Acute exacerbation of CHF (congestive heart failure) Heart failure type: unspecified Qualified Code(s): I50.9 - Heart failure, unspecified
[2021-07-26] MEDS: ARTIFICIAL TEARS OP SCH ×2 (09:48→20:54)
[2021-07-26] MEDS: DORZOLAMIDE/TIMOLOL 22.3/6.8MG/ML 10 ML BTL OPB SCH (09:48)
[2021-07-26] MEDS: DOCUSATE SODIUM 100 MG CAP PO SCH (09:48)
[2021-07-26] MEDS: POLYETHYLENE (MIRALAX) 17 GM PACK PO SCH (09:49)
--- NOTE | 2021-07-26 13:57 | Cardiology Progress Note ---
Date of Service July 26, 2021 Assessment & Plan (1) Acute systolic heart failure: (2) Acute kidney failure: (3) S/P drug eluting coronary stent placement: (4) STEMI (ST elevation myocardial infarction): Plan: The patient can only maintain blood pressure while on inotropic support. The family is gathering and will most likely withdraw care. Admission and Anticipated Discharge Date Admission Date: July 13, 2021 Subjective The patient is nonresponsive. Review of Systems Review of Systems: Review of Systems: See HPI for pertinent positives. All other 10 point review of systems are negative. Physical Exam Physical Exam: General: no acute distress Head: normocephalic, no masses, lesions, tenderness or abnormalities Eyes: conjunctiva are pink and non-injected, sclera clear Neck: supple, no adenopathy, no bruits, normal jugular venous pulse, no hepatojugular reflux Chest: normal shape and normal respiratory effort Lungs: clear to auscultation and percussion Cardiac Exam: - regular rate & rhythm, systolic murmur- normal S1, normal S2 Pulses: 2(+) throughout Abdomen: abdomen soft, non-tender, no abnormal masses and no hepatosplenomegaly Musculoskeletal: no gait disturbance, no joint inflammation, no deforming arthritis Extremities: no edema and no cyanosis Neuro: grossly normal exam Results & Data ([facility]) Vital Signs (Past 12 Hours) Vital Signs Temp Pulse Resp BP Pulse Ox 07/26/21 12:00 106 H 27 H 98/58 L 94 07/26/21 11:00 106 H 25 H 92 07/26/21 10:00 100 H 25 H 79/52 L 86 L 07/26/21 09:00 100 H 20 80/57 L 92 07/26/21 08:00 37.1 C 97 H 30 H 88/62 L 94 07/26/21 07:00 99 H 28 H 95 07/26/21 06:00 96 H 20 90/54 L 94 07/26/21 05:00 97 H 25 H 87/50 L 94 07/26/21 04:02 88 24 95 07/26/21 04:00 36.8 C 99 H 27 H 97/58 L 96 07/26/21 03:00 97 H 24 95/54 L 91 07/26/21 02:00 95 H 26 H 97/62 L 92 Laboratory Results Laboratory Results - last 24 hr 07/25/21 07/25/21 07/25/21 16:14 20:16 20:17 WBC RBC Hgb Hct MCV MCH MCHC RDW Std Deviation RDW Coeff of Emmanuel Plt Count MPV Immature Gran % (Auto) Neut % (Auto) Lymph % (Auto) Cross % (Auto) Eos % (Auto) Baso % (Auto) Neut # (Auto) Lymph # (Auto) Cross # (Auto) Eos # (Auto) Baso # (Auto) Immature Gran # (Auto) Sodium Potassium Chloride Carbon Dioxide Anion Gap BUN Creatinine Est Cr Clr Drug Dosing Est GFR ( Amer) Est GFR (Non-Af Amer) BUN/Creatinine Ratio Glucose POC Glucose 144 H 315 H* 303 H* Calcium Phosphorus Magnesium 07/26/21 07/26/21 07/26/21 05:53 05:53 08:15 WBC 9.56 RBC 3.69 L Hgb 11.3 L Hct 34.6 L MCV 93.8 MCH 30.6 MCHC 32.7 RDW Std Deviation 47.6 H RDW Coeff of Emmanuel 13.8 Plt Count 197 MPV 11.8 H Immature Gran % (Auto) 0.3 Neut % (Auto) 80.2 Lymph % (Auto) 14.5 Cross % (Auto) 2.9 Eos % (Auto) 1.9 Baso % (Auto) 0.2 Neut # (Auto) 7.66 H Lymph # (Auto) 1.39 Cross # (Auto) 0.28 Eos # (Auto) 0.18 Baso # (Auto) 0.02 Immature Gran # (Auto) 0.03 H Sodium 132 L Potassium 4.9 Chloride 101 Carbon Dioxide 22 Anion Gap 9.0 BUN 102 H Creatinine 2.55 H D Est Cr Clr Drug Dosing 27.0 Est GFR ( Amer) 25.9 Est GFR (Non-Af Amer) 22.3 BUN/Creatinine Ratio 39.8 H Glucose 243 H POC Glucose 286 H Calcium 8.2 L Phosphorus 4.3 Magnesium 2.5 H Medications Administered Current Inpatient Medications Acetaminophen (Acetaminophen 325 Mg Tab) 650 mg PO Q4H PRN PRN Reason: Pain or Fever Stop: 08/12/21 18:28 Artificial Tears (Artificial Tears) 1 drops OP BID HAIM Stop: 08/12/21 20:59 Last Admin: 07/26/21 09:48 Dose: 1 drops Documented by: Aspirin (Aspirin 81 Mg Ectab) 81 mg PO DAILY HAIM Stop: 08/21/21 08:59 Last Admin: 07/26/21 09:00 Dose: 81 mg Documented by: Clopidogrel Bisulfate (Clopidogrel Bisulfate 75 Mg Tab) 75 mg PO QAM HAIM Stop: 08/21/21 08:59 Last Admin: 07/26/21 09:00 Dose: 75 mg Documented by: Dextrose (Dextrose 50% 50 Ml Syringe) 25 - 50 ml IV UD PRN; Protocol PRN Reason: Hypoglycemia Protocol Stop: 08/12/21 18:28 Docusate Sodium (Docusate Sodium 100 Mg Cap) 100 mg PO BID HAIM Stop: 08/17/21 12:44 Last Admin: 07/26/21 09:48 Dose: Not Given Documented by: Dorzolamide/Timolol (Dorzolamide/Timolol 22.3/6.8mg/Ml 10 Ml Btl) 1 drops OPB BID HAIM Stop: 08/12/21 20:59 Last Admin: 07/26/21 09:48 Dose: 1 drops Documented by: Furosemide (Furosemide 40 Mg/4 Ml Vial) 80 mg IV BID HAIM Stop: 08/20/21 20:59 Last Admin: 07/26/21 09:00 Dose: 80 mg Documented by: Glucagon (Glucagon For Inj 1 Mg Vial) 1 mg SQ UD PRN; Protocol PRN Reason: Hypoglycemia Protocol Stop: 08/12/21 18:28 Glucose (Glucose 10 Tabs/Tube) 4 - 8 tabs PO UD PRN; Protocol PRN Reason: Hypoglycemia Protocol Stop: 08/12/21 18:28 Glucose (Glucose 40% Gel 15 Gm Tube) 15 - 30 gm PO UD PRN; Protocol PRN Reason: Hypoglycemia Protocol Stop: 08/12/21 18:28 Guaifenesin (Guaifenesin 600 Mg Tabcr) 600 mg PO Q12 HAIM Stop: 08/17/21 13:39 Last Admin: 07/26/21 09:01 Dose: 600 mg Documented by: Heparin Sodium (Porcine) (Heparin Sod 5,000 Unit/0.5 Ml Vial) 5,000 units SQ Q12 HAIM Stop: 08/12/21 20:59 Last Admin: 07/26/21 09:00 Dose: 5,000 units Documented by: Dobutamine HCl/Dextrose (Dobutamine / D5w) 500 mg in 250 mls @ 14.61 mls/hr IV .Q17H7M [facility] [place]; Protocol Stop: 08/20/21 20:59 Last Admin: 07/26/21 02:30 Dose: 5 mcg/kg/min, 14.6 mls/hr Documented by: Insulin Aspart (Insulin Aspart 100 Units/Ml 3 Ml Pen) 0 units SC ACHS [facility] Stop: 08/24/21 07:29 Last Admin: 07/26/21 12:53 Dose: Not Given Documented by: Insulin Glargine (Insulin Glargine Solostar 100 Units/Ml 3 Ml Pen) 40 units SC QAM [facility] [place] Stop: 08/24/21 08:59 Last Admin: 07/26/21 09:01 Dose: 40 units Documented by: Miscellaneous (Carbohydrates For Hypoglycemia ) 15 - 30 gm PO UD PRN PRN Reason: Hypoglycemia Protocol Stop: 08/12/21 18:28 Miscellaneous Information (Pharmacy Glycemic Mgmt Consult) 1 ea N/A UD PRN PRN Reason: Consult Stop: 08/19/21 07:21 Polyethylene Glycol (Polyethylene (Miralax) 17 Gm Pack) 17 gm PO DAILY HAIM Stop: 08/17/21 12:44 Last Admin: 07/26/21 09:49 Dose: Not Given Documented by: Spironolactone (Spironolactone 12.5 Mg Tab) 12.5 mg PO DAILY [facility] [place] Stop: 08/14/21 11:59 Last Admin: 07/23/21 08:29 Dose: 12.5 mg Documented by:
--- NOTE | 2021-07-26 14:03 | Pharmacy Report ---
Pharmacy Glycemic Short Note 2 - Date of Service July 26, 2021 - Glycemic Short BSG Results (Last 24 hours): 07/25/21 07/25/21 07/25/21 16:14 20:16 20:17 Glucose POC Glucose 144 H 315 H* 303 H* 07/26/21 07/26/21 05:53 08:15 Glucose 243 H POC Glucose 286 H OUTPATIENT ANTIDIABETIC REGIMEN: * Levemir 80 units SC HS * Novolog 8 units SC with breakfast, 12 units SC with lunch and dinner * Patient reports taking Novolog as sliding scale only recently * HbA1c: 7.2% (07/14/21) ASSESSMENT: 07/26: * The ordered Lantus dose was held yesterday AM. BSGs did climb steadily throughout the day peaking in low 300s by HS * Fasting BSG 286 this AM. Will resume the Lantus that had been previously ordered as well as the Novolog CF and CR that had been in use previously. * Norepi has been weaned off. However, dobutamine continues at 5mcg/kg/min * PO intake remains poor. UOP decreasing per RN report. 07/25: * BSGs well controlled yesterday and insulin infusion turned off overnight. BSGs have remained well controlled today on a reduced dose a lantus. * Patient is ordered a diet, but PO intake remains very poor. Patient remains on dobutamine and norepinephrine. 07/24 * BSGs continued to climb yesterday despite escalating SQ insulin doses. IV insulin drip initiated and BSGs are much better controlled * IV insulin drip infusing at relatively steady rate of 3.7 units / hr * Diet is poor * Still receiving Norepi and Dobutamine infusions * Urine outpt < 0.5mL/kg/hr, SCr mild increase / unchanged vs yesterday, lactate slightly lower than yesterday. * Will give additional basal insulin at this time, however pt is not yet ready to transition to SQ basal bolus regimen given uncertain SQ absorption, poor PO intake and substantial IV insulin requirement. 07/23 * Glycemic control worsening this AM, likely due to decreased basal dose given yesterday as well as worsening perfusion (lactate climbing, pt remains dependent of both dobutamine + norepinephrine). I do question how much SQ is being absorbed * Will up titrate basal insulin dose today, with cautious increase due to poor PO intake * Novolog CF will be kept at "severe" stress level and correction will be provided ACHS and 00 + 04 tonight to allow for additional coverage. Carb ratio set a "moderate" stress level and okay to continue for now given other changes to insulin regimen * May need to consider IV insulin infusion as SQ absorption questionable. Will follow BSGs, but persistent elevation > 220 would warrant consideration of drip 07/22 * Patient's BSGs yesterday were [phone] mg/dL. Fasting today is 122 mg/dL. * Patient received 69 units of insulin yesterday with 50 units of basal and 19 units of bolus. * Reduce basal by 60% to 20 units. Patient somnolent and has kidney dysfunction. Do not want rebound hyperglycemia with recent stent placement. * Loosen Novolog to weight-based stress of 1. PLAN FOR INPATIENT GLYCEMIC CONTROL: * Basal insulin * Lantus 40 units SQ Q AM * Correctional Insulin: Novolog Correction per scale ACHS Goal Range: Low 110 mg/dL - High 140 mg/dL Correction Factor: 15 mg/dL/unit * Prandial insulin: Per carb ratio of 1 unit per 8 grams CHO consumed PLAN FOR DISCHARGE: * HbA1c of 7.2% suggests good outpatient glycemic control * Reasonable to continue outpatient regimen at discharge
[2021-07-26] MEDS ORDERED: STAT IV Infusion **Titration per Protocol STA (14:23)
[2021-07-26] MEDS ORDERED: NOREPINEPHRINE/D5W 8 MG/508 ML BAG IV SCH (14:30)
[2021-07-26] MEDS: MoRPHine SULFATE 5 MG/0.25 ML UDP PO PRN ×2 (14:49→18:30)
[2021-07-26] MEDS ORDERED: MoRPHine SULFATE 2 MG/ML CARP IV PRN (18:14)
[2021-07-26] MEDS ORDERED: MoRPHine SULFATE 2 MG/ML CARP IV STA (18:14)
[2021-07-26] MEDS ORDERED: LORazepam 0.5 MG/1 ML VIAL IV PRN (18:15)
[2021-07-26] MEDS ORDERED: ONDANSETRON INJ 2 MG/ML 2 ML VIAL IV PRN (18:15)
[2021-07-26] MEDS ORDERED: GLYCOPYRROLATE 0.2 MG/ML VIAL IV PRN (18:15)
--- NOTE | 2021-07-26 18:23 | Hospitalist Progress Note ---
Date of Service July 26, 2021 Assessment & Plan (1) Acute systolic heart failure: (2) Acute metabolic encephalopathy: (3) Acute respiratory failure with hypoxia: (4) Aortic stenosis: (5) ST elevation myocardial infarction (STEMI) of anterior wall: (6) S/P drug eluting coronary stent placement: (7) Acute kidney failure: (8) DMII (diabetes mellitus, type 2): (9) DVT prophylaxis: Plan: 81-year-old critically ill patient presented initially with acute heart failure with subsequent ST JOSE status post PCI with drug-eluting stent x2 to the LAD. Also with noted lesions of the mid circumflex and RCA. He continues to require inotrope support with dobutamine and loop diuretics. He continues to remain hypoxic and have a need for pressors despite a short hiatus from pressor support overnight. Although patient has noted triple-vessel disease he is not a surgical candidate at this time. Ejection fraction is poor with an EF of 20 to 25%. Prognosis is poor and family is considering hospice. He has completed an antibiotic course for presumed pneumonia. Palliative is involved. He remains lethargic and has now developed worsened air hunger today. His urine output has decreased. is at bedside and was updated on his poor prognosis. She initi ally wanted to remain hopeful, however, deferred to the RN in the family. I spoke with her after another family discussion and transition to full DOT NET ARCHITECT was decided on to help improve the patient's comfort and better be able to treat his worsening air hunger. He was given morphine IV, Levophed was stopped and dobutamine will be continued for now. DOT NET ARCHITECT orders placed with transfer to the floor. Alice Lynch DO [facility] Hospitalist Admission and Anticipated Discharge Date Admission Date: July 13, 2021 Subjective 81 yo M presented with acute decompensated heart failure with EF 25% 2/2 severe . He was not responding to medical therapy overall and with a poor prognosis but remained a full code. On 07/21 he was noted to be more lethargic with a HR in 30s. A stat EKG revealed an anterior STEMI and CXR revealed worsened volume overload. He was taken to the rd lab technician and received PCI to LAD (two LINDA). He was transferred to the ICU where he remains for ongoing pressor therapy and hemodynamic support. Per nursing staff this morning he woke up and ate breakfast and was and more interactive. However, as the morning progressed he became more encephalopathic and lethargic similar to yesterday. He remains that way now. Per palliative care discussions which have been multiple with family members, there has been an ongoing discussion regarding how much care to provide with his guarded prognosis. Ultimately the family is deferring to the patient's [id number], Pretty, who is a nurse and employee of [employer]. I did speak with the patient's at bedside who initially stated she was hopeful for miracle, but understood that she did not want him to suffer. His grandson was also present at the bedside. After leaving the room I spoke with Julianne by phone who after speaking with other family members including the patient's spouse I decided for full comfort care measures. We decided to continue with the dobutamine infusion for now as was the initial plan for home hospice transfer and continue to monitor his progress. Review of Systems Review of Systems: Review of systems is unobtainable secondary to encephalopathy. Physical Exam Physical Exam: CONSTITUTIONAL: WNWD, vitals as above, ill-appearing, elderly, NAD, lethargic. EYES: normal conjunctivae, no scleral icterus ENT: external ear and nose normal, MMM NECK: trachea midline RESPIRATORY: clear to auscultation bilaterally, no crackles, rales or wheezes, increased respiratory effort and air hunger CARDIOVASCULAR: regular rate and rhythm, S1 and 2 heard without murmurs, gallops or rubs, no JVD, no peripheral edema CHEST: inspection of chest was normal GASTROINTESTINAL: soft, nontender, no guarding MUSCULOSKELETAL: generalized weakness, unable to physically test strength 2/2 lethargy and encephalopathy. SKIN: warm and dry NEUROLOGIC: CN 2-12 grossly intact, lethargic, hypophonic, weakness, limited exam 2/2 lethargy and encephalopathy. PSYCHIATRIC: uncooperative with questioning 2/2 lethargy. Results & Data Results & Data ([facility]) Vital Signs (Past 12 Hours) Vital Signs Temp Pulse Resp BP Pulse Ox 07/26/21 15:00 106 H 30 H 101/59 L 96 07/26/21 14:00 102 H 27 H 80/52 L 90 07/26/21 13:00 94 H 25 H 93/60 L 91 07/26/21 12:00 106 H 27 H 98/58 L 94 07/26/21 11:00 106 H 25 H 92 07/26/21 10:00 100 H 25 H 79/52 L 86 L 07/26/21 09:00 100 H 20 80/57 L 92 07/26/21 08:00 37.1 C 97 H 30 H 88/62 L 94 07/26/21 07:00 99 H 28 H 95 Laboratory Results Short CBC 07/26/21 Range/Units 05:53 WBC 9.56 (4.8-10.8) K/uL Hgb 11.3 L (14.0-18.0) g/dL Hct 34.6 L (42-52) % Plt Count 197 (130-400) K/uL BMP 07/26/21 05:53 Sodium 132 L Potassium 4.9 Chloride 101 Carbon Dioxide 22 BUN 102 H Creatinine 2.55 H D Glucose 243 H Calcium 8.2 L Medications Administered Current Inpatient Medications Artificial Tears (Artificial Tears) 1 drops OP BID [facility] Stop: 08/12/21 20:59 Last Admin: 07/26/21 09:48 Dose: 1 drops Documented by: Glycopyrrolate (Glycopyrrolate 0.2 Mg/Ml Vial) 0.2 mg IV Q4H PRN PRN Reason: Secretions or Pulm Congestion Stop: 08/25/21 18:14 Dobutamine HCl/Dextrose (Dobutamine / D5w) 500 mg in 250 mls @ 14.61 mls/hr IV .Q17H7M [facility]; Protocol Stop: 08/20/21 20:59 Last Admin: 07/26/21 02:30 Dose: 5 mcg/kg/min, 14.6 mls/hr Documented by: Lorazepam (Ativan) 0.5 mg in 1 mls @ 1 mls/min IV Q4H PRN PRN Reason: Anxiety/Agitation Stop: 08/25/21 18:14 Morphine Sulfate (Morphine Sulfate 5 Mg/0.25 Ml Udp) 5 mg PO Q4H PRN PRN Reason: Pain/Air hunger Stop: 08/09/21 13:57 Last Admin: 07/26/21 14:49 Dose: 5 mg Documented by: Morphine Sulfate (Morphine Sulfate 2 Mg/Ml Carp) 2 mg IV NOW STA Stop: 07/26/21 18:15 Morphine Sulfate (Morphine Sulfate 2 Mg/Ml Carp) 2 mg IV Q1H PRN PRN Reason: Pain/tachypnea/agitation Stop: 08/09/21 18:13 Ondansetron HCl (Ondansetron Inj 2 Mg/Ml 2 Ml Vial) 4 mg IV Q4H PRN PRN Reason: Nausea &/or Vomiting Stop: 08/25/21 18:14
--- NOTE | 2021-07-27 01:58 | Death Pronouncement Note ---
Date of Service July 27, 2021 Pronouncement Note Admission Date Admission Date: July 13, 2021 Date and Time of Date of : 07/27/21 Time of : 01:50 Contributing Factors (1) Acute systolic heart failure: (2) Acute metabolic encephalopathy: (3) Acute respiratory failure with hypoxia: (4) Aortic stenosis: (5) ST elevation myocardial infarction (STEMI) of anterior wall: (6) S/P drug eluting coronary stent placement: (7) Acute kidney failure: (8) DMII (diabetes mellitus, type 2): (9) DVT prophylaxis: Summary Additional details: Discharge summary and certificate to be completed by Dr. Lynch. Additional Data Confirmation of : no pulse, no respirations, no heart sounds and pupils fixed and dilated Attending physician: Alice Lynch,
--- NOTE | 2021-07-27 08:33 | Discharge Summary ---
Date of Service July 27, 2021 Admission HPI Per Admitting Provider Patient is 81-year-old male with PMH insulin-dependent DM II presented to ER with c/o SOB. Patient reports 3 weeks ago started with some mild SOB. SOB increased and called PCP and was given prescription for zithromax on 07/03/21. He reports he finished this without any improvement. Past several days with increased SOB with exertion. States has slight nonproductive cough. Denies fever/chills or ill contacts. States noticed increased BLE edema past several days and has decreased appetite. Feels abdomen looks larger. Has had decreased appetite past week or so. No other prior treatment. Has not received COVID-19 v accine. He is prescribed Levemir 80 units at bedtime, however patient reports has been using 20-30 units of Levemir in the morning. He is prescribed NovoLog 8 units at breakfast, 12 units at lunch and supper however patient reports has not been using that. Denies fever/chills, diaphoresis, N/V/D/C, LANDA, dizziness, syncope, vision changes, neck pain, CP, orthopnea, palpitations, sore throat, choking, otalgia, rhinorrhea, abdominal pain, extremity weakness, extremity edema, rashes, urinary symptoms. In ER patient afebrile, hypoxic at 89% on room air up to 95% on 2L via NC, other vitals stable. No leukocytosis, lactate WNL, troponin: 0.047, BNP: 6077, negative COVID-19 PCR. CXR: Pulmonary vascular congestion, pleural effusions, bibasilar consolidation In ER was given Lasix 40 mg IV Discharge Data Allergies Allergy/AdvReac Type Severity Reaction Status Date / Time [id number] Reductase Allergy Unknown LEG Verified 07/13/21 14:42 Inhibitor WEAKNESS [Zabmklq-Juf-Fwv Reductase Inhibitor] Consultations 07/13/21 14:29 ED Decision to Admit Stat 07/14/21 15:10 Consult Cardiology Routine 07/21/21 17:37 Consult Palliative Care Routine 07/21/21 21:17 Consult Community Dietitian Routine 07/22/21 08:19 Consult Nephrology Routine Procedures Performed Operation Date: 07/21/21 19:00 Actual Procedures p Cath, Right and Left Heart - Vahe Hassan MD s Drug Eluting Stent SGl Vessel - Vahe Hassan MD s Ultrasound Vascular Access - Vahe Hassan MD Ordered Studies 07/21/21 18:40 CL Cath Imgs for PACS use only Urgent Hospital Course (1) Acute systolic heart failure: (2) Acute metabolic encephalopathy: (3) Acute respiratory failure with hypoxia: (4) Aortic stenosis: (5) ST elevation myocardial infarction (STEMI) of anterior wall: (6) S/P drug eluting coronary stent placement: (7) Acute kidney failure: (8) DMII (diabetes mellitus, type 2): (9) DVT prophylaxis: 81-year-old critically ill patient presented initially with acute heart failure with subsequent ST JOSE status post PCI with drug-eluting stent x2 to the LAD. Also with noted lesions of the mid circumflex and RCA. He continues to require inotrope support with dobutamine and loop diuretics. He continues to remain hypoxic and have a need for pressors despite a short hiatus from pressor support overnight. Although patient has noted triple-vessel disease he is not a surgical candidate at this time. Ejection fraction is poor with an EF of 20 to 25%. Prognosis is poor and family is considering hospice. He has completed an antibiotic course for presumed pneumonia. Palliative is involved. He remains lethargic and has now developed worsened air hunger today. His urine output has decreased. is at bedside and was updated on his poor prognosis. She initially wanted to remain hopeful, however, deferred to the RN in the family. I spoke with her after another family discussion and transition to full BULLET ASSEMBLY PRESS SETTER OPERATOR was decided on to help improve the patient's comfort and better be able to treat his worsening air hunger. He was given morphine IV, Levophed was stopped and dobutamine will be continued for now. BULLET ASSEMBLY PRESS SETTER OPERATOR orders placed with transfer to the floor. Alice Lynch DO [facility] Hospitalist Discharge Plan Discharge Items Patient Disposition: Discharge Diagnosis: Acute hypoxic respiratory failure Acute systolic heart failure Pneumonia Addtl Attending Provider Instructions: Follow-up with your PCP within a week time. Follow-up with your cardiology in 1 to 2 weeks time. Get your blood work done [BMP] in a week time. You have been started on new cardiac medications, take medications as prescribed. He will need follow-up chest x-ray in 4 to 6 weeks to document resolution of pneumonia. You are prescribed Lasix, take 40 mg daily in the morning, take 40 mg as needed when you have increased leg swelling during the afternoon. Call 911 and go to the Emergency Room if: * You have tightness or pain in your chest that does not go away with rest or Nitroglycerin * You are very short of breath even with rest Call your doctor if any of the following symptoms or problems start or get worse: * Shortness of breath or difficulty breathing * Wake up at night short of breath * Chest pain * Cough * Swelling of your hands, fee, or legs * More fatigued or tired with your normal activity * Palpitations - sudden fast heart beats WEIGHT * Weigh yourself every morning after using the bathroom. * Use the same scale. * Wear the same amount of clothing. * Write your weight down on your chart. * Call your doctor if you gain more than 2-3 pounds in 1-2 days. MEDICATIONS * Use this discharge instruction sheet for instructions. * Take your medications at the time your doctor ordered. * Do not skip a dose of your medicines. * If you miss a dose of medicine, take as soon as possible, but DO NOT DOUBLE A DOSE. * Read your medicine information when you get home. * Know all of the side effects of your medicine. * Call your doctor's office if you have any side effects. * Be sure all of your doctors know what medicine and herbs you take (including cold, flu, and herbal medicine). * Pain Medicine: If you do not get relief from your pain, please call your doctor for help. Take the following with you to your follow-up doctor appointments: * Weight Chart * Medication List * List of questions Do not drink excessive alcohol, beer or wine. Other Date/Time: 07/27/21 01:50
== END 2021-07-27 04:10 | disposition expired | DRG 246 ==
LOC: ED 12:36 → EDINP 15:02 → SUATTDRO 15:02 → 2W 21:14 → 1E 07-21 20:30